=== PATIENT | female | born 1940 | race Caucasian/White ===

== ENCOUNTER → 2018-02-07 01:17 | Outpatient (CLI) | payer MEDICARE, OTHER, SELFPAY ==
--- NOTE | 2018-02-07 12:47 | DI.REPORT_ITS ---
SYMPTOMS/DIAGNOSIS: SCREENING, Z12.31 MAMMOGRAMS: Mammograms were interpreted according to the usual protocol including computer analysis with CAD system, tomosynthesis and C view imaging. There are small bilateral nodular densities. There is no evidence of a dominant mass. There are no suspicious calcifications and there has been no significant interval change when compared with prior images. SUMMARY: No evidence of malignancy, category 1. Annual screening mammography is recommended. Breast density category B. SA ASSESSMENT OF FINDINGS: Negative. Category 1. Patient will receive a letter notifying them of these results. BI-RADS category B. There are scattered areas of fibroglandular density.
== END ==
PROVIDERS: PCP Student in an Organized Health Care Education/Training Program; Visit Provider Student in an Organized Health Care Education/Training Program
DX: Z12.31 Encounter for screening mammogram for malignant neoplasm of breast (principal)
CPT/HCPCS: 77063; 77067

== ENCOUNTER 2018-06-15 17:18 | Outpatient (REF) | payer MEDICARE, OTHER, SELFPAY ==
[2018-06-15 17:54] LABS: Bacteria Rare HPF (Negative); Crystals Negative HPF (Negative); Epithelial Cells Few HPF (Negative); Other Cells Few Renal (Negative); RBC 0-2 (0-2)
[2018-06-15 17:55] LABS: C & S Indicated? Yes; Mucus Negative (Negative)
== END 2018-06-15 17:38 ==
LOC: LBN 17:18
PROVIDERS: PCP Student in an Organized Health Care Education/Training Program; Visit Provider Urology
DX: R31.0 Gross hematuria (principal)
CPT/HCPCS: 81003; 99213; 81015; 87086

== ENCOUNTER → 2018-09-06 13:56 | Outpatient (BNVA) | payer MEDICARE, OTHER, SELFPAY | PROVIDERS: PCP Student in an Organized Health Care Education/Training Program; Referring Provider Student in an Organized Health Care Education/Training Program; Visit Provider Physical Therapy Assistant | DX: K21.9 Gastro-esophageal reflux disease without esophagitis (principal); R07.9 Chest pain, unspecified; I10 Essential (primary) hypertension | CPT/HCPCS: 99212; 99213 ==

== ENCOUNTER 2018-09-07 01:27 | Outpatient (CLI) | payer MEDICARE, OTHER, SELFPAY ==
--- NOTE | 2018-09-25 18:20 | ZIOP_ITS ---
ZIO PATCH REPORT DATE OF READING: September 25, 2018 STUDY INDICATION: Palpitations. REQUESTING PROVIDER: Melissa Lee D.O. FINDINGS: The patient was monitored for 12 days and 17 hours. The predominant underlying rhythm was sinus rhythm. Average heart rate in sinus rhythm 67 beats per minute, range of 48-108 beats per minute. There was rare ectopy, less than 1% PACs, and less than 1% PVCs. There were 26 episodes of supraventricular tachycardia, average heart rate 113 beats per minute, range 64-150 beats per minute. The longest episode lasted 13.3 seconds, with an average heart rate of 106 beats per minute. There were 28 episodes of ventricular tachycardia, average heart rate 154 beats per minute, range 97-115 beats per minute. The longest episode lasted 14 beats, with an average heart rate of 117 beats per minute. Some of the ventricular runs resemble supraventricular tachycardia with aberrancy. There were 8 pauses, longest 3.8 seconds occurring during daytime. There were no patient events. FINAL INTERPRETATION: Asymptomatic tachybrady syndrome.
== END 2018-09-07 01:47 ==
PROVIDERS: PCP Student in an Organized Health Care Education/Training Program; Visit Provider Student in an Organized Health Care Education/Training Program
DX: R00.2 Palpitations (principal); I47.1 Supraventricular tachycardia; I47.2 Ventricular tachycardia; I49.5 Sick sinus syndrome
CPT/HCPCS: 0296T; 93225

== ENCOUNTER 2018-09-25 14:36 | Outpatient (CLI) | payer MEDICARE, OTHER, SELFPAY | END 2018-09-25 14:56 | PROVIDERS: PCP Student in an Organized Health Care Education/Training Program; Referring Provider Student in an Organized Health Care Education/Training Program; Visit Provider Student in an Organized Health Care Education/Training Program | DX: R00.2 Palpitations (principal); I47.1 Supraventricular tachycardia; I47.2 Ventricular tachycardia; I49.5 Sick sinus syndrome | CPT/HCPCS: 0298T ==

== ENCOUNTER 2018-10-10 10:34 | Outpatient (CLI) | payer MEDICARE, OTHER, SELFPAY ==
--- NOTE | 2018-10-10 10:21 | DI.RAD_ITS ---
SYMPTOMS/DIAGNOSIS: LEFT KNEE PAIN LEFT KNEE: Three views. AP, lateral and Merchant views were obtained. There are postsurgical changes of a left total knee replacement. There is no evidence of hardware failure. The bones are intact. The patella appears grossly unremarkable. IMPRESSION: Stable left TKR.
--- NOTE | 2018-10-10 10:21 | DI.RAD_ITS ---
SYMPTOMS/DIAGNOSIS: LT KNEE PAIN, RT KNEE PAIN RIGHT KNEE: Multiple views. There are post surgical changes of a right total knee replacement. When compared to the prior examination from 12/14/16, there has been no significant change in appearance of the prosthesis. No evidence of loosening or infection is present. No acute fracture or dislocation is seen. The soft tissues are unremarkable. IMPRESSION: Stable right TKR.
== END 2018-10-10 10:54 ==
PROVIDERS: PCP Student in an Organized Health Care Education/Training Program; Referring Provider Student in an Organized Health Care Education/Training Program; Visit Provider Student in an Organized Health Care Education/Training Program
DX: M25.561 Pain in right knee (principal); M25.562 Pain in left knee; Z96.652 Presence of left artificial knee joint; T84.84XA Pain due to internal orthopedic prosthetic devices, implants and grafts, initial encounter
CPT/HCPCS: 20610; 73562; 99213; 99214; J1040

== ENCOUNTER 2018-10-12 00:25 | Outpatient (CLI) | payer MEDICARE, OTHER, SELFPAY ==
--- NOTE | 2018-10-12 10:49 | DI.NM_ITS ---
SYMPTOMS/DIAGNOSIS: S/P LT AND RT TKA, CONTINUED KAHLIL KNEE PAIN, M25.569 3 PHASE BONE SCAN: 3 phase bone scan was performed with 3 phase imaging of the knees and whole body imaging with 24.3 millicuries of Technetium 99 labeled Methylene Diphosphonate injected intravenously. Flow and immediate imaging of the knees is unremarkable. Delayed imaging of the knees shows minimally increased uptake typical for increased uptake associated with bilateral knee joint replacements. Whole body imaging shows mildly increased uptake in the ankles, hips and shoulders consistent with degenerative change and minimal increase in uptake in the thoracic and lumbar spine in multiple location also consistent with degenerative change. CONCLUSION: Unremarkable examination as described above.
== END 2018-10-12 00:45 ==
PROVIDERS: PCP Student in an Organized Health Care Education/Training Program; Visit Provider Physician Assistant
DX: M25.561 Pain in right knee (principal); M25.562 Pain in left knee; Z96.653 Presence of artificial knee joint, bilateral; M19.90 Unspecified osteoarthritis, unspecified site
CPT/HCPCS: 78315

== ENCOUNTER 2018-10-15 06:10 | Day surgery (SDC) | payer MEDICARE, OTHER, SELFPAY ==
--- NOTE | 2018-10-15 06:24 | ENDO_ITS ---
Date of service: 10/15/18 Time of Service: 07:25 Endoscopy Report DATE OF PROCEDURE: 10/15/18 PRE-OP DIAGNOSIS: GERD POST-OP DIAGNOSIS: other (mild inflammation of duodenum, stomach and esophagus) PROCEDURE: EGD with biopsies SURGEON: Mindy Velasco ANESTHESIA: other (General / ASA 2/ Aguila Sneed, MANUEL) ESTIMATED BLOOD LOSS: 3 PATHOLOGY: other (Duodenal bx, antrum bx, GE junction bx) COMPLICATIONS: None DISPOSITION: same day INDICATIONS: Mrs. Norton is a pleasant 78 year old seen in the office for GERD symptoms and atypical chest pain on no treatment. Risks, benefits and complications have been reviewed. Complications include but are not limited to bleeding, pain, perforation, sore throat, aspiration, and adverse reaction to the medications. Questions were entertained and answered to their satisfaction and they wished to proceed. No guarantees were given or implied. PROCEDURE START TIME: 07:25 PROCEDURE END TIME: 07:32 FINDINGS: Mild local inflammation of the duodenum Mild inflammation of the antrum and GE junction PROCEDURE DESCRIPTION: After informed consent was obtained the patient was take to the procedure room and placed in a supine position. Monitors were applied and a time out was done. The patients name, date of , procedure type, allergies to medications and metal in their body was reviewed. A bite block was placed and the patient was sedated. Once sedated and comfortable the gastroscope was advanced through the oropharynx which was grossly normal into the esophagus. The proximal and mid- esophagus were normal. In the distal esophagus, at the GE junction, there was mild inflammation noted noted. The scope was advanced into the stomach and through the pylorus into the 3rd portion of the duodenum. The duodenum was noted to have mild inflammation in the 1st portion. Biopsies were done of a local area of inflammation. The scope was retracted back into the stomach and biopsies were done in the antrum to rule out H. pylori. There was mild inflammation. There were no ulcers. The scope was retroflexed. The cardia and fundus were noted to be normal. There was no hiatal hernia noted. The scope was retracted back into the esophagus and biopsies were done of the GE junction to rule out Foley's. The Z line was regular. The GE junction was at 36 cm. The scope was removed and the patient was woken up and taken back to [facility] in stable condition. Follow up: with PCP in 2 weeks. Will start patient on Zantac 150 mg BID
--- NOTE | 2018-10-15 06:24 | W.PM.HP.N ---
Date of service: 10/15/18 Time of Service: 06:30 Assessment and Plan (1) Gastroesophageal reflux disease: Current visit: No Status: Chronic P\\ EGD under sedation Risks, benefits and complications have been reviewed. Complications include but are not limited to bleeding, pain, perforation, sore throat, aspiration, and adverse reaction to the medications. Questions were entertained and answered to their satisfaction and they wished to proceed. No guarantees were given or implied. Qualifiers: Esophagitis presence: esophagitis presence not specified Qualified Code(s): K21.9 - Gastro-esophageal reflux disease without esophagitis (2) Cough: Current visit: No Status: Acute History of Present Illness Narrative: 78 y.o female with history of HTN, GERD, obesity and anxiety presents for further evaluation of persistent reflux symptoms and a cough. The patient reports that she has had a persistent tickle in the back of her throat with associated cough (duration unknown) along with daily reflux symptoms that start in her epigastric region and she can feel the acid splashing up. Her last EGD was in 2015 which showed antral gastritis, no abnormalities seen from biopsies. At this time she was instructed to re start taking Nexium. She currently does not take anything to treat her reflux symptoms. Last Colonoscopy was in 2015 which showed sigmoid diverticula. Of note the patient reports a history of asthma which she treats with an inhaler (?albuterol) as needed. She heats with predominately wood Patient's Zio patch showed Tachy-Dillon syndrome. No other abnormalities. PFSH Medical History Anxiety Chest pain Dysgeusia GERD (gastroesophageal reflux disease) Gross hematuria Head ache Hyperlipidemia Idiopathic peripheral neuropathy Intertrigo Lumbago Mixed stress and urge urinary incontinence Multiple fractures of right femur Multiple joint pain Nail abnormality Nocturia Obesity Osteopenia Osteoporosis Prehypertension Right arm pain Surgical History BILATERAL TKA (10/01/12) Bilateral salpingectomy with oophorectomy section Cholecystectomy Colonoscopy - IV Sedation Hemorrhoidectomy Hysterectomy, Laproscopic Open Carpal Tunnel release RIGHT FOOT FX REPAIR Replacement of total knee joint Right arthroscopic rtotator cuff repair (04/22/13) egd (05/10/16) flexible laryngoscopy (03/12/15) Family History Mother Diabetes Personal history of malignant neoplasm Asthma Father Alzheimer's disease Son Asthma Son No problems noted. Son No problems noted. Daughter No problems noted. Sister No problems noted. Sister Personal history of malignant neoplasm Sister Personal history of malignant neoplasm Sister No problems noted. 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 Pets and animals: Yes Pets and animals: dog(s) What type of physical activity do you participate in: none Seatbelt use: always Do you feel safe at home: Yes Do you feel safe in your relationship?: Yes Victim of physical abuse: No Victim of emotional abuse: No Victim of sexual abuse: No Meds Home Medications Medication Instructions Recorded Confirmed Type ascorbic acid (vitamin C) [Vitamin 500 mg PO DAILY 01/13/15 10/15/18 History C] cyanocobalamin (vitamin B-12) 1,000 mcg SUBLINGUAL DAILY 08/28/15 10/15/18 History [Vitamin B-12] biotin 1 tab PO DAILY 06/06/17 10/15/18 History flaxseed oil 1,000 mg PO DAILY 10/09/17 10/15/18 History cholecalciferol (vitamin D3) 3 tab PO DAILY #270 tab.chew 12/28/17 10/15/18 Rx hydrochlorothiazide 25 mg tablet 12.5 mg PO DAILY tab 04/05/18 10/15/18 History cannabidiol (CBD) 100 mg/mL oral See Rx Instructions PO .COMPLEX ml 08/16/18 10/15/18 History solution vitamin E mixed 400 unit capsule 400 unit PO cap 08/16/18 10/10/18 History naproxen sodium 220 mg tablet 220 mg PO DAILY PRN 09/06/18 10/10/18 History Allergies Allergy/AdvReac Type Severity Reaction Status Date / Time adhesive tape Allergy Intermediate blisters Verified 10/15/18 06:36 on skin Sulfa (Sulfonamide Allergy Intermediate sister Verified 10/15/18 06:36 Antibiotics) of anaphylaxis per pt aspirin AdvReac Intermediate nosebleeds Verified 10/15/18 06:36 codeine AdvReac Intermediate blackouts Verified 10/15/18 06:36 latex AdvReac Intermediate skin-red Verified 10/15/18 06:36 ithcy spots on skin morphine AdvReac Intermediate becomes Verified 10/15/18 06:36 very ill, vomting Exam Resp Effort & Inspection: normal respiratory effort Auscultation: clear to auscultation bilaterally Cardio Rate: regular rate Rhythm: regular rhythm Heart Sounds: no click, no gallops and no murmurs GI Inspection: normal to inspection Palpation: soft Auscultation: normal bowel sounds
[2018-10-15 06:29] VITALS: BP 144/76; PULSE 59; RESP 16; TEMP 36.3; O2SAT 97
--- NOTE | 2018-10-15 06:30 | W.PM.DSUDISC ---
Discharge Plan Disposition Patient Disposition: HOME Condition: Good Discharge Details Reason For Visit: GERD, Cough Attending Provider: Mindy Velasco Primary Care Provider: Melissa Lee Home Meds and New Rx's Prescriptions: New ranitidine HCl 150 mg tablet 150 mg PO BID Qty: 60 RF: 1 Continued hydrochlorothiazide 25 mg tablet 12.5 mg PO DAILY RF: 0 vitamin E mixed 400 unit capsule 400 unit PO RF: 0 cannabidiol (CBD) extract 100 mg/mL solution See Patient Comments PO .COMPLEX RF: 0 ascorbic acid (vitamin C) [Vitamin C] 500 MG tablet 500 mg PO DAILY RF: 0 flaxseed oil 1,000 MG capsule 1,000 mg PO DAILY RF: 0 cholecalciferol (vitamin D3) 400 UNIT tablet,chewable 3 tab PO DAILY Qty: 270 RF: 4 naproxen sodium [Aleve] 220 mg tablet 220 mg PO DAILY PRNRF: 0 cyanocobalamin (vitamin B-12) [Vitamin B-12] 1,000 MCG tablet, sublingual 1,000 mcg Sublingual DAILY RF: 0 biotin 800 MCG tablet 1 tab PO DAILY RF: 0 Discharge Instructions Instructions: Upper Endoscopy (DC), Duodenitis (DC), Diet for Stomach Ulcers and Gastritis (GEN), Gastritis (DC), Gastroesophageal Reflux Disease (DC) Additional Instructions: Findings: mild inflammation of the small bowel, stomach and esophagus Follow up: with your Primary Care Physician in 2 weeks New Medication: Please moss picker Rx for Ranitidine at your pharmacy and take 1 tab in the morning and 1 tab at night Please call if you develop: fevers >101.5 Nausea or Vomiting Abdominal pain that is not transient DAY SURGERY UNIT POST COLONOSCOPY INSTRUCTIONS 1. Because there will be medication in your system for the next 24 hours, you may feel a little sleepy. Your coordination will be affected. Therefore: a. Do not drive or operate dangerous equipment for 24 hours. b. Do not drink alcohol beverages for 24 hours (not even beer). c. Plan to go home and rest for the day. 2. Generally there are no restrictions on your activity after a day or so has gone by, but you may feel a bit fatigued for a few days. 3 After you arrive home you may have a light meal and return to a normal diet as you can tolerate it without feeling sick to your stomach. 4. After surgery, you may feel pain or discomfort. This should be only transient, but if it persists please contact your doctor. 5. If there are any questions regarding the findings of your procedure, please feel free to contact your doctor. 6. If you are unable to contact your doctor with a problem, contact the hospital at [phone]. 7. Continue all your regular medications unless directed otherwise. I understand the above instructions and have no questions. Signature of Patient or Responsible Adult Escort Date/Time Name of Responsible Adult Escort Signature of Nurse Date/Time Stand Alone Forms: DSU Post EGD Instructions, Marshall Negrete (DSU) Referrals: Melissa Lee DO [Primary Care Provider] - (2 weeks) Activity:: Activity as Tolerated Diet:: low acid Discharge Orders Discharge Orders: Discharge Order (Routine); Ordered 10/15/18 Ordered By: Mindy Velasco DS: Diagnosis Discharge Diagnosis (1) Gastroesophageal reflux disease: Status: Chronic (2) Cough: Status: Acute
[2018-10-15] MEDS: Lactated Ringers 1,000 ML 80 ML IV (07:12)
--- NOTE | 2018-10-15 07:28 | STOM_PTH ---
PATIENT: Crystal Norton LOC: [facility] U#:[id number] AGE/SX: 78/F ROOM: RE10/15/[address]: Mindy Velasco MD : [id number] BED: DIS: 10/15/2018 SPEC #: [id number] RECD: 10/15/18 12:40 STATUS: EARL RE #: [id number] YUVAL: 10/15/18 07:[address]: Mindy Velasco DEPT: Surgical Specimen RECD BY: Bessy Pyle ENTERED: 10/15/18 12:43 SP TYPE: STOMACH OTHR DR: Melissa Lee DO Tissues: 1 - BIOPSY BOWEL 2 - STOMACH BIOPSY 3 - ESOPHAGUS BIOPSY Procedures: GROSS AND MICRO LEVEL 4 Comments: [id number]
[2018-10-15 08:10] VITALS: BP 124/69; PULSE 52; RESP 18; TEMP 35.7; O2SAT 99
== END 2018-10-15 08:27 | disposition home or self-care (01) ==
PROVIDERS: PCP Student in an Organized Health Care Education/Training Program; Visit Provider Surgery
PROC: 0DJ68ZZ Inspection of Stomach, Via Natural or Artificial Opening Endoscopic (ICD-10-PCS; CPT 43235; principal; 2018-10-15 07:30)
DX: K21.9 Gastro-esophageal reflux disease without esophagitis (principal); R05 Cough; K31.89 Other diseases of stomach and duodenum; K20.9 Esophagitis, unspecified
CPT/HCPCS: 43239; 88305; NC

== ENCOUNTER → 2018-10-17 13:57 | Outpatient (BNVA) | payer MEDICARE, OTHER, SELFPAY | PROVIDERS: PCP Student in an Organized Health Care Education/Training Program; Referring Provider Student in an Organized Health Care Education/Training Program; Visit Provider Student in an Organized Health Care Education/Training Program | DX: Z98.890 Other specified postprocedural states (principal); Z47.1 Aftercare following joint replacement surgery; Z96.653 Presence of artificial knee joint, bilateral; M76.52 Patellar tendinitis, left knee; T84.84XD Pain due to internal orthopedic prosthetic devices, implants and grafts, subsequent encounter | CPT/HCPCS: 99212; 99213 ==

== ENCOUNTER 2018-12-10 16:26 | Outpatient (REF) | payer MEDICARE, OTHER, SELFPAY | END 2018-12-10 16:46 | LOC: LBN 16:26 | PROVIDERS: PCP Student in an Organized Health Care Education/Training Program; Visit Provider Nurse Practitioner Adult Health | DX: R30.0 Dysuria (principal) | CPT/HCPCS: 87086 ==

== ENCOUNTER 2018-12-10 16:28 | Outpatient (CLI) | payer MEDICARE, OTHER, SELFPAY ==
[2018-12-10 16:55] LABS: Abs Immature Grans 0.02 k/cumm (0.0-0.09); Absolute Basophil Count 0.01 k/cumm (0.0-0.2); Absolute Eosinophil Count 0.21 k/cumm (0.0-0.7); Absolute Lymphocyte Count 1.94 k/cumm (1.2-3.4); Absolute Neutrophil Count 3.96 k/cumm (1.2-6.7); Basophils % 0.1; HGB 12.3 g/dL (12.0-15.5); Immature Grans % 0.3; Mean Corp. HGB Concentration 32.4 g/dL (32.0-36.0); Mean Corpuscular Hemoglobin 31.5 pg (27.0-33.0); Mean Corpuscular Volume 97.2 fL (80-95); Mean Platelet Volume 10.1 fL (8.0-11.0); Monocytes % 11.5; Neutrophils % 57.1; Platelet Count 215 x1000/uL (130-400); RBC 3.91 m/cumm (4.00-5.20); RBC Distribution Width 13.2 % (11.7-14.6); White Blood Cell Count 6.94 k/cumm (4.4-10.8)
[2018-12-10 18:10] LABS: ALT 19 U/L (12-78); AST 15 U/L (15-37); Albumin 3.6 g/dL (3.4-5.0); Alkaline Phosphatase 104 U/L (46-116); Anion Gap 8.1 mmol/L (3-11); BUN 30 mg/dL (7-18); Bilirubin, Total 0.3 mg/dL (0.2-1.0); CO2 30.9 mmol/L (21.0-32.0); CREATININE 1.27 mg/dL (0.55-1.02); Calcium 8.8 mg/dL (8.5-10.1); Chloride 103 mmol/L (98-107); Estimated GFR 40.59 (mL/min/1.73m2); Glucose 93 mg/dL (70-100); Potassium 3.7 mmol/L (3.5-5.1); Sodium 142 mmol/L (136-145); TSH (W/Ref FT4) 1.35 uIU/mL (0.358-3.74); Total Protein 6.9 g/dL (6.4-8.2); Vitamin B12 994 pg/mL (193-986)
== END 2018-12-10 16:48 ==
PROVIDERS: PCP Student in an Organized Health Care Education/Training Program; Visit Provider Nurse Practitioner Adult Health
DX: R07.9 Chest pain, unspecified (principal); R53.83 Other fatigue
CPT/HCPCS: 36415; 80053; 82607; 84443; 85025

== ENCOUNTER → 2019-01-16 09:49 | Outpatient (BNVA) | payer MEDICARE, OTHER, SELFPAY | PROVIDERS: PCP Student in an Organized Health Care Education/Training Program; Referring Provider Student in an Organized Health Care Education/Training Program; Visit Provider Student in an Organized Health Care Education/Training Program | DX: T84.84XA Pain due to internal orthopedic prosthetic devices, implants and grafts, initial encounter (principal); Z96.653 Presence of artificial knee joint, bilateral; M22.2X1 Patellofemoral disorders, right knee; M22.2X2 Patellofemoral disorders, left knee; Z98.890 Other specified postprocedural states; M25.512 Pain in left shoulder | CPT/HCPCS: 99213 ==

== ENCOUNTER 2019-02-20 00:17 | Outpatient (CLI) | payer MEDICARE, OTHER, SELFPAY ==
--- NOTE | 2019-02-20 14:31 | DI.MAMMO_ITS ---
SYMPTOMS/DIAGNOSIS: SCREENING, Z12.31 MAMMOGRAM: Mammograms were interpreted according to the usual protocol including computer analysis with CAD system, tomosynthesis and C view imaging. The breasts are of moderate density with fairly symmetrical distribution of fibroglandular tissue. No dominant mass or clumped microcalcification is identified in either breast. Current examination is compared with the previous examinations including January 2018 and there has been no gross interval change in appearance in comparison with the previous studies. CONCLUSION: No specific evidence of malignancy at this time. Routine screening examinations are suggested at yearly intervals in this age group according to the ACS/ACR guidelines. Category 1, breast density category B. MQSA ASSESSMENT OF FINDINGS: Negative. Category 1. Patient will receive a letter notifying them of these results. BI-RADS category B. There are scattered areas of fibroglandular density.
== END 2019-02-20 00:37 ==
PROVIDERS: PCP Student in an Organized Health Care Education/Training Program; Visit Provider Student in an Organized Health Care Education/Training Program
DX: Z12.31 Encounter for screening mammogram for malignant neoplasm of breast (principal)
CPT/HCPCS: 77063; 77067

== ENCOUNTER → 2019-03-14 09:18 | Outpatient (BNVA) | payer MEDICARE, OTHER, SELFPAY | PROVIDERS: PCP Student in an Organized Health Care Education/Training Program; Referring Provider Student in an Organized Health Care Education/Training Program; Visit Provider Student in an Organized Health Care Education/Training Program | DX: M75.82 Other shoulder lesions, left shoulder (principal); Z87.828 Personal history of other (healed) physical injury and trauma | CPT/HCPCS: 99213; 99214 ==

== ENCOUNTER → 2019-06-18 10:19 | Outpatient (BNVA) | payer MEDICARE, OTHER, SELFPAY | PROVIDERS: PCP Student in an Organized Health Care Education/Training Program; Referring Provider Student in an Organized Health Care Education/Training Program; Visit Provider Urology | DX: N39.46 Mixed incontinence (principal); R31.29 Other microscopic hematuria | CPT/HCPCS: 81003; 99213 ==

== ENCOUNTER 2019-07-04 03:53 | Outpatient (CLI) | payer MEDICARE, OTHER, SELFPAY | END 2019-07-04 04:13 | PROVIDERS: PCP Student in an Organized Health Care Education/Training Program; Visit Provider Student in an Organized Health Care Education/Training Program | DX: R00.2 Palpitations (principal); I47.1 Supraventricular tachycardia; I49.1 Atrial premature depolarization; I47.2 Ventricular tachycardia | CPT/HCPCS: 93225 ==

== ENCOUNTER 2019-07-06 07:51 | Outpatient (CLI) | payer MEDICARE, OTHER, SELFPAY ==
--- NOTE | 2019-07-08 08:33 | W.HOLTRPT ---
Date of service: 07/08/19 Time of Service: 08:33 Holter Monitor Report Holter Monitor Note: This is a 1 day Holter monitor ordered for the indication of palpitations. ?The patient was in normal sinus rhythm for the majority of the recording. ?The patient had 4 episodes of supraventricular tachycardia with the longest lasting 13 beats. ?There were occasional (1.2%) premature atrial contractions and no runs of PACs. ?There were 2 episodes of ventricular tachycardia with the longest lasting 8 beats. ?There were rare (less than 1%) single ventricular ectopic beats and rare couplets. ?There were no episodes of atrial fibrillation, pauses greater than 3 seconds or evidence of high degree heart block. ?Patient diary events were associated with normal sinus rhythm and single ventricular ectopic beats.
== END 2019-07-06 08:11 ==
PROVIDERS: PCP Student in an Organized Health Care Education/Training Program; Visit Provider Student in an Organized Health Care Education/Training Program
DX: R00.2 Palpitations (principal); I47.1 Supraventricular tachycardia; I49.1 Atrial premature depolarization; I47.2 Ventricular tachycardia
CPT/HCPCS: 93226

== ENCOUNTER 2019-07-08 08:33 | Outpatient (CLI) | payer MEDICARE, OTHER, SELFPAY | END 2019-07-08 08:53 | PROVIDERS: PCP Student in an Organized Health Care Education/Training Program; Referring Provider Student in an Organized Health Care Education/Training Program; Visit Provider Internal Medicine Cardiovascular Disease | DX: R00.2 Palpitations (principal); I47.1 Supraventricular tachycardia; I49.1 Atrial premature depolarization; I47.2 Ventricular tachycardia | CPT/HCPCS: 93227 ==

== ENCOUNTER → 2019-07-12 10:02 | Outpatient (BNVA) | payer MEDICARE, OTHER, SELFPAY | PROVIDERS: PCP Student in an Organized Health Care Education/Training Program; Referring Provider Student in an Organized Health Care Education/Training Program; Visit Provider Student in an Organized Health Care Education/Training Program | DX: M75.82 Other shoulder lesions, left shoulder (principal) | CPT/HCPCS: 20610; 99213; J1040 ==

== ENCOUNTER 2020-03-04 17:49 | Inpatient (IN) | payer MEDICARE, OTHER, SELFPAY ==
[2020-03-04] VITALS (46 sets, daily range): BP systolic 110–155; BP diastolic 44–87; PULSE 41–89; RESP 10–35; TEMP 36.3–36.8; O2SAT 93–100
--- NOTE | 2020-03-04 17:45 | RT.EKG_ITS ---
APPROVED REPORT Exam: Resting ECG Patient Location: E HR:61 bpm ECG Measurements Heart Rate 61 AXIS KS 180 P 75 QRSd 106 QRS -44 QT 462 T 44 QTc 465 Conclusion EKG 18: 04 Rate 61, sinus rhythm, intervals unremarkable. No significant ST elevations or depression, there is evidence of repolarization abnormality, slight widening of the QRS. Otherwise unremarkable
--- NOTE | 2020-03-04 18:04 | ED.GENADUL_ITS ---
Discharge Plan Disposition Patient Disposition: [facility] INPATIENT Condition: Serious Discharge Details Chief Complaint: GenMedical Clinical Impression: Bradycardia, Acute epigastric pain, Chest pain, Breath shortness Primary Care Provider: Melissa Lee ED Provider: Jordin Schmid [place] Meds and New Rx's Prescriptions: No Action hydrochlorothiazide 25 mg tablet 25 mg PO DAILY Qty: 90 RF: 3 cannabidiol 100 mg/mL solution See Rx Instructions PO .COMPLEX PRNRF: 0 vitamin E mixed 400 unit capsule 400 unit PO DAILY RF: 0 albuterol sulfate [Ventolin HFA] 90 mcg/actuation HFA aerosol inhaler 2 puff IH Q6H PRN (Reason: shortness of breath or wheezing) Qty: 6.7 RF: 0 flaxseed oil 1,000 MG capsule 1,000 mg PO DAILY RF: 0 cholecalciferol (vitamin D3) 400 UNIT tablet,chewable 3 tab PO DAILY Qty: 270 RF: 4 ascorbic acid (vitamin C) [Vitamin C] 500 mg tablet 500 mg PO DAILY RF: 0 cyanocobalamin (vitamin B-12) [Vitamin B-12] 1,000 MCG tablet, sublingual 1,000 mcg Sublingual DAILY RF: 0 biotin 800 MCG tablet 1 tab PO DAILY RF: 0 Medical Decision Making <Jesus Manuel Hamm DO - Last Filed: 03/04/20 19:38> 79-year-old female with a past medical history of hypertension, arthritis, anxiety, obesity, spinal stenosis, GERD, presents today for generalized symptoms of feeling unwell, in conjunction with central chest pain, cough that is productive, notable fatigue. Patient states that for the last 4 to 5 days she has been feeling generally unwell, she has had a mild cough that she states she has been trying to fight, it is been productive with clear sputum. She admits to occasional chills, fatigue, generalized malaise. Over the last day or so she has developed left-sided chest discomfort, just over her right breast. Worse with palpation and movement. Radiates up to her neck. She describes it as an aching pinching sensation. She denies vomiting or diarrhea but also does admit to epigastric discomfort and generalized nausea and abdominal pain. She denies any history of cardiac disease, she denies that the symptoms are worse when she lies down, she denies any pain in her left or right arms. She denies any change with diet. She does admit to worsening pain when she breathes. She denies any recent weight gain. She denies any recent long trips surgeries or procedures. She denies a history of previous PE. She has been taking her inhalers at home, they have been helping except for the last day or so, and states that they are no longer beneficial. Differential is notably broad, as the patient is multiple symptoms, however infectious etiology including UTI, pneumonia is certainly on the differential. With her pleuritic chest pain and age, asthma versus PE is also on the differential. We will test for influenza and coronavirus, will monitor closely and reassess. Currently the patient's vital signs are reassuringly stable though which is certainly an encouragement. Cardiac etiology is also of concern, screening EKG though shows no evidence of STEMI. 7:36 PM Patient's laboratory work-up is returning, proBNP is only slightly elevated at 666, GFR 39, creatinine 1.3, potassium is 3.3, we will correct this. Pending [facility] level. No white count or bandemia. Kidney function is not able to tolerate CT with contrast, we will change imaging to Noncon to evaluate the abdomen and chest, and get a d-dimer to help differentiate for PE. The patient has had a few episodes of notable bradycardia here going into the 30s and 40s. Rhythm strip demonstrates sinus rhythm, with no evidence of significant block otherwise that can be appreciated. Patient has been placed on pacer pads, atropine is at bedside. Patient will be signed out to my colleague Dr. Schmid for follow-up on labs and imaging. EKG 18: 04 Rate 61, sinus rhythm, intervals unremarkable. No significant ST elevations or depression, there is evidence of repolarization abnormality, slight widening of the QRS. Otherwise unremarkable Candidate vein examined with linear array probe - confirmed collapsibility, lack of pulsatility, and proper anatomic location. Using aseptic technique, IV catheter inserted with flash of blood noted, flow of venous blood confirmed. Flushes easily and without pain. No hematoma or complications noted. IV secured. Patient tolerated well. <Jordin Schmid MD - Last Filed: 03/04/20 21:45> pt's hr now in the 50's in sinus and does state she feels better but still has reproducible left lateral chest tenderness. labs show no acute findings, UA unremarkable and awaiting flu. After discussion with the pt and her symptoms she prefers observation in the hospital overnight due to her heart rate being low intermittent and pain. Her d dimer is just outside normal age adjusted range but has no hypoxia or evidence of dvt on exam so do not feel empiric tx for PE indicated and do not feel cta indicated. spoke with Dr. Hicks who agrees for observation and will reevaluate in AM need for further PE workup Imaging Data Radiologic Study: Attestation: I personally reviewed and interpreted this imaging study as follows: Imaging: CT Scan Radiologist's impression: no acute findings on chest/abd/pelvis ct HPI <Jesus Manuel Hamm, - Last Filed: 03/04/20 19:38> General Date/Time Provider Initiated Documentation: 03/04/20 17:49 . HPI Narrative: 79-year-old female with a past medical history of hypertension, arthritis, anxiety, obesity, spinal stenosis, GERD, presents today for generalized symptoms of feeling unwell, in conjunction with central chest pain, cough that is productive, notable fatigue. Patient states that for the last 4 to 5 days she has been feeling generally unwell, she has had a mild cough that she states she has been trying to fight, it is been productive with clear sputum. She admits to occasional chills, fatigue, generalized malaise. Over the last day or so she has developed left-sided chest discomfort, just over her right breast. Worse with palpation and movement. Radiates up to her neck. She describes it as an aching pinching sensation. She denies vomiting or diarrhea but also does admit to epigastric discomfort and generalized nausea and abdominal pain. She denies any history of cardiac disease, she denies that the symptoms are worse when she lies down, she denies any pain in her left or right arms. She denies any change with diet. She does admit to worsening pain when she breathes. She denies any recent weight gain. She denies any recent long trips surgeries or procedures. She denies a history of previous PE. She has been taking her inhalers at home, they have been helping except for the last day or so, and states that they are no longer beneficial. Related Data Home Medications Medication Instructions Recorded Confirmed cyanocobalamin (vitamin B-12) 1,000 mcg SUBLINGUAL DAILY 08/28/15 03/04/20 [Vitamin B-12] biotin 1 tab PO DAILY 06/06/17 03/04/20 flaxseed oil 1,000 mg PO DAILY 10/09/17 03/04/20 cholecalciferol (vitamin D3) 3 tab PO DAILY #270 tab.chew 12/28/17 03/04/20 albuterol sulfate 90 mcg/actuation 2 puff IH Q6H PRN #6.7 gm 12/28/18 03/04/20 aerosol inhaler cannabidiol 100 mg/mL oral solution See Rx Instructions PO .COMPLEX 12/28/18 03/04/20 PRN ml hydrochlorothiazide 25 mg tablet 25 mg PO DAILY #90 tab 04/03/19 03/04/20 vitamin E mixed 400 unit capsule 400 unit PO DAILY cap 04/03/19 03/04/20 ascorbic acid (vitamin C) 500 mg 500 mg PO DAILY tab 06/12/19 03/04/20 tablet Previous Rx's Medication Instructions Recorded cholecalciferol (vitamin D3) 3 tab PO DAILY #270 tab.chew 12/28/17 albuterol sulfate 90 mcg/actuation 2 puff IH Q6H PRN #6.7 gm 12/28/18 aerosol inhaler hydrochlorothiazide 25 mg tablet 25 mg PO DAILY #90 tab 04/03/19 Allergies Allergy/AdvReac Type Severity Reaction Status Date / Time adhesive tape Allergy Intermediate blisters Verified 03/04/20 18:56 on skin Sulfa (Sulfonamide Allergy Intermediate sister Verified 03/04/20 18:56 Antibiotics) of anaphylaxis per pt aspirin AdvReac Intermediate nosebleeds Verified 03/04/20 18:56 codeine AdvReac Intermediate blackouts Verified 03/04/20 18:56 latex AdvReac Intermediate skin-red Verified 03/04/20 18:56 ithcy spots on skin morphine AdvReac Intermediate becomes Verified 03/04/20 18:56 very ill, vomting General Stated Complaint: GenMedical BENNY: 3 Review of Systems <Jesus Manuel Hamm DO - Last Filed: 03/04/20 19:38> All systems reviewed & are unremarkable except as noted in HPI and below PFSH <Jesus Manuel Hamm DO - Last Filed: 03/04/20 19:38> Medical History Anxiety Chest pain Dysgeusia GERD (gastroesophageal reflux disease) Gross hematuria Head ache Hyperlipidemia pt. states she is unsure if she has this Idiopathic peripheral neuropathy Intertrigo Lumbago Mixed stress and urge urinary incontinence Multiple fractures of right femur pt states she fractured her hip Multiple joint pain Nail abnormality Nocturia Obesity Osteopenia Osteoporosis Prehypertension Right arm pain Surgical History Bilateral salpingectomy with oophorectomy BILATERAL TKA (10/01/12) DR. VANDANA HARDIN section X4 Cholecystectomy Colonoscopy - IV Sedation egd (05/10/16) flexible laryngoscopy (03/12/15) Dr Villatoro Hemorrhoidectomy History of esophagogastroduodenoscopy (EGD) (Chronic ~10/15/18) Hysterectomy, Laproscopic Open Carpal Tunnel release Replacement of total knee joint Right arthroscopic rtotator cuff repair (04/22/13) RIGHT FOOT FX REPAIR Family History Mother , Fluid buildup at age 72. Diabetes did not have diabetes Personal history of malignant neoplasm Asthma Father , AD,blood clot at age 69. Alzheimer's disease Son Asthma Son No problems noted. Son No problems noted. Daughter No problems noted. Sister No problems noted. Sister Personal history of malignant neoplasm Sister Personal history of malignant neoplasm Sister No problems noted. 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 3.ENT: Atraumatic external nose and ears. Dry MM. Neck: Symmetric, trachea midline, No thyromegaly. Patient demonstrates good movement of cervical neck. There is no nuchal rigidity, no nuchal tenderness. Patient is able to flex the neck without any difficulty or significant pain. 4.CVS: +S1/S2, No murmurs or gallops. Peripheral pulses 2+ and equal in all extremities. Brisk capillary refill in all extremities. Radial pulses +2 bilaterally. Notable reproducible pain on palpation over the left chest wall. No evidence of trauma though. 5.RESP: Unlabored respiratory effort. Mild crackles in the bases, no wheezes or rhonchi. 6.GI: Soft, Nondistended, No hepatosplenomegaly. Mild epigastric tenderness. No guarding or rebound. 7.MSK: Normocephalic/Atraumatic, Extremities w/o deformity or ttp No cyanosis or clubbing, Normal movement of all extremities, trace pitting edema in the lower extremities, slightly less than +1. No unilateral or bilateral calf tenderness. 8.Skin: Warm, Dry. No rashes or lesions. 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 Sensation grossly intact, no focal neurologic deficits. 10.Psych: (AAO) x3. Appropriate mood and affect Course <Jesus Manuel Hamm DO - Last Filed: 03/04/20 19:38> Vital Signs Vital signs: Vital Signs Temperature 36.3 C L 03/04/20 17:57 Pulse Oximetry 100 03/04/20 17:57 Temperature 36.3 C L 03/04/20 17:57 Temperature Source Skin 03/04/20 17:57 Respiratory Effort 03/04/20 18:00 Blood Pressure Position Supine 03/04/20 17:57 Pulse Oximetry 100 03/04/20 17:57 Oxygen Delivery Method Room Air 03/04/20 17:57 Oxygen Flow Rate 0 03/04/20 17:57 Pain Level 10 03/04/20 17:57 Lab/Test Results Lab/Test Results: 03/04/20 18:02 Blood Blood Culture - Pending 03/04/20 18:02 Blood Blood Culture - Pending Sign Out <Jesus Manuel Hamm DO - Last Filed: 03/04/20 19:38> Sign Out Data: Sign Out Comment: Chest pain, shortness of breath, abdominal pain, nausea, follow-up on labs and imaging. Currently bradycardic intermittently, atropine at bedside, place her pads in place. Blood pressure remaining notably stable though. No signs of indication for acute transvenous pacing currently. Last updated by Jesus Manuel Hamm DO at 03/04/20 19:40
[2020-03-04] MEDS: nitroGLYcerin 0.4 MG TAB SL (18:27)
[2020-03-04] MEDS: Albuterol/Ipratropium 3 ML UPD VIAL UPD (18:41)
--- NOTE | 2020-03-04 18:47 | NUR.NOTE ---
1835 patient heart rate dropping to 38. Placed on Zoll. Dr. Hamm in room to insert IV line.
[2020-03-04] MEDS: ACETAMINOPHEN 1,000 MG/100 ML BTL 400 MG IVPB (18:52)
[2020-03-04 18:56] LABS: Abs Immature Grans 0.01 10^3/uL (0.0-0.06); Absolute Basophil Count 0.01 10^3/uL (0.0-0.2); Absolute Eosinophil Count 0.17 10^3/uL (0.0-0.7); Absolute Lymphocyte Count 2.43 10^3/uL (1.2-3.4); Absolute Monocyte Count 0.66 10^3/uL (0.1-0.8); Absolute Neutrophil Count 3.29 10^3/uL (1.2-6.7); BE (Venous) 6 mmol/L (-2-3); Basophils % 0.2; Eosinophils % 2.6; HCO3 (Venous) 30 mmol/L (23-28); HCT 36.1 % (36.0-46.0); HGB 11.7 g/dL (11.2-15.7); Immature Grans % 0.2; MCH 30.8 pg (27.0-33.0); MCHC 32.4 % (32.0-36.0); MPV 10.2 fL (8.0-11.0); Nucleated RBC 0 %; O2 Sat (Venous) 79 %; Platelet Count 204 10^3/uL (130-400); RDW 12.9 % (11.7-14.6); RDW-SD 44.6 fL; TCO2 (Venous) 27 mmol/L (24-29); WBC 6.57 10^3/uL (4.4-10.8); pCO2 (Venous) 38 mmHg (41-51); pO2 (Venous) 39 mmHg
[2020-03-04 19:06] LABS: Prothrombin Time 9.8 sec (9.3-11.0)
[2020-03-04 19:20] LABS: ALT 15 U/L (14-59); AST 15 U/L (15-37); Albumin 3.7 g/dL (3.4-5.0); Alkaline Phosphatase 68 U/L (46-116); Anion Gap 8.2 mmol/L (3-11); BUN 23 mg/dL (7-18); Bilirubin, Total 0.5 mg/dL (0.2-1.0); CO2 28.8 mmol/L (21.0-32.0); CREATININE 1.31 mg/dL (0.55-1.02); Calcium 9.6 mg/dL (8.5-10.1); Chloride 101 mmol/L (98-107); Estimated GFR 39.06 (mL/min/1.73m2); Glucose 102 mg/dL (74-106); Lipase 61 U/L (73-393); NT-proBNP 666 pg/mL (<300); Potassium 3.3 mmol/L (3.5-5.1); Sodium 138 mmol/L (136-145); Total Protein 6.9 g/dL (6.4-8.2); Troponin I < 0.05 ng/mL (<0.06)
--- NOTE | 2020-03-04 20:27 | DI.CT_ITS ---
EXAM: CT CHEST/ABD/PEL WO CLINICAL HISTORY: chest pain, cough, epigastric abd pain, low gfr TECHNIQUE: Imaging Protocol: Axial computed tomography images with coronal and sagittal reformatted images were created and reviewed CONTRAST MATERIAL: Imaging Protocol: Axial computed tomography images with coronal and sagittal refo rmatted images were created and reviewed. COMPARISON: CT RENAL COLIC WO CONTRAST from 04/11/2017 FINDINGS: CHEST: Tracheobronchial tree: Patent where visualized. Mediastinum and Emma: No dominant adenopathy or fluid collection. Pulmonary parenchyma: No consolidation or dominant measurable mass. No architectural distortion. Calc ified granuloma in the left lower lobe. Scarring or atelectasis in the lung bases bilaterally. Pleura: No effusion or pneumothorax. Heart: The heart is not dilated. Mild coronary artery calcification. No significant pericardial effu mariah. Aorta: Thoracic aorta non-dilated. Atherosclerosis. Lymph nodes: Within normal limits. Bones:Degenerative changes. Soft tissues: Unremarkable. ABDOMEN: Liver: Normal density. No measurable mass. Calcified granuloma. Gallbladder and Biliary Tract: Status post cholecystectomy. No biliary ductal dilatation. Pancreas: No abnormal calcifications or inflammatory process. Fatty atrophy. Spleen: Normal. Adrenals: No masses seen. Kidneys: Normal size, contour and axis. 4 mm nonobstructing stone in the left kidney. No masses seen . Abdominal Aorta: Abdominal portion non-dilated. Atherosclerosis. Bowel: No obstruction or bowel wall thickening. No evidence of acute appendicitis. Colonic diverticu losis. No evidence of acute diverticulitis. Peritoneal Cavity: No ascites, collection or mesenteric inflammatory response. Lymph Nodes: Within normal limits. Bones: Degenerative changes. Soft Tissues: Unremarkable. PELVIS: Bladder: Symmetric distention, no gross wall thickening. Reproductive Organs: Status post hysterectomy. Lymph Nodes: Within normal limits. Bones: Degenerative changes. S/p fixation device in the proximal right femur. Grade 1 anterolisthes is of L4 on L5. IMPRESSION: No acute process in the chest, abdomen or pelvis. RADIATION DOSE DELIVERED: 1,502.66mGy.cm Total DLP 1,502.66mGy.cm Total DLP DATA REPOSITORY: All CT scans at this facility are submitted to the National Radiology Data Registry (NRDR) Dose Index Registry (DIR) with the [employer] (ACR). RADIATION OPTIMIZATION: All CT scans at this facility use at least one of these dose optimization te chniques: automated exposure control; mA and/or kV adjustment per patient size (includes targeted exa ms where dose is matched to clinical indication); or iterative reconstruction.
[2020-03-04 20:42] LABS: Magnesium 2.3 mg/dL (1.8-2.4)
--- NOTE | 2020-03-04 20:49 | DI.VRAD_ITS ---
PROCEDURE INFORMATION: Exam: CT Chest Without Contrast Exam date and time: 03/04/2020 8:28 PM Age: 79 years old Clinical indication: Abdominal pain; Localized; Upper; Type not specified; Prior surgery; Surgery type: RT hip; Patient HX: Chest pain, cough, epigastric abd pain x1 week. Heart rate keeps dropping into the 30's per nurse, defibrillator pads in place TECHNIQUE: Imaging protocol: Computed tomography of the chest without contrast. Radiation optimization: All CT scans at this facility use at least one of these dose optimization techniques: automated exposure control; mA and/or kV adjustment per patient size (includes targeted exams where dose is matched to clinical indication); or iterative reconstruction. COMPARISON: MRI LUMBAR,PELVIS,HIPS WO 01/26/2016 4:13 PM FINDINGS: Lungs: Linear atelectasis in the left lung base. Mild scarring in the right lung base. No significant interstitial or airspace disease is appreciated. Airways are patent. Pleural space: Unremarkable. No pneumothorax. No pleural effusion. Heart: There is calcification of the aortic valve annulus. There is mild atherosclerotic calcification of the coronary arteries. The heart is not enlarged. No pericardial thickening or effusion. Pulmonary arteries: The pulmonary arteries demonstrate mild central enlargement, consistent with mild pulmonary hypertension. Aorta: Normal in course and caliber. No acute pathology. Lymph nodes: No adenopathy. Bones/joints: No acute skeletal pathology. Severe multilevel degenerative changes of the spine, as manifested by multilevel anterior osteophytes and multilevel decrease in intervertebral disc space. Soft tissues: Unremarkable. IMPRESSION: Negative for acute thoracic pathology. PROCEDURE INFORMATION: Exam: CT Abdomen And Pelvis Without Contrast Exam date and time: 03/04/2020 8:28 PM Age: 79 years old Clinical indication: Abdominal pain; Localized; Upper; Type not specified; Prior surgery; Surgery type: RT hip; Patient HX: Chest pain, cough, epigastric abd pain x1 week. Heart rate keeps dropping into the 30's per nurse, defibrillator pads in place TECHNIQUE: Imaging protocol: Computed tomography of the abdomen and pelvis without contrast. Radiation optimization: All CT scans at this facility use at least one of these dose optimization techniques: automated exposure control; mA and/or kV adjustment per patient size (includes targeted exams where dose is matched to clinical indication); or iterative reconstruction. COMPARISON: MRI LUMBAR,PELVIS,HIPS WO 01/26/2016 4:13 PM FINDINGS: Liver: Calcified granuloma in the right hepatic lobe is of no clinical concern. Liver is otherwise unremarkable. Gallbladder and bile ducts: Patient status post cholecystectomy. No biliary ductal dilation. Pancreas: There is diffuse atrophy of the pancreatic parenchyma. Spleen: Normal. No splenomegaly. Adrenals: Normal. No mass. Kidneys and ureters: There is a left renal collecting system calcification. No acute renal findings. No obstructive uropathy. Stomach and bowel: No bowel wall thickening, obstruction, or other acute pathology. Diffuse colonic diverticulosis is present. There is moderately excessive colonic stool content. Appendix: No evidence of appendicitis. Intraperitoneal space: Unremarkable. No free air. No significant fluid collection. Vasculature: The vasculature demonstrates diffuse mild atherosclerotic calcification. Lymph nodes: Unremarkable. No enlarged lymph nodes. Bladder: Unremarkable as visualized. Reproductive: There has been a hysterectomy. Bones/joints: Prior right femoral head fixation without acute complications. No acute skeletal pathology. Moderate multilevel degenerative changes of the spine, as manifested by multilevel anterior osteophytes and multilevel decrease in intervertebral disc space. Grade 1 anterolisthesis of L4 in relation to L5, degenerative in etiology. Soft tissues: Unremarkable. IMPRESSION: Negative for acute abdominopelvic pathology. Dictated and Authenticated by: Norbert Hopkins MD. Ordering:DAVI Ken MD
[2020-03-04 20:57] LABS: D-Dimer 955 ng/mlFEU (<500)
[2020-03-04 21:06] LABS: Bilirubin Negative (Negative); Blood Negative (Negative); Clarity Clear (Clear); Glucose Negative (Negative); Ketones Negative (Negative); Leukocyte Esterase Negative (Negative); Nitrite Negative (Negative); Specific Gravity 1.015 (1.005-1.025); Urobilinogen 0.2 EU/dL (Up TO 0.2); pH 7.5 (5-8)
[2020-03-04 21:22] LABS: Troponin I < 0.05 ng/mL (<0.06)
--- NOTE | 2020-03-04 21:53 | W.PM.HP.N ---
Date of service: 03/04/20 Time of Service: 21:53 Assessment and Plan Assessment and plan (1) Bradycardia: Status: Acute Assessment and plan: Monitor overnight on telemetry. Repeat her EKG in the morning. Correct her electrolyte abnormalities. Check an echocardiogram in the morning. Consider outpatient Holter or cardiac event recorder. (2) Atypical chest pain: Status: Acute Assessment and plan: Chest pain is clearly reproducible with chest wall palpation including her right flank pain which was elicited by palpation of her ribs. I think she has costochondritis and in spite of her minimally elevated d-dimer I doubt that she has any acute thromboembolic disease. Nevertheless since the d-dimer was ordered and found to be elevated patient will be scheduled for venous duplex scan of her legs in the morning along with an echocardiogram and a CTA of her chest presuming that her prerenal azotemia has been corrected with IV fluids overnight. Of note Dr. Hamm performed a compression venous exam of her lower extremities and did not find any noncompressibility of her lower extremities.An outpatient stress MPI can be obtained and should be considered given her bradycardia and nonspecific EKG abnormalities along with her coronary calcifications on her CT scan. (3) Prerenal azotemia: Status: Acute Assessment and plan: Prerenal azotemia secondary to hydrochlorothiazide use in the setting of decreased p.o. intake. Will correct overnight with IV fluids and recheck a BMP in the morning. (4) Hypokalemia: Status: Acute History of Present Illness History of Present Illness Chief Complaint: Dyspnea, chest pain Narrative: 79-year-old female with a past medical history significant for essential hypertension, GERD, spinal stenosis, osteoarthritis, anxiety disorder, nephrolithiasis who presented to the emergency department with several days duration of generalized malaise, dyspnea, chest wall pain, abdominal pain, flank pain without any associated fever or chills, however she has had a nonproductive cough. Upon evaluation in the emergency department she was found to be in sinus bradycardia with heart rate in the 40s not associated with any hypotension. Patient denied any syncope or near syncopal spells. Work-up in the emergency department included routine labs as well as EKG and noncontrast CT scan of the chest and abdomen and pelvis. Labs were remarkable for mild hypokalemia with a potassium of 3.3 and mild azotemia with a BUN of 23 and creatinine 1.31. Troponin I levels were negative x2 sets. proBNP was minimally elevated at 666. Because of her dyspnea and chest pain a d-dimer was checked and found to be elevated at 955 which is slightly above her age-adjusted upper limit of normal of 800. Because of her azotemia CTA of the chest could not be performed. Patient was treated in the emergency department with atropine 0.5 mg IV which improved her heart rate into the 60s. Patient is on hydrochlorothiazide for her hypertension but does not take any known AV mario blocking drugs. Patient denies any cardiac history. Her EKG demonstrated sinus rhythm at a rate of 61 bpm with a normal MS interval of 180 ms and a QRS duration of 106 ms and a corrected QT interval of 465 ms. Left axis deviation -44 degrees is present consistent with a left anterior fascicular block. Nonspecific ST abnormalities are seen in the lateral leads limb lead I, aVL, V5 and 6. The left anterior fascicular block and ST abnormalities are new compared to prior EKG from December 10, 2018. Patient is now admitted overnight for IV fluid rehydration and correction of hypokalemia along with monitoring of her heart rhythm with plans for venous duplex scan of her legs and a CTA of her chest and echocardiogram in the morning. Patient was given a therapeutic dose of Lovenox tonight pending evaluation of her elevated d-dimer. Noncontrast CT scan of the chest and abdomen pelvis showed no acute thoracic or abdominal pathology. Specifically there were no pulmonary infiltrates or masses and no evidence of acute CHF. She has coronary calcifications but no cardiomegaly or aneurysms. CT of the abdomen pelvis showed diverticulosis and left renal collecting system calcifications but no obstructive uropathy. Review of Systems Constitutional Constitutional: Reports body ache(s), Reports chills, Reports fatigue, Denies fever(s), Reports lethargy, Reports malaise and Reports weakness Eyes Eyes: Reports system reviewed and no additional complaints, except as documented ENT Ears, Nose, Mouth, and Throat: Reports system reviewed and no additional complaints, except as documented Cardiovascular Cardiovascular: Reports chest pain, Reports chest pain at rest, Denies chest pain with activity, Denies syncope, Denies lightheadedness, Denies radiating jaw, neck or arm pain, Reports dyspnea, Reports dyspnea on exertion and Reports slow heart rate Respiratory Respiratory: Reports cough, Reports dyspnea and Reports dyspnea on exertion Gastrointestinal Gastrointestinal: Reports abdominal pain, Reports loose stools, Reports nausea and Denies vomiting Genitourinary Genitourinary: Reports system reviewed and no additional complaints, except as documented, Denies dysuria and Reports flank pain Musculoskeletal Musculoskeletal: Reports back pain Integumentary/Breasts Skin/Breast: Reports breast pain Neurologic Neurologic: Reports system reviewed and no additional complaints, except as documented, Denies syncope and Reports weakness Psychiatric Psychiatric: Reports system reviewed and no additional complaints, except as documented Endocrine Endocrine: Reports system reviewed and no additional complaints, except as documented and Reports fatigue Hematologic/Lymphatic Hematologic/Lymphatic: Reports system reviewed and no additional complaints, except as documented Allergic/Immunologic Allergic/Immunologic: Reports system reviewed and no additional complaints, except as documented [facility] Medical History (Updated 03/04/20 @ 23:40 by Tino Hicks) Anxiety Chest pain Dysgeusia GERD (gastroesophageal reflux disease) Gross hematuria Head ache Hyperlipidemia pt. states she is unsure if she has this Idiopathic peripheral neuropathy Intertrigo Lumbago Mixed stress and urge urinary incontinence Multiple fractures of right femur pt states she fractured her hip Multiple joint pain Nail abnormality Nocturia Obesity Osteopenia Osteoporosis Prehypertension Right arm pain Surgical History (Updated 03/04/20 @ 23:31 by Tino Hicks) Bilateral salpingectomy with oophorectomy BILATERAL TKA (10/01/12) DR. VANDANA HARDIN section X4 Cholecystectomy Colonoscopy - IV Sedation egd (05/10/16) flexible laryngoscopy (03/12/15) Dr Villatoro Hemorrhoidectomy History of esophagogastroduodenoscopy (EGD) (Chronic ~10/15/18) History of repair of right hip joint (Acute) Hysterectomy, Laproscopic Open Carpal Tunnel release Replacement of total knee joint Right arthroscopic rtotator cuff repair (04/22/13) RIGHT FOOT FX REPAIR Family History Mother , Fluid buildup at age 72. Diabetes did not have diabetes Personal history of malignant neoplasm Asthma Father , AD,blood clot at age 69. Alzheimer's disease Son Asthma Son No problems noted. Son No problems noted. Daughter No problems noted. Sister No problems noted. Sister Personal history of malignant neoplasm Sister Personal history of malignant neoplasm Sister No problems noted. 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 Pets and animals: Yes Pets and animals: dog(s) What is your relationship status?: Panel score (0-1 are the most socially isolated patients): 0 What type of physical activity do you participate in: none Seatbelt use: always Do you feel safe at home: Yes Do you feel safe in your relationship?: Yes Victim of physical abuse: No Victim of emotional abuse: No Victim of sexual abuse: No Meds Home Medications and Allergies Home Medications Medication Instructions Recorded Confirmed Type cyanocobalamin (vitamin B-12) 1,000 mcg SUBLINGUAL DAILY 08/28/15 03/04/20 History [Vitamin B-12] biotin 1 tab PO DAILY 06/06/17 03/04/20 History flaxseed oil 1,000 mg PO DAILY 10/09/17 03/04/20 History cholecalciferol (vitamin D3) 3 tab PO DAILY #270 tab.chew 12/28/17 03/04/20 Rx albuterol sulfate 90 mcg/actuation 2 puff IH Q6H PRN #6.7 gm 12/28/18 03/04/20 Rx aerosol inhaler cannabidiol 100 mg/mL oral solution See Rx Instructions PO .COMPLEX 12/28/18 03/04/20 History PRN ml hydrochlorothiazide 25 mg tablet 25 mg PO DAILY #90 tab 04/03/19 03/04/20 Rx vitamin E mixed 400 unit capsule 400 unit PO DAILY cap 04/03/19 03/04/20 History ascorbic acid (vitamin C) 500 mg 500 mg PO DAILY tab 06/12/19 03/04/20 History tablet Allergies Allergy/AdvReac Type Severity Reaction Status Date / Time adhesive tape Allergy Intermediate blisters Verified 03/04/20 18:56 on skin Sulfa (Sulfonamide Allergy Intermediate sister Verified 03/04/20 18:56 Antibiotics) of anaphylaxis per pt aspirin AdvReac Intermediate nosebleeds Verified 03/04/20 18:56 codeine AdvReac Intermediate blackouts Verified 03/04/20 18:56 latex AdvReac Intermediate skin-red Verified 03/04/20 18:56 ithcy spots on skin morphine AdvReac Intermediate becomes Verified 03/04/20 18:56 very ill, vomting Exam Narrative Exam Narrative: Elderly obese female who is sitting up on gurney in the emergency department eating a sandwich able to talk in complete paragraphs with no dyspnea. She is alert and oriented x3. HEENT is unremarkable Neck is supple nontender no JVD normal carotid pulses no bruits Lungs are clear to auscultation Chest wall is tender over the sternum and along the left sternal costal border as well as over the medial aspect of the left breast. Heart is regular without murmur rub or gallop Left breast is normal in appearance no nipple discharge no retractions no palpable breast nodules no left axillary adenopathy. Abdomen reveals normal active bowel sounds soft diffusely tender when the patient is aware of my palpation of her abdomen however during auscultation of her abdomen I was able to press deeply without eliciting any pain or guarding or rebound tenderness. No palpable masses no bruits Lower extremities are obese but soft and nontender to palpation of her thighs or calves. She has superficial venous varicosities. There is no increased warmth and no firmness to her calves. Homans sign is absent. Pedal pulses are normal Neuro exam is grossly intact Results Labs Result diagrams: 03/04/20 18:45 03/04/20 18:45 Labs: Laboratory Results - last 24 hr 03/04/20 03/04/20 03/04/20 18:45 18:45 18:45 WBC 6.57 RBC 3.80 L Hgb 11.7 Hct 36.1 MCV 95.0 MCH 30.8 MCHC 32.4 RDW 12.9 Plt Count 204 MPV 10.2 Immature Gran % 0.2 Neutrophils % 50.0 Lymphocytes % 37.0 Monocytes % 10.0 Eosinophils % 2.6 Basophils % 0.2 Nucleated RBC % 0 Absolute Neutrophils 3.29 Absolute Lymphocytes 2.43 Absolute Monocytes 0.66 Absolute Eosinophils 0.17 Absolute Basophils 0.01 PT 9.8 INR 1.0 APTT D-Dimer VBG pH VBG pCO2 VBG pO2 VBG HCO3 VBG Total CO2 VBG O2 Saturation VBG Base Excess Sodium 138 Potassium 3.3 L Chloride 101 Carbon Dioxide 28.8 Anion Gap 8.2 BUN 23 H Creatinine 1.31 H Estimated GFR/1.73 m2 39.06 Glucose 102 Calcium 9.6 Magnesium Total Bilirubin 0.5 AST 15 ALT 15 Alkaline Phosphatase 68 Troponin I < 0.05 NT-Pro-B Natriuret Pep 666 H Total Protein 6.9 Albumin 3.7 Lipase 61 Urine Color Urine Clarity Urine pH Ur Specific [employer] Urine Protein Urine Ketones Urine Blood Urine Nitrite Urine Bilirubin Urine Urobilinogen Ur Leukocyte Esterase Urine Glucose 03/04/20 03/04/20 03/04/20 18:45 18:45 18:45 WBC RBC Hgb Hct MCV MCH MCHC RDW Plt Count MPV Immature Gran % Neutrophils % Lymphocytes % Monocytes % Eosinophils % Basophils % Nucleated RBC % Absolute Neutrophils Absolute Lymphocytes Absolute Monocytes Absolute Eosinophils Absolute Basophils PT INR APTT 25.0 D-Dimer VBG pH 7.50 H VBG pCO2 38 L VBG pO2 39 VBG HCO3 30 H VBG Total CO2 27 VBG O2 Saturation 79 VBG Base Excess 6 H Sodium Potassium Chloride Carbon Dioxide Anion Gap BUN Creatinine Estimated GFR/1.73 m2 Glucose Calcium Magnesium 2.3 Total Bilirubin AST ALT Alkaline Phosphatase Troponin I NT-Pro-B Natriuret Pep Total Protein Albumin Lipase Urine Color Urine Clarity Urine pH Ur Specific [employer] Urine Protein Urine Ketones Urine Blood Urine Nitrite Urine Bilirubin Urine Urobilinogen Ur Leukocyte Esterase Urine Glucose 03/04/20 03/04/20 03/04/20 18:45 20:17 20:50 WBC RBC Hgb Hct MCV MCH MCHC RDW Plt Count MPV Immature Gran % Neutrophils % Lymphocytes % Monocytes % Eosinophils % Basophils % Nucleated RBC % Absolute Neutrophils Absolute Lymphocytes Absolute Monocytes Absolute Eosinophils Absolute Basophils PT INR APTT D-Dimer 955 H VBG pH VBG pCO2 VBG pO2 VBG HCO3 VBG Total CO2 VBG O2 Saturation VBG Base Excess Sodium Potassium Chloride Carbon Dioxide Anion Gap BUN Creatinine Estimated GFR/1.73 m2 Glucose Calcium Magnesium Total Bilirubin AST ALT Alkaline Phosphatase Troponin I < 0.05 NT-Pro-B Natriuret Pep Total Protein Albumin Lipase Urine Color Yellow Urine Clarity Clear Urine pH 7.5 Ur Specific [employer] 1.015 Urine Protein Negative Urine Ketones Negative Urine Blood Negative Urine Nitrite Negative Urine Bilirubin Negative Urine Urobilinogen 0.2 Ur Leukocyte Esterase Negative Urine Glucose Negative Last Vital Signs Temp 36.3 C L 03/04/20 17:57 Pulse 57 L 03/04/20 21:16 Resp 21 03/04/20 21:20 BP 132/68 03/04/20 21:16 Pulse Ox 99 03/04/20 21:20 COVID-19 Screening Have you,or household,traveled outside [place] in last 14 days?: No Had IN PERSON contact w/suspected or confirmed C-19 person: No
[2020-03-04] MEDS: POTASSIUM CHLORIDE/0.9% NACL 1,000 ML 100 MEQ IV (22:55)
[2020-03-04] MEDS: Enoxaparin 100 MG/ML SYR SC (22:59)
[2020-03-04] MEDS: Potassium Chloride 10 MEQ CAPCR 40 MEQ PO (23:00)
[2020-03-05] VITALS (7 sets, daily range): BP systolic 133–156; BP diastolic 69–96; PULSE 55–62; RESP 16–18; TEMP 36–36.6; O2SAT 95–98
[2020-03-05 07:33] LABS: Anion Gap 4.9 mmol/L (3-11); BUN 23 mg/dL (7-18); CO2 28.1 mmol/L (21.0-32.0); CREATININE 1.13 mg/dL (0.55-1.02); Calcium 8.8 mg/dL (8.5-10.1); Chloride 109 mmol/L (98-107); Estimated GFR 46.33 (mL/min/1.73m2); Glucose 95 mg/dL (74-106); Potassium 4.1 mmol/L (3.5-5.1); Sodium 142 mmol/L (136-145)
[2020-03-05 07:34] LABS: Troponin I < 0.05 ng/mL (<0.06)
[2020-03-05] MEDS: Cyanocobalamin 500 MCG TAB 1000 MCG PO (08:25)
[2020-03-05] MEDS: Acetaminophen 325 MG TAB PO ×3 (08:27→21:04)
--- NOTE | 2020-03-05 10:31 | PDOC.CMIN ---
- If Service Date Differs Date of service: 03/05/20 Time of Service: 10:31 Care Management Initial Assess REASON FOR HOSPITALIZATION:: Bradycardia, atypical chest pain, and abnormal d-dimer. PAST MEDICAL HISTORY/PAST SURGICAL HISTORY:: Medical History: Anxiety, Chest pain, Dysgeusia, GERD (gastroesophageal reflux disease), Gross hematuria, Headache, Hyperlipidemia - pt. states she is unsure if she has this, Idiopathic peripheral neuropathy, Intertrigo, Lumbago, Mixed stress and urge urinary incontinence, Multiple fractures of right femur - pt states she fractured her hip, Multiple joint pain, Nail abnormality, Nocturia, Obesity, Osteopenia, Osteoporosis, Prehypertension, and Right arm pain. Surgical History: Bilateral salpingectomy with oophorectomy, BILATERAL TKA - DR. VANDANA HARDIN, section X 4, Cholecystectomy,. Colonoscopy - IV Sedation, egd (05/10/16), and flexible laryngoscopy (03/12/15) Dr Villatoro. Hemorrhoidectomy. History of esophagogastroduodenoscopy (EGD) (Chronic ~10/15/18). History of repair of right hip joint (Acute). Hysterectomy, Laproscopic. Open Carpal Tunnel release. Replacement of total knee joint. Right arthroscopic rtotator cuff repair (04/22/13). RIGHT FOOT FX REPAIR PREVIOUS FUNCTIONAL STATUS/SOCIAL/FAMILY SUPPORTS:: Crystal lives with her adult son, Alvaro, in [place]. CURRENT FUNCTIONAL STATUS:: CM is unable to meet with Crystal as she remains a PUI while awaiting Covid test results. A review of her chart reveals her BUN and creatinine remain high at 23 and 1.13 respectively. Crystal continues to report intermittent chest pain. A venous duplex scan of her legs, an echocardiogram and a CT of her chest have been ordered. CM will continue to follow. ADVANCE DIRECTIVES:: On file; daughter Sonal Rosas is listed as healthcare agent. Has patient been provided with info about the portal/API?: No Did the patient sign up for the portal?: No CODE STATUS:: Full Code INSURANCE COVERAGE / FINANCIAL ISSUES:: [place] and Medicare. PRIMARY CARE PHYSICIAN:: Melissa Lee DO POTENTIAL DISCHARGE NEEDS:: Follow up appointments with PCP and cardiology and outpatient Holter or cardiac event recorder. PATIENT/FAMILY EDUCATION NEEDS:: Discharge instructions, limitations and follow up plan of care, including Ask Me Three and self management. ANTICIPATED BARRIERS TO DISCHARGE:: No anticipated barriers at this time. TRANSPORTATION:: Via private vehicle with family. PLAN:: Anticipate Crystal will be discharged home when medically cleared by provider. She will follow up with her PCP, cardiology, and discharge plan of care as directed. Family will drive her home via private vehicle when ready. CM will continue to support patient and assess for discharge needs.
--- NOTE | 2020-03-05 11:15 | RT.EKG_ITS ---
APPROVED REPORT Exam: Resting ECG Patient Location: I HR:56 bpm ECG Measurements Heart Rate 56 AXIS AZ 204 P -2 QRSd 102 QRS -47 QT 434 T 40 QTc 418 Conclusion Sinus bradycardia...rate< 60 LAD, consider left anterior fascicular block...axis(240,-40), S>R II III aVF Anteroseptal infarct, old...Q >40mS, V1-V2
--- NOTE | 2020-03-05 16:09 | DI.US_ITS ---
APPROVED REPORT EXAM: Comprehensive 2D, Doppler, and color-flow Echocardiogram Patient Location: In-Patient Room/Bed: [facility] Computer System Specialist: Marla Landis RDCS (AE) Indications: Chest pain Other Information Technically limited study due to inability to position patient. Conclusion Normal left ventricular wall thickness and chamber size. Estimated ejection fraction is 50 to 55%. There are no segmental wall motion abnormalities Grossly normal right ventricular size and function Left atrium is borderline dilated. The right atrium is normal in size Sclerotic trileaflet aortic valve without stenosis or regurgitation Normal mitral leaflets. Trace to mild mitral regurgitation Normal tricuspid and pulmonic valves. Mild tricuspid regurgitation. Estimated right ventricular sys tolic pressure is 34 mmHg Trace pulmonic regurgitation The ascending aorta is mildly dilated measuring 3.6 cm Wall motion Left Ventricle The left ventricle is normal size. Left ventricular systolic function is borderline. There is normal left ventricular wall thickness. There is no ventricular septal defect visualized. LVEF is 50-55%. Right Ventricle The right ventricle is normal size. The right ventricular systolic function is normal. The RVSP is 33 .8 mmHg. Atria Left atrium is borderline dilated. The right atrium size is normal. The interatrial septum is intact with no evidence for an atrial septal defect. Aortic Valve The Aortic valve is sclerotic. Aortic valve is trileaflet. There is no aortic valvular stenosis. No a ortic regurgitation is present. Mitral Valve The mitral valve is normal in structure. No evidence of mitral valve stenosis. Trace to mild mitral r egurgitation. Tricuspid Valve The tricuspid valve is normal in structure. There is no tricuspid valve stenosis. Mild tricuspid regu rgitation. Pulmonic Valve The pulmonary valve is normal in structure. There is no pulmonic valvular stenosis. Trace pulmonic re gurgitation. Great Vessels The aortic root is normal in size. The ascending aorta is mildly dilated. Aortic arch is normal in c aliber. IVC is normal in size and collapses >50% with inspiration. Pericardium There is no pericardial effusion. 2D Dimensions IVSD d PLAX 1.00 cm F: 0.6-1.0 LV Vol A2C d MOD 77.0 mL LVPW d PLAX 1.04 cm F: 0.6 - 1.0 LV Vol A4C d MOD 97.3 mL LVID d PLAX 4.75 cm F: 3.8 - 5.2 LA vol/ BSA A2C s A-L 39.3 mL/m2 LVDs 3.60 cm F: 2.2 - 3.5 LA vol/ BSA A4C s A-L 27.7 mL/m2 Ao Root d 2.97 cm F: 2.7 - 3.3 LA Vol/ BSA Biplane s A-L 33.4 mL/m2 RA Area A4C 15.25 cm2 LA Area A4C s MOD 19.22 cm2 RA Vol/ BSA A4C s A-L 22.7 mL/m2 LA Area A2C s MOD 22.62 cm2 Ao Asc Diam d 3.65 cm F: 2.3 - 3.1 LV EF A4C MOD 45.0 % LV EF Teichholz 47.6 % LV EF A2C MOD 45.8 % LVEF (Vásquez's) 45.67 % F: 54 - 74 LV EF Biplane MOD 45.7 % LV Volume 66.19 mL F: 46 - 106 SV 39.90 mL LV Volume Index 34.11 mL/m2 F: 29 - 61 SV Index 20.56 mL/m2 LV Vol Biplane MOD 87.4 mL FS 23.85 % M-Mode TAPSE 2.52 cm (M/F) >1.7 LV Diastology MV E' medial 0.080 (>0.07 m/s) E/A Ratio 1.0 LV E/e MED 11.30 (<14) MV E Vmax 0.91 (0.4-1.3 m/s) MV E' lateral 0.093 (>0.1 m/s) MV A Vmax 0.95 (0.4-1.3 m/s) LV E/e LAT 9.75 (<14) MV E/A Ratio 0.95 MV E/E' medial 11.33 MV E/E' lateral 9.78 Aortic Valve LVOT Area 3.49 cm2 AoV Area Vmax 2.37 cm2 LVOT Vmax 1.05 m/s AoV Area/ BSA (Vmax) 1.22 cm2/m2 LVOT Mean Yang. 0.68 m/s DAYAMI Mean Yang. 2.35 cm2 LVOT Peak Grad 4.4 mmHg DAYAMI Mean Yang. Index 1.21 cm2/m2 LVOT Mean Grad 2.2 mmHg LVOT VTI 0.248 m LVOT Diam s 2.10 cm AoV Vmax 1.55 m/s Velocity Ratio 0.67 AoV Mean Yang. 1.01 m/s AoV Peak Grad 9.6 mmHg LVOT SV 86.55 mL AoV Mean Grad 4.6 mmHg AoV VTI 0.327 m AoV Area VTI 2.65 cm2 AoV Area/ BSA (VTI) 1.37 cm/m2 Mitral Valve MV DT 231 (160-240 msec) MV PHT 67 msec MV Area PHT 3.29 cm2 MV VTI 0.392 m MV Area VTI 2.21 (4.0-6.0 cm2) Pulmonary Valve PV Vmax 0.85 (0.5-1.5 m/s) RVOT Peak Gr. 1.98 mmHg PV Peak Grad 2.9 mmHg RVOT Mean Gr. 1.35 mmHg PV Mean Grad 1.9 mmHg RVOT VTI 0.197 m PV VTI 0.221 m RVOT Vmax 0.70 m/s Tricuspid Valve TR Peak Grad 30.7 mmHg TR Vmax 2.77 m/s RA Pressure 3.00 mmHg RVSP (TR) 33.8 mmHg
--- NOTE | 2020-03-05 17:14 | W.PM.PROGNOT ---
Date of Service Date of service: 03/05/20 Time of Service: 17:14 Assessment and Plan Assessment and plan (1) Bradycardia: Status: Acute Assessment and plan: Required atropine in the ED for HR in 40s. Tele today with HR 51-78, having pauses of about 2.1 sec, about 4-6 minutes apart, even while awake. Will monitor tonight. Certainly a concern for developing heart block/sick sinus rhythm. (2) Acute systolic CHF (congestive heart failure): Status: Acute Assessment and plan: EF borderline - 45%. Is symptomatic (short of breath) and having edema. Will trial a dose of lasix. (3) Atypical chest pain: Status: Acute Assessment and plan: Ruled out for ACS. Chest pain is mostly reproducible with palpation and is contiguous with abdominal pain and flank pain. Unfortunately, she is a PUI for COVID-19, and does not seem to be worsening, we are having to postpone until her COVID-19 status is known. She is on therapeutic lovenox until CTA can be done. Echo without wall motion abnormalities, but show an EF of 45% and pulmonary hypertension. Will need ischemic workup and CTA once able. (4) Prerenal azotemia: Status: Resolved Assessment and plan: Cr at baseline. Will monitor with dose of lasix now. (5) Hypokalemia: Status: Resolved Assessment and plan: Recheck in am - getting a dose of lasix tonight. (6) Pulmonary hypertension: Status: Acute Assessment and plan: R/o PE once COVID-19 testing is confirmed negative. She is on therapeutic anticoagulation with lovenox until that result is known. Will need a sleep study as outpatient. Jyothi, monitor volume status. (7) Discharge planning issues: Status: Acute Assessment and plan: Full code Continues to require hospitalization (8) DVT prophylaxis: Status: Acute Assessment and plan: On therapeutic lovenox Subjective Subjective Interval history since last seen: Patient reports chest pain - more specifically, pain right underneath her left ribs, as well as shortness of breath. This pain is reproducible with palpation and is contiguous with epigastric pain. She is anxious that it's her heart. She denies dizziness, nausea, vomiting. She had 2 BMs. Exam Narrative Exam Narrative: General: A&Ox3, anxious, NAD HEENT: EOMI, MMM Heart: RRR, no m/r/g Lungs: slight rales at B bases Abdomen: soft, nontender, nondistended Extremities: 2+ BLE, no clubbing/cyanosis Objective Objective Clinical Data: Abnormal lab results 03/04/20 03/04/20 03/04/20 Range/Units 18:45 18:45 18:45 RBC 3.80 L (3.93-5.22) 10^6/uL D-Dimer (<500) ng/mlFEU VBG pH 7.50 H (7.31-7.41) VBG pCO2 38 L (41-51) mmHg VBG HCO3 30 H (23-28) mmol/L VBG Base Excess 6 H (-2-3) mmol/L Potassium 3.3 L (3.5-5.1) mmol/L Chloride (98-107) mmol/L BUN 23 H (7-18) mg/dL Creatinine 1.31 H (0.55-1.02) mg/dL NT-Pro-B Natriuret Pep 666 H (<300) pg/mL 03/04/20 03/05/20 Range/Units 18:45 06:40 RBC (3.93-5.22) 10^6/uL D-Dimer 955 H (<500) ng/mlFEU VBG pH (7.31-7.41) VBG pCO2 (41-51) mmHg VBG HCO3 (23-28) mmol/L VBG Base Excess (-2-3) mmol/L Potassium (3.5-5.1) mmol/L Chloride 109 H (98-107) mmol/L BUN 23 H (7-18) mg/dL Creatinine 1.13 H (0.55-1.02) mg/dL NT-Pro-B Natriuret Pep (<300) pg/mL Vital Signs Temperature 36.6 C 03/05/20 16:23 Temperature Source Tympanic 03/05/20 16:23 Pulse 60 03/05/20 16:23 Pulse Rhythm Regular 03/05/20 17:00 Pulse 62 03/04/20 22:10 Respiratory Rate 18 03/05/20 16:23 Respiratory Effort 03/05/20 17:00 Respiratory Depth Normal 03/05/20 17:00 Respiratory Pattern Normal 03/05/20 17:00 Blood Pressure 150/71 H 03/05/20 16:23 Blood Pressure Mean 101 03/04/20 22:00 Blood Pressure Position Supine 03/04/20 17:57 Pulse Oximetry 98 03/05/20 16:23 Oxygen Delivery Method Room Air 03/05/20 16:23 Oxygen Flow Rate 0 03/05/20 16:23 Pain Level 5 03/05/20 16:23 Intake & Output 03/04/20 03/05/20 03/05/20 23:59 11:59 23:59 Intake Total 300 / 300 1225 / 1905 680 / 1905 Output Total 950 / 1350 400 / 1350 Balance 300 / 300 275 / 555 280 / 555 Weight 99.79 kg Intake: IV 100 / 100 985 / 985 Oral 200 / 200 240 / 920 680 / 920 Output: Urine 950 / 1350 400 / 1350 Other: Urine Color Yellow Yellow Yellow Urine Appearance Clear Clear Clear Urine Odor Normal Normal Normal Stool Size Moderate Stool Characteristics Soft Voiding Methods Toilet Toilet Toilet Laboratory Results WBC 6.57 10^3/uL (4.4-10.8) 03/04/20 18:45 RBC 3.80 10^6/uL (3.93-5.22) L 03/04/20 18:45 Hgb 11.7 g/dL (11.2-15.7) 03/04/20 18:45 Hct 36.1 % (36.0-46.0) 03/04/20 18:45 MCV 95.0 fL (80-95) 03/04/20 18:45 MCH 30.8 pg (27.0-33.0) 03/04/20 18:45 MCHC 32.4 % (32.0-36.0) 03/04/20 18:45 RDW 12.9 % (11.7-14.6) 03/04/20 18:45 Plt Count 204 10^3/uL (130-400) 03/04/20 18:45 MPV 10.2 fL (8.0-11.0) 03/04/20 18:45 Immature Gran % 0.2 03/04/20 18:45 Neutrophils % 50.0 03/04/20 18:45 Lymphocytes % 37.0 03/04/20 18:45 Monocytes % 10.0 03/04/20 18:45 Eosinophils % 2.6 03/04/20 18:45 Basophils % 0.2 03/04/20 18:45 Nucleated RBC % 0 % 03/04/20 18:45 Absolute Neutrophils 3.29 10^3/uL (1.2-6.7) 03/04/20 18:45 Absolute Lymphocytes 2.43 10^3/uL (1.2-3.4) 03/04/20 18:45 Absolute Monocytes 0.66 10^3/uL (0.1-0.8) 03/04/20 18:45 Absolute Eosinophils 0.17 10^3/uL (0.0-0.7) 03/04/20 18:45 Absolute Basophils 0.01 10^3/uL (0.0-0.2) 03/04/20 18:45 PT 9.8 sec (9.3-11.0) 03/04/20 18:45 INR 1.0 (0.9-1.1) 03/04/20 18:45 APTT 25.0 sec (21.0-31.4) 03/04/20 18:45 D-Dimer 955 ng/mlFEU (<500) H 03/04/20 18:45 VBG pH 7.50 (7.31-7.41) H 03/04/20 18:45 VBG pCO2 38 mmHg (41-51) L 03/04/20 18:45 VBG pO2 39 mmHg 03/04/20 18:45 VBG HCO3 30 mmol/L (23-28) H 03/04/20 18:45 VBG Total CO2 27 mmol/L (24-29) 03/04/20 18:45 VBG O2 Saturation 79 % 03/04/20 18:45 VBG Base Excess 6 mmol/L (-2-3) H 03/04/20 18:45 Sodium 142 mmol/L (136-145) 03/05/20 06:40 Potassium 4.1 mmol/L (3.5-5.1) D 03/05/20 06:40 Chloride 109 mmol/L (98-107) H 03/05/20 06:40 Carbon Dioxide 28.1 mmol/L (21.0-32.0) 03/05/20 06:40 Anion Gap 4.9 mmol/L (3-11) 03/05/20 06:40 BUN 23 mg/dL (7-18) H 03/05/20 06:40 Creatinine 1.13 mg/dL (0.55-1.02) H 03/05/20 06:40 Estimated GFR/1.73 m2 46.33 (mL/min/1.73m2) 03/05/20 06:40 Glucose 95 mg/dL (74-106) 03/05/20 06:40 Calcium 8.8 mg/dL (8.5-10.1) 03/05/20 06:40 Magnesium 2.3 mg/dL (1.8-2.4) 03/04/20 18:45 Total Bilirubin 0.5 mg/dL (0.2-1.0) 03/04/20 18:45 AST 15 U/L (15-37) 03/04/20 18:45 ALT 15 U/L (14-59) 03/04/20 18:45 Alkaline Phosphatase 68 U/L (46-116) 03/04/20 18:45 Troponin I < 0.05 ng/mL (<0.06) 03/05/20 06:40 NT-Pro-B Natriuret Pep 666 pg/mL (<300) H 03/04/20 18:45 Total Protein 6.9 g/dL (6.4-8.2) 03/04/20 18:45 Albumin 3.7 g/dL (3.4-5.0) 03/04/20 18:45 Lipase 61 U/L (73-393) 03/04/20 18:45 Urine Color Yellow (Yellow) 03/04/20 20:17 Urine Clarity Clear (Clear) 03/04/20 20:17 Urine pH 7.5 (5-8) 03/04/20 20:17 Ur Specific [place] 1.015 (1.005-1.025) 03/04/20 20:17 Urine Protein Negative mg/dL (Negative) 03/04/20 20:17 Urine Ketones Negative mg/dL (Negative) 03/04/20 20:17 Urine Blood Negative (Negative) 03/04/20 20:17 Urine Nitrite Negative (Negative) 03/04/20 20:17 Urine Bilirubin Negative (Negative) 03/04/20 20:17 Urine Urobilinogen 0.2 EU/dL (Up TO 0.2) 03/04/20 20:17 Ur Leukocyte Esterase Negative (Negative) 03/04/20 20:17 Urine Glucose Negative mg/dL (Negative) 03/04/20 20:17 COVID-19 PCR Cancelled 03/04/20 19:21 Carloaryn COVID-19 PCR Cancelled 03/04/20 19:21 Ref Test Perform Site Cancelled 03/04/20 19:21 CT chest/abdomen/pelvis w/o contrast: No acute process in the chest, abdomen or pelvis. Echo: Left Ventricle The left ventricle is normal size. Left ventricular systolic function is borderline. There is normal left ventricular wall thickness. There is no ventricular septal defect visualized. LVEF is 45%. Right Ventricle Right ventricle is not well visualized. Right ventricular systolic function could not be assessed. The RVSP is 33.8 mmHg. Atria Left atrium is borderline dilated. The right atrium size is normal. The interatrial septum is intact with no evidence for an atrial septal defect. Aortic Valve The Aortic valve is sclerotic. Aortic valve is trileaflet. There is no aortic valvular stenosis. No aortic regurgitation is present. Mitral Valve The mitral valve is normal in structure. No evidence of mitral valve stenosis. Trace to mild mitral regurgitation. Tricuspid Valve The tricuspid valve is normal in structure. There is no tricuspid valve stenosis. Mild tricuspid regurgitation. Pulmonic Valve The pulmonary valve is normal in structure. There is no pulmonic valvular stenosis. Trace pulmonic regurgitation. Great Vessels The aortic root is normal in size. The ascending aorta is mildly dilated. Aortic arch is normal in caliber. IVC is normal in size and collapses >50% with inspiration. Pericardium There is no pericardial effusion.
[2020-03-05] MEDS: Furosemide 20 MG/2 ML VIAL IVP (17:33)
[2020-03-05] MEDS: Enoxaparin 100 MG/ML SYR SC (21:04)
--- NOTE | 2020-03-06 | DI.CT_ITS ---
EXAM: CT CHEST PE ABD PELVIS W CLINICAL HISTORY: chest and abdominal pain. TECHNIQUE: Imaging Protocol: Axial CT angiography was performed with multi-slice acquisition and mu lti-planar and/or 3D reconstructions. CONTRAST MATERIAL: Intravenous: Omnipaque 350 Contrast volume:100 mL COMPARISON: CT CT CHEST/ABD/PEL WO from 03/04/2020 FINDINGS: CHEST: Pulmonary Arteries: No evidence of filling defect to suggest pulmonary emboli. Tracheobronchial tree: Patent where visualized. Mediastinum and Emma: No dominant adenopathy or fluid collection. Pulmonary parenchyma: No consolidation or dominant measurable mass. Scarring in the lung bases. Pleura: No effusion or pneumothorax. Heart: The heart is not dilated. Mild coronary artery calcification. No pericardial effusion. Aorta: Thoracic aorta non-dilated. Atherosclerosis. Bones: Degenerative changes. ABDOMEN: Liver: Normal density. No measurable mass. Portal, Superior Mesenteric, and Splenic Veins: Unremarkable. Gallbladder and Biliary Tract: Status post cholecystectomy. No significant biliary ductal dilatation . Pancreas: Normal density, no abnormal calcifications or inflammatory process. Spleen: Normal. Adrenals: No masses seen. Kidneys: Normal size, contour and axis. Nonobstructing stone in the lower pole of the left kidney. L eft renal cyst. Abdominal Aorta: Abdominal portion non-dilated. Atherosclerosis. Bowel: No obstruction or bowel wall thickening. No evidence of acute appendicitis. Colonic diverticu losis. No evidence of acute diverticulitis. Peritoneal Cavity: No ascites, collection or mesenteric inflammatory response. Lymph Nodes: Within normal limits. Bones: Right femoral orthopedic screw. Degenerative changes. Unchanged alignment of the lumbar spin e. Soft Tissues: Unremarkable. PELVIS: Bladder: Decompressed urinary bladder without gross abnormality. Reproductive Organs: Status post hysterectomy. Lymph Nodes: Within normal limits. Bones: Please see above. IMPRESSION: 1. No evidence of pulmonary embolism, thoracic aortic dissection or aneurysm. 2. No acute pulmonary process. 3. No acute abdominal or pelvic process. RADIATION DOSE DELIVERED: Total DLP Total DLP DATA REPOSITORY: All CT scans at this facility are submitted to the National Radiology Data Registry (NRDR) Dose Index Registry (DIR) with the [employer] (ACR). RADIATION OPTIMIZATION: All CT scans at this facility use at least one of these dose optimization te chniques: automated exposure control; mA and/or kV adjustment per patient size (includes targeted exa ms where dose is matched to clinical indication); or iterative reconstruction.
[2020-03-06 03:08] VITALS: BP 129/69; PULSE 69; RESP 20; TEMP 37; O2SAT 95
--- NOTE | 2020-03-06 08:00 | DI.US_ITS ---
EXAM: US EXTREMITY VENOUS BI CLINICAL HISTORY: Abnormal d-dimer. TECHNIQUE: Bilateral lower extremity venous ultrasound performed using grayscale, color-flow, and sp ectral Doppler analysis. COMPARISON: No exams were available for comparison FINDINGS: The bilateral common femoral, femoral and popliteal veins demonstrate normal compressibility, augment ation, and color Doppler. The posterior tibial veins are patent. The saphenofemoral junctions are unr emarkable. There is no evidence of a Rodriguez's cyst. The soft tissues are unremarkable. IMPRESSION: Right: Negative for DVT Left: Negative for DVT DATA REPOSITORY:
[2020-03-06] MEDS: Acetaminophen 325 MG TAB PO (08:03)
[2020-03-06] MEDS: Cyanocobalamin 500 MCG TAB 1000 MCG PO (08:03)
[2020-03-06 08:04] VITALS: BP 153/80; PULSE 58; RESP 16; TEMP 36.3; O2SAT 96
[2020-03-06 08:40] LABS: COVID-19 RT-PCR UVMMC Result Negative (Negative)
[2020-03-06 09:29] VITALS: PULSE 150
[2020-03-06 10:55] LABS: Anion Gap 7.8 mmol/L (3-11); BUN 26 mg/dL (7-18); CO2 29.2 mmol/L (21.0-32.0); CREATININE 1.32 mg/dL (0.55-1.02); Calcium 9.3 mg/dL (8.5-10.1); Chloride 99 mmol/L (98-107); Estimated GFR 38.72 (mL/min/1.73m2); Glucose 86 mg/dL (74-106); Magnesium 1.9 mg/dL (1.8-2.4); Potassium 3.7 mmol/L (3.5-5.1); Sodium 136 mmol/L (136-145)
[2020-03-06] MEDS: Omnipaque 350 MG/ML 50 ML BTL 100 ML IV (11:16)
[2020-03-06] MEDS: Normal Saline - Diluent 50 ML VIAL IV (11:17)
[2020-03-06] MEDS: Normal Saline Flush 10 ML SYR IVP (11:18)
--- NOTE | 2020-03-06 11:18 | CCONE_ITS ---
Date of service: 03/06/20 Time of Service: 11:19 Assessment and Plan Assessment and plan (1) Tachycardia-bradycardia syndrome: Status: Chronic Assessment and plan: The patient has asymptomatic tachy althea syndrome dating back to at least to 2019. Her current tracings do not suggest a need for either pharmacologic therapy or permanent pacemaker. From the cardiac standpoint I would not recommend any additional inpatient tests She could be considered again for outpatient monitoring, to be determined at the discretion of the hospitalist. We would be glad to see the patient in clinic as an outpatient History of Present Illness History of Present Illness Chief Complaint: Abdominal pain Narrative: Cardiac evaluation is requested in this 79-year-old woman who was admitted to the hospital several days ago with multiple symptoms. Specific concerns have been related to her rhythm. Reportedly on presentation she had asymptomatic sinus bradycardia in the 40s. Subsequently she has been monitored on telemetry and earlier today had a 23-second episode of what appears to be paroxysmal atrial fibrillation. The patient has known asymptomatic sick sinus syndrome dating back several years and documented on multiple recordings including ZIO Patch and Holter's An echocardiogram was performed during this admission. This shows borderline left ventricular systolic function with an estimated ejection fraction of 50 to 55%. There was no significant valvular disease. Estimated right ventricular systolic pressure was normal There have been no laboratory findings suggestive of myocardial necrosis CAT scan of the chest did not show any evidence of heart failure It did remark on mild coronary artery calcifications Consults Consult date: 03/06/20 Requesting physician: Anai Montes De Oca Review of Systems Narrative: Review of systems could not be obtained as the patient was unavailable for examination [facility] Medical History Anxiety Chest pain Dysgeusia GERD (gastroesophageal reflux disease) Gross hematuria Head ache Hyperlipidemia pt. states she is unsure if she has this Idiopathic peripheral neuropathy Intertrigo Lumbago Mixed stress and urge urinary incontinence Multiple fractures of right femur pt states she fractured her hip Multiple joint pain Nail abnormality Nocturia Obesity Osteopenia Osteoporosis Prehypertension Right arm pain Surgical History Bilateral salpingectomy with oophorectomy BILATERAL TKA (10/01/12) DR. VANDANA HARDIN section X4 Cholecystectomy Colonoscopy - IV Sedation egd (05/10/16) flexible laryngoscopy (03/12/15) Dr Villatoro Hemorrhoidectomy History of esophagogastroduodenoscopy (EGD) (Chronic ~10/15/18) History of repair of right hip joint (Acute) Hysterectomy, Laproscopic Open Carpal Tunnel release Replacement of total knee joint Right arthroscopic rtotator cuff repair (04/22/13) RIGHT FOOT FX REPAIR Family History Mother , Fluid buildup at age 72. Diabetes did not have diabetes Personal history of malignant neoplasm Asthma Father , AD,blood clot at age 69. Alzheimer's disease Son Asthma Son No problems noted. Son No problems noted. Daughter No problems noted. Sister No problems noted. Sister Personal history of malignant neoplasm Sister Personal history of malignant neoplasm Sister No problems noted. Other Cancer Heart disease Hypertensive disorder, systemic arterial Social History Smoking/Tobacco Use Status: Never Alcohol Intake: never Drug use: Never Adopted: No Caregiver/Support person: No Foster care: No Household members: children Housing: house current occupation: [employer] Pets and animals: Yes Pets and animals: dog(s) What is your relationship status?: Panel score (0-1 are the most socially isolated patients): 0 What type of physical activity do you participate in: none Seatbelt use: always Do you feel safe at home: Yes Do you feel safe in your relationship?: Yes Victim of physical abuse: No Victim of emotional abuse: No Victim of sexual abuse: No Exam Narrative Exam Narrative: The patient was not examined as she was not available in her room Results Last Vital Signs Temp 36.3 C L 03/06/20 08:04 Pulse 150 H 03/06/20 09:29 Resp 16 03/06/20 08:04 BP 153/80 H 03/06/20 08:04 Pulse Ox 96 03/06/20 08:04 Labs Result diagrams: 03/04/20 18:45 03/06/20 10:30 Labs: Laboratory Results - last 24 hr 03/04/20 03/04/20 03/06/20 09:21 19:21 10:30 Sodium 136 Potassium 3.7 Chloride 99 Carbon Dioxide 29.2 Anion Gap 7.8 BUN 26 H Creatinine 1.32 H Estimated GFR/1.73 m2 38.72 Glucose 86 Calcium 9.3 Magnesium 1.9 COVID-19 PCR Negative Cancelled Nasopharyn COVID-19 PCR Not Applicable Cancelled Ref Test Perform Site [facility] lab Cancelled
[2020-03-06 11:55] VITALS: BP 149/76; PULSE 58; RESP 17; TEMP 36.7; O2SAT 96
--- NOTE | 2020-03-06 14:16 | PDOC.CMIN ---
- If Service Date Differs Date of service: 03/06/20 Time of Service: 14:16 Care Management Initial Assess REASON FOR HOSPITALIZATION:: Bradycardia PAST MEDICAL HISTORY/PAST SURGICAL HISTORY:: Medical History (Updated 03/04/20 @ 23:40 by Tino Hicks). Anxiety. Chest pain. Dysgeusia. GERD (gastroesophageal reflux disease). Gross hematuria. Head ache. Hyperlipidemia. pt. states she is unsure if she has this. Idiopathic peripheral neuropathy. Intertrigo. Lumbago. Mixed stress and urge urinary incontinence. Multiple fractures of right femur. pt states she fractured her hip. Multiple joint pain. Nail abnormality. Nocturia. Obesity. Osteopenia. Osteoporosis. Prehypertension. Right arm pain. Surgical History (Updated 03/04/20 @ 23:31 by Tino Hicks). Bilateral salpingectomy with oophorectomy. BILATERAL TKA (10/01/12). DR. VANDANA HARDIN. section. X4. Cholecystectomy. Colonoscopy - IV Sedation. egd (05/10/16). flexible laryngoscopy (03/12/15). Dr Villatoro. Hemorrhoidectomy. History of esophagogastroduodenoscopy (EGD) (Chronic ~10/15/18). History of repair of right hip joint (Acute). Hysterectomy, Laproscopic. Open Carpal Tunnel release. Replacement of total knee joint. Right arthroscopic rtotator cuff repair (04/22/13). RIGHT FOOT FX REPAIR PREVIOUS FUNCTIONAL STATUS/SOCIAL/FAMILY SUPPORTS:: Crystal lives with her son Alvaro in [place], [place] Her daughter Sonal lives near her and she has 2 other children. Crystal is very independent and active and attends to all of her own needs including cooking and driving. CURRENT FUNCTIONAL STATUS:: Crystal was sitting up in a chair when CM met with her. She was pleasant and engaged readily with CM. Crystal shared the details of her current illness and how suddenly her symptoms developed. She reported that she was really scared. Crystal stated that she is feeling much better today, perfect was the word she used. She does not feel she will need any services at home. ADVANCE DIRECTIVES:: None on file Has patient been provided with info about the portal/API?: Yes Did the patient sign up for the portal?: No CODE STATUS:: Full Code INSURANCE COVERAGE / FINANCIAL ISSUES:: Medicare. [facility] CURRENT HOME/COMMUNITY SERVICES/EQUIPMENT:: [employer] PRIMARY CARE PHYSICIAN:: Melissa Lee POTENTIAL DISCHARGE NEEDS:: Discharge plan, limitations, follow up plan and Ask Me Three. PATIENT/FAMILY EDUCATION NEEDS:: Discharge plan, limitations, follow up plan and Ask Me Three. TRANSPORTATION:: via private vehicle with family PLAN:: Crystal will likely be discharged home with no new services. She will follow up with her PCP and discharge plan and transport with family. CM will continue to support Crystal and her discharge needs.
--- NOTE | 2020-03-06 14:46 | DSE_ITS ---
Date of service: 03/06/20 Time of Service: 14:47 DS: Diagnosis Discharge Diagnosis (1) Tachycardia-bradycardia syndrome: Status: Chronic Asessment and Plan: evidence of both bradycardia (requiring atropine x 1 in the ED) and SVT; being discharged home with an extended cardiac monitoring. (2) Atypical chest pain: Status: Resolved Asessment and Plan: ACS and PE ruled out (3) Pulmonary hypertension: Status: Chronic Asessment and Plan: RVSP 34 mmHg (4) Obstructive sleep apnea: Status: Suspected Asessment and Plan: Referral for a sleep study sent (5) Acute epigastric pain: Status: Resolved Asessment and Plan: No clear pathology on CT, ?musculoskeletal (6) Hypokalemia: Status: Resolved (7) Anxiety: Status: Chronic (8) Obesity with body mass index 30 or greater: Status: Chronic (9) COVID-19 ruled out by laboratory testing: Status: Ruled-out Discharge Plan Disposition Patient Disposition: HOME Condition: Good Discharge Details Chief Complaint: GenMedical Clinical Impression: Bradycardia, Acute epigastric pain, Chest pain, Breath shortness Reason For Visit: BRADYCARDIA,ATYPICAL CHEST PAIN,ABNORMAL D-DIMER Admit Date/Time: 03/05/20 17:55 Admit Provider: Tino Hicks Attending Provider: Tino Hicks Primary Care Provider: Melissa Lee ED Provider: Jordin Schmid [facility] Course Hospital Course: Ms Norton is an 79 year old female with PMHx of tachy-althea syndrome, as well as h/o hypertension, GERD, and anxiety, who was a patient on [facility] hospitalist service from 03/04/2020 until 03/06/2020 after presenting to the ED not feeling well, with malaise, a productive cough with clear sputum, L-sided chest pain reproducible with palpation, epigastric pain, pleuritic component to the pain, with pain worse when she lies down. Her heart rate in the ED was in the 30s and 40s, and the patient received atropine in the ED. She had negative troponins in the ED and negative non-contrast CT chest/abdomen/pelvis. Because of the elevated D-dimer and otherwise unexplained chest pain, the patient was fully anticoagulated in anticipation of CTA of her chest and venous dopplers to rule out DVT, which were negative. The patient ruled out for COVID-19 with a negative nasopharyngeal swab. She did not have any recurrences of significant bradycardia, but did have pauses of up to 2.3 seconds long as well as short, self-limited burst of SVT. A cardiology consult was requested, and recommendations provided without seeing the patient who was not in her room at the time, but essentially it was felt that the patient's tracings did not meet criteria for a pacemaker or medication adjustements, but that she would benefit from extended cardiac monitoring and outpatient cardiology follow up. The patient underwent an echocardiogram as well, which showed LVEF 50-55% without wall motion abnormalities, no evidence of RV dysfunction, but she did have RVSP of 34 mmHg, c/w pulmonary hypertension. The patient does have lower extremity edema chronically and would benefit from an outpatient sleep study to ensure she does not have sleep apnea, which is suspected. We are also referring the patient for an outpatient stress test. The patient's chest and abdominal pains have resolved. She received 1 dose of lasix 20 mg IV which completely relieved her shortness of breath and cough. I think she would benefit from switch from HCTZ to lasix with daily weights. We discussed that she should take lasix if her weight goes up by >3 lbs in 3 days. She should follow up with her PCP in 1-2 weeks and is being referred to cardiology. Care for patient as well as completion of her discharge summary took 1 hour on day of discharge. Home Meds and New Rx's Prescriptions: New furosemide [Lasix] 20 mg tablet 20 mg PO Q OTHER DAY PRN (Reason: weight gain or edema) Qty: 10 RF: 0 potassium chloride 20 mEq tablet extended release 20 meq PO .every other day PRN (Reason: take only when taking furosemide) Qty: 10 RF: 0 Continued cannabidiol 100 mg/mL solution See Rx Instructions PO .COMPLEX PRNRF: 0 vitamin E mixed 400 unit capsule 400 unit PO DAILY RF: 0 albuterol sulfate [Ventolin HFA] 90 mcg/actuation HFA aerosol inhaler 2 puff IH Q6H PRN (Reason: shortness of breath or wheezing) Qty: 6.7 RF: 0 flaxseed oil 1,000 MG capsule 1,000 mg PO DAILY RF: 0 cholecalciferol (vitamin D3) 400 UNIT tablet,chewable 3 tab PO DAILY Qty: 270 RF: 4 ascorbic acid (vitamin C) [Vitamin C] 500 mg tablet 500 mg PO DAILY RF: 0 cyanocobalamin (vitamin B-12) [Vitamin B-12] 1,000 MCG tablet, sublingual 1,000 mcg Sublingual DAILY RF: 0 biotin 800 MCG tablet 1 tab PO DAILY RF: 0 Discontinued hydrochlorothiazide 25 mg tablet 25 mg PO DAILY Qty: 90 RF: 3 Discharge Instructions Instructions: Furosemide (By mouth), Sleep Apnea (DC), Shortness of Breath (DC), Sick Sinus Syndrome (DC) Additional Instructions: Return to the hospital with any fever, bleeding, chest pain, or shortness of breath. Follow up with your PCP in 1-2 weeks. Follow up with cardiology. A referral is being sent for a sleep study. Follow up for your stress test. Weigh yourself daily. Take furosemide if you are noticing that your weight is going up by more than 3 Lbs in 3 days - and call your PCP! Bloodwork in 1 week. Follow a low salt diet (no more than 2 grams of salt per day). Referrals: [facility]OTHER] - CARDIOLOGY,[facility] [OTHER] - Melissa Lee DO [Primary Care Provider] - Activity:: Activity as Tolerated Equipment/Supplies:: No Equipment Needed Diet:: Low Sodium Discharge Orders Discharge Orders: Discharge Order (Routine); Ordered 03/06/20 Ordered By: Anai Hale Ambulatory Orders: Basic Metabolic Panel (Routine) Timeframe: 1 Week Facility: [facility] - Location: Laboratory Outpatient Ordered By: Anai Montes De Oca NM MPI rest & stress grp (Routine) Timeframe: 2 Weeks Facility: [facility] - Location: CARDIAC LAB Ordered By: Anai Montes De Oca Cardiac Event Recorder (Outpt) (ONCE) Timeframe: [id number] Facility: [facility] - Location: Respiratory Therapy Ordered By: Anai Montes De Oca DS: Summary Status at Discharge Functional status at discharge: independent ambulation Overall status at discharge: patient is back to baseline Mental Status: mental status grossly normal Speech and Movement: speech and movement normal Mood: congruent mood Affect: normal affect Exam Narrative Exam Narrative: General: A&Ox3, anxious, NAD HEENT: EOMI, MMM Heart: RRR, no m/r/g Lungs: CTAB - definite improvement from yesterday Abdomen: soft, nontender, nondistended Extremities: 2+ edema BLE - better, no clubbing/cyanosis Psych Mental Status: mental status grossly normal Speech and Movement: speech and movement normal Mood: congruent mood Affect: normal affect DS: Data Vitals/I&O Vitals and I&O: Vital Signs Temperature 36.7 C 03/06/20 11:55 Temperature Source Tympanic 03/06/20 11:55 Pulse 58 L 03/06/20 11:55 Pulse Rhythm Regular 03/06/20 04:08 Pulse 62 03/04/20 22:10 Respiratory Rate 17 03/06/20 11:55 Respiratory Effort Non-Labored 03/06/20 04:08 Respiratory Depth Normal 03/06/20 04:08 Respiratory Pattern Normal 03/06/20 04:08 Blood Pressure 149/76 H 03/06/20 11:55 Blood Pressure Mean 101 03/04/20 22:00 Blood Pressure Position Supine 03/04/20 17:57 Pulse Oximetry 96 03/06/20 11:55 Oxygen Delivery Method Room Air 03/06/20 11:55 Oxygen Flow Rate 0 03/06/20 11:55 Pain Level 0 03/06/20 11:55 Comment 03/06/20 11:55 Intake & Output 03/05/20 03/06/20 03/06/20 23:59 11:59 23:59 Intake Total 930 / 2155 240 / 240 Output Total 1700 / 2650 800 / 800 Balance -770 / -495 -800 / -560 240 / -560 Weight 94.5 kg Intake: Oral 930 / 1170 240 / 240 Output: Urine 1700 / 2650 800 / 800 Other: Urine Color Pale Yellow Yellow Urine Appearance Clear Clear Urine Odor None Normal Comment Void x1 in the toilet. Stool Size Moderate Stool Characteristics Soft Formed Voiding Methods Toilet Toilet Data Completed and Pending Completed studies during hospitalization [Text1]: CT chest/abdomen/pelvis w/o contrast 03/04/2020: No acute process in the chest, abdomen or pelvis. Echo 03/05/2020: Normal left ventricular wall thickness and chamber size. Estimated ejection fraction is 50 to 55%. There are no segmental wall motion abnormalities Grossly normal right ventricular size and function Left atrium is borderline dilated. The right atrium is normal in size Sclerotic trileaflet aortic valve without stenosis or regurgitation Normal mitral leaflets. Trace to mild mitral regurgitation Normal tricuspid and pulmonic valves. Mild tricuspid regurgitation. Estimated right ventricular systolic pressure is 34 mmHg Trace pulmonic regurgitation The ascending aorta is mildly dilated measuring 3.6 cm CTA chest/abdomen/pelvis: 1. No evidence of pulmonary embolism, thoracic aortic dissection or aneurysm. 2. No acute pulmonary process. 3. No acute abdominal or pelvic process. venous doppler BLE's: Right: Negative for DVT Left: Negative for DVT Labs on day of discharge: Labs from last 24 hours 03/06/20 03/04/20 10:30 09:21 Sodium 136 Potassium 3.7 Chloride 99 Carbon Dioxide 29.2 Anion Gap 7.8 BUN 26 H Creatinine 1.32 H Estimated GFR/1.73 m2 38.72 Glucose 86 Calcium 9.3 Magnesium 1.9 COVID-19 PCR Negative Nasopharyn COVID-19 PCR Not Applicable Ref Test Perform Site [facility] Preliminary micro results at discharge 03/04/20 21:00 Blood Culture - Preliminary Blood NO GROWTH 24 HOURS 03/04/20 20:50 Blood Culture - Preliminary Blood NO GROWTH 24 HOURS [facility] Medical History Anxiety Chest pain Dysgeusia GERD (gastroesophageal reflux disease) Gross hematuria Head ache Hyperlipidemia pt. states she is unsure if she has this Idiopathic peripheral neuropathy Intertrigo Lumbago Mixed stress and urge urinary incontinence Multiple fractures of right femur pt states she fractured her hip Multiple joint pain Nail abnormality Nocturia Obesity Osteopenia Osteoporosis Prehypertension Right arm pain Surgical History Bilateral salpingectomy with oophorectomy BILATERAL TKA (10/01/12) DR. VANDANA HARDIN section X4 Cholecystectomy Colonoscopy - IV Sedation egd (05/10/16) flexible laryngoscopy (03/12/15) Dr Villatoro Hemorrhoidectomy History of esophagogastroduodenoscopy (EGD) (Chronic ~10/15/18) History of repair of right hip joint (Acute) Hysterectomy, Laproscopic Open Carpal Tunnel release Replacement of total knee joint Right arthroscopic rtotator cuff repair (04/22/13) RIGHT FOOT FX REPAIR Family History Mother , Fluid buildup at age 72. Diabetes did not have diabetes Personal history of malignant neoplasm Asthma Father , AD,blood clot at age 69. Alzheimer's disease Son Asthma Son No problems noted. Son No problems noted. Daughter No problems noted. Sister No problems noted. Sister Personal history of malignant neoplasm Sister Personal history of malignant neoplasm Sister No problems noted. 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
[2020-03-06 16:02] VITALS: BP 180/75; PULSE 60; RESP 17; TEMP 36; O2SAT 100
== END 2020-03-06 17:41 | disposition home or self-care (01) | DRG 309 ==
LOC: ER 22:26 → MS 22:37
PROVIDERS: Internal Medicine; Student in an Organized Health Care Education/Training Program; Admitting Provider Internal Medicine; Emergency Provider Emergency Medicine; PCP Student in an Organized Health Care Education/Training Program; Visit Provider Internal Medicine
DX: I49.5 Sick sinus syndrome (principal); Z68.41 Body mass index [BMI] 40.0-44.9, adult; R00.1 Bradycardia, unspecified; R10.13 Epigastric pain; R07.89 Other chest pain; R06.02 Shortness of breath; M19.90 Unspecified osteoarthritis, unspecified site; F41.9 Anxiety disorder, unspecified; E66.9 Obesity, unspecified; M48.00 Spinal stenosis, site unspecified; K21.9 Gastro-esophageal reflux disease without esophagitis; E78.5 Hyperlipidemia, unspecified; L30.4 Erythema intertrigo; M54.5 Low back pain; N39.46 Mixed incontinence; M81.0 Age-related osteoporosis without current pathological fracture; Z96.653 Presence of artificial knee joint, bilateral; E87.6 Hypokalemia; I11.0 Hypertensive heart disease with heart failure; I27.20 Pulmonary hypertension, unspecified; I10 Essential (primary) hypertension; G47.33 Obstructive sleep apnea (adult) (pediatric)
CPT/HCPCS: 36415; 71250; 71275; 74177; 80048; 80053; 82805; 83690; 87040; 87449; 93005; 93270; 93306; 94640; 96365; 99220; 99221; 99232; 99239; 99252; 99285; U0003; 74176; 81003; 83735; 83880; 84484; 85025; 85379; 85610; 85730; 93010; 93970; G0378; J0131; J1650; J1941; J7620; Q9967

== ENCOUNTER → 2020-03-06 10:15 | Outpatient (BNVA) | payer MEDICARE, OTHER, SELFPAY | PROVIDERS: PCP Student in an Organized Health Care Education/Training Program; Referring Provider Student in an Organized Health Care Education/Training Program; Visit Provider Internal Medicine Cardiovascular Disease | DX: R69 Illness, unspecified (principal) ==

== ENCOUNTER 2020-03-13 03:53 | Outpatient (CLI) | payer MEDICARE, OTHER, SELFPAY ==
[2020-03-13 13:19] LABS: Anion Gap 3.9 mmol/L (3-11); BUN 22 mg/dL (7-18); CO2 31.1 mmol/L (21.0-32.0); CREATININE 1.21 mg/dL (0.55-1.02); Calcium 9.5 mg/dL (8.5-10.1); Chloride 101 mmol/L (98-107); Estimated GFR 42.81 (mL/min/1.73m2); Glucose 95 mg/dL (74-106); Potassium 4.3 mmol/L (3.5-5.1); Sodium 136 mmol/L (136-145)
== END 2020-03-13 04:13 ==
PROVIDERS: PCP Student in an Organized Health Care Education/Training Program; Visit Provider Internal Medicine
DX: I27.20 Pulmonary hypertension, unspecified (principal)
CPT/HCPCS: 36415; 80048

== ENCOUNTER 2020-03-16 00:42 | Outpatient (CLI) | payer MEDICARE, OTHER, SELFPAY ==
--- NOTE | 2020-03-16 07:30 | DI.NM_ITS ---
APPROVED REPORT Exam: Pharmacologic Patient Location: Out-Patient Room/Bed: Stress Nurse: Noemy Broderick RN BMI: 39.64 Baseline Rhythm: Sinus Bradycardia Indications: Patient was in the ED on 03/05/2020 with chest pain and heart rate in the 30???s and 40??? s, received Atropine and was admitted for further evaluation. Patient???s record shows she did have p auses of up to 2.3 seconds long as well as short, self-limited burst of SVT. Today patient reports sh e has left sided chest pain ???all the time???, and has occasional right sided chest pain. Patient is currently wearing a cardiac event recorder. Patient is a poor historian. Medical History Medical History: Tachycardia-bradycardia syndrome, ESTRELLA, Anxiety, GERD, Obesity. Cardiac Medications: Furosemide, Potassium. Allergies: Sulfonamide Antibiotics, Adhesive Tape, Aspirin, Morphine, Codeine, Latex. Cardiac Risk Factors: FHX of CAD, HTN, Hyperlipidemia Previous Cardiac Procedures: None. Pretest Chest Pain Characteristics: No chest pain per patient report. Exercise History: Sedentary Physical Disabilities: Legs Lung Sounds: Clear to auscultation Heart Sounds: Bradycardia Stress Test Details Test: Pharmacologic stress testing performed using 0.4 mg of regadenoson per 5 mL given IV over 10 s econds. Reason for pharmacologic stress test: physical limitation. Nuclear Acquisition: Rest Tc-99m/Stress Tc-99m 1 day Rest Isotope: Tc-99m Sestamibi. Dose: 10.8 Date: 03/16/2020 Injection Time: 1025 Stress Isotope: Tc-99m Sestamibi. Dose: 29.0 Date: 03/16/2020 Injection Time: 1255 HR Resting HR Supine: 57 bpm Max Heart Rate (APMHR): 140 bpm Target HR (85% APMHR): 119 bpm Max HR Achieved: 84 bpm % of APMHR: 60 BP Resting BP Supine: 136/90 mmHg Max BP: 136/90 mmHg ECG Resting ECG: Sinus Bradycardia Ectopy: Occasional Sinus Block and rare PVC's. Stress ECG: Sinus Rhythm Arrhythmia: None Recovery ECG: Sinus Rhythm Recovery ST Change: Normal Recovery Arrhythmia: None Clinical Stress Symptoms: Patient reported left sided chest tightness and aching post Lexiscan injection. Note patient vague and was difficult to assess. Stress ECG Conclusion 1. This is a pharmacological stress test. 2. The patient had no symptoms suggestive of ischemia. 3. The EKG portion of the exam was nondiagnostic. Stress Test Summary STAGE HR BP Symptoms NOTES Supine 57 136/90 1 min post Lexiscan injection 82 128/92 3 min post Lexiscan injection 73 130/88 6 min post Lexiscan injection 71 128/82 9 min post Lexiscan injection 68 126/88 MPI Conclusion The ejection fraction was 58% with stress. There were no wall motion abnormalities. There is no evidence of ischemia on imaging portion exam. This represents a normal SPECT stress test. Radiologist Interpretation Radiologist agrees with [address] Reporter's Interpretation. Radiologist Interpretation by: Malcolm Landers MD Interpretation Date/Time: 03/16/2020 14:45:48
[2020-03-16] MEDS: Regadenoson 0.4 MG/5 ML SYR IVP (14:09)
== END 2020-03-16 01:02 ==
PROVIDERS: PCP Student in an Organized Health Care Education/Training Program; Visit Provider Internal Medicine
DX: R07.9 Chest pain, unspecified (principal); R00.1 Bradycardia, unspecified; Z82.49 Family history of ischemic heart disease and other diseases of the circulatory system; I10 Essential (primary) hypertension; E78.5 Hyperlipidemia, unspecified
CPT/HCPCS: 78452; 93016; 93018; 93017; J2785

== ENCOUNTER → 2020-03-24 10:51 | Outpatient (BNVA) | payer MEDICARE, OTHER, SELFPAY ==
--- NOTE | 2020-04-13 08:39 | W.CARDEVENT ---
Date of service: 04/13/20 Time of Service: 08:39 Cardiac Event Recorder Referring Provider:: arvin Indications:: bradycardi Cardiac Event Note: This is a 30-day event recorder ordered for indication of bradycardia. ?The patient was in normal sinus rhythm for the majority of the recording. The minimum heart rate detected was 47 bpm. ?There were 3 critical detected events all associated with nonsustained VT with the longest lasting 9 beats. ?There were 25 patient triggered events described as fatigue that were all sinus rhythm with an occasional PAC. ?There are no episodes of atrial fibrillation, no pauses grade 3 seconds and no evidence of high degree heart block.
== END ==
PROVIDERS: PCP Student in an Organized Health Care Education/Training Program; Referring Provider Student in an Organized Health Care Education/Training Program; Visit Provider Internal Medicine Cardiovascular Disease
DX: R07.89 Other chest pain (principal); I49.5 Sick sinus syndrome
CPT/HCPCS: 99214

== ENCOUNTER 2020-04-13 08:30 | Outpatient (CLI) | payer MEDICARE, OTHER, SELFPAY | END 2020-04-13 08:50 | PROVIDERS: PCP Student in an Organized Health Care Education/Training Program; Referring Provider Internal Medicine Cardiovascular Disease; Visit Provider Internal Medicine Cardiovascular Disease | DX: R00.1 Bradycardia, unspecified (principal); I47.2 Ventricular tachycardia; I49.1 Atrial premature depolarization | CPT/HCPCS: 93272 ==

== ENCOUNTER → 2020-04-13 10:35 | Outpatient (BNVA) | payer MEDICARE, OTHER, SELFPAY | PROVIDERS: PCP Student in an Organized Health Care Education/Training Program; Referring Provider Student in an Organized Health Care Education/Training Program; Visit Provider Student in an Organized Health Care Education/Training Program | DX: M75.82 Other shoulder lesions, left shoulder (principal); R07.89 Other chest pain; Z98.890 Other specified postprocedural states | CPT/HCPCS: 20610; 99213; J1040 ==

== ENCOUNTER → 2020-04-24 09:53 | Outpatient (BNVA) | payer MEDICARE, OTHER, SELFPAY | PROVIDERS: PCP Student in an Organized Health Care Education/Training Program; Referring Provider Student in an Organized Health Care Education/Training Program; Visit Provider Internal Medicine Cardiovascular Disease | DX: I49.5 Sick sinus syndrome (principal); R07.89 Other chest pain | CPT/HCPCS: 99212; 99441 ==

== ENCOUNTER 2020-04-28 02:37 | Outpatient (CLI) | payer MEDICARE, OTHER, SELFPAY ==
[2020-04-28 14:42] LABS: TSH 0.77 uIU/mL (0.36-3.74)
== END 2020-04-28 02:57 ==
PROVIDERS: PCP Student in an Organized Health Care Education/Training Program; Visit Provider Student in an Organized Health Care Education/Training Program
DX: E04.1 Nontoxic single thyroid nodule (principal)
CPT/HCPCS: 36415; 84443

== ENCOUNTER 2020-05-08 04:25 | Outpatient (CLI) | payer MEDICARE, OTHER, SELFPAY ==
--- NOTE | 2020-05-08 07:00 | DI.US_ITS ---
EXAM: US SOFT TISSUE HEAD OR NECK CLINICAL HISTORY: evaluate neck, thyroid,FULLNESS OF NECK,R22.1,SENSATION OF FOREIGN BODY. TECHNIQUE: Ultrasound was performed using standard protocol. COMPARISON: No exams were available for comparison FINDINGS: Sonographic assessment utilizing grayscale and color Doppler imaging was performed and targeted to th e area of clinical concern. No cystic or solid mass is seen sonographically. IMPRESSION: DATA REPOSITORY:
--- NOTE | 2020-05-08 07:00 | DI.US_ITS ---
EXAM: US THYROID CLINICAL HISTORY: Evaluate esoph/neck;?thyroid goiter,SENSATION OF FOREIGN BODY,R22.1,FULLNES. TECHNIQUE: Ultrasound thyroid performed using standard protocol. COMPARISON: No exams were available for comparison FINDINGS: ISTHMUS: 3 mm RIGHT LOBE: Size: 4.4 x 1.5 x 1.3 cm Echogenicity: Normal. Vascularity: Normal. Nodules: None. LEFT LOBE: Size: 3.9 x 1.5 x 1.7 cm Echogenicity: Normal. Vascularity: Normal. Nodules: None. OTHER FINDINGS: None. IMPRESSION: Normal sonographic appearance of the thyroid gland. DATA REPOSITORY:
== END 2020-05-08 04:45 ==
PROVIDERS: PCP Student in an Organized Health Care Education/Training Program; Visit Provider Student in an Organized Health Care Education/Training Program
DX: R22.1 Localized swelling, mass and lump, neck (principal)
CPT/HCPCS: 76536

== ENCOUNTER 2020-09-03 10:54 | Outpatient (CLI) | payer MEDICARE, OTHER, SELFPAY ==
--- NOTE | 2020-09-03 15:15 | DI.RAD_ITS ---
EXAM: 2D digital imaging was performed. CLINICAL HISTORY: r/o constipation, obstipation R10.9 ABD PAIN R14.0 DISTENSION. COMPARISON: CT CT CHEST/ABD/PEL WO from 03/04/[address] CHEST PE ABD PELVIS W from 03/06/2020 TECHNIQUE: Supine and uprightSupine and Lateral views of the abdomen was performed. FINDINGS: There is stool throughout the colon suggesting constipation. No evidence of bowel obstruction. The lung bases are clear. Degenerative changes are seen in the lumbar spine. No pneumoperitoneum is pre sent. There is again seen a compression screw seen in the right femur. IMPRESSION: Moderate amount of stool throughout the colon suggesting constipation. DATA REPOSITORY: RADIATION DOSE DELIVERED:
== END 2020-09-03 11:14 ==
PROVIDERS: PCP Student in an Organized Health Care Education/Training Program; Visit Provider Student in an Organized Health Care Education/Training Program
DX: R10.9 Unspecified abdominal pain (principal); R14.0 Abdominal distension (gaseous)
CPT/HCPCS: 74019

== ENCOUNTER 2020-11-12 01:03 | Outpatient (CLI) | payer MEDICARE, OTHER, SELFPAY ==
--- NOTE | 2020-11-12 08:15 | DI.MAMMO_ITS ---
Exam(s) MAMMO DIAGNOSTIC BI EXAM: MAMMO DIAGNOSTIC BI CLINICAL HISTORY: LT BREAST PAIN, N64.4. TECHNIQUE: Bilateral CC and MLO mammographic images were obtained with 3D [employer] and utilizing computer aided detection (CAD). COMPARISON: Prior mammograms dating back to 2011, the most recent being January 2019. FINDINGS: There has been no significant change in the appearance and distribution of the fibroglandular tissue. There are no new spiculated masses nor malignant-appearing microcalcification groups. Benign micro a nd macrocalcifications are again noted bilaterally. There is no new architectural distortion or skin thickening-traction. IMPRESSION: No radiographic evidence of malignancy BI-RADS Category 1 - Negative Breast Density - Category B - Scattered areas of fibroglandular density Breast density Category C or D implies that the patient has dense breast tissue. Dense breast tissue can make it harder to find cancer on a mammogram. Dense breast tissue is also associated with an incr eased risk of breast cancer. This information about the result of the mammogram report was provided to the patient to raise their awareness. Use this report when you speak with the patient about their risks for breast cancer, which includes their family history. At that time, you may recommend additional screening tests (Ultrasoun d or MRI) as these tests may add significant information. A negative radiographic report should not delay biopsy if a dominant or clinically suspicious mass is present. Up to ten percent of cancers are not identified on mammography. A negative report may reinforce clinical impression. Adenosis and dense breasts may obscure an underlying neoplasm. False positive reports average 6 to 10%. Patient will receive a letter notifying them of these results.
== END 2020-11-12 01:23 ==
PROVIDERS: PCP Student in an Organized Health Care Education/Training Program; Visit Provider Nurse Practitioner
DX: N64.4 Mastodynia (principal)
CPT/HCPCS: 77062; 77066; G0279

== ENCOUNTER 2020-11-12 02:17 | Outpatient (CLI) | payer MEDICARE, OTHER, SELFPAY ==
[2020-11-12 13:29] LABS: HCT 38.2 % (36.0-46.0); HGB 12.2 g/dL (11.2-15.7); MCH 30.8 pg (27.0-33.0); MCHC 31.9 % (32.0-36.0); MCV 96.5 fL (80-95); MPV 10.3 fL (8.0-11.0); Platelet Count 197 10^3/uL (130-400); RBC 3.96 10^6/uL (3.93-5.22); RDW 13.3 % (11.7-14.6); RDW-SD 47.8 fL; WBC 6.45 10^3/uL (4.4-10.8)
[2020-11-12 15:13] LABS: ALT 18 U/L (14-59); AST 11 U/L (15-37); Albumin 3.8 g/dL (3.4-5.0); Alkaline Phosphatase 76 U/L (46-116); BUN 23 mg/dL (7-18); Bilirubin, Total 0.5 mg/dL (0.2-1.0); CREATININE 1.2 mg/dL (0.55-1.02); Calcium 9.2 mg/dL (8.5-10.1); Chloride 105 mmol/L (98-107); Estimated GFR 43.12 (mL/min/1.73m2); Glucose 82 mg/dL (74-106); Sodium 143 mmol/L (136-145); TSH (W/Ref FT4) 1.46 uIU/mL (0.36-3.74); Total Protein 7.2 g/dL (6.4-8.2)
== END 2020-11-12 02:18 | disposition home or self-care (01) ==
PROVIDERS: PCP Student in an Organized Health Care Education/Training Program; Visit Provider Student in an Organized Health Care Education/Training Program
DX: I10 Essential (primary) hypertension (principal); R60.9 Edema, unspecified; R79.89 Other specified abnormal findings of blood chemistry; N64.4 Mastodynia
CPT/HCPCS: 36415; 77062; 77066; 80053; 85027; 84443; G0279

== ENCOUNTER 2020-12-17 02:04 | Outpatient (CLI) | payer MEDICARE, OTHER, SELFPAY ==
[2020-12-17 12:41] LABS: Anion Gap 8.4 mmol/L (3-11); BUN 26 mg/dL (7-18); CO2 28.6 mmol/L (21.0-32.0); CREATININE 1.2 mg/dL (0.55-1.02); Calcium 9.5 mg/dL (8.5-10.1); Chloride 106 mmol/L (98-107); Estimated GFR 43.12 (mL/min/1.73m2); Glucose 90 mg/dL (74-106); Potassium 4.2 mmol/L (3.5-5.1); Sodium 143 mmol/L (136-145)
[2020-12-18 12:05] LABS: Lyme Ab w Rflx to Lyme Confirm Negative (Negative)
[2020-12-19 04:06] LABS: Anaplasma phagocytophilum Negative (Negative); B. miyamotoi PCR Negative (Negative); Babesia divergens/MO-1 Negative (Negative); Babesia duncani Negative (Negative); Babesia microti Negative (Negative); Ehrlichia chaffeensis Negative (Negative); Ehrlichia ewingii/canis Negative (Negative); Ehrlichia muris eauclairensis Negative (Negative)
== END 2020-12-17 02:05 | disposition home or self-care (01) ==
LOC: LBO 02:04
PROVIDERS: PCP Student in an Organized Health Care Education/Training Program; Visit Provider Student in an Organized Health Care Education/Training Program
DX: R53.83 Other fatigue (principal); N28.9 Disorder of kidney and ureter, unspecified; Z79.899 Other long term (current) drug therapy; W57.XXXA Bitten or stung by nonvenomous insect and other nonvenomous arthropods, initial encounter; T14.8XXA Other injury of unspecified body region, initial encounter
CPT/HCPCS: 36415; 80048; 87798; 84443; 86618

== ENCOUNTER 2020-12-21 09:18 | Outpatient (CLI) | payer MEDICARE, OTHER, SELFPAY ==
--- NOTE | 2020-12-21 09:00 | DI.RAD_ITS ---
Exam(s) XR HAND LT COMPLETE EXAM: XR HAND LT COMPLETE CLINICAL HISTORY: pain. TECHNIQUE: 2D digital imaging was performed. COMPARISON: CR XR HAND RT COMPLETE from 12/21/2020 FINDINGS: No evidence of fracture no subluxations nor ominous osseous lesions. Metacarpophalangeal joints appear age-appropriate. No erosions. Main findings here are in the interphalangeal joints both proximal distal where there are degenerativ e changes, most prominent in the DIP joints of the 2nd 3rd fingers. Mild degenerative changes at the thumb articulations. Moderate degenerative changes at the articulation between the thumb metacarpal and trapezium. IMPRESSION: Significant findings in the proximal and distal interphalangeal joints with relative sparing of the m etacarpophalangeal joints. DATA REPOSITORY: RADIATION DOSE DELIVERED:
--- NOTE | 2020-12-21 09:00 | DI.RAD_ITS ---
Exam(s) XR HAND RT COMPLETE EXAM: XR HAND RT COMPLETE CLINICAL HISTORY: pain. TECHNIQUE: 2D digital imaging was performed. COMPARISON: No exams were available for comparison FINDINGS: No evidence fracture nor significant subluxation. 3 x 2 millimeter calcific density is seen in the s oft tissues palm are-lateral to the DIP joint of the 3rd-middle finger. This 3rd finger DIP joint ex hibits significant narrowing, without erosions. Similar findings are seen in the DIP joints of the o ther fingers, slightly less so. Milder degenerative changes in the PIP joints. Relative sparing of the metacarpophalangeal joints. There are advanced degenerative changes the articulation between the thumb metacarpal and trapezium. There is calcification the triangular fibrocartilage of the medial aspect of the wrist, similar to the opposite side. IMPRESSION: DATA REPOSITORY: RADIATION DOSE DELIVERED:
--- OUTSIDE RECORDS SUMMARY | 2020-12-21 09:20 | XMS_ITS ---
:1940 Author Care Team Providers Name Role Phone [facility]DS Primary Care Provider [phone] ALFREDO MORATAYA DO Primary Care Provider [phone] Allergies Code Code System Name Reaction Severity Status Onset Adhesive Tape Hives Moderate Active ? 1191 RxNorm Aspirin ? ? Active ? 2670 RxNorm Codeine ? ? Active ? 6671212 RxNorm Latex ? ? Active ? 7052 RxNorm Morphine ? ? Active ? Sulfa ? ? Active ? (Sulfonamide Antibiotics) Medications Name Status Start Date Stop Date ? ? acetaminophen ER 650 mg tablet,extended release Active ? Not available Take 2 tablets every 8 hours by oral route. albuterol sulf 90 mcg/actuation breath activated powder inhaler, sensor Active ? Not available Inhale 2 puffs every 4 hours by inhalation route. ascorbic acid (vitamin C) 250 mg tablet Active ? Not available Take 2 tablets every day by oral route with meals. biotin Active ? Not available cannabidiol (CBD) oral oil Active ? Not a vailable Take 100 mg by oral route. cholecalciferol (vit D3) 1,000 unit-vitamin K2 (MK4) 100 mcg tab let Active ? Not available Take by oral route. cyanocobalamin (B12)-cobamamide 5,000 mcg-100 mcg sublingual feli enge Active ? Not available Place by sublingual route. flaxseed oil 1,000 mg capsule Active ? No t available Take by oral route. furosemide Completed ? 04/22/2020 hydrochlorothiazide 25 mg tablet Active ? Not available Take 1 tablet every day by oral route. Joint Formula tablet Active ? Not availab le Take by oral route. magnesium Active ? Not available naproxen 220 mg-pseudoephedrine 120 mg ER tablet, extend release ,12 hr Active ? Not available Take by oral route. omeprazole Active ? Not available ranitidine 150 mg tablet Active ? Not radha ilable Take 1 tablet twice a day by oral route. Ventolin HFA 90 mcg/actuation aerosol inhaler Active ? Not available Inhale 2 puffs every 4 hours by inhalation route. vit J09-pccxiyull factor-folic acid cmb#2 500 mcg-20 mg-800 mcg tablet Active ? Not available Take by oral route. vitamin E (dl, acetate) 400 unit capsule Active ? Not available Take by oral route. zolpidem 5 mg tablet Completed ? 06/23/2020 take 1 PO night of sleep study if needed Problems Name Status Onset Date Source ? Obesity Active 04/15/2020 ? Anxiety Disorder Active 04/15/2020 ? Idiopathic Peripheral Neuropathy Active 04/15/2020 ? Spinal Stenosis of Lumbar Region Active 04/15/2020 ? Fatigue Active 04/15/2020 ? Low Back Pain Co-occurrent and Due to Active 04/15/2020 ? Bilateral Sciatica Pain in Right Knee Active 04/15/2020 ? Pain in Left Knee Active 04/15/2020 ? Apnea Active 04/22/2020 ? 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 Obstructive Sleep Apnea Syndrome Active ? ? Procedures Date Name Performed by ? 04/22/2020 Polysomnogram Information not avai lable Results Lab Results None recorded. 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 04/22/2020 Apnea Kimmie Ku [employer]: [address] [place] [phone], Ph. Social History Tobacco Smoking Status Never Smoker Vaccine List None recorded. Plan of Care Reminders Provider Appointments None ? ? recorded. Lab None ? ? recorded. Referral None ? ? recorded. Procedures None ? ? recorded. Surgeries None ? ? recorded. Imaging None ? ? recorded. Vitals 06/23/2020 12:30PM Office 30 Height Weight BMI Blood Pressure 152.4 cm 88 kg 37.9 kg/m2 140/70 mm[Hg] 04/22/2020 11:15AM New Patient 44 Height Weight BMI Blood Pressure 152.4 cm 88 kg 37.9 kg/m2 161/75 mm[Hg]
== END 2020-12-21 09:19 | disposition home or self-care (01) ==
LOC: DIORS 09:18
PROVIDERS: PCP Student in an Organized Health Care Education/Training Program; Referring Provider Student in an Organized Health Care Education/Training Program; Visit Provider Student in an Organized Health Care Education/Training Program
DX: M19.042 Primary osteoarthritis, left hand (principal); M19.041 Primary osteoarthritis, right hand; M65.332 Trigger finger, left middle finger; M72.0 Palmar fascial fibromatosis [Dupuytren]
CPT/HCPCS: 99214; 73130

== ENCOUNTER 2021-01-19 09:42 | Outpatient (CLI) | payer MEDICARE, OTHER, SELFPAY ==
[2021-01-19 13:54] LABS: Anion Gap 6.3 mmol/L (3-11); BUN 22 mg/dL (7-18); CO2 28.7 mmol/L (21.0-32.0); CREATININE 1.2 mg/dL (0.55-1.02); Calcium 9.2 mg/dL (8.5-10.1); Chloride 106 mmol/L (98-107); Estimated GFR 43.12 (mL/min/1.73m2); Glucose 91 mg/dL (74-106); Magnesium 2.4 mg/dL (1.8-2.4); Potassium 4.6 mmol/L (3.5-5.1); Sodium 141 mmol/L (136-145)
== END 2021-01-19 09:43 | disposition home or self-care (01) ==
LOC: LBO 09:45
PROVIDERS: PCP Student in an Organized Health Care Education/Training Program; Visit Provider Student in an Organized Health Care Education/Training Program
DX: R60.0 Localized edema (principal); T50.2X5A Adverse effect of carbonic-anhydrase inhibitors, benzothiadiazides and other diuretics, initial encounter; E87.6 Hypokalemia
CPT/HCPCS: 36415; 80048; 83735

== ENCOUNTER 2021-02-04 11:03 | Outpatient (CLI) | payer MEDICARE, OTHER, SELFPAY ==
--- NOTE | 2021-02-04 10:30 | DI.RAD_ITS ---
Exam(s) XR KNEE RT 2V AP,LAT EXAM: XR KNEE RT 2V AP,LAT CLINICAL HISTORY: pain. TECHNIQUE: 2D digital imaging was performed. COMPARISON: CR XR knee LT 3V AP,lat,rachel from 10/10/2018 FINDINGS: Satisfactory position alignment of the components of the prosthesis. No fracture or loosening eviden t. IMPRESSION: DATA REPOSITORY: RADIATION DOSE DELIVERED:
--- NOTE | 2021-02-04 10:30 | DI.RAD_ITS ---
Exam(s) XR KNEE LT 2V AP,LAT EXAM: XR KNEE LT 2V AP,LAT CLINICAL HISTORY: pain. TECHNIQUE: 2D digital imaging was performed. COMPARISON: CR XR KNEE RT 2V AP,LAT from 02/04/2021 FINDINGS: Satisfactory position and alignment of the components of the left knee prosthesis. No fracture or lo osening evident. IMPRESSION: DATA REPOSITORY: RADIATION DOSE DELIVERED:
== END 2021-02-04 11:04 | disposition home or self-care (01) ==
LOC: DIORS 11:04
PROVIDERS: PCP Student in an Organized Health Care Education/Training Program; Referring Provider Student in an Organized Health Care Education/Training Program; Visit Provider Student in an Organized Health Care Education/Training Program
DX: T84.84XD Pain due to internal orthopedic prosthetic devices, implants and grafts, subsequent encounter (principal); Z96.659 Presence of unspecified artificial knee joint; M19.041 Primary osteoarthritis, right hand; M19.042 Primary osteoarthritis, left hand; Z96.653 Presence of artificial knee joint, bilateral; M75.82 Other shoulder lesions, left shoulder; M25.561 Pain in right knee; M25.562 Pain in left knee
CPT/HCPCS: 99215; 73560

== ENCOUNTER 2021-03-12 04:30 | Outpatient (CLI) | payer MEDICARE, OTHER, SELFPAY ==
--- NOTE | 2021-03-12 08:00 | DI.US_ITS ---
Exam(s) US THYROID EXAM: US THYROID CLINICAL HISTORY: Evaluate for nodules, swelling, neck fullness, fam hx thyroid disease,R22.1. TECHNIQUE: Ultrasound thyroid performed using standard protocol. COMPARISON: No exams were available for comparison FINDINGS: ISTHMUS: 3 mm RIGHT LOBE: Size: 4.2 x 1.9 x 1.8 cm Echogenicity: Normal. Vascularity: Normal. Nodules: None. LEFT LOBE: Size: 4.1 x 2.0 x 1.6 cm Echogenicity: Normal. Vascularity: Normal. Nodules: None. OTHER FINDINGS: Normal sized cervical lymph nodes. IMPRESSION: Normal sonographic appearance of the thyroid gland. DATA REPOSITORY:
== END 2021-03-12 04:50 ==
PROVIDERS: PCP Student in an Organized Health Care Education/Training Program; Visit Provider Student in an Organized Health Care Education/Training Program
DX: R22.1 Localized swelling, mass and lump, neck (principal); Z83.49 Family history of other endocrine, nutritional and metabolic diseases
CPT/HCPCS: 76536

== ENCOUNTER 2021-04-18 09:34 | Inpatient (IN) | payer MEDICARE, OTHER, SELFPAY ==
[2021-04-18] VITALS (56 sets, daily range): BP systolic 96–181; BP diastolic 54–146; PULSE 52–66; RESP 11–25; TEMP 36.4–37; O2SAT 95–100
--- NOTE | 2021-04-18 09:30 | RT.EKG_ITS ---
APPROVED REPORT Exam: Resting ECG Reason for Exam: stroke symptoms Patient Location: E HR:57 bpm ECG Measurements Heart Rate 57 AXIS NM 215 P -9 QRSd 106 QRS -47 QT 408 T 51 QTc 395 Conclusion Sinus bradycardia Atrial premature complex...SV complex w/ short R-R interval Borderline prolonged NM interval Left anterior fascicular block Probable left ventricular hypertrophy Anterior Q waves
--- NOTE | 2021-04-18 09:43 | W.ED.GENAD ---
Discharge Plan Disposition Patient Disposition: [facility] INPATIENT Condition: Stable Discharge Details Clinical Impression: TIA (transient ischemic attack), Chronic neck pain Admit Date/Time: 04/18/21 16:34 Admit Provider: Tristian Maher Attending Provider: Tristian Maher Primary Care Provider: Melissa Lee ED Provider: Malcolm Sterling Medical Decision Making This is an 80-year-old female presents from home with her daughter. She has 2 days of feeling generally weak and with left neck/face/arm pain that is similar to previous neck pain for which she has sought physical therapy. She notes weeks or longer of intermittent vertiginous symptoms. She has also felt some mild exertional shortness of breath and notes frequent urination. No infectious symptoms and denies fever or cough. She is fully immunized against COVID-19. Patient arrives to ER with 170 over 70s, pulse in the 60s, 99% sat on room air. She does not have any focal neurologic deficits. Most concern for fluid balance, electrolyte abnormality, UTI, must exclude intracranial mass or hemorrhage, and consider peripheral vertigo.. Patient will note previous fall with left neck injury and she has been noted to have some chronic neck pain. IV access established, screening laboratories obtained the patient referred for chest x-ray and CT imaging. CT reveals marked diffuse heterogeneity of the white matter consistent with severe chronic white matter ischemic changes. No evidence of an acute ischemic event. There is note of sphenoid sinus mucosal thickening, no fluid levels. Chest x-ray: No focal airspace consolidation. Perhaps mild interstitial pulmonary edema/vascular congestion. See formal report. Laboratory: White blood count 6, hematocrit 40, platelets 244. Chemistries reassuring with BUN 16, creatinine 1.2, glucose 92, negative troponin, BNP 652. Urinalysis with specific gravity of 1.02. Given report of dizziness, patient did undergo CTA of the head and neck. This reveals no large vessel stenosis or occlusion of the anterior or posterior circulation. See formal report. Patient ate some crackers, felt improved. She did have some mild vertiginous symptoms and was given 12.5 mg of meclizine with improvement. Patient served on a threat monitoring analyst and repeat troponin obtained and negative. Given the patient's age, evidence of previous white matter ischemic changes, will admit for possible TIA. HPI General Mode of arrival: wheelchair. Date/Time Provider Initiated Documentation: 04/18/21 09:36. Limitations to Documentation: no limitations. Information obtained by: patient and family. History of Present Illness 80 year old F presents to the emergency department with the chief complaint of Weakness, dizzy since yesterday, described as moderate, Quality is described as constant, Patient started experiencing this hour(s) and it has been constant. Patient notes weakness; denies chest pain, cough, fever/chills, headaches, seizure and syncope. Patient did receive the following treatments prior to arrival, none Related Data Home Medications Medication Instructions Recorded Confirmed cyanocobalamin (vitamin B-12) 1,000 mcg SUBLINGUAL DAILY 08/28/15 04/18/21 [Vitamin B-12] flaxseed oil 1,000 mg PO DAILY 10/09/17 04/18/21 cholecalciferol (vitamin D3) 3 tab PO DAILY #270 tab.chew 12/28/17 04/18/21 cannabidiol 100 mg/mL oral solution See Rx Instructions PO .COMPLEX 12/28/18 04/18/21 PRN ml vitamin E mixed 400 unit capsule 400 unit PO DAILY cap 04/03/19 04/18/21 ascorbic acid (vitamin C) 500 mg 500 mg PO DAILY tab 06/12/19 04/18/21 tablet biotin 800 mcg tablet 800 mcg PO DAILY tab 03/20/20 04/18/21 magnesium 250 mg tablet 250 mg PO DAILY 03/20/20 04/18/21 albuterol sulfate 90 mcg/actuation 2 puff IH Q6H PRN #6.7 gm 07/30/20 04/18/21 aerosol inhaler potassium chloride 20 mEq 20 meq PO .every other day PRN #10 07/30/20 04/18/21 tablet,extended release tab famotidine 20 mg tablet 20 mg PO DAILY #30 tab 11/05/20 04/18/21 lactobacillus combination no.8 3 3,000 mmu cells PO DAILY 12/15/20 04/18/21 billion cell capsule ashwagandha root extract 300 mg See Rx Instructions PO .QD cap 12/29/20 04/18/21 capsule metronidazole 0.75 % topical gel 1 applic TOPICAL QHS #45 g 02/02/21 04/18/21 furosemide 20 mg tablet 20 mg PO Q OTHER DAY PRN #90 tab 03/16/21 04/18/21 Compression Stockings #1 ea 03/31/21 04/18/21 Previous Rx's Medication Instructions Recorded cholecalciferol (vitamin D3) 3 tab PO DAILY #270 tab.chew 12/28/17 albuterol sulfate 90 mcg/actuation 2 puff IH Q6H PRN #6.7 gm 07/30/20 aerosol inhaler potassium chloride 20 mEq 20 meq PO .every other day PRN #10 07/30/20 tablet,extended release tab famotidine 20 mg tablet 20 mg PO DAILY #30 tab 11/05/20 metronidazole 0.75 % topical gel 1 applic TOPICAL QHS #45 g 02/02/21 furosemide 20 mg tablet 20 mg PO Q OTHER DAY PRN #90 tab 03/16/21 Compression Stockings #1 ea 03/31/21 Allergies Allergy/AdvReac Type Severity Reaction Status Date / Time adhesive tape Allergy Intermediate blisters Verified 04/18/21 09:53 on skin Sulfa (Sulfonamide Allergy Intermediate sister Verified 04/18/21 09:53 Antibiotics) of anaphylaxis per pt aspirin AdvReac Intermediate nosebleeds Verified 04/18/21 09:53 codeine AdvReac Intermediate blackouts Verified 04/18/21 09:53 latex AdvReac Intermediate skin-red Verified 04/18/21 09:53 ithcy spots on skin morphine AdvReac Intermediate becomes Verified 04/18/21 09:53 very ill, vomting General BENNY: 3 Review of Systems Narrative: Intermittent dizzy spells for months or longer, left neck pain for months or longer. Increased urination, generalized weakness. No infectious symptoms. 8 systems reviewed and otherwise negative [facility] Medical History Abdominal pain Anxiety Breast pain, left Chest pain CKD (chronic kidney disease) stage 3, GFR 30-59 ml/min @ baseline, 03/2021 (Cr 1.2/GFR 43). Dysgeusia Dysphagia Acute on chronic, fluids>solids (Hx terrible choking resolved, but noting difficulty again).. Edema of lower extremity Worsening edema, making leg pain worse .. Poor tolerance of compression .. trying lt compression [ ] 12/2020 Family history of thyroid disease Hx of family members being told nothing wrong then ID disease .. high anxiety. GERD (gastroesophageal reflux disease) Gross hematuria Head ache Hyperlipidemia pt. states she is unsure if she has this Idiopathic peripheral neuropathy Intertrigo Lumbago Mixed stress and urge urinary incontinence Multiple fractures of right femur pt states she fractured her hip Multiple joint pain Nail abnormality Neck fullness Sensation of firmness, swelling (vs neck pain that PT is working on) .. subacute, with high anxiety.. Neck pain on left side Nocturia Obesity Osteopenia Osteoporosis Prehypertension Right arm pain Surgical History Bilateral salpingectomy with oophorectomy BILATERAL TKA (10/01/12) DR. VANDANA HARDIN section X4 Cholecystectomy Colonoscopy - IV Sedation egd (05/10/16) flexible laryngoscopy (03/12/15) Dr Villatoro Hemorrhoidectomy History of esophagogastroduodenoscopy (EGD) (~10/15/18) History of repair of right hip joint Hysterectomy, Laproscopic Open Carpal Tunnel release Replacement of total knee joint Right arthroscopic rtotator cuff repair (04/22/13) RIGHT FOOT FX REPAIR Family History Mother , Fluid buildup at age 72. Diabetes did not have diabetes Personal history of malignant neoplasm Asthma Father , AD,blood clot at age 69. Alzheimer's disease Son Asthma Son No problems noted. Son No problems noted. Daughter No problems noted. Sister No problems noted. Sister Personal history of malignant neoplasm Sister Personal history of malignant neoplasm Sister No problems noted. 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 Pleasant, well groomed, interactive. HEAD: Normocephalic, atraumatic ENT: Mucous membranes moist, oropharynx unremarkable, External ear exam unremarkable EYES: PERRL, EOMI NECK: Full ROM, no LEANDER, no menigismus. Left neck with palpable muscular cord that is tender. CHEST/RESP: Nontender, clear to auscultation bilateral, no wheeze/rhonchi/rales CARDIOVASCULAR: RRR, no murmur, rub yovany. 2+ Rad pulse bilateral ABDOMEN: Soft, nontender, no mass. +Bowel sounds EXT: Full ROM, no edema, no rash Neuro: Grossly normal neurologic exam, cranial nerves II through XII intact, motor 5 out of 5 throughout, visual cooper intact to confrontation, conversant, interactive. Psych: Speech fluent, thoughts congruent, affect normal
--- NOTE | 2021-04-18 09:45 | DI.RAD_ITS ---
Exam(s) XR CHEST 2V PA LATERAL EXAM: XR CHEST 2V PA LATERAL CLINICAL HISTORY: dizzy, sob TECHNIQUE: 2D digital imaging was performed of the chest. Two images were obtained. AP and lateral views were obtained. COMPARISON: CR CHEST 2 VIEWS PA,LAT from 01/30/2017 CR CHEST 2 VIEWS PA,LAT from 01/30/2017 FINDINGS: MEDIASTINUM: Normal. HEART: Mild cardiomegaly. PULMONARY VASCULATURE: Stable pulmonary vasculature. LUNGS: Stable interstitial markings which appear chronic. No focal consolidating infiltrates. PLEURAL SPACE: No pleural effusion or pneumothorax. BONE:Within normal limits for the patient's age. OTHER FINDINGS:Normal. IMPRESSION: No definite acute pulmonary process when compared to 01/30/2017. DATA REPOSITORY: RADIATION DOSE DELIVERED:
--- NOTE | 2021-04-18 09:45 | DI.CT_ITS ---
Exam(s) CT HEAD - STROKE PROTOCOL EXAM: CT HEAD - STROKE PROTOCOL CLINICAL HISTORY: Dizzy, L face/neck pain. TECHNIQUE: Imaging Protocol: Axial computed tomography images with coronal and sagittal reformatted images were created and reviewed COMPARISON: CT HEAD AND CSPINE W/O CONTRAST from 06/06/2015 FINDINGS: Ventricles and Extra axial spaces: Normal in size and morphology for the patient's age. Hemorrhage: None. Cerebral parenchyma: No acute territorial infarct. There are areas of decreased attenuation in the w do matter most consistent with small vessel ischemic change. Midline shift: None. Brainstem/Cerebellum: Normal. Calvarium: Normal. Visualized Paranasal sinuses/Mastoids: Clear. Soft Tissues: Unremarkable. IMPRESSION: No acute intracranial process. RADIATION DOSE DELIVERED: 705.12mGy.cm Total DLP DATA REPOSITORY: All CT scans at this facility are submitted to the National Radiology Data Registry (NRDR) Dose Index Registry (DIR) with the [employer] (ACR). RADIATION OPTIMIZATION: All CT scans at this facility use at least one of these dose optimization te chniques: automated exposure control; mA and/or kV adjustment per patient size (includes targeted exa ms where dose is matched to clinical indication); or iterative reconstruction.
[2021-04-18 10:29] LABS: Abs Immature Grans 0.01 10^3/uL (0.0-0.06); Absolute Basophil Count 0.02 10^3/uL (0.0-0.2); Absolute Eosinophil Count 0.14 10^3/uL (0.0-0.7); Absolute Lymphocyte Count 1.58 10^3/uL (1.2-3.4); Absolute Monocyte Count 0.49 10^3/uL (0.1-0.8); Absolute Neutrophil Count 4.13 10^3/uL (1.2-6.7); Basophils % 0.3; Eosinophils % 2.2; HCT 40.7 % (36.0-46.0); HGB 13.3 g/dL (11.2-15.7); Immature Grans % 0.2; Lymphocytes % 24.8; MCH 31.1 pg (27.0-33.0); MCHC 32.7 % (32.0-36.0); MCV 95.1 fL (80-95); MPV 10.3 fL (8.0-11.0); Monocytes % 7.7; Neutrophils % 64.8; Nucleated RBC 0 %; Platelet Count 244 10^3/uL (130-400); RBC 4.28 10^6/uL (3.93-5.22); RDW 12.8 % (11.7-14.6); RDW-SD 44.4 fL; WBC 6.37 10^3/uL (4.4-10.8)
[2021-04-18] MEDS: ACETAMINOPHEN 1,000 MG/100 ML BTL 400 MG IVPB (10:40)
--- NOTE | 2021-04-18 10:45 | DI.VRAD_ITS ---
PROCEDURE INFORMATION: Exam: CT Head Without Contrast Exam date and time: 04/18/2021 9:56 AM Age: 80 years old Clinical indication: Other: Dizzy, L face/neck pain TECHNIQUE: Imaging protocol: Computed tomography of the head without contrast. Other technique: STROKE PROTOCOL was implemented. COMPARISON: CT HEAD AND CSPINE W/O CONTRAST 06/06/2015 6:43 PM FINDINGS: Brain: There is no evidence of acute hemorrhage within the brain parenchyma or the subarachnoid space. There is marked diffuse heterogeneity of the white matter attenuation, consistent with severe chronic white matter ischemic changes. There is no evidence of an acute ischemic event. Cerebral ventricles: No ventriculomegaly. Paranasal sinuses: Sphenoid sinus mucosal thickening. No fluid levels. Mastoid air cells: Visualized mastoid air cells are well aerated. Vasculature: Atherosclerotic calcifications of the intracranial arteries. Bones/joints: Unremarkable. No acute fracture. Soft tissues: Unremarkable. IMPRESSION: 1. No acute intracranial findings. Note that early ischemic change can be occult on CT. 2. Senescent and chronic changes as above with marked diffuse white matter ischemic changes. ASSESSMENT: ASPECTS ([place] Stroke Program Early CT Score) is 10. Dictated and Authenticated by: Ricky Velez MD. Ordering:HEBERT Fowler MD
--- NOTE | 2021-04-18 10:47 | DI.VRAD_ITS ---
PROCEDURE INFORMATION: Exam: XR Chest Exam date and time: 04/18/2021 9:56 AM Age: 80 years old Clinical indication: Other: SOB TECHNIQUE: Imaging protocol: XR of the chest. Views: 2 views. COMPARISON: CT CHEST/ABD/PEL WO 03/04/2020 8:15 PM FINDINGS: Lungs: Lower lung field scarring and/or atelectasis. Mild increased interstitial markings. Mild pulmonary vascular engorgement. No focal airspace consolidation. Pleural spaces: No pleural effusion. No pneumothorax. Heart/Mediastinum: Mild cardiomegaly. Bones/joints: Unremarkable. IMPRESSION: 1. No focal airspace consolidation. 2. Perhaps mild interstitial pulmonary edema/vascular congestion. 3. Mild cardiomegaly. Dictated and Authenticated by: Ricky Velez MD. Ordering:HEBERT Fowler MD
[2021-04-18 10:52] LABS: Source Nasal/Nares
[2021-04-18 10:56] LABS: ALT 13 U/L (14-59); AST < 5 U/L (15-37); Albumin 3.6 g/dL (3.4-5.0); Alkaline Phosphatase 73 U/L (46-116); Anion Gap 6.3 mmol/L (3-11); BUN 16 mg/dL (7-18); Bilirubin, Total 0.7 mg/dL (0.2-1.0); CO2 30.7 mmol/L (21.0-32.0); CREATININE 1.2 mg/dL (0.55-1.02); Calcium 9.8 mg/dL (8.5-10.1); Chloride 105 mmol/L (98-107); Estimated GFR 43.12 (mL/min/1.73m2); Glucose 92 mg/dL (74-106); Magnesium 2.2 mg/dL (1.8-2.4); NT-proBNP 652 pg/mL (<300); Sodium 142 mmol/L (136-145); Total Protein 7.7 g/dL (6.4-8.2); Troponin I < 0.05 ng/mL (<0.06)
[2021-04-18 10:56] LABS: PTT Activated 24.5 sec (21.0-27.5); Prothrombin Time 9.9 sec (9.3-11.0)
--- NOTE | 2021-04-18 11:00 | DI.CT_ITS ---
Exam(s) CT BRAIN NECK CTA EXAM: CT BRAIN NECK CTA CLINICAL HISTORY: Dizziness, chr white matter changes. TECHNIQUE: Imaging Protocol: Axial CT angiography was performed with multi-slice acquisition and mu lti-planar and/or 3D reconstructions. CONTRAST MATERIAL: Intravenous: Omnipaque 350 Contrast volume:85 mL COMPARISON: CT CT HEAD - STROKE PROTOCOL from 04/18/2021 FINDINGS: CT Head w: Ventricles and Extra axial spaces: Normal in size and morphology for the patient's age. Hemorrhage: None. Cerebral parenchyma: No acute territorial infarct. There are areas of decreased attenuation in the w do matter most consistent with small vessel ischemic disease. Midline shift: None. Brainstem/Cerebellum: Normal. Calvarium: Normal. Visualized Paranasal sinuses/Mastoids: Clear. Soft Tissues: Unremarkable. Enhancement: Unremarkable. CTA Neck W: Common Carotid: Right: No dissection, occlusion or significant stenosis. Mild atherosclerosis distally. Left: No dissection, occlusion or significant stenosis. Mild atherosclerosis distally. External Carotid: Right: No occlusion or significant stenosis. Left: No occlusion or significant stenosis. Internal Carotid: Right: No dissection, occlusion or significant stenosis. Mild atherosclerosis proximally. Left: No dissection, occlusion or significant stenosis. Mild atherosclerosis proximally. Vertebral Artery: Right: No dissection, occlusion or significant stenosis. Mild atherosclerosis. Left: No dissection, occlusion or significant stenosis. Lung Apices: Normal. Bones: Within normal limits for the patient's age. Soft Tissues: Normal. Thyroid gland: Unremarkable. CTA Brain W: Internal Carotid Arteries: Petrous: Normal. Cavernous: Mild atherosclerosis. No significant stenosis or occlusion. Cerebral: Normal. Anterior Cerebral Arteries: Right: No aneurysm, occlusion or significant stenosis. Left: No aneurysm, occlusion or significant stenosis. Middle Cerebral Arteries: Right: No aneurysm, occlusion or significant stenosis. Left: No aneurysm, occlusion or significant stenosis. Posterior cerebral Arteries: Right: No aneurysm, occlusion or significant stenosis. Left: No aneurysm, occlusion or significant stenosis. Vertebral Arteries: Right: No aneurysm, occlusion or significant stenosis. Left: No aneurysm, occlusion or significant stenosis. Basilar Artery: No aneurysm, occlusion or significant stenosis. IMPRESSION: 1. No large vessel occlusion or significant stenosis on the CT angiography of the head. 2. No acute intracranial process. 3. No occlusion or significant stenosis on the CT angiography of the neck. RADIATION DOSE DELIVERED: 1,218.68mGy.cm Total DLP DATA REPOSITORY: All CT scans at this facility are submitted to the National Radiology Data Registry (NRDR) Dose Index Registry (DIR) with the [employer] (ACR). RADIATION OPTIMIZATION: All CT scans at this facility use at least one of these dose optimization te chniques: automated exposure control; mA and/or kV adjustment per patient size (includes targeted exa ms where dose is matched to clinical indication); or iterative reconstruction.
[2021-04-18 11:09] LABS: Bilirubin Negative (Negative); Blood Negative (Negative); Clarity Sl Cloudy (Clear); Glucose Negative (Negative); Ketones Negative (Negative); Leukocyte Esterase Negative (Negative); Nitrite Negative (Negative); Urobilinogen 0.2 EU/dL (Up TO 0.2); pH 8.5 (5-8)
[2021-04-18] MEDS: Normal Saline - Diluent 50 ML VIAL IV (11:41)
[2021-04-18] MEDS: Omnipaque 350 MG/ML 100 ML BTL IJ (11:41)
[2021-04-18] MEDS: Normal Saline Flush 10 ML SYR IVP (11:42)
--- NOTE | 2021-04-18 12:05 | NUR.NOTE ---
pt tolerated crackers and water - relief from nausea Nursing Note:
[2021-04-18 12:15] LABS: COVID-19 PCR Negative (Negative)
--- NOTE | 2021-04-18 12:16 | DI.VRAD_ITS ---
PROCEDURE INFORMATION: Exam: CT Angiography Head With Contrast, Arteriography Exam date and time: 04/18/2021 11:10 AM Age: 80 years old Clinical indication: Other: Dizziness, chr white matter changes TECHNIQUE: Imaging protocol: Computed tomography angiography of the head with contrast. Exam focused on the arteries. 3D rendering (Not supervised by radiologist): MIP and/or 3D reconstructed images were created by the technologist. Radiation optimization: All CT scans at this facility use at least one of these dose optimization techniques: automated exposure control; mA and/or kV adjustment per patient size (includes targeted exams where dose is matched to clinical indication); or iterative reconstruction. Contrast material: OMNIPAQUE 350; Contrast volume: 85 ml; Contrast route: INTRAVENOUS (IV); COMPARISON: CT HEAD - STROKE PROTOCOL 04/18/2021 10:26 AM FINDINGS: ANTERIOR CIRCULATION: Right internal carotid artery: Unremarkable. Intracranial segment is patent with no significant stenosis. No aneurysm. Right middle cerebral artery: Unremarkable. No occlusion or significant stenosis. No aneurysm. Right anterior cerebral artery: Unremarkable. No occlusion or significant stenosis. No aneurysm. Left internal carotid artery: Unremarkable. Intracranial segment is patent with no significant stenosis. No aneurysm. Left middle cerebral artery: Unremarkable. No occlusion or significant stenosis. No aneurysm. Left anterior cerebral artery: Unremarkable. No occlusion or significant stenosis. No aneurysm. POSTERIOR CIRCULATION: Right vertebral artery: Unremarkable. No occlusion or significant stenosis. No aneurysm. Left vertebral artery: Unremarkable. No occlusion or significant stenosis. No aneurysm. Basilar artery: Unremarkable. No occlusion or significant stenosis. No aneurysm. Right posterior cerebral artery: Unremarkable. No occlusion or significant stenosis. No aneurysm. Left posterior cerebral artery: Unremarkable. No occlusion or significant stenosis. No aneurysm. Brain: No definite mass, mass effect, or midline shift. Cerebral ventricles: No ventriculomegaly. Bones/joints: Unremarkable. No acute fracture. Soft tissues: Unremarkable. IMPRESSION: No large vessel stenosis or occlusion. PROCEDURE INFORMATION: Exam: CT Angiography Neck With Contrast Exam date and time: 04/18/2021 11:10 AM Age: 80 years old Clinical indication: Other: Dizziness, chr white matter changes TECHNIQUE: Imaging protocol: Computed tomography angiography of the neck with contrast. 3D rendering (Not supervised by radiologist): MIP and/or 3D reconstructed images were created by the technologist. Radiation optimization: All CT scans at this facility use at least one of these dose optimization techniques: automated exposure control; mA and/or kV adjustment per patient size (includes targeted exams where dose is matched to clinical indication); or iterative reconstruction. Contrast material: OMNIPAQUE 350; Contrast volume: 85 ml; Contrast route: INTRAVENOUS (IV); COMPARISON: CT HEAD - STROKE PROTOCOL 04/18/2021 10:26 AM FINDINGS: Right common carotid artery: Tortuosity and acute angle creates mild stenosis. No dissection or occlusion. Right internal carotid artery: No stenosis of the extracranial segment. No dissection or occlusion. Right external carotid artery: No occlusion or stenosis of the origin. Left common carotid artery: No stenosis. No dissection or occlusion. Left internal carotid artery: No stenosis of the extracranial segment. No dissection or occlusion. Left external carotid artery: No occlusion or stenosis of the origin. Right vertebral artery: Mild narrowing at the C3-C4 level from severe facet hypertrophy. No dissection or occlusion. Left vertebral artery: Mild narrowing at the C3-C4 level from severe facet hypertrophy. No dissection or occlusion. Soft tissues: Normal. No significant soft tissue swelling. Bones/joints: Spondylosis of the cervical spine with severe bilateral facet hypertrophy at C3-C4 which places some mild mass effect on the traversing vertebral arteries. IMPRESSION: No significant stenosis or occlusion. REFERENCES: NASCET CRITERIA. The degree of internal carotid artery stenosis is based on NASCET criteria. Normal is no stenosis. Mild is less than 50% stenosis. Moderate is 50-69% stenosis. Severe is 70% to 99% stenosis. Total occlusion is no detectable patent lumen. Dictated and Authenticated by: Ricky Velez MD. Ordering:HEBERT Fowler MD
[2021-04-18] MEDS: Meclizine 12.5 MG TAB PO (12:43)
--- NOTE | 2021-04-18 13:15 | RT.EKG_ITS ---
APPROVED REPORT Exam: Resting ECG Reason for Exam: L neck pain Patient Location: E HR:54 bpm ECG Measurements Heart Rate 54 AXIS KS 190 P -41 QRSd 108 QRS -46 QT 442 T 38 QTc 421 Conclusion Incomplete analysis due to missing data in precordial lead(s) Sinus bradycardia. Left anterior fascicular block. LVH with secondary repolarization abnormality..abnrm ST-T
[2021-04-18 13:50] LABS: Troponin I < 0.05 ng/mL (<0.06)
--- NOTE | 2021-04-18 17:07 | HPE_ITS ---
Date of service: 04/18/21 Time of Service: 17:07 Assessment and Plan Assessment and plan (1) TIA (transient ischemic attack): Start date: 04/18/21 Start time: 17:16 Status: Suspected Assessment and plan: Patient have onset symptoms of face, neck, arm pain and weakness. Patient has no sx other then normal weakness per patient and neck pain that has been there x weeks She does have some dizziness but it is improving. Will give nucynta for neck pain and diazepam for vertigo R/o cva with MRI Echo with Bubble study teley and neuro consult PT eval Possible discharge home this afternoon (2) Chronic neck pain: Start date: 04/18/21 Start time: 17:16 Status: Chronic Assessment and plan: As above (3) CKD (chronic kidney disease) stage 3, GFR 30-59 ml/min: Start date: 04/18/21 Start time: 17:16 Status: Chronic Assessment and plan: at baseline, monitor labs (4) HTN (hypertension): Start date: 04/18/21 Start time: 17:16 Status: Chronic Assessment and plan: continue home regimen and monitor bp discussed with Dr. Maher Qualifiers: Hypertension type: essential hypertension Qualified Code(s): I10 - Essential (primary) hypertension History of Present Illness History of Present Illness Chief Complaint: TIA vs Vertigo vs CVA Narrative: 80 y.o female with PMH of GERD, HLD, anxiety, obesity, [place], CKD, Gross hematuria, presents to [facility] ED with c/o 2 days of general weakness and left neck/face/arm/ pain that is similar to previous neck pain which she has had PT for in the past. She has had weeks of what appears to be vertigo symptoms. She sits up in the morning and gets dizzy. She continues to have dizziness in the ED therefore she has been asked to be admitted. Labs in ED unremarkable. CT No acute intracranial process. CXR No definite acute pulmonary process when compared. CT head w/o contrast IMPRESSION: 1. No acute intracranial findings. Note that early ischemic change can be occult on CT. 2. Senescent and chronic changes as above with marked diffuse white matter ischemic changes. CTA reveals IMPRESSION: 1. No large vessel occlusion or significant stenosis on the CT angiography of the head. 2. No acute intracranial process. 3. No occlusion or significant stenosis on the CT angiography of the neck. This is likely vertigo. However will r/o cva. she can not take asa will give plavix. place on teley, check tsh, lipids, A1C, atorvastatin. MRI for tomorrow. Echo, and neuro consult. Symtpoms has resolved only complaints are just neck pain which is not new. Will trial nucynta and low dose valium for dizziness. Review of Systems All systems reviewed & are unremarkable except as noted in HPI and below PFSH Medical History (Updated 04/19/21 @ 09:53 by Sahara Brown NP) Abdominal pain Anxiety Breast pain, left Chest pain CKD (chronic kidney disease) stage 3, GFR 30-59 ml/min @ baseline, 03/2021 (Cr 1.2/GFR 43). Dysgeusia Dysphagia Acute on chronic, fluids>solids (Hx terrible choking resolved, but noting difficulty again).. Edema of lower extremity Worsening edema, making leg pain worse .. Poor tolerance of compression .. trying lt compression [ ] 12/2020 Family history of thyroid disease Hx of family members being told nothing wrong then ID disease .. high anxiety. GERD (gastroesophageal reflux disease) Gross hematuria Head ache HTN (hypertension) Mostly managed, good today, 09/28/18, ik. 134/68 07/30/19. Hyperlipidemia pt. states she is unsure if she has this Idiopathic peripheral neuropathy Intertrigo Lumbago Mixed stress and urge urinary incontinence Multiple fractures of right femur pt states she fractured her hip Multiple joint pain Nail abnormality Neck fullness Sensation of firmness, swelling (vs neck pain that PT is working on) .. subacute, with high anxiety.. Neck pain on left side Nocturia Obesity Osteopenia Osteoporosis Prehypertension Right arm pain Surgical History Bilateral salpingectomy with oophorectomy BILATERAL TKA (10/01/12) DR. VANDANA HARDIN section X4 Cholecystectomy Colonoscopy - IV Sedation egd (05/10/16) flexible laryngoscopy (03/12/15) Dr Villatoro Hemorrhoidectomy History of esophagogastroduodenoscopy (EGD) (~10/15/18) History of repair of right hip joint Hysterectomy, Laproscopic Open Carpal Tunnel release Replacement of total knee joint Right arthroscopic rtotator cuff repair (04/22/13) RIGHT FOOT FX REPAIR Family History Mother , Fluid buildup at age 72. Diabetes did not have diabetes Personal history of malignant neoplasm Asthma Father , AD,blood clot at age 69. Alzheimer's disease Son Asthma Son No problems noted. Son No problems noted. Daughter No problems noted. Sister No problems noted. Sister Personal history of malignant neoplasm Sister Personal history of malignant neoplasm Sister No problems noted. 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 Pets and animals: Yes Pets and animals: dog(s) Current gender identity: female What is your relationship status?: Panel score (0-1 are the most socially isolated patients): 0 What type of physical activity do you participate in: none Seatbelt use: always Do you feel safe at home: Yes Do you feel safe in your relationship?: Yes Victim of physical abuse: No Victim of emotional abuse: No Victim of sexual abuse: No Meds Allergies and Home Medications Allergies Allergy/AdvReac Type Severity Reaction Status Date / Time adhesive tape Allergy Intermediate blisters Verified 04/18/21 09:53 on skin Sulfa (Sulfonamide Allergy Intermediate sister Verified 04/18/21 09:53 Antibiotics) of anaphylaxis per pt aspirin AdvReac Intermediate nosebleeds Verified 04/18/21 09:53 codeine AdvReac Intermediate blackouts Verified 04/18/21 09:53 latex AdvReac Intermediate skin-red Verified 04/18/21 09:53 ithcy spots on skin morphine AdvReac Intermediate becomes Verified 04/18/21 09:53 very ill, vomting Home Medications Medication Instructions Recorded Confirmed Type cyanocobalamin (vitamin B-12) 1,000 mcg SUBLINGUAL DAILY 08/28/15 04/18/21 History [Vitamin B-12] flaxseed oil 1,000 mg PO DAILY 10/09/17 04/18/21 History cholecalciferol (vitamin D3) 3 tab PO DAILY #270 tab.chew 12/28/17 04/18/21 Rx cannabidiol 100 mg/mL oral solution See Rx Instructions PO .COMPLEX 12/28/18 04/18/21 History PRN ml vitamin E mixed 400 unit capsule 400 unit PO DAILY cap 04/03/19 04/18/21 History ascorbic acid (vitamin C) 500 mg 500 mg PO DAILY tab 06/12/19 04/18/21 History tablet biotin 800 mcg tablet 800 mcg PO DAILY tab 03/20/20 04/18/21 History magnesium 250 mg tablet 250 mg PO DAILY 03/20/20 04/18/21 History albuterol sulfate 90 mcg/actuation 2 puff IH Q6H PRN #6.7 gm 07/30/20 04/18/21 Rx aerosol inhaler potassium chloride 20 mEq 20 meq PO .every other day PRN #10 07/30/20 04/18/21 Rx tablet,extended release tab famotidine 20 mg tablet 20 mg PO DAILY #30 tab 11/05/20 04/18/21 Rx lactobacillus combination no.8 3 3,000 mmu cells PO DAILY 12/15/20 04/18/21 History billion cell capsule ashwagandha root extract 300 mg See Rx Instructions PO .QD cap 12/29/20 04/18/21 History capsule metronidazole 0.75 % topical gel 1 applic TOPICAL QHS #45 g 02/02/21 04/18/21 Rx furosemide 20 mg tablet 20 mg PO Q OTHER DAY PRN #90 tab 03/16/21 04/18/21 Rx Compression Stockings #1 ea 03/31/21 04/18/21 Rx flu vacc [id number] 6mos up(PF) 0.5 ml IM ONCE #0.5 ml 04/19/21 Clinic Exam Const General: cooperative, comfortable and no acute distress Nutritional Appearance: obese Orientation: alert, awake and oriented x3 Eyes Eyelids: eyelids normal Pupils: PERRL EOM: EOM intact bilaterally Neck Neck: normal visual inspection and no JVD Lymphatic: no lymphadenopathy noted Chest Chest: normal inspection of the chest Resp Effort & Inspection: normal respiratory effort Auscultation: clear to auscultation bilaterally Cardio Jugular venous pressure: no JVD Rhythm: regular rhythm Heart Sounds: S1 normal GI Inspection: obesity Auscultation: normal bowel sounds General: No CVA tenderness and deferred Back/Spine/Pelvis Back: no CVA tenderness Cervical Spine: No cervical ROM normal, cervical muscular tenderness and pain with cervical ROM Skin General skin exam: no rashes or lesions noted Neuro General: patient alert, patient awake and patient oriented x3 Cognition: normal cognition Speech: speech normal Gait: normal gait Extrem General: normal to inspection, full ROM and no clubbing, cyanosis or edema Psych Appearance: grossly normal Mental Status: mental status grossly normal Speech and Movement: speech and movement normal Mood: congruent mood Affect: normal affect Attitude: cooperative Thought Process: normal Thought Content: normal Results Labs Result diagrams: 04/19/21 06:45 04/18/21 10:10 Labs: Laboratory Results - last 24 hr 04/18/21 04/18/21 04/18/21 10:10 10:10 10:32 WBC 6.37 RBC 4.28 Hgb 13.3 Hct 40.7 MCV 95.1 H MCH 31.1 MCHC 32.7 RDW 12.8 Plt Count 244 MPV 10.3 Immature Gran % 0.2 Neutrophils % 64.8 Lymphocytes % 24.8 Monocytes % 7.7 Eosinophils % 2.2 Basophils % 0.3 Nucleated RBC % 0 Absolute Neutrophils 4.13 Absolute Lymphocytes 1.58 Absolute Monocytes 0.49 Absolute Eosinophils 0.14 Absolute Basophils 0.02 PT 9.9 INR 1.0 APTT 24.5 Sodium 142 Potassium 4.0 Chloride 105 Carbon Dioxide 30.7 Anion Gap 6.3 BUN 16 Creatinine 1.2 H Estimated GFR/1.73 m2 43.12 Glucose 92 Calcium 9.8 Magnesium 2.2 Total Bilirubin 0.7 AST < 5 L ALT 13 L Alkaline Phosphatase 73 Troponin I < 0.05 NT-Pro-B Natriuret Pep 652 H Total Protein 7.7 Albumin 3.6 Urine Color Urine Clarity Urine pH Ur Specific Braddock Urine Protein Urine Ketones Urine Blood Urine Nitrite Urine Bilirubin Urine Urobilinogen Ur Leukocyte Esterase Urine Glucose COVID-19 Source SARS-CoV-2 (PCR) 04/18/21 04/18/21 04/18/21 10:48 11:03 13:25 WBC RBC Hgb Hct MCV MCH MCHC RDW Plt Count MPV Immature Gran % Neutrophils % Lymphocytes % Monocytes % Eosinophils % Basophils % Nucleated RBC % Absolute Neutrophils Absolute Lymphocytes Absolute Monocytes Absolute Eosinophils Absolute Basophils PT INR APTT Sodium Potassium Chloride Carbon Dioxide Anion Gap BUN Creatinine Estimated GFR/1.73 m2 Glucose Calcium Magnesium Total Bilirubin AST ALT Alkaline Phosphatase Troponin I < 0.05 NT-Pro-B Natriuret Pep Total Protein Albumin Urine Color Yellow Urine Clarity Sl Cloudy Urine pH 8.5 H Ur Specific Braddock 1.020 Urine Protein Negative Urine Ketones Negative Urine Blood Negative Urine Nitrite Negative Urine Bilirubin Negative Urine Urobilinogen 0.2 Ur Leukocyte Esterase Negative Urine Glucose Negative COVID-19 Source Nasal/Nares SARS-CoV-2 (PCR) Negative Last Vital Signs Temp 36.5 C 04/18/21 11:57 Pulse 56 L 04/18/21 15:17 Resp 14 04/18/21 15:50 BP 158/54 H 04/18/21 15:32 Pulse Ox 99 04/18/21 15:50
[2021-04-18] MEDS: diazePAM 2 MG TAB PO (18:04)
[2021-04-18] MEDS: Azithromycin 250 MG TAB 500 MG PO (18:05)
[2021-04-18] MEDS: Pravastatin 20 MG TAB 80 MG PO (19:55)
[2021-04-18] MEDS: Docusate Sodium 100 MG CAP PO (19:55)
[2021-04-18] MEDS: Normal Saline 1,000 ML 75 ML IV (19:56)
[2021-04-19 07:00] VITALS: PULSE 56
[2021-04-19] MEDS: Normal Saline 1,000 ML 75 ML IV (07:04)
[2021-04-19 07:09] LABS: HCT 39.5 % (36.0-46.0); HGB 12.3 g/dL (11.2-15.7); MCH 30.4 pg (27.0-33.0); MCHC 31.1 % (32.0-36.0); MCV 97.5 fL (80-95); Platelet Count 209 10^3/uL (130-400); RBC 4.05 10^6/uL (3.93-5.22); RDW 12.8 % (11.7-14.6); RDW-SD 46.2 fL; WBC 5.64 10^3/uL (4.4-10.8)
--- NOTE | 2021-04-19 07:30 | DI.MRI_ITS ---
Exam(s) MR BRAIN WO EXAM: MR BRAIN WO CLINICAL HISTORY: TIA r/o CVA TECHNIQUE: Multiplanar multisequence MRI of the brain was performed. COMPARISON: CT CT BRAIN NECK CTA from 04/18/[address] BRAIN NECK CTA from 04/18/2021 FINDINGS: CEREBRAL PARENCHYMA: There is no evidence of intracranial hemorrhage, mass effect, or shift of midline structures. There are no extra-axial fluid collections. Ventricles are not enlarged or shifted. No significant signal abnormality in the cerebellar hemispheres. There is, however, signal abnormali ty both sides of edgardo. There is sparing of the midbrain. Also relative sparing of the thalami. There is abundant signal abnormality in the Torri and supraventricular white matter consistent with ch ronic small vessel disease. This does not exhibit abnormal signal in the fusion imaging to suggest r estricted motion. PITUITARY GLAND: No mass nor parasellar abnormality. No obvious abnormality in the cavernous sinuses. FLOW VOIDS: The expected flow void are noted. No evidence of obvious aneurysm nor obvious vascular ma lformation. PARANASAL SINUSES: The visualized paranasal sinuses appear unremarkable. No obvious finding ORBITS: No obvious findings. IMPRESSION: There is abundant bilateral periventricular signal abnormality consistent with chronic small vessel d isease. Similar findings seen in the edgardo. There is relative sparing of the midbrain and thalami. There is no evidence of intracranial hemorrhage. No abnormal signal on diffusion imaging to suggest restricted diffusion (acute infarct). DATA REPOSITORY:
[2021-04-19 07:31] VITALS: BP 134/80; PULSE 60; RESP 17; TEMP 36.8; O2SAT 96
[2021-04-19 07:34] LABS: Calculated LDL 132 mg/dL (<100); Cholesterol 183 mg/dL (<200); HDL Cholesterol 39 mg/dL (40-60); TSH 1.71 uIU/mL (0.36-3.74); Triglyceride 63 mg/dL (<150)
[2021-04-19 07:58] LABS: Hemoglobin A1C 5.3 % (<5.7)
--- NOTE | 2021-04-19 08:38 | PDOC.CMIN ---
- If Service Date Differs Date of service: 04/19/21 Time of Service: 08:38 Care Management Initial Assess REASON FOR HOSPITALIZATION:: TIA PAST MEDICAL HISTORY/PAST SURGICAL HISTORY:: Medical History . Abdominal pain. Anxiety. Breast pain, left. Chest pain. CKD (chronic kidney disease) stage 3, GFR 30-59 ml/min. @ baseline, 03/2021 (Cr 1.2/GFR 43). Dysgeusia. Dysphagia. Acute on chronic, fluids>solids (Hx terrible choking resolved, but noting difficulty again).. Edema of lower extremity. Worsening edema, making leg pain worse .. Poor tolerance of compression .. trying lt compression [ ] 12/2020. Family history of thyroid disease. Hx of family members being told nothing wrong then ID disease .. high anxiety. GERD (gastroesophageal reflux disease). Gross hematuria. Head ache. Hyperlipidemia. pt. states she is unsure if she has this. Idiopathic peripheral neuropathy. Intertrigo. Lumbago. Mixed stress and urge urinary incontinence. Multiple fractures of right femur. pt states she fractured her hip. Multiple joint pain. Nail abnormality. Neck fullness. Sensation of firmness, swelling (vs neck pain that PT is working on) .. subacute, with high anxiety.. Neck pain on left side. Nocturia. Obesity. Osteopenia. Osteoporosis. Prehypertension. Right arm pain. Surgical History . Bilateral salpingectomy with oophorectomy. BILATERAL TKA (10/01/12). DR. VANDANA HARDIN. section. X4. Cholecystectomy. Colonoscopy - IV Sedation. egd (05/10/16). flexible laryngoscopy (03/12/15). Dr Villatoro. Hemorrhoidectomy. History of esophagogastroduodenoscopy (EGD) (~10/15/18). History of repair of right hip joint. Hysterectomy, Laproscopic. Open Carpal Tunnel release. Replacement of total knee joint. Right arthroscopic rtotator cuff repair (04/22/13). RIGHT FOOT FX REPAIR PREVIOUS FUNCTIONAL STATUS/SOCIAL/FAMILY SUPPORTS:: Crystal lives with her son Alvaro in [place], [place] Her daughter Sonal lives near her and she has 2 other children. Crystal is very independent and active and attends to all of her own needs including cooking and driving. CURRENT FUNCTIONAL STATUS:: Crystal was sitting up in bed when CM met with her. She was pleasant and easily engaged in conversation. Crystal shares that she currently works with [facility] twice weekly but would appreciate a referral to [facility] SN[facility] until she has more strength. CM will help support discharge needs. ADVANCE DIRECTIVES:: On File, [facility] is Sonal Rosas Has patient been provided with info about the portal/API?: Yes Did the patient sign up for the portal?: No CODE STATUS:: Full Code INSURANCE COVERAGE / FINANCIAL ISSUES:: Commerical Insurance. Medicare CURRENT HOME/COMMUNITY SERVICES/EQUIPMENT:: [employer] PRIMARY CARE PHYSICIAN:: Melissa Lee PATIENT/FAMILY EDUCATION NEEDS:: Discharge plan, limitations, follow up plan and Ask Me Three. TRANSPORTATION:: via private vehicle with daughter Alexandra. PLAN:: Crystal will likely be discharged home with new [facility] SN[facility]PT. She will follow up with her PCP and discharge plan and transport with family. CM will continue to support Crystal and her discharge needs.
[2021-04-19] MEDS: Docusate Sodium 100 MG CAP PO ×2 (09:18→14:58)
[2021-04-19] MEDS: Cholecalciferol (Vitamin D3) 400 UNIT TAB 1200 UNIT PO (09:18)
[2021-04-19] MEDS: Clopidogrel 75 MG TAB PO (09:19)
[2021-04-19] MEDS: Cyanocobalamin 500 MCG TAB 1000 MCG PO (09:19)
[2021-04-19] MEDS: Azithromycin 250 MG TAB PO (09:19)
[2021-04-19] MEDS: Enoxaparin 30 MG/0.3 ML SYR SC (09:20)
[2021-04-19] MEDS: Ascorbic Acid 500 MG TAB PO (09:20)
[2021-04-19] MEDS: Normal Saline Flush 10 ML SYR IVP (09:21)
--- NOTE | 2021-04-19 10:20 | PT.INIE ---
Date of service: 04/19/21 Time of Service: 10:20 PT Notes Visit Reasons: TIA Physical Therapy Inpatient Initial Evaluation Date: 04/19/2021 Referring Doctor: Sahara Brown NP PT Orders: PT CONSULT: Eval/treat Precautions: Fall. Standard. Activity as tolerated. Patient Profile/Admitting Diagnosis: Crystal is an 80-year-old female who presented to the ED on 04/18/2021 with report of 2 days worth of generalized weakness, left neck/pain/arm pain, shortness of breath, and weeks of intermittent vertiginous symptoms. Patient is diagnosed with transient ischemic attack with admission to MedSurg unit to rule out acute CVA. KENISHA Shoemaker requested testing for BPPV to determine cause of dizziness symptoms. PMHX: Medical History (Updated 04/19/21 @ 09:53 by Sahara Brown NP) Abdominal pain Anxiety Breast pain, left Chest pain CKD (chronic kidney disease) stage 3, GFR 30-59 ml/min @ baseline, 03/2021 (Cr 1.2/GFR 43). Dysgeusia Dysphagia Acute on chronic, fluids>solids (Hx terrible choking resolved, but noting difficulty again).. Edema of lower extremity Worsening edema, making leg pain worse .. Poor tolerance of compression .. trying lt compression [ ] 12/2020 Family history of thyroid disease Hx of family members being told nothing wrong then ID disease .. high anxiety. GERD (gastroesophageal reflux disease) Gross hematuria Head ache HTN (hypertension) Mostly managed, good today, 09/28/18, ik. 134/68 07/30/19. Hyperlipidemia pt. states she is unsure if she has this Idiopathic peripheral neuropathy Intertrigo Lumbago Mixed stress and urge urinary incontinence Multiple fractures of right femur pt states she fractured her hip Multiple joint pain Nail abnormality Neck fullness Sensation of firmness, swelling (vs neck pain that PT is working on) .. subacute, with high anxiety.. Neck pain on left side Nocturia Obesity Osteopenia Osteoporosis Prehypertension Right arm pain Surgical History Bilateral salpingectomy with oophorectomy BILATERAL TKA (10/01/12) DR. VANDANA HARDIN section X4 Cholecystectomy Colonoscopy - IV Sedation egd (05/10/16) flexible laryngoscopy (03/12/15) Dr Villatoro Hemorrhoidectomy History of esophagogastroduodenoscopy (EGD) (~10/15/18) History of repair of right hip joint Hysterectomy, Laproscopic Open Carpal Tunnel release Replacement of total knee joint Right arthroscopic rtotator cuff repair (04/22/13) RIGHT FOOT FX REPAIR Social History/Home Situation: Lives with son in a private home. Independent with all mobility ADLs prior to admission. Equipment Owned/DME: [facility] Subjective: Reports that she some some kind of flashing early this morning. States that dizziness has resolved. Denies headache and chest pain throughout session. Complained of room spinning and blurring of vision during Roopa-Hallpike maneuver. Reports that she has had chroninc neck issues that OP PT has been working on. Objective: General Observation: Supine in bed. IV in R UE. Mental Status: Alert and oriented as to person, place, time, and purpose. Able to pay attention, focus, and respond appropriately. Pain: 5/10 in posterior neck ROM: Right Upper Extremity: Grossly WFL Left Upper Extremity: Grossly WFL Right Lower Extremity: Grossly WFL Left Lower Extremity: Grossly WFL Strength: Right Upper Extremity: Grossly 4-/5 Left Upper Extremity: Grossly 4-/5 Right Lower Extremity: Grossly 4/5 Left Lower Extremity: Grossly 4/5 Bed Mobility/Transfers: Supine to sit stand by assist with HOB at 45 degrees with no report of dizziness/spinning Sit to supine stand by assist with HOB at 45 degrees with no report of dizziness/spinning Sit to stand stand by assist with no report of dizziness/spinning Stand to sit stand by assist with no report of dizziness/spinning Bed to reclining chair with no report of dizziness/spinning Gait: Instructed patient with level surface ambulation of 20 feet x 2 requiring stand by assist with no report of dizziness. Balance: Static Sitting: Normal Dynamic Sitting: Normal Static Standing: Good Dynamic Standing: Good Special Tests: Mobility Limitations Standardized Measure [facility] AM-PAC 6 clicks Basic Mobility Inpatient Short Form: Raw Score: 24 CMS Score: 0% deficit TESTING FOR VERTIGO: Sharp-Dewayne test: Negative for ligamentous instability Alar ligament test: Negative for ligamentous instability Resting Nystagmus: Absent L [place]-Hallpike Maneuver: No nystagmus nor symptom provocation observed R [place]-Hallpike Maneuve: R down beating nystagmus observed with patient complaining of increased sensation of room spinning and blurring of vision within 30 seconds of assuming position. Symptom of dysequilibrium lasted for more than half an hour after this maneuver. Informed Consent/Education: Patient was instructed in purpose of PT consult and plan of care. Agreeable to proceed with established PT POC to achieve personal goals. Assessment: Possible R posteriorr canalithaisis/cupulolithiasis which may benefit from vestibular rehabilitation at an outpatient basis in addition to neck pain management. Will initiate R Marjorie maneuver to faciliate canalith repositioning and minimize symptoms. Patient presents with clinical signs and symptoms consistent with current/admitting diagnoses that have resulted to mobility limitations, gait instability, generalized weakness, and overall ADL decline as demonstrated by the following impairment level findings: 1. Chroninc pain in neck 2. vertiginous symptoms with R Roopa-hallpike Impairments are contributing to the following functional limitations: 1. Limited ambulation distance Patient is assessed as a 22276 moderate complexity based on the following: History: 80-year-old female with past medical history as indicated above Examination: Demonstrable impairment in strength, balance, and mobility level with underlying impairments and functional limitations as exhibited above as well as deficit score of 23% utilizing the [facility] Mobility Inpatient Short Form Presentation: Evolving Decision Makin moderate complexity Goals: Goals X1 week 1. Supine-Sit independent 2. Sit-Supine independent 3. Sit-Stand independent 4. Stand-Sit independent 5. Bed-Chair independent 6. Chair-Bed independent 7. Independent gait on level surface with use of no AD for at least 100 feet without report of pain nor dyspnea 8. Good static and dynamic standing balance/tolerance Plan of Care/Treatment Plan: 1-2x/day, 7 days/week x 1 week. Plan of care has been reviewed with the WINCH DERRICK OPERATOR providing the service under Physical Therapy direction. Initiate Physical Therapy intervention for pain management as needed, strengthening, bed mobility, transfers, gait, stairs, balance training, and use of assistive device. DISCHARGE RECOMMENDATIONS: OP PT services for chroninc neck pain management and vestibular rehabilitation. TREATMENT CODE/TIME: 09370 x 25 minutes beginning at 10:20 AM. Thank you for the opportunity to participate in the care of this patient. Jyothi Taylor PT, DPT, CLT [facility] [place], [place]
[2021-04-19] MEDS: Vitamin E 400 UNITS CAP PO (11:33)
[2021-04-19 15:15] VITALS: BP 134/72; PULSE 64; RESP 15; TEMP 36.5; O2SAT 99
[2021-04-19 15:24] VITALS: PULSE 53
--- NOTE | 2021-04-19 15:33 | W.NUTRFU ---
Date of service: 04/19/21 Time of Service: 15:33 Nutritional Follow up NOTE: Assessment: 80yo female admitted for suspect TIA with hx of CKD III, HTN, obesity, osteoporosis, cholecystectomy. Dysphagia noted in hx ? patient verbalizes is not too concerning at this time and does well with her ordered meals on regular diet. Meds include azithromomycin, vitamins C/d/B12/E, Colace, lovenox. Takes lasix every other day with a dose of potassium chloride (20meq). Current BMI of 39.5 correlates with stage II obesity. Estimated nutrition needs using adjusted body weight: 1436kcals (REEX1.3PAL), 43-57g protein (.6-.8g/kg) and 1436mL fluid (1mL/kcal). FPG?s have been wnl. Diagnosis: Stage II obesity AEB current BMI 35-39.9. Intervention: no nutrition intervention at this time while patient is admitted for evaluation of symptoms. Monitoring and evaluation: will monitor weight, labs, intake for any aggressive nutrition therapy. Recommend vitamin D lab as her last value was over 2 years ago and have been borderline normal as well as her history of obesity, osteoporosis and CKD all contributing to increased needs. Low May NDTR ? Craft Coordinator Time Spent in Nutritional Counseling and Treatment: 0
--- NOTE | 2021-04-19 17:44 | W.PM.DS.N ---
Date of service: 04/19/21 Time of Service: 17:45 DS: Diagnosis Discharge Diagnosis (1) TIA (transient ischemic attack): Start date: 04/19/21 Start time: 17:45 Status: Ruled-out Asessment and Plan: Patient has vertigo. Postive latasha joaquin with PT. She will follow up with outpatient PT, she has had to do this in the past. Recommend f/u with ortho as well for shot in arm Will give valium for vertigo. recommend f/u with ENT as well. MRI negative for acute infarct, just small chronic vessel disease. (2) Chronic neck pain: Start date: 04/19/21 Start time: 17:47 Status: Chronic Asessment and Plan: Recommend PT and chiropractor, as above. (3) CKD (chronic kidney disease) stage 3, GFR 30-59 ml/min: Start date: 04/19/21 Start time: 17:47 Status: Chronic Asessment and Plan: stable [facility] (4) HTN (hypertension): Start date: 04/19/21 Start time: 17:47 Status: Chronic Asessment and Plan: continue home regimen discussed with Dr. gallegos Discharge Plan Disposition Patient Disposition: HOME Condition: Stable Discharge Details Reason For Visit: TIA Admit Date/Time: 04/18/21 16:34 Admit Provider: Tristian Gallegos Attending Provider: Tristian Gallegos [facility]: 80 y.o female with PMH of GERD, HLD, anxiety, obesity, [place], CKD, Gross hematuria, presented to [facility] ED with c/o 2 days of general weakness and left neck/face/arm/pain that is similar to previous neck pain which she has had PT for in the past. She has had weeks of what appears to be vertigo symptoms. She sits up in the morning and gets dizzy. She continues to have dizziness in the ED therefore she has been asked to be admitted. Labs in ED unremarkable. CT No acute intracranial process. CXR No definite acute pulmonary process when compared. CT head w/o contrast IMPRESSION: 1. No acute intracranial findings. Note that early ischemic change can be occult on CT. 2. Senescent and chronic changes as above with marked diffuse white matter ischemic changes. CTA reveals IMPRESSION: 1. No large vessel occlusion or significant stenosis on the CT angiography of the head. 2. No acute intracranial process. 3. No occlusion or significant stenosis on the CT angiography of the neck. Today she had MRI negative for acute infarct. PT worked with patient and she had positive results of vertigo. She c/o neck pain and tightness, this is not new. She is suppose to receive a shot in her shoulder with ortho. Recommend she follow up with her PCP in 2 weeks she has appt next week. Recommend she f/u with ortho and ENT for her vertigo. She will follow up with outpatient PT which has helped in the past. For now will give low dose valium for vertigo which will also help with neck pain. She is being discharged home. All tests were negative. Home Meds and New Rx's Prescriptions: New azithromycin 250 mg Tablet 250 mg PO DAILY Qty: 3 RF: 0 diazepam 2 mg Tablet 2 mg PO QID PRN PRNQty: 20 RF: 0 Nucynta 50 mg Tablet 50 mg PO Q6H PRN PRNQty: 20 RF: 0 Continued magnesium 250 mg tablet 250 mg PO DAILY RF: 0 potassium chloride 20 mEq tablet extended release 20 meq PO .every other day PRN (Reason: take only when taking furosemide) Qty: 10 RF: 0 Hold Instructions: Changed by Provider albuterol sulfate [Ventolin HFA] 90 mcg/actuation HFA aerosol inhaler 2 puff IH Q6H PRN (Reason: shortness of breath or wheezing) Qty: 6.7 RF: 0 famotidine 20 mg tablet 20 mg PO DAILY Qty: 30 RF: 0 Adult Probiotic 3 billion cell capsule 3,000 mmu cells PO DAILY RF: 0 ashwagandha root extract 300 mg capsule See Rx Instructions PO .QD RF: 0 furosemide [Lasix] 20 mg tablet 20 mg PO Q OTHER DAY PRN (Reason: weight gain or edema) Qty: 90 RF: 3 cannabidiol 100 mg/mL solution See Rx Instructions PO .COMPLEX PRNRF: 0 vitamin E mixed 400 unit capsule 400 unit PO DAILY RF: 0 metronidazole 0.75 % gel 1 applic topical QHS Qty: 45 RF: 1 flaxseed oil 1,000 MG capsule 1,000 mg PO DAILY RF: 0 cholecalciferol (vitamin D3) 400 UNIT tablet,chewable 3 tab PO DAILY Qty: 270 RF: 4 ascorbic acid (vitamin C) [Vitamin C] 500 mg tablet 500 mg PO DAILY RF: 0 cyanocobalamin (vitamin B-12) [Vitamin B-12] 1,000 MCG tablet, sublingual 1,000 mcg Sublingual DAILY RF: 0 biotin 800 mcg tablet 800 mcg PO DAILY RF: 0 No Action (DME) Compression Stockings See Rx Instructions .Route .MEDSUPPLY Qty: 1 RF: 0 Discharge Instructions Instructions: Cervical Strain (GEN), Vertigo (DC), Dizziness (GEN) Additional Instructions: Take valium up to three times a day as needed for dizziness Take nucynta as needed for pain. Only [facility] [place] in [place] carries it Take azithromycin for your sinuses. Follow up with [facility] PT Recommend f/u with ENT, call to make appt Follow up with PCP next week Activity:: Activity as Tolerated Equipment/Supplies:: No Equipment Needed Diet:: Low Sodium Discharge Orders Discharge Orders: Discharge Order (Routine); Ordered 04/19/21 Ordered By: Sahara Brown DS: Summary Time Spent with Patient providing and/or coordinating discharge services: Greater than 30 minutes Status at Discharge Functional status at discharge: independent ambulation Overall status at discharge: patient is back to baseline Mental Status: mental status grossly normal Speech and Movement: speech and movement normal Mood: congruent mood Affect: normal affect Exam Const General: cooperative, comfortable and no acute distress Nutritional Appearance: obese Orientation: alert, awake and oriented x3 Eyes Eyelids: eyelids normal Pupils: PERRL EOM: EOM intact bilaterally Neck Neck: normal visual inspection and no JVD Lymphatic: no lymphadenopathy noted Chest Chest: normal inspection of the chest Resp Effort & Inspection: normal respiratory effort Auscultation: clear to auscultation bilaterally Cardio Jugular venous pressure: no JVD Rhythm: regular rhythm Heart Sounds: S1 normal GI Inspection: obesity Auscultation: normal bowel sounds General: No CVA tenderness and deferred Back/Spine/Pelvis Back: no CVA tenderness Cervical Spine: No cervical ROM normal, cervical muscular tenderness and pain with cervical ROM Skin General skin exam: no rashes or lesions noted Neuro General: patient alert, patient awake and patient oriented x3 Cognition: normal cognition Speech: speech normal Gait: normal gait Extrem General: normal to inspection, full ROM and no clubbing, cyanosis or edema Psych Appearance: grossly normal Mental Status: mental status grossly normal Speech and Movement: speech and movement normal Mood: congruent mood Affect: normal affect Attitude: cooperative Thought Process: normal Thought Content: normal DS: Data Vitals/I&O Vitals and I&O: Vital Signs Temperature 36.5 C 04/19/21 15:15 Temperature Source Temporal Artery Scan 04/19/21 15:15 Pulse 53 L 04/19/21 15:24 Pulse Rhythm Regular 04/19/21 09:44 Pulse 60 04/18/21 15:50 Respiratory Rate 15 04/19/21 15:15 Respiratory Effort Non-Labored 04/19/21 09:44 Respiratory Depth Normal 04/19/21 09:44 Respiratory Pattern Normal 04/19/21 09:44 Blood Pressure 134/72 04/19/21 15:15 Blood Pressure Mean 77 04/18/21 15:32 Blood Pressure Position Supine 04/18/21 09:47 Pulse Oximetry 99 04/19/21 15:15 Oxygen Delivery Method Room Air 04/19/21 15:15 Oxygen Flow Rate 0 04/19/21 15:15 Pain Level 1 04/19/21 15:15 Comment 04/18/21 11:57 Intake & Output 04/18/21 04/19/21 04/19/21 23:59 11:59 23:59 Intake Total 835 / 1235 400 / 1235 Output Total 425 / 425 600 / 800 200 / 800 Balance -425 / -325 235 / 435 200 / 435 Weight 91.626 kg Intake: IV 835 / 835 Oral 400 / 400 Output: Urine 425 / 425 600 / 800 200 / 800 Other: Urine Color Yellow Yellow Yellow Urine Appearance Clear Clear Clear Urine Odor Normal None Voiding Methods Toilet Toilet Toilet Data Completed and Pending Completed studies during hospitalization [Text1]: Exam(s) a CT:CT head - stroke protocol Exam(s) CT HEAD - STROKE PROTOCOL EXAM: CT HEAD - STROKE PROTOCOL CLINICAL HISTORY: Dizzy, L face/neck pain. TECHNIQUE: Imaging Protocol: Axial computed tomography images with coronal and sagittal reformatted images were created and reviewed COMPARISON: CT HEAD AND CSPINE W/O CONTRAST from 06/06/2015 FINDINGS: Ventricles and Extra axial spaces: Normal in size and morphology for the patient's age. Hemorrhage: None. Cerebral parenchyma: No acute territorial infarct. There are areas of decreased attenuation in the white matter most consistent with small vessel ischemic change. Midline shift: None. Brainstem/Cerebellum: Normal. Calvarium: Normal. Visualized Paranasal sinuses/Mastoids: Clear. Soft Tissues: Unremarkable. IMPRESSION: No acute intracranial process. Exam(s) XR CHEST 2V PA LATERAL EXAM: XR CHEST 2V PA LATERAL CLINICAL HISTORY: dizzy, sob TECHNIQUE: 2D digital imaging was performed of the chest. Two images were obtained. AP and lateral views were obtained. COMPARISON: CR CHEST 2 VIEWS PA,LAT from 01/30/2017 CR CHEST 2 VIEWS PA,LAT from 01/30/2017 FINDINGS: MEDIASTINUM: Normal. HEART: Mild cardiomegaly. PULMONARY VASCULATURE: Stable pulmonary vasculature. LUNGS: Stable interstitial markings which appear chronic. No focal consolidating infiltrates. PLEURAL SPACE: No pleural effusion or pneumothorax. BONE:Within normal limits for the patient's age. OTHER FINDINGS:Normal. IMPRESSION: No definite acute pulmonary process when compared to 01/30/2017. Exam(s) PROCEDURE INFORMATION: Exam: CT Head Without Contrast Exam date and time: 04/18/2021 9:56 AM Age: 80 years old Clinical indication: Other: Dizzy, L face/neck pain TECHNIQUE: Imaging protocol: Computed tomography of the head without contrast. Other technique: STROKE PROTOCOL was implemented. COMPARISON: CT HEAD AND CSPINE W/O CONTRAST 06/06/2015 6:43 PM FINDINGS: Brain: There is no evidence of acute hemorrhage within the brain parenchyma or the subarachnoid space. There is marked diffuse heterogeneity of the white matter attenuation, consistent with severe chronic white matter ischemic changes. There is no evidence of an acute ischemic event. Cerebral ventricles: No ventriculomegaly. Paranasal sinuses: Sphenoid sinus mucosal thickening. No fluid levels. Mastoid air cells: Visualized mastoid air cells are well aerated. Vasculature: Atherosclerotic calcifications of the intracranial arteries. Bones/joints: Unremarkable. No acute fracture. Soft tissues: Unremarkable. IMPRESSION: 1. No acute intracranial findings. Note that early ischemic change can be occult on CT. 2. Senescent and chronic changes as above with marked diffuse white matter ischemic changes. : 1940Age: 80 Exam(s) PROCEDURE INFORMATION: Exam: XR Chest Exam date and time: 04/18/2021 9:56 AM Age: 80 years old Clinical indication: Other: SOB TECHNIQUE: Imaging protocol: XR of the chest. Views: 2 views. COMPARISON: CT CHEST/ABD/PEL WO 03/04/2020 8:15 PM FINDINGS: Lungs: Lower lung field scarring and/or atelectasis. Mild increased interstitial markings. Mild pulmonary vascular engorgement. No focal airspace consolidation. Pleural spaces: No pleural effusion. No pneumothorax. Heart/Mediastinum: Mild cardiomegaly. Bones/joints: Unremarkable. IMPRESSION: 1. No focal airspace consolidation. 2. Perhaps mild interstitial pulmonary edema/vascular congestion. 3. Mild cardiomegaly. Exam(s) a CT:CT brain & neck CTA Exam(s) CT BRAIN NECK CTA EXAM: CT BRAIN NECK CTA CLINICAL HISTORY: Dizziness, chr white matter changes. TECHNIQUE: Imaging Protocol: Axial CT angiography was performed with multi-slice acquisition and multi-planar and/or 3D reconstructions. CONTRAST MATERIAL: Intravenous: Omnipaque 350 Contrast volume:85 mL COMPARISON: CT CT HEAD - STROKE PROTOCOL from 04/18/2021 FINDINGS: CT Head w: Ventricles and Extra axial spaces: Normal in size and morphology for the patient's age. Hemorrhage: None. Cerebral parenchyma: No acute territorial infarct. There are areas of decreased attenuation in the white matter most consistent with small vessel ischemic disease. Midline shift: None. Brainstem/Cerebellum: Normal. Calvarium: Normal. Visualized Paranasal sinuses/Mastoids: Clear. Soft Tissues: Unremarkable. Enhancement: Unremarkable. CTA Neck W: Common Carotid: Right: No dissection, occlusion or significant stenosis. Mild atherosclerosis distally. Left: No dissection, occlusion or significant stenosis. Mild atherosclerosis distally. External Carotid: Right: No occlusion or significant stenosis. Left: No occlusion or significant stenosis. Internal Carotid: Right: No dissection, occlusion or significant stenosis. Mild atherosclerosis proximally. Left: No dissection, occlusion or significant stenosis. Mild atherosclerosis proximally. Vertebral Artery: Right: No dissection, occlusion or significant stenosis. Mild atherosclerosis. Left: No dissection, occlusion or significant stenosis. Lung Apices: Normal. Bones: Within normal limits for the patient's age. Soft Tissues: Normal. Thyroid gland: Unremarkable. CTA Brain W: Internal Carotid Arteries: Petrous: Normal. Cavernous: Mild atherosclerosis. No significant stenosis or occlusion. Cerebral: Normal. Anterior Cerebral Arteries: Right: No aneurysm, occlusion or significant stenosis. Left: No aneurysm, occlusion or significant stenosis. Middle Cerebral Arteries: Right: No aneurysm, occlusion or significant stenosis. Left: No aneurysm, occlusion or significant stenosis. Posterior cerebral Arteries: Right: No aneurysm, occlusion or significant stenosis. Left: No aneurysm, occlusion or significant stenosis. Vertebral Arteries: Right: No aneurysm, occlusion or significant stenosis. Left: No aneurysm, occlusion or significant stenosis. Basilar Artery: No aneurysm, occlusion or significant stenosis. IMPRESSION: 1. No large vessel occlusion or significant stenosis on the CT angiography of the head. 2. No acute intracranial process. 3. No occlusion or significant stenosis on the CT angiography of the neck. Exam(s) PROCEDURE INFORMATION: Exam: CT Angiography Head With Contrast, Arteriography Exam date and time: 04/18/2021 11:10 AM Age: 80 years old Clinical indication: Other: Dizziness, chr white matter changes TECHNIQUE: Imaging protocol: Computed tomography angiography of the head with contrast. Exam focused on the arteries. 3D rendering (Not supervised by radiologist): MIP and/or 3D reconstructed images were created by the technologist. Radiation optimization: All CT scans at this facility use at least one of these dose optimization techniques: automated exposure control; mA and/or kV adjustment per patient size (includes targeted exams where dose is matched to clinical indication); or iterative reconstruction. Contrast material: OMNIPAQUE 350; Contrast volume: 85 ml; Contrast route: INTRAVENOUS (IV); COMPARISON: CT HEAD - STROKE PROTOCOL 04/18/2021 10:26 AM FINDINGS: ANTERIOR CIRCULATION: Right internal carotid artery: Unremarkable. Intracranial segment is patent with no significant stenosis. No aneurysm. Right middle cerebral artery: Unremarkable. No occlusion or significant stenosis. No aneurysm. Right anterior cerebral artery: Unremarkable. No occlusion or significant stenosis. No aneurysm. Left internal carotid artery: Unremarkable. Intracranial segment is patent with no significant stenosis. No aneurysm. Left middle cerebral artery: Unremarkable. No occlusion or significant stenosis. No aneurysm. Left anterior cerebral artery: Unremarkable. No occlusion or significant stenosis. No aneurysm. POSTERIOR CIRCULATION: Right vertebral artery: Unremarkable. No occlusion or significant stenosis. No aneurysm. Left vertebral artery: Unremarkable. No occlusion or significant stenosis. No aneurysm. Basilar artery: Unremarkable. No occlusion or significant stenosis. No aneurysm. Right posterior cerebral artery: Unremarkable. No occlusion or significant stenosis. No aneurysm. Left posterior cerebral artery: Unremarkable. No occlusion or significant stenosis. No aneurysm. Brain: No definite mass, mass effect, or midline shift. Cerebral ventricles: No ventriculomegaly. Bones/joints: Unremarkable. No acute fracture. Soft tissues: Unremarkable. IMPRESSION: No large vessel stenosis or occlusion. Exam(s) MR BRAIN WO EXAM: MR BRAIN WO CLINICAL HISTORY: TIA r/o CVA TECHNIQUE: Multiplanar multisequence MRI of the brain was performed. COMPARISON: CT CT BRAIN NECK CTA from 04/18/[address] BRAIN NECK CTA from 04/18/2021 FINDINGS: CEREBRAL PARENCHYMA: There is no evidence of intracranial hemorrhage, mass effect, or shift of midline structures. There are no extra-axial fluid collections. Ventricles are not enlarged or shifted. No significant signal abnormality in the cerebellar hemispheres. There is, however, signal abnormality both sides of edgardo. There is sparing of the midbrain. Also relative sparing of the thalami. There is abundant signal abnormality in the Torri and supraventricular white matter consistent with chronic small vessel disease. This does not exhibit abnormal signal in the fusion imaging to suggest restricted motion. PITUITARY GLAND: No mass nor parasellar abnormality. No obvious abnormality in the cavernous sinuses. FLOW VOIDS: The expected flow void are noted. No evidence of obvious aneurysm nor obvious vascular malformation. PARANASAL SINUSES: The visualized paranasal sinuses appear unremarkable. No obvious finding ORBITS: No obvious findings. IMPRESSION: There is abundant bilateral periventricular signal abnormality consistent with chronic small vessel disease. Similar findings seen in the edgardo. There is relative sparing of the midbrain and thalami. There is no evidence of intracranial hemorrhage. No abnormal signal on diffusion imaging to suggest restricted diffusion (acute infarct). Labs on day of discharge: Labs from last 24 hours 04/19/21 04/19/21 04/19/21 06:45 06:45 06:45 WBC 5.64 RBC 4.05 Hgb 12.3 Hct 39.5 MCV 97.5 H MCH 30.4 MCHC 31.1 L RDW 12.8 Plt Count 209 MPV 10.0 Hemoglobin A1c 5.3 Triglycerides 63 Total Cholesterol 183 LDL Cholesterol, Calc 132 H HDL Cholesterol 39 L TSH 1.71 PFSH Medical History Abdominal pain Anxiety Breast pain, left Chest pain CKD (chronic kidney disease) stage 3, GFR 30-59 ml/min @ baseline, 03/2021 (Cr 1.2/GFR 43). Dysgeusia Dysphagia Acute on chronic, fluids>solids (Hx terrible choking resolved, but noting difficulty again).. Edema of lower extremity Worsening edema, making leg pain worse .. Poor tolerance of compression .. trying lt compression [ ] 12/2020 Family history of thyroid disease Hx of family members being told nothing wrong then ID disease .. high anxiety. GERD (gastroesophageal reflux disease) Gross hematuria Head ache HTN (hypertension) Mostly managed, good today, 09/28/18, ik. 134/68 07/30/19. Hyperlipidemia pt. states she is unsure if she has this Idiopathic peripheral neuropathy Intertrigo Lumbago Mixed stress and urge urinary incontinence Multiple fractures of right femur pt states she fractured her hip Multiple joint pain Nail abnormality Neck fullness Sensation of firmness, swelling (vs neck pain that PT is working on) .. subacute, with high anxiety.. Neck pain on left side Nocturia Obesity Osteopenia Osteoporosis Prehypertension Right arm pain Surgical History Bilateral salpingectomy with oophorectomy BILATERAL TKA (10/01/12) DR. VANDANA HARDIN section X4 Cholecystectomy Colonoscopy - IV Sedation egd (05/10/16) flexible laryngoscopy (03/12/15) Dr Villatoro Hemorrhoidectomy History of esophagogastroduodenoscopy (EGD) (~10/15/18) History of repair of right hip joint Hysterectomy, Laproscopic Open Carpal Tunnel release Replacement of total knee joint Right arthroscopic rtotator cuff repair (04/22/13) RIGHT FOOT FX REPAIR Family History Mother , Fluid buildup at age 72. Diabetes did not have diabetes Personal history of malignant neoplasm Asthma Father , AD,blood clot at age 69. Alzheimer's disease Son Asthma Son No problems noted. Son No problems noted. Daughter No problems noted. Sister No problems noted. Sister Personal history of malignant neoplasm Sister Personal history of malignant neoplasm Sister No problems noted. 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
== END 2021-04-19 18:34 | disposition home or self-care (01) | DRG 69 ==
LOC: ER 16:59 → MS 17:03
PROVIDERS: Nurse Practitioner Family; Admitting Provider Family Medicine; Emergency Provider Emergency Medicine; PCP Student in an Organized Health Care Education/Training Program; Visit Provider Family Medicine
DX: G45.9 Transient cerebral ischemic attack, unspecified (principal); M54.2 Cervicalgia; R06.02 Shortness of breath; R35.0 Frequency of micturition; F41.9 Anxiety disorder, unspecified; N18.30 Chronic kidney disease, stage 3 unspecified; R13.10 Dysphagia, unspecified; E66.9 Obesity, unspecified; Z68.39 Body mass index [BMI] 39.0-39.9, adult; R60.0 Localized edema; K21.9 Gastro-esophageal reflux disease without esophagitis; E78.5 Hyperlipidemia, unspecified; G60.8 Other hereditary and idiopathic neuropathies; R31.0 Gross hematuria; M54.50 Low back pain, unspecified; N39.46 Mixed incontinence; R35.1 Nocturia; M81.0 Age-related osteoporosis without current pathological fracture; R53.1 Weakness; I12.9 Hypertensive chronic kidney disease with stage 1 through stage 4 chronic kidney disease, or unspecified chronic kidney disease; G89.29 Other chronic pain; R42 Dizziness and giddiness; I67.9 Cerebrovascular disease, unspecified
CPT/HCPCS: 36415; 36416; 70496; 70498; 80053; 80061; 82962; 85027; 87635; 90662; 93005; 96374; 97162; 99285; 70450; 70551; 71046; 81003; 83036; 83735; 83880; 84443; 84484; 85025; 85610; 85730; 93010; 93306; 99222; 99239; J0131; J1650; J3490

== ENCOUNTER → 2021-04-19 07:39 | Outpatient (BNVA) | payer MEDICARE, OTHER, SELFPAY | PROVIDERS: PCP Student in an Organized Health Care Education/Training Program; Referring Provider Student in an Organized Health Care Education/Training Program; Visit Provider Psychiatry & Neurology Neurology | DX: R69 Illness, unspecified (principal) ==

== ENCOUNTER → 2021-05-03 09:46 | Outpatient (BNVA) | payer MEDICARE, OTHER, SELFPAY | PROVIDERS: PCP Student in an Organized Health Care Education/Training Program; Referring Provider Student in an Organized Health Care Education/Training Program; Visit Provider Internal Medicine Cardiovascular Disease | DX: R07.89 Other chest pain (principal); R53.83 Other fatigue; I10 Essential (primary) hypertension | CPT/HCPCS: 99214; 99213 ==

== ENCOUNTER → 2021-05-17 08:26 | Outpatient (BNVA) | payer MEDICARE, OTHER, SELFPAY | PROVIDERS: PCP Student in an Organized Health Care Education/Training Program; Referring Provider Student in an Organized Health Care Education/Training Program | DX: M75.82 Other shoulder lesions, left shoulder (principal) | CPT/HCPCS: 20610; J1040 ==

== ENCOUNTER 2021-11-15 01:48 | Outpatient (CLI) | payer OTHER, SELFPAY ==
--- NOTE | 2021-11-15 06:45 | DI.MAMMO_ITS ---
Exam(s) MAMMO SCREENING EXAM: MAMMO SCREENING CLINICAL HISTORY: screening,z12.39 TECHNIQUE: Bilateral full field digital CC and MLO mammographic images were obtained with 3D tomosyn thesis and utilizing computer aided detection (CAD). COMPARISON: Available for comparison. FINDINGS: Masses/Architectural Distortion: None seen. Microcalcifications: No suspicious pleomorphic-type are seen. Skin Thickening/Nipple Retraction: None. IMPRESSION: 1. No significant interval change with no specific features of malignancy noted. 2. Unless there is more urgent need, screening mammography is recommended, as per [employer] guidelines. BI-RADS Category 1 - Negative Breast Density - Category B - Scattered areas of fibroglandular density Breast density category C or D implies that the patient has dense breast tissue. Dense breast tissue is very common and is not abnormal but dense breast tissue can make it harder to find cancer on a ma mmogram. Also, dense breast tissue may increase their breast cancer risk. This information about the result of the mammogram report was provided to the patient to raise their awareness. Use this report when you speak with the patient about their risks for breast cancer, which includes their family hist ory. At that time, you may recommend for more screening tests (Ultrasound or MRI) as they might be us eful based on their risk. A negative radiographic report should not delay biopsy if a dominant or clinically suspicious mass is present. Up to ten percent of cancers are not identified on mammography. A negative report may reinforce clinical impression. Adenosis and dense breasts may obscure an underlying neoplasm. False positive reports average 6 to 10%. Patient will receive a letter notifying them of these results.
== END 2021-11-15 02:08 ==
PROVIDERS: PCP Student in an Organized Health Care Education/Training Program; Visit Provider Student in an Organized Health Care Education/Training Program
DX: Z12.31 Encounter for screening mammogram for malignant neoplasm of breast (principal)
CPT/HCPCS: 77063; 77067

== ENCOUNTER 2021-12-16 16:20 | Emergency (ER) | payer OTHER, SELFPAY ==
[2021-12-16 16:27] VITALS: BP 145/69; PULSE 55; RESP 16; TEMP 36.3; O2SAT 99
[2021-12-16 17:07] VITALS: TEMP 36.3
[2021-12-16] MEDS: Acetaminophen 325 MG TAB 650 MG PO (17:07)
[2021-12-16 17:24] LABS: Abs Immature Grans 0.01 10^3/uL (0.0-0.06); Absolute Basophil Count 0.01 10^3/uL (0.0-0.2); Absolute Eosinophil Count 0.16 10^3/uL (0.0-0.7); Absolute Lymphocyte Count 2.08 10^3/uL (1.2-3.4); Absolute Neutrophil Count 3.11 10^3/uL (1.2-6.7); Basophils % 0.2; Eosinophils % 2.7; HCT 39.4 % (36.0-46.0); HGB 12.6 g/dL (11.2-15.7); Immature Grans % 0.2; Lymphocytes % 34.8; MCH 30.7 pg (27.0-33.0); MCV 96 fL (80-95); MPV 10.1 fL (8.0-11.0); Monocytes % 10.1; Platelet Count 179 10^3/uL (130-400); RDW-SD 46.2 fL; WBC 5.97 10^3/uL (4.4-10.8)
[2021-12-16 17:51] LABS: ALT 21 U/L (14-59); AST 17 U/L (15-37); Albumin 3.8 g/dL (3.4-5.0); Alkaline Phosphatase 75 U/L (46-116); Anion Gap 8.5 mmol/L (3-11); BUN 22 mg/dL (7-18); Bilirubin, Total 0.6 mg/dL (0.2-1.0); CO2 28.5 mmol/L (21.0-32.0); CREATININE 1.3 mg/dL (0.55-1.02); Calcium 9.1 mg/dL (8.5-10.1); Chloride 105 mmol/L (98-107); Estimated GFR 39.21 (mL/min/1.73m2); Glucose 92 mg/dL (74-106); Potassium 4.1 mmol/L (3.5-5.1); Sodium 142 mmol/L (136-145); Total Protein 7.4 g/dL (6.4-8.2)
[2021-12-16 17:57] LABS: D-Dimer 1605 ng/mlFEU (<500)
--- NOTE | 2021-12-16 18:35 | W.ED.GENAD ---
Discharge Plan Disposition Patient Disposition: HOME Condition: Stable Discharge Details Clinical Impression: Acute leg pain, D-dimer, elevated Primary Care Provider: Melissa Lee ED Provider: Bessy Salgado Home Meds and New Rx's Prescriptions: Continued magnesium 250 mg tablet 250 mg PO DAILY potassium chloride 20 mEq tablet extended release 20 meq PO .every other day PRN (Reason: take only when taking furosemide) Qty: 10 0RF Hold Instructions: Changed by Provider Rx Instructions: take only when taking lasix/furosemide albuterol sulfate [Ventolin HFA] 90 mcg/actuation HFA aerosol inhaler 2 puff IH Q6H PRN (Reason: shortness of breath or wheezing) Qty: 6.7 0RF Rx Instructions: Daily x 2 weeks minimum Adult Probiotic 3 billion cell capsule 3,000 mmu cells PO DAILY Rx Instructions: administer with a meal ashwagandha root extract 300 mg capsule See Rx Instructions PO .QD Rx Instructions: 150mg PO .QD; Active ingredient in OxiTrim+ supplement for weight loss. started 12/27/20 EO (DME) Compression Stockings See Rx Instructions .Route .MEDSUPPLY Qty: 1 0RF Rx Instructions: As directed, moderate compression for daily wearing kxnfrtzl-uxhrmnuig-QG 3.5-10,000-1 mg/mL-unit/mL-% drops,suspension 4 drp otic (ear) Q8H Qty: 10 1RF meclizine 25 mg tablet 25 mg PO BID PRN (Reason: dizziness) Qty: 20 0RF Rx Instructions: Trial for vertigo diazepam 2 mg tablet 2 mg PO Q6H MDD 4mg PRN (Reason: vertigo as per hospitalization hx) Qty: 20 0RF Hold Instructions: Home Medication placed on hold at Doctor's office Rx Instructions: Take with caution; do not drive. famotidine 20 mg tablet 20 mg PO QHS Qty: 30 1RF Rx Instructions: May try BID PRN x 3-4 weeks furosemide [Lasix] 20 mg tablet 20 mg PO DAILY PRN (Reason: weight gain or edema) Qty: 30 3RF Rx Instructions: daily if weight gain >3 lbs per 3 days of leg swelling. cannabidiol 100 mg/mL solution See Rx Instructions PO .COMPLEX PRN Label Comments: unknown amount PO ; PRN Rx Instructions: unknown amount PO ; PRN vitamin E mixed 400 unit capsule 400 unit PO DAILY metronidazole 0.75 % gel 1 applic topical QHS Qty: 45 1RF Rx Instructions: Trial bedtime cholecalciferol (vitamin D3) 50 mcg (2,000 unit) capsule 50 mcg PO DAILY flaxseed oil 1,000 MG capsule 1,000 mg PO DAILY ascorbic acid (vitamin C) [Vitamin C] 500 mg tablet 500 mg PO DAILY Label Comments: cyanocobalamin (vitamin B-12) [Vitamin B-12] 1,000 MCG tablet, sublingual 1,000 mcg Sublingual DAILY biotin 800 mcg tablet 800 mcg PO DAILY Rx Instructions: Pt taking 10,000mcg dose Discharge Instructions Instructions: Leg Pain (ED) Additional Instructions: Please follow-up for your ultrasound tomorrow You have been given a dose of blood thinner this evening out of concern for possible blood clot Will need to be evaluated with ultrasound tomorrow Please call the number listed if you do not hear from them first thing in the morning, I recommend calling at 7 AM Please return earlier should you have new or worsening complaints Take Tylenol every 4 hours as needed for pain Do not take more than 3 g of Tylenol daily Should you develop chest pain, shortness of breath, abnormal bleeding, or with any new or worsening complaints please return immediately Referrals: Melissa Lee DO [Primary Care Provider] - Medical Decision Making Patient has an elevated D-dimer 60 5, creatinine 1.3 consistent with patient's chronic kidney disease Clinically low suspicion for pulmonary embolism We will schedule outpatient ultrasound for tomorrow of left lower extremity Will give single dose of Eliquis empirically, based on patient's age and creatinine, 2.5 mg was administered No evidence of arterial involvement No crepitus or evidence of secondary cellulitis Patient symptoms could certainly be related to lumbar radiculopathy although negative straight leg raise, negative Babinski and no evidence of cauda equina syndrome clinically Symptomatic improvement and ambulatory with antalgic, steady gait with Tylenol Return precautions discussed and patient expressed understanding Medical Records Medical records reviewed: Yes I reviewed the patient's medical records. Lab Data Lab results reviewed: Yes I reviewed the patient's lab results. HPI General Date/Time Provider Initiated Documentation: 12/16/21 16:33. HPI Narrative: This 87-year-old female presents with left lower extremity pain. She states that started approximately 4 days ago. She denies any fever or chills. She states she has a history of chronic knee pain but denies history of distal pain. Pain is exacerbated with walking. Denies any chest pain or shortness of breath. Denies any dizziness or weakness. Able to ambulate with walker at home. Has been taking Tylenol with good relief of pain. Denies any skin discoloration or injury. Related Data Home Medications Medication Instructions Recorded Confirmed cyanocobalamin (vitamin B-12) 1,000 mcg sublingual DAILY 08/28/15 12/16/21 1,000 mcg sublingual tablet (Vitamin B-12) flaxseed oil 1,000 mg capsule 1,000 mg PO DAILY 10/09/17 12/16/21 cannabidiol 100 mg/mL oral solution See Rx Instructions PO .COMPLEX PRN 12/28/18 12/16/21 vitamin E mixed 400 unit capsule 400 unit PO DAILY 04/03/19 12/16/21 ascorbic acid (vitamin C) 500 mg 500 mg PO DAILY 06/12/19 12/16/21 tablet (Vitamin C) biotin 800 mcg tablet 800 mcg PO DAILY 03/20/20 12/16/21 magnesium 250 mg tablet 250 mg PO DAILY 03/20/20 12/16/21 albuterol sulfate 90 mcg/actuation 2 puff inhalation Q6H PRN 07/30/20 12/16/21 aerosol inhaler (Ventolin HFA) shortness of breath or wheezing #6.7 grams potassium chloride 20 mEq 20 meq PO .every other day PRN 07/30/20 12/16/21 tablet,extended release take only when taking furosemide #10 tabs lactobacillus combination no.8 3 3,000 mmu cells PO DAILY 12/15/20 12/16/21 billion cell capsule (Adult Probiotic) ashwagandha root extract 300 mg See Rx Instructions PO .QD 12/29/20 12/16/21 capsule metronidazole 0.75 % topical gel 1 applic topical QHS #45 grams 02/02/21 12/16/21 Compression Stockings #1 ea 03/31/21 12/16/21 diazepam 2 mg tablet 2 mg PO Q6H PRN vertigo as per 04/29/21 12/16/21 hospitalization hx #20 tabs meclizine 25 mg tablet 25 mg PO BID PRN dizziness #20 tabs 04/29/21 12/16/21 cholecalciferol (vitamin D3) 50 50 mcg PO DAILY 06/08/21 12/16/21 mcg (2,000 unit) capsule famotidine 20 mg tablet 20 mg PO QHS nausea, stomach upset 06/10/21 12/16/21 #30 tabs furosemide 20 mg tablet (Lasix) 20 mg PO DAILY PRN weight gain or 06/10/21 12/16/21 edema #30 tabs vwfvpyli-xjuvrvjkb-honcsxmlo 3.5 4 drp otic (ear) Q8H #10 mL 09/18/21 12/16/21 mg-10,000 unit/mL-1 % ear drops,susp Previous Rx's Medication Instructions Recorded albuterol sulfate 90 mcg/actuation 2 puff inhalation Q6H PRN 07/30/20 aerosol inhaler (Ventolin HFA) shortness of breath or wheezing #6.7 grams potassium chloride 20 mEq 20 meq PO .every other day PRN 07/30/20 tablet,extended release take only when taking furosemide #10 tabs metronidazole 0.75 % topical gel 1 applic topical QHS #45 grams 02/02/21 Compression Stockings #1 ea 03/31/21 diazepam 2 mg tablet 2 mg PO Q6H PRN vertigo as per 04/29/21 hospitalization hx #20 tabs meclizine 25 mg tablet 25 mg PO BID PRN dizziness #20 tabs 04/29/21 famotidine 20 mg tablet 20 mg PO QHS nausea, stomach upset 06/10/21 #30 tabs furosemide 20 mg tablet (Lasix) 20 mg PO DAILY PRN weight gain or 06/10/21 edema #30 tabs ksbbjday-mhlwanrha-bjxsdjdqy 3.5 4 drp otic (ear) Q8H #10 mL 09/18/21 mg-10,000 unit/mL-1 % ear drops,susp Allergies Allergy/AdvReac Type Severity Reaction Status Date / Time adhesive tape Allergy Intermediate blisters Verified 12/16/21 16:31 on skin Sulfa (Sulfonamide Allergy Intermediate sister Verified 12/16/21 16:31 Antibiotics) of anaphylaxis per pt aspirin AdvReac Intermediate nosebleeds Verified 12/16/21 16:31 codeine AdvReac Intermediate blackouts Verified 12/16/21 16:31 latex AdvReac Intermediate skin-red Verified 12/16/21 16:31 ithcy spots on skin morphine AdvReac Intermediate becomes Verified 12/16/21 16:31 very ill, vomting gabapentin AdvReac Mild makes me Unverified 12/16/21 17:16 sick General Stated Complaint: Vascular BENNY: 3 Review of Systems All systems reviewed & are unremarkable except as noted in HPI and below PFSH All Active Problems (Updated 12/16/21 @ 18:34 by DONATO Rodrigues) Acute leg pain (Acute) D-dimer, elevated (Acute) Edema of lower extremity (Acute) Worsening edema, making leg pain worse .. Poor tolerance of compression .. trying lt compression [ ] 12/2020 Chronic neck pain (Chronic) Some relief with PT .. Neck fullness (Acute) Sensation of firmness, swelling (vs neck pain that PT is working on) .. subacute, with high anxiety.. Family history of thyroid disease (Chronic) Hx of family members being told nothing wrong then ID disease .. high anxiety. Sensorineural hearing loss (SNHL) of both ears (Acute) Leg pain, bilateral (Acute) Pt c/o notable leg pain, not just 2' edema ... improves with rest ..[ ] FLORES to eval for claudication Vertigo (Acute) Acute on chronic ... presented to ED, CVA ruled out (04/2021). ENT seen. Small vessel disease, cerebrovascular (Chronic) per MRI, 04/2018 (Hospitalized to r/o CVA .. DDx incl TIA, but most probably VERTIGO) HTN (hypertension) (Chronic) Mostly managed, good today, 09/28/18, ik. 134/68 07/30/19. Dysphagia (Acute) Acute on chronic, fluids>solids (Hx terrible choking resolved, but noting difficulty again).. CKD (chronic kidney disease) stage 3, GFR 30-59 ml/min (Chronic) @ baseline, 03/2021 (Cr 1.2/GFR 43). Dupuytren's contracture of left hand (Acute) small finger Trigger finger, left middle finger (Acute) Tinnitus, bilateral (Acute) Arthritis of right hand (Acute) Arthritis of left hand (Acute) Abdominal pain (Acute) Pulmonary hypertension (Chronic) Acute systolic CHF (congestive heart failure) (Acute) Bradycardia (Acute) Chest pain (Acute) Foot pain, right (Acute) pain, deformity, 5th toe swollen, curved Tendinitis of left rotator cuff (Acute) Subacromial injection: 05/17/2021; 04/13/2020; 07/12/2019 Fatigue (Chronic) Hx low normal Hgb, with elevated MCV (Ddx borderline macrocytic anemia) .. Folate, B12 WNL. Vit D improved (2018). TSH, LFTs WNL. May retest, but 12/2018 shows baseline, w/o acute changes/deficiency. Bilateral knee pain (Acute 05/02/14) Idiopathic peripheral neuropathy (Acute 06/15/12) Osteoporosis (Acute 02/27/14) L wrist T = -3.7 01/2014; but FRAX: 11.4 risk major, 2.6 risk of hip: Rx not recommended Osteopenia (Acute 04/27/06) Pain in lower limb (Acute 05/22/12) Patellar tendinitis (Acute) INjection from Dr. Souza, hurt going but helped pain freatly. Able to walk much better, 10/2018 Hip fracture (Acute) Spinal stenosis at L4-L5 level (Chronic) Closed right hip fracture (Acute) Anxiety (Chronic 02/20/15) Obesity with body mass index 30 or greater (Chronic) BMI 38.2 (if still 5'1) 08/2013 Cough (Acute) recurrent cough, ?allergic rhinnitis, responsive to nasal steroid?; 12/2014 Dysgeusia (Acute 12/15/15) Gastroesophageal reflux disease (Chronic) responds to OTC Prilosec . Ranitidine tried, did not help 06/2019 [ ] return to PPI? 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 Much improved, 11/02/18. Pain in knee region after total knee replacement (Acute 04/03/17) Rt and Lt TKA - Dr. Gonzalez Bilateral corticosteroid injections: 10/10/18 Ocular rosacea (Chronic) question ocular rosacea and mild facial rosacea ([facility] Dr. 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 Asymptomatic. c/o Heart Fluttering 06/2019 .. >[place], 07/2019 .. NSR w/ occ SVT. No AFib. Medical History (Updated 12/16/21 @ 18:34 by DONATO Rodrigues) Anxiety Asthma Breast pain, left Chest pain Displaced intertrochanteric fracture of right femur, subsequent encounter for closed fracture with routine healing (02/12/16) Dysgeusia GERD (gastroesophageal reflux disease) Gross hematuria Head ache Hyperlipidemia pt. states she is unsure if she has this Idiopathic peripheral neuropathy Intertrigo Lumbago Mixed stress and urge urinary incontinence Multiple fractures of right femur pt states she fractured her hip Multiple joint pain Nail abnormality Nocturia Obesity Osteopenia Osteoporosis Prehypertension Right arm pain Surgical History Bilateral salpingectomy with oophorectomy BILATERAL TKA (10/01/12) DR. VANDANA GONZALEZ section X4 Cholecystectomy Colonoscopy - IV Sedation egd (05/10/16) flexible laryngoscopy (03/12/15) Dr Villatoro Hemorrhoidectomy History of esophagogastroduodenoscopy (EGD) (~10/15/18) History of repair of right hip joint Hysterectomy, Laproscopic Open Carpal Tunnel release Replacement of total knee joint Right arthroscopic rtotator cuff repair (04/22/13) RIGHT FOOT FX REPAIR Family History Mother , Fluid buildup at age 72. Diabetes did not have diabetes Personal history of malignant neoplasm Asthma Father , AD,blood clot at age 69. Alzheimer's disease Son Asthma Son No problems noted. Son No problems noted. Daughter No problems noted. Sister No problems noted. Sister Personal history of malignant neoplasm Sister Personal history of malignant neoplasm Sister No problems noted. 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 Pets and animals: Yes Pets and animals: dog(s) Current gender identity: female What is your relationship status?: Panel score (0-1 are the most socially isolated patients): 0 What type of physical activity do you participate in: none Seatbelt use: always Do you feel safe at home: Yes Do you feel safe in your relationship?: Yes Victim of physical abuse: No Victim of emotional abuse: No Victim of sexual abuse: No Exam Const General: cooperative and no acute distress Eyes Sclera: sclerae normal Resp Effort & Inspection: normal respiratory effort Auscultation: clear to auscultation bilaterally Cardio Rate: regular rate Rhythm: regular rhythm Other: Distal pulses intact Back/Spine/Pelvis Other: No CVA tenderness, mild paraspinal lumbar tenderness Skin General skin exam: no rashes or lesions noted Neuro General: patient alert and patient oriented x3 Other: Sensation intact distally, strength intact distally Extrem Other: Tenderness to palpation to left lower extremity Neurovascularly intact Course Vital Signs Vital signs: Vital Signs Temperature 36.3 C L 12/16/21 16:27 Pulse 55 L 12/16/21 16:27 Respiratory Rate 16 12/16/21 16:27 Blood Pressure 145/69 H 12/16/21 16:27 Pulse Oximetry 99 12/16/21 16:27 Temperature 36.3 C L 12/16/21 17:07 Pulse 55 L 12/16/21 16:27 Respiratory Rate 16 12/16/21 16:27 Respiratory Effort 12/16/21 16:32 Blood Pressure 145/69 H 12/16/21 16:27 Pulse Oximetry 99 12/16/21 16:27 Pain Level 6 12/16/21 17:07 Lab/Test Results Lab/Test Results: Laboratory Tests Range/Units 12/16/21 12/16/21 12/16/21 17:16 17:16 17:16 WBC (4.4-10.8) 10^3/uL 5.97 RBC (3.93-5.22) 10^6/uL 4.10 Hgb (11.2-15.7) g/dL 12.6 Hct (36.0-46.0) % 39.4 MCV (80-95) fL 96 H MCH (27.0-33.0) pg 30.7 MCHC (32.0-36.0) % 32.0 RDW (11.7-14.6) % 13.0 Plt Count (130-400) 10^3/uL 179 MPV (8.0-11.0) fL 10.1 Immature Gran % 0.2 Neutrophils % 52.0 Lymphocytes % 34.8 Monocytes % 10.1 Eosinophils % 2.7 Basophils % 0.2 Nucleated RBC % (0.0-0.3) % 0.0 Absolute Neutrophils (1.2-6.7) 10^3/uL 3.11 Absolute Lymphocytes (1.2-3.4) 10^3/uL 2.08 Absolute Monocytes (0.1-0.8) 10^3/uL 0.60 Absolute Eosinophils (0.0-0.7) 10^3/uL 0.16 Absolute Basophils (0.0-0.2) 10^3/uL 0.01 D-Dimer (<500) ng/mlFEU 1605 H Sodium (136-145) mmol/L 142 Potassium (3.5-5.1) mmol/L 4.1 Chloride (98-107) mmol/L 105 Carbon Dioxide (21.0-32.0) mmol/L 28.5 Anion Gap (3-11) mmol/L 8.5 BUN (7-18) mg/dL 22 H Creatinine (0.55-1.02) mg/dL 1.3 H Estimated GFR/1.73 m2 (mL/min/1.73m2) 39.21 Glucose (74-106) mg/dL 92 Calcium (8.5-10.1) mg/dL 9.1 Total Bilirubin (0.2-1.0) mg/dL 0.6 AST (15-37) U/L 17 ALT (14-59) U/L 21 Alkaline Phosphatase (46-116) U/L 75 Total Protein (6.4-8.2) g/dL 7.4 Albumin (3.4-5.0) g/dL 3.8
[2021-12-16 18:38] VITALS: BP 132/85; PULSE 56; RESP 18; TEMP 36.7; O2SAT 100
[2021-12-16] MEDS: Apixaban 2.5 MG TAB PO (18:43)
[2021-12-16 18:44] VITALS: BP 132/85; PULSE 55; O2SAT 100
== END 2021-12-16 18:59 | disposition home or self-care (01) ==
PROVIDERS: Emergency Provider Physician Assistant; PCP Student in an Organized Health Care Education/Training Program
DX: M79.605 Pain in left leg (principal); R79.1 Abnormal coagulation profile; I12.9 Hypertensive chronic kidney disease with stage 1 through stage 4 chronic kidney disease, or unspecified chronic kidney disease; N18.30 Chronic kidney disease, stage 3 unspecified
CPT/HCPCS: 36415; 80053; 99283; 85025; 85379

== ENCOUNTER 2021-12-17 12:52 | Emergency (ER) | payer OTHER, SELFPAY ==
[2021-12-17] VITALS (33 sets, daily range): BP systolic 144–182; BP diastolic 54–101; PULSE 42–76; RESP 11–32; TEMP 36.6–36.8; O2SAT 95–100
--- NOTE | 2021-12-17 13:00 | RT.EKG_ITS ---
APPROVED REPORT Exam: Resting ECG Reason for Exam: Patient Location: E HR:47 bpm ECG Measurements Heart Rate 47 AXIS RI 203 P 67 QRSd 106 QRS -44 QT 461 T 43 QTc 436 Conclusion Sinus bradycardia...rate< 60 Left ventricular hypertrophy...multiple LVH criteria
--- NOTE | 2021-12-17 13:00 | RT.EKG_ITS ---
APPROVED REPORT Exam: Resting ECG Reason for Exam: Chest pain Patient Location: E HR:57 bpm ECG Measurements Heart Rate 57 AXIS GA 222 P 59 QRSd 100 QRS -46 QT 440 T 65 QTc 428 Conclusion Sinus bradycardia...rate< 60 Prolonged GA interval...GA >220, V-rate 50- 90 LAD, consider left anterior fascicular block...axis(240,-40), S>R II III aVF Anteroseptal infarct, old...Q >40mS, V1-V2. Sinus. No STEMI. I have reviewed and interpreted ECG and agree with software generated interpretation.
--- NOTE | 2021-12-17 13:30 | DI.RAD_ITS ---
Exam(s) XR CHEST 2V PA LATERAL EXAM: XR CHEST 2V PA LATERAL CLINICAL HISTORY: chest pain TECHNIQUE: COMPARISON: CR,XR XR CHEST 2V PA LATERAL from 04/18/2021 FINDINGS: The heart is at the upper limits of normal in size. There appear to be some changes of pulmonary sca rring. No focal acute consolidation. No pleural effusion. IMPRESSION: No evidence of acute process. RADIATION DOSE DELIVERED: Total DLP
--- NOTE | 2021-12-17 13:46 | ED.GENADUL_ITS ---
Discharge Plan Disposition Patient Disposition: HOME Condition: Stable Discharge Details Clinical Impression: Deep vein blood clot of left lower extremity Primary Care Provider: Melissa Lee ED Provider: Katalina Sullivan Home Meds and New Rx's Prescriptions: New apixaban 2.5 mg tablet 2.5 mg PO BID 30 Days Qty: 60 0RF Rx Instructions: Take 1 tablet twice daily x 30 days No Action magnesium 250 mg tablet 250 mg PO DAILY potassium chloride 20 mEq tablet extended release 20 meq PO .every other day PRN (Reason: take only when taking furosemide) Qty: 10 0RF Hold Instructions: Changed by Provider Rx Instructions: take only when taking lasix/furosemide albuterol sulfate [Ventolin HFA] 90 mcg/actuation HFA aerosol inhaler 2 puff IH Q6H PRN (Reason: shortness of breath or wheezing) Qty: 6.7 0RF Rx Instructions: Daily x 2 weeks minimum Adult Probiotic 3 billion cell capsule 3,000 mmu cells PO DAILY Rx Instructions: administer with a meal ashwagandha root extract 300 mg capsule See Rx Instructions PO .QD Rx Instructions: 150mg PO .QD; Active ingredient in OxiTrim+ supplement for weight loss. started 12/27/20 EO (DME) Compression Stockings See Rx Instructions .Route .MEDSUPPLY Qty: 1 0RF Rx Instructions: As directed, moderate compression for daily wearing ngepiamf-rzfpogzkl-XX 3.5-10,000-1 mg/mL-unit/mL-% drops,suspension 4 drp otic (ear) Q8H Qty: 10 1RF meclizine 25 mg tablet 25 mg PO BID PRN (Reason: dizziness) Qty: 20 0RF Rx Instructions: Trial for vertigo diazepam 2 mg tablet 2 mg PO Q6H MDD 4mg PRN (Reason: vertigo as per hospitalization hx) Qty: 20 0RF Hold Instructions: Home Medication placed on hold at Doctor's office Rx Instructions: Take with caution; do not drive. famotidine 20 mg tablet 20 mg PO QHS Qty: 30 1RF Rx Instructions: May try BID PRN x 3-4 weeks furosemide [Lasix] 20 mg tablet 20 mg PO DAILY PRN (Reason: weight gain or edema) Qty: 30 3RF Rx Instructions: daily if weight gain >3 lbs per 3 days of leg swelling. cannabidiol 100 mg/mL solution See Rx Instructions PO .COMPLEX PRN Label Comments: unknown amount PO ; PRN Rx Instructions: unknown amount PO ; PRN vitamin E mixed 400 unit capsule 400 unit PO DAILY metronidazole 0.75 % gel 1 applic topical QHS Qty: 45 1RF Rx Instructions: Trial bedtime cholecalciferol (vitamin D3) 50 mcg (2,000 unit) capsule 50 mcg PO DAILY flaxseed oil 1,000 MG capsule 1,000 mg PO DAILY ascorbic acid (vitamin C) [Vitamin C] 500 mg tablet 500 mg PO DAILY Label Comments: cyanocobalamin (vitamin B-12) [Vitamin B-12] 1,000 MCG tablet, sublingual 1,000 mcg Sublingual DAILY biotin 800 mcg tablet 800 mcg PO DAILY Rx Instructions: Pt taking 10,000mcg dose Discharge Instructions Instructions: Apixaban (By mouth), Deep Vein Thrombosis (ED) Additional Instructions: It appears you have a blood clot in one of the veins of your left calf. You were prescribed a renal dose of apixaban or Eliquis. This is 2.5 mg twice a day. You were given the first dose her in the ED. Follow up with primary care provider in 3-5 days. Return to ED sooner if any worsening or concerns. Increase oral fluids. A prescription was sent to the pharmacy on file. Referrals: Melissa Lee DO [Primary Care Provider] - 3 days (RE-check DVT and eliquis dosing) Discharge Data Discharge Date/Time-TO BE ENTERED AT DEPARTURE: 12/17/21 18:40 Medical Decision Making <DONATO Vasquez - Last Filed: 12/17/21 16:04> 81-year-old female who reports that she is a full code, complicated past medical history, initially presents to the ER for ultrasound results. There is a calf vein thrombus no significant DVT which would require anticoagulation. Upon further questioning she reports shortness of breath and chest pain that began sometime this morning, difficult to get exact timeline, she is a rather vague and poor historian. Heart rate noted to be in the 40s in triage. When reviewing her previous records heart rates in the 50s and 60s seems to be near her baseline but 40 does appear to be fairly low. Given this, will initiate cardiac work-up including a D-dimer. Laboratory values reveal no evidence of leukocytosis or anemia. D-dimer is elevated at 1326, will pursue CTA of the chest. Electrolytes are unremarkable. Creatinine of 1.4 with a GFR of 36 which is slightly less than her baseline, she is receiving IV fluid. LFTs unremarkable. BNP minimally elevated at 366. TSH 178. Initial troponin less than 50. COVID pending CTA of the chest is unremarkable for PE. It should be noted that her initial heart rate was in the mid to high 40s, throughout her ER visit she has remained hemodynamically stable and her heart rate has ranged primarily between 55 and 65. Medical Records Medical records reviewed: Yes I reviewed the patient's medical records. Imaging Data Radiologic Study: Attestation: I personally reviewed and interpreted this imaging study as follows: Imaging: Ultrasound Radiologist's impression: Exam(s) US LOWER EXTREMITY VENOUS LT EXAM: US LOWER EXTREMITY VENOUS LT CLINICAL HISTORY: LEFT LEG PAIN, M79.605, ELEVATED D DIMER TECHNIQUE: Ultrasound performed using standard protocol. COMPARISON: US US ECHOCARDIOGRAM W BUBBLES from 04/19/2021 FINDINGS: Duplex evaluation of the deep venous system of the left lower extremity was performed according to the usual protocol. 2D and Doppler evaluation was performed there is a 2 cm long thrombosed region of the proximal anterior tibial vein. No other calf vein thrombus identified. No thrombus identified in the popliteal vein or proximally to the level of the common femoral vein. Greater saphenous vein was free of thrombus. IMPRESSION: Calf vein thrombus as described above, no significant DVT identified in the thigh or popliteal vein.. Radiologic Study #2: Attestation: I personally reviewed and interpreted this imaging study as follows: Imaging: CT Scan Radiologist's impression: Exam(s) CT CHEST PE CTA EXAM: CT CHEST PE CTA CLINICAL HISTORY: cp/sob/elevated dimer. TECHNIQUE: Imaging Protocol: Axial CT angiography was performed with multi- slice acquisition and multi-planar and/or 3D reconstructions. CONTRAST MATERIAL: Intravenous: Omnipaque 350 Contrast volume:structured data in ml COMPARISON: CT CT BRAIN NECK CTA from 04/18/2021 CR,XR XR CHEST 2V PA LATERAL from 04/18/2021 FINDINGS: CT angiography of the chest was performed with intravenous infusion of 100 cc of Omnipaque 350. The lungs are clear and somewhat hyperinflated. Some changes of basilar scarring and/or atelectasis are noted. No pleural effusion. Tracheobronchial tree appears intact. No evidence of pulmonary embolic disease. Thoracic aorta is of normal diameter, no thoracic aortic aneurysm or dissection, major branch vessels appear intact. No mediastinal or hilar adenopathy. Images obtained through the upper abdomen show unremarkable appearance of the visualized portions of the liver, spleen, pancreas, adrenals, and kidneys. IMPRESSION: Negative CT angiogram of the chest. No evidence of pulmonary embolic disease. Lab Data Lab results reviewed: Yes I reviewed the patient's lab results. Labs: Laboratory Tests Range/Units 12/17/21 12/17/21 12/17/21 13:51 13:51 13:51 WBC (4.4-10.8) 10^3/uL 6.64 RBC (3.93-5.22) 10^6/uL 4.07 Hgb (11.2-15.7) g/dL 12.8 Hct (36.0-46.0) % 39.3 MCV (80-95) fL 97 H MCH (27.0-33.0) pg 31.4 MCHC (32.0-36.0) % 32.6 RDW (11.7-14.6) % 13.0 Plt Count (130-400) 10^3/uL 188 MPV (8.0-11.0) fL 10.3 Immature Gran % 0.3 Neutrophils % 53.0 Lymphocytes % 34.3 Monocytes % 9.2 Eosinophils % 2.9 Basophils % 0.3 Nucleated RBC % (0.0-0.3) % 0.0 Absolute Neutrophils (1.2-6.7) 10^3/uL 3.52 Absolute Lymphocytes (1.2-3.4) 10^3/uL 2.28 Absolute Monocytes (0.1-0.8) 10^3/uL 0.61 Absolute Eosinophils (0.0-0.7) 10^3/uL 0.19 Absolute Basophils (0.0-0.2) 10^3/uL 0.02 PT (9.3-11.0) sec 9.9 INR (0.9-1.1) 1.0 APTT (21.0-27.5) sec 25.3 D-Dimer (<500) ng/mlFEU 1326 H Sodium (136-145) mmol/L 142 Potassium (3.5-5.1) mmol/L 4.1 Chloride (98-107) mmol/L 107 Carbon Dioxide (21.0-32.0) mmol/L 28.2 Anion Gap (3-11) mmol/L 6.8 BUN (7-18) mg/dL 24 H Creatinine (0.55-1.02) mg/dL 1.4 H Estimated GFR/1.73 m2 (mL/min/1.73m2) 36.00 Glucose (74-106) mg/dL 90 Calcium (8.5-10.1) mg/dL 9.1 Magnesium (1.8-2.4) mg/dL 2.4 Total Bilirubin (0.2-1.0) mg/dL 0.5 AST (15-37) U/L 17 ALT (14-59) U/L 21 Alkaline Phosphatase (46-116) U/L 82 Troponin I (<or=60) ng/L < 50 NT-Pro-B Natriuret Pep (<300) pg/mL 366 H Total Protein (6.4-8.2) g/dL 7.5 Albumin (3.4-5.0) g/dL 3.8 TSH (0.36-3.74) uIU/mL 1.78 COVID-19 Source SARS-CoV-2 (PCR) (Negative) Range/Units 12/17/21 13:51 WBC (4.4-10.8) 10^3/uL RBC (3.93-5.22) 10^6/uL Hgb (11.2-15.7) g/dL Hct (36.0-46.0) % MCV (80-95) fL MCH (27.0-33.0) pg MCHC (32.0-36.0) % RDW (11.7-14.6) % Plt Count (130-400) 10^3/uL MPV (8.0-11.0) fL Immature Gran % Neutrophils % Lymphocytes % Monocytes % Eosinophils % Basophils % Nucleated RBC % (0.0-0.3) % Absolute Neutrophils (1.2-6.7) 10^3/uL Absolute Lymphocytes (1.2-3.4) 10^3/uL Absolute Monocytes (0.1-0.8) 10^3/uL Absolute Eosinophils (0.0-0.7) 10^3/uL Absolute Basophils (0.0-0.2) 10^3/uL PT (9.3-11.0) sec INR (0.9-1.1) APTT (21.0-27.5) sec D-Dimer (<500) ng/mlFEU Sodium (136-145) mmol/L Potassium (3.5-5.1) mmol/L Chloride (98-107) mmol/L Carbon Dioxide (21.0-32.0) mmol/L Anion Gap (3-11) mmol/L BUN (7-18) mg/dL Creatinine (0.55-1.02) mg/dL Estimated GFR/1.73 m2 (mL/min/1.73m2) Glucose (74-106) mg/dL Calcium (8.5-10.1) mg/dL Magnesium (1.8-2.4) mg/dL Total Bilirubin (0.2-1.0) mg/dL AST (15-37) U/L ALT (14-59) U/L Alkaline Phosphatase (46-116) U/L Troponin I (<or=60) ng/L NT-Pro-B Natriuret Pep (<300) pg/mL Total Protein (6.4-8.2) g/dL Albumin (3.4-5.0) g/dL TSH (0.36-3.74) uIU/mL COVID-19 Source Nasal/Nares SARS-CoV-2 (PCR) (Negative) Negative <Katalina Sullivan NP - Last Filed: 12/17/21 23:54> 81-year-old female who reports that she is a full code, complicated past medical history, initially presents to the ER for ultrasound results. There is a calf vein thrombus no significant DVT which would require anticoagulation. Upon further questioning she reports shortness of breath and chest pain that began sometime this morning, difficult to get exact timeline, she is a rather vague and poor historian. Heart rate noted to be in the 40s in triage. When reviewing her previous records heart rates in the 50s and 60s seems to be near her baseline but 40 does appear to be fairly low. Given this, will initiate cardiac work-up including a D-dimer. Laboratory values reveal no evidence of leukocytosis or anemia. D-dimer is elevated at 1326, will pursue CTA of the chest. Electrolytes are unremarkable. Creatinine of 1.4 with a GFR of 36 which is slightly less than her baseline, she is receiving IV fluid. LFTs unremarkable. BNP minimally elevated at 366. TSH 178. Initial troponin less than 50. COVID pending CTA of the chest is unremarkable for PE. It should be noted that her initial heart rate was in the mid to high 40s, throughout her ER visit she has remained hemodynamically stable and her heart rate has ranged primarily between 55 and 65. 1623: SJ: Care assumed from provider (DONATO Moore) Please see their initial HPI, PE, and documentation. Discussed patient details and case and pending workup and disposition. Patient is hemodynamically stable, and alert and oriented. At the time of signout we are awaiting a delta troponin and second EKG. Second troponin within normal limits, discussed results with patient who verbalized understanding she is ready to be discharged home. After reviewing the ultrasound results due to risk factors since the clot is proximal I will place patient on a renal dose of Eliquis 2.5 mg twice daily. Prescription written for this. She was given 2.5 mg of Eliquis here in the department. Patient was given instructions strict return instructions. She was discharged in hemodynamically stable condition alert and oriented. This text was generated using [employer] dictation system, please disregard any oddities of phrase or misspellings. HPI <DONATO Vasquez - Last Filed: 12/17/21 16:04> General Mode of arrival: ambulatory . Date/Time Provider Initiated Documentation: 12/17/21 12:57 . Limitations to Documentation: no limitations . Information obtained by: patient . HPI Narrative: This is a 81-year-old female, past medical history that includes anxiety, asthma, GERD, hyperlipidemia, peripheral neuropathy, chronic back pain, osteoporosis, chronic knee pain, hypertension, initially presenting to the ER for outpatient ultrasound results of her left lower extremity status post ER visit yesterday but subsequently reports intermittent chest pain earlier today associate with shortness of breath. She is asymptomatic at this time. She denies recent illness or trauma. She reports that the pain in her leg is chronic in nature but was worsening and that is what prompted her visit yesterday. She denies fever, headache, neck pain, cough, abdominal pain, nausea, vomiting, skin rash. She denies history of DVT or PE. She is not anticoagulated but was given a single dose yesterday prophylactically awaiting her ultrasound results and potential DVT. Related Data Home Medications Medication Instructions Recorded Confirmed cyanocobalamin (vitamin B-12) 1,000 mcg sublingual DAILY 08/28/15 12/17/21 1,000 mcg sublingual tablet (Vitamin B-12) flaxseed oil 1,000 mg capsule 1,000 mg PO DAILY 10/09/17 12/17/21 cannabidiol 100 mg/mL oral solution See Rx Instructions PO .COMPLEX PRN 12/28/18 12/17/21 vitamin E mixed 400 unit capsule 400 unit PO DAILY 04/03/19 12/17/21 ascorbic acid (vitamin C) 500 mg 500 mg PO DAILY 06/12/19 12/17/21 tablet (Vitamin C) biotin 800 mcg tablet 800 mcg PO DAILY 03/20/20 12/17/21 magnesium 250 mg tablet 250 mg PO DAILY 03/20/20 12/17/21 albuterol sulfate 90 mcg/actuation 2 puff inhalation Q6H PRN 07/30/20 12/17/21 aerosol inhaler (Ventolin HFA) shortness of breath or wheezing #6.7 grams potassium chloride 20 mEq 20 meq PO .every other day PRN 07/30/20 12/17/21 tablet,extended release take only when taking furosemide #10 tabs lactobacillus combination no.8 3 3,000 mmu cells PO DAILY 12/15/20 12/17/21 billion cell capsule (Adult Probiotic) ashwagandha root extract 300 mg See Rx Instructions PO .QD 12/29/20 12/17/21 capsule metronidazole 0.75 % topical gel 1 applic topical QHS #45 grams 02/02/21 12/17/21 Compression Stockings #1 ea 03/31/21 12/17/21 diazepam 2 mg tablet 2 mg PO Q6H PRN vertigo as per 04/29/21 12/16/21 hospitalization hx #20 tabs meclizine 25 mg tablet 25 mg PO BID PRN dizziness #20 tabs 04/29/21 12/17/21 cholecalciferol (vitamin D3) 50 50 mcg PO DAILY 06/08/21 12/17/21 mcg (2,000 unit) capsule famotidine 20 mg tablet 20 mg PO QHS nausea, stomach upset 12/09/21 06/17/22 #30 tabs furosemide 20 mg tablet (Lasix) 20 mg PO DAILY PRN weight gain or 06/10/2112/01 edema #30 tabs eqhccerv-mftxynnhc-fbyulqbgo 3.5 4 drp otic (ear) Q8H #10 mL 09/18/21 12/17/21 mg-10,000 unit/mL-1 % ear drops,susp apixaban 2.5 mg tablet 2.5 mg PO BID DVT Renal Dosing 30 12/17/21 days #60 tabs Previous Rx's Medication Instructions Recorded albuterol sulfate 90 mcg/actuation 2 puff inhalation Q6H PRN 07/30/20 aerosol inhaler (Ventolin HFA) shortness of breath or wheezing #6.7 grams potassium chloride 20 mEq 20 meq PO .every other day PRN 07/30/20 tablet,extended release take only when taking furosemide #10 tabs metronidazole 0.75 % topical gel 1 applic topical QHS #45 grams 02/02/21 Compression Stockings #1 ea 03/31/21 diazepam 2 mg tablet 2 mg PO Q6H PRN vertigo as per 04/29/21 hospitalization hx #20 tabs meclizine 25 mg tablet 25 mg PO BID PRN dizziness #20 tabs 04/29/21 famotidine 20 mg tablet 20 mg PO QHS nausea, stomach upset 06/10/21 #30 tabs furosemide 20 mg tablet (Lasix) 20 mg PO DAILY PRN weight gain or 06/10/21 edema #30 tabs nlqxdfpq-dvyzzyhic-mhgqmmqku 3.5 4 drp otic (ear) Q8H #10 mL 09/18/21 mg-10,000 unit/mL-1 % ear drops,susp apixaban 2.5 mg tablet 2.5 mg PO BID DVT Renal Dosing 30 12/17/21 days #60 tabs Allergies Allergy/AdvReac Type Severity Reaction Status Date / Time adhesive tape Allergy Intermediate blisters Verified 12/16/21 16:31 on skin Sulfa (Sulfonamide Allergy Intermediate sister Verified 12/16/21 16:31 Antibiotics) of anaphylaxis per pt aspirin AdvReac Intermediate nosebleeds Verified 12/16/21 16:31 codeine AdvReac Intermediate blackouts Verified 12/16/21 16:31 latex AdvReac Intermediate skin-red Verified 12/16/21 16:31 ithcy spots on skin morphine AdvReac Intermediate becomes Verified 12/16/21 16:31 very ill, vomting gabapentin AdvReac Mild makes me Unverified 12/16/21 17:16 sick General Stated Complaint: Chest Pain BENNY: 3 Review of Systems <DONATO Vasquez - Last Filed: 12/17/21 16:04> Constitutional Constitutional: Denies fatigue and Denies fever(s) ENT Ears, Nose, Mouth, and Throat: Denies neck pain Cardiovascular Cardiovascular: Reports chest pain and Reports dyspnea Respiratory Respiratory: Denies cough and Reports dyspnea Gastrointestinal Gastrointestinal: Denies abdominal pain, Denies nausea and Denies vomiting Genitourinary Genitourinary: Denies dysuria Musculoskeletal Musculoskeletal: Denies neck pain, Denies numbness and Denies tingling Integumentary/Breasts Skin/Breast: Denies rash Neurologic Neurologic: Denies numbness and Denies tingling Endocrine Endocrine: Denies fatigue Hematologic/Lymphatic Hematologic/Lymphatic: Denies easy bleeding and Denies easy bruising PFSH <DONATO Vasquez - Last Filed: 12/17/21 16:04> All Active Problems (Updated 12/17/21 @ 18:22 by Katalina Sullivan NP) Acute leg pain (Acute) D-dimer, elevated (Acute) Deep vein blood clot of left lower extremity (Acute) Edema of lower extremity (Acute) Worsening edema, making leg pain worse .. Poor tolerance of compression .. trying lt compression [ ] 12/2020 Chronic neck pain (Chronic) Some relief with PT .. Neck fullness (Acute) Sensation of firmness, swelling (vs neck pain that PT is working on) .. subacute, with high anxiety.. Family history of thyroid disease (Chronic) Hx of family members being told nothing wrong then ID disease .. high anxiety. Sensorineural hearing loss (SNHL) of both ears (Acute) Leg pain, bilateral (Acute) Pt c/o notable leg pain, not just 2' edema ... improves with rest ..[ ] FLORES to eval for claudication Vertigo (Acute) Acute on chronic ... presented to ED, CVA ruled out (04/2021). ENT seen. Small vessel disease, cerebrovascular (Chronic) per MRI, 04/2018 (Hospitalized to r/o CVA .. DDx incl TIA, but most probably VERTIGO) HTN (hypertension) (Chronic) Mostly managed, good today, 09/28/18, ik. 134/68 07/30/19. Dysphagia (Acute) Acute on chronic, fluids>solids (Hx terrible choking resolved, but noting difficulty again).. CKD (chronic kidney disease) stage 3, GFR 30-59 ml/min (Chronic) @ baseline, 03/2021 (Cr 1.2/GFR 43). Dupuytren's contracture of left hand (Acute) small finger Trigger finger, left middle finger (Acute) Tinnitus, bilateral (Acute) Arthritis of right hand (Acute) Arthritis of left hand (Acute) Abdominal pain (Acute) Pulmonary hypertension (Chronic) Acute systolic CHF (congestive heart failure) (Acute) Bradycardia (Acute) Chest pain (Acute) Foot pain, right (Acute) pain, deformity, 5th toe swollen, curved Tendinitis of left rotator cuff (Acute) Subacromial injection: 05/17/2021; 04/13/2020; 07/12/2019 Fatigue (Chronic) Hx low normal Hgb, with elevated MCV (Ddx borderline macrocytic anemia) .. Folate, B12 WNL. Vit D improved (2018). TSH, LFTs WNL. May retest, but 12/2018 shows baseline, w/o acute changes/deficiency. Bilateral knee pain (Acute 05/02/14) Idiopathic peripheral neuropathy (Acute 06/15/12) Osteoporosis (Acute 02/27/14) L wrist T = -3.7 01/2014; but FRAX: 11.4 risk major, 2.6 risk of hip: Rx not recommended Osteopenia (Acute 04/27/06) Pain in lower limb (Acute 05/22/12) Patellar tendinitis (Acute) INjection from Dr. Souza, hurt going but helped pain freatly. Able to walk much better, 10/2018 Hip fracture (Acute) Spinal stenosis at L4-L5 level (Chronic) Closed right hip fracture (Acute) Anxiety (Chronic 02/20/15) Obesity with body mass index 30 or greater (Chronic) BMI 38.2 (if still 5'1) 08/2013 Cough (Acute) recurrent cough, ?allergic rhinnitis, responsive to nasal steroid?; 12/2014 Dysgeusia (Acute 12/15/15) Gastroesophageal reflux disease (Chronic) responds to OTC Prilosec . Ranitidine tried, did not help 06/2019 [ ] return to PPI? 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 Much improved, 11/02/18. Pain in knee region after total knee replacement (Acute 04/03/17) Rt and Lt TKA - Dr. Gonzalez Bilateral corticosteroid injections: 10/10/18 Ocular rosacea (Chronic) question ocular rosacea and mild facial rosacea ([facility] [place] Dr. 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 Asymptomatic. c/o Heart Fluttering 06/2019 .. >[place], 07/2019 .. NSR w/ occ SVT. No AFib. Medical History Anxiety Asthma Breast pain, left Chest pain Displaced intertrochanteric fracture of right femur, subsequent encounter for closed fracture with routine healing (02/12/16) Dysgeusia GERD (gastroesophageal reflux disease) Gross hematuria Head ache Hyperlipidemia pt. states she is unsure if she has this Idiopathic peripheral neuropathy Intertrigo Lumbago Mixed stress and urge urinary incontinence Multiple fractures of right femur pt states she fractured her hip Multiple joint pain Nail abnormality Nocturia Obesity Osteopenia Osteoporosis Prehypertension Right arm pain Surgical History Bilateral salpingectomy with oophorectomy BILATERAL TKA (10/01/12) DR. VANDANA GONZALEZ section X4 Cholecystectomy Colonoscopy - IV Sedation egd (05/10/16) flexible laryngoscopy (03/12/15) Dr Villatoro Hemorrhoidectomy History of esophagogastroduodenoscopy (EGD) (~10/15/18) History of repair of right hip joint Hysterectomy, Laproscopic Open Carpal Tunnel release Replacement of total knee joint Right arthroscopic rtotator cuff repair (04/22/13) RIGHT FOOT FX REPAIR Family History Mother , Fluid buildup at age 72. Diabetes did not have diabetes Personal history of malignant neoplasm Asthma Father , AD,blood clot at age 69. Alzheimer's disease Son Asthma Son No problems noted. Son No problems noted. Daughter No problems noted. Sister No problems noted. Sister Personal history of malignant neoplasm Sister Personal history of malignant neoplasm Sister No problems noted. 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 Pets and animals: Yes Pets and animals: dog(s) Current gender identity: female What is your relationship status?: Panel score (0-1 are the most socially isolated patients): 0 What type of physical activity do you participate in: none Seatbelt use: always Do you feel safe at home: Yes Do you feel safe in your relationship?: Yes Victim of physical abuse: No Victim of emotional abuse: No Victim of sexual abuse: No Exam <DONATO Vasquez - Last Filed: 12/17/21 16:04> Const General: cooperative, healthy appearing, comfortable and no acute distress Orientation: alert and awake [facility] Head: normal to inspection, normocephalic and atraumatic Face and sinus: normal facial exam Mouth: moist mucous membranes Eyes General: appearance normal, both eyes and all related structures Conjunctivae: conjunctivae normal Neck Neck: normal visual inspection, full ROM, trachea midline, supple and nontender Chest Chest: normal inspection of the chest and normal palpation of entire chest wall Resp Effort & Inspection: normal respiratory effort and able to speak in complete sentences Auscultation: clear to auscultation bilaterally Cardio Rate: bradycardic (52) Rhythm: regular rhythm GI Palpation: soft, not firm, no guarding, no pulsatile masses and nontender Auscultation: normal bowel sounds Back/Spine/Pelvis Back: No back tenderness Skin General skin exam: no rashes or lesions noted Neuro General: patient alert, patient awake, moves all extremities and no focal motor deficits Cognition: normal cognition Speech: speech normal Motor: muscle tone normal throughout Sensory Exam: no sensory deficits noted Extrem General: full ROM and capillary refill normal Other: Diffuse mild left knee pain. No obvious leg asymmetry, erythema, warmth. Negative Homans' sign bilaterally. No palpable cord appreciated. Psych Appearance: grossly normal Mental Status: mental status grossly normal Course <DONATO Vasquez - Last Filed: 12/17/21 16:04> Vital Signs Vital signs: Vital Signs Temperature 36.6 C 12/17/21 13:04 Pulse 44 L 12/17/21 13:04 Blood Pressure 144/54 H 12/17/21 13:04 Pulse Oximetry 97 12/17/21 13:04 Temperature 36.6 C 12/17/21 13:04 Temperature Source Temporal Artery Scan 12/17/21 13:04 Pulse 44 L 12/17/21 13:04 Respiratory Effort Non-Labored 12/17/21 13:13 Blood Pressure 144/54 H 12/17/21 13:04 Blood Pressure Position Sitting 12/17/21 13:04 Pulse Oximetry 97 12/17/21 13:04 Oxygen Delivery Method Room Air 12/17/21 13:04 Oxygen Flow Rate 0 12/17/21 13:04 Sign Out <DONATO Vasquez - Last Filed: 12/17/21 16:04> Sign Out Data: Sign Out Comment: Presented for ultrasound results but subsequently reported chest pain, shortness of breath, bradycardia. Patient received 1 L IV fluid, heart rate currently 62. Work-up thus far including CTA of the chest negative. Awaiting delta troponin, COVID test, reassessment and final disposition Last updated by Tino Santos PA at 12/17/21 16:04
[2021-12-17 13:57] LABS: Source Nasal/Nares
[2021-12-17] MEDS: Normal Saline 1,000 ML 125 ML IV (13:58)
[2021-12-17 13:59] LABS: Abs Immature Grans 0.02 10^3/uL (0.0-0.06); Absolute Basophil Count 0.02 10^3/uL (0.0-0.2); Absolute Eosinophil Count 0.19 10^3/uL (0.0-0.7); Absolute Lymphocyte Count 2.28 10^3/uL (1.2-3.4); Absolute Monocyte Count 0.61 10^3/uL (0.1-0.8); Absolute Neutrophil Count 3.52 10^3/uL (1.2-6.7); Basophils % 0.3; Eosinophils % 2.9; HCT 39.3 % (36.0-46.0); HGB 12.8 g/dL (11.2-15.7); Immature Grans % 0.3; Lymphocytes % 34.3; MCH 31.4 pg (27.0-33.0); MCHC 32.6 % (32.0-36.0); MCV 97 fL (80-95); MPV 10.3 fL (8.0-11.0); Monocytes % 9.2; Platelet Count 188 10^3/uL (130-400); RBC 4.07 10^6/uL (3.93-5.22); RDW-SD 46.8 fL; WBC 6.64 10^3/uL (4.4-10.8)
[2021-12-17 14:13] LABS: PTT Activated 25.3 sec (21.0-27.5); Prothrombin Time 9.9 sec (9.3-11.0)
[2021-12-17 14:26] LABS: ALT 21 U/L (14-59); AST 17 U/L (15-37); Albumin 3.8 g/dL (3.4-5.0); Alkaline Phosphatase 82 U/L (46-116); Anion Gap 6.8 mmol/L (3-11); BUN 24 mg/dL (7-18); Bilirubin, Total 0.5 mg/dL (0.2-1.0); CO2 28.2 mmol/L (21.0-32.0); CREATININE 1.4 mg/dL (0.55-1.02); Calcium 9.1 mg/dL (8.5-10.1); Chloride 107 mmol/L (98-107); Glucose 90 mg/dL (74-106); Magnesium 2.4 mg/dL (1.8-2.4); NT-proBNP 366 pg/mL (<300); Potassium 4.1 mmol/L (3.5-5.1); Sodium 142 mmol/L (136-145); TSH (W/Ref FT4) 1.78 uIU/mL (0.36-3.74); Total Protein 7.5 g/dL (6.4-8.2); Troponin I < 50 ng/L (<or=60)
[2021-12-17 14:32] LABS: D-Dimer 1326 ng/mlFEU (<500)
[2021-12-17 14:50] LABS: COVID-19 PCR Negative (Negative)
[2021-12-17] MEDS: Normal Saline 1,000 ML 1000 ML IV (15:10)
--- NOTE | 2021-12-17 15:38 | DI.CT_ITS ---
Exam(s) CT CHEST PE CTA EXAM: CT CHEST PE CTA CLINICAL HISTORY: cp/sob/elevated dimer. TECHNIQUE: Imaging Protocol: Axial CT angiography was performed with multi-slice acquisition and mu lti-planar and/or 3D reconstructions. CONTRAST MATERIAL: Intravenous: Omnipaque 350 Contrast volume:structured data in ml COMPARISON: CT CT BRAIN NECK CTA from 04/18/2021 CR,XR XR CHEST 2V PA LATERAL from 04/18/2021 FINDINGS: CT angiography of the chest was performed with intravenous infusion of 100 cc of Omnipaque 350. The lungs are clear and somewhat hyperinflated. Some changes of basilar scarring and/or atelectasis are noted. No pleural effusion. Tracheobronchial tree appears intact. No evidence of pulmonary embolic disease. Thoracic aorta is of normal diameter, no thoracic aortic an eurysm or dissection, major branch vessels appear intact. No mediastinal or hilar adenopathy. Images obtained through the upper abdomen show unremarkable appearance of the visualized portions of the liver, spleen, pancreas, adrenals, and kidneys. IMPRESSION: Negative CT angiogram of the chest. No evidence of pulmonary embolic disease. RADIATION DOSE DELIVERED: 480.52mGy.cm Total DLP 480.52mGy.cm Total DLP !Error CTDIvol DATA REPOSITORY: All CT scans at this facility are submitted to the National Radiology Data Registry (NRDR) Dose Index Registry (DIR) with the [employer] (ACR). RADIATION OPTIMIZATION: All CT scans at this facility use at least one of these dose optimization te chniques: automated exposure control; mA and/or kV adjustment per patient size (includes targeted exa ms where dose is matched to clinical indication); or iterative reconstruction.
[2021-12-17] MEDS: Omnipaque 350 MG/ML 100 ML BTL IJ (15:39)
[2021-12-17 16:08] LABS: Bilirubin Negative (Negative); Blood Trace-intact (Negative); Clarity Clear (Clear); Glucose Negative (Negative); Ketones Negative (Negative); Leukocyte Esterase Negative (Negative); Nitrite Negative (Negative); Specific Gravity 1.015 (1.005-1.025); Urobilinogen 0.2 EU/dL (Up TO 0.2)
[2021-12-17 16:15] LABS: Bacteria Negative HPF (Negative); C & S Indicated? No; Casts Negative LPF (Negative); Crystals Negative HPF (Negative); Epithelial Cells Few HPF (Negative); Mucus Negative (Negative); RBC 0-2 HPF (0-2)
[2021-12-17 17:18] LABS: Troponin I < 50 ng/L (<or=60)
[2021-12-17] MEDS: Apixaban 2.5 MG TAB PO (18:48)
== END 2021-12-17 18:40 | disposition home or self-care (01) ==
PROVIDERS: Physician Assistant; Emergency Provider Registered Nurse Emergency; PCP Student in an Organized Health Care Education/Training Program
DX: I82.442 Acute embolism and thrombosis of left tibial vein (principal); R06.02 Shortness of breath; R07.9 Chest pain, unspecified; R00.1 Bradycardia, unspecified; Z20.822 Contact with and (suspected) exposure to COVID-19
CPT/HCPCS: 36415; 71275; 80053; 87635; 93005; 96360; 96361; 99284; 99285; 71046; 81003; 81015; 83735; 83880; 84443; 84484; 85025; 85379; 85610; 85730; 93010; J3490

== ENCOUNTER → 2021-12-17 13:03 | Outpatient (CLI) | payer OTHER, SELFPAY ==
--- NOTE | 2021-12-17 | DI.US_ITS ---
Exam(s) US LOWER EXTREMITY VENOUS LT EXAM: US LOWER EXTREMITY VENOUS LT CLINICAL HISTORY: LEFT LEG PAIN, M79.605, ELEVATED D DIMER TECHNIQUE: Ultrasound performed using standard protocol. COMPARISON: US US ECHOCARDIOGRAM W BUBBLES from 04/19/2021 FINDINGS: Duplex evaluation of the deep venous system of the left lower extremity was performed according to th e usual protocol. 2D and Doppler evaluation was performed there is a 2 cm long thrombosed region of the proximal anterior tibial vein. No other calf vein thrombus identified. No thrombus identified i n the popliteal vein or proximally to the level of the common femoral vein. Greater saphenous vein w as free of thrombus. IMPRESSION: Calf vein thrombus as described above, no significant DVT identified in the thigh or popliteal vein.. DATA REPOSITORY:
== END ==
PROVIDERS: PCP Student in an Organized Health Care Education/Training Program; Visit Provider Physician Assistant
DX: I82.442 Acute embolism and thrombosis of left tibial vein; R79.89 Other specified abnormal findings of blood chemistry
CPT/HCPCS: 93971

== ENCOUNTER 2021-12-27 03:57 | Outpatient (CLI) | payer OTHER, SELFPAY ==
--- NOTE | 2022-01-18 11:55 | W.CARDEVENT ---
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 Minimum was 27, which occurred during sleep. Maximum was 128 There were rare ventricular ectopic beats. A total of 5 episodes of nonsustained ventricular tachycardia were recorded. The longest of these was 6 beats in duration. None of them were symptomatic There were rare atrial premature beats. Several self-limited atrial runs occurred. 1 episode labeled supraventricular tachycardia was in fact sinus tachycardia at a rate of 128 There was no atrial fibrillation, no high-grade AV block, no pauses greater than 3 seconds Patient symptoms were reported. There was no correlation to any dysrhythmia
== END 2021-12-27 03:58 | disposition home or self-care (01) ==
LOC: RT 03:57
PROVIDERS: PCP Student in an Organized Health Care Education/Training Program; Visit Provider Student in an Organized Health Care Education/Training Program
DX: R00.1 Bradycardia, unspecified (principal); I47.2 Ventricular tachycardia; I47.1 Supraventricular tachycardia
CPT/HCPCS: 93246

== ENCOUNTER 2021-12-28 02:57 | Outpatient (CLI) | payer OTHER, SELFPAY ==
[2021-12-28 14:43] LABS: ALT 20 U/L (14-59); AST 21 U/L (15-37); Albumin 3.7 g/dL (3.4-5.0); Alkaline Phosphatase 80 U/L (46-116); Anion Gap 5.8 mmol/L (3-11); BUN 29 mg/dL (7-18); Bilirubin, Total 0.6 mg/dL (0.2-1.0); CO2 27.2 mmol/L (21.0-32.0); CREATININE 1.3 mg/dL (0.55-1.02); Calcium 8.8 mg/dL (8.5-10.1); Chloride 105 mmol/L (98-107); Estimated GFR 39.21 (mL/min/1.73m2); Glucose 122 mg/dL (74-106); Potassium 4.1 mmol/L (3.5-5.1); Sodium 138 mmol/L (136-145); Total Protein 7.4 g/dL (6.4-8.2)
== END 2021-12-28 02:58 | disposition home or self-care (01) ==
LOC: LBO 02:57
PROVIDERS: PCP Student in an Organized Health Care Education/Training Program; Referring Provider Student in an Organized Health Care Education/Training Program; Visit Provider Student in an Organized Health Care Education/Training Program
DX: N18.30 Chronic kidney disease, stage 3 unspecified (principal)
CPT/HCPCS: 36415; 80053

== ENCOUNTER 2022-01-18 11:55 | Outpatient (CLI) | payer OTHER, SELFPAY | END 2022-01-18 11:56 | LOC: CARDO 01-20 09:25 | PROVIDERS: PCP Student in an Organized Health Care Education/Training Program; Referring Provider Student in an Organized Health Care Education/Training Program; Visit Provider Internal Medicine Cardiovascular Disease | DX: R00.1 Bradycardia, unspecified (principal); I47.2 Ventricular tachycardia; I47.1 Supraventricular tachycardia | CPT/HCPCS: 93248 ==

== ENCOUNTER 2022-05-02 09:17 | Outpatient (CLI) | payer MEDICARE, SELFPAY ==
--- NOTE | 2022-05-02 08:30 | DI.RAD_ITS ---
Exam(s) XR HIP RT AP LAT ONLY EXAM: XR HIP RT AP LAT ONLY INDICATION: pain. COMPARISON: CR RT HIP COMPLETE AP PELVIS from 12/14/2016 TECHNIQUE: 2D digital imaging was performed. Two views. FINDINGS: There has been no change in the alignment of the compression screw at the proximal right femur. Ther e are is advanced degenerative changes of the right hip with joint space narrowing and periarticular spurring. Enthesophyte is seen at the greater trochanter. Vascular calcifications are present. The re is also spurring at the inferior right SI joint. DATA REPOSITORY: RADIATION DOSE DELIVERED:
== END 2022-05-02 09:18 | disposition home or self-care (01) ==
LOC: DIORS 09:17
PROVIDERS: Visit Provider Physician Assistant Surgical
DX: M25.551 Pain in right hip (principal); M19.012 Primary osteoarthritis, left shoulder
CPT/HCPCS: 20610; 73502; J1040

== ENCOUNTER 2022-05-04 15:22 | Outpatient (CLI) | payer MEDICARE, SELFPAY ==
--- NOTE | 2022-05-04 | DI.US_ITS ---
Exam(s) US LOWER EXTREMITY VENOUS LT EXAM: US LOWER EXTREMITY VENOUS LT CLINICAL HISTORY: LT LEG PAIN, LOWER, WITH REDNESS, M79.605; LT LOWER LEG ERYTHEMA, L53.9. TECHNIQUE: Lower extremity venous ultrasound performed using grayscale, color-flow, and spectral Do ppler analysis. COMPARISON: No exams were available for comparison FINDINGS: The common femoral, femoral and popliteal veins demonstrate normal compressibility, augmentation, and color Doppler. The posterior tibial veins are patent. No saphenous vein thrombosis or other superfi cial venous thrombosis is seen. No hematoma or Rodriguez's cyst is seen. IMPRESSION: Negative lower extremity ultrasound. No evidence of DVT. DATA REPOSITORY:
--- OUTSIDE RECORDS SUMMARY | 2022-05-04 15:25 | XMS_ITS | Encounter Summary ---
:1940 Author Organization [place] [address] Care Team Providers Name Role Phone Melissa Lee DO Primary Care Provider Reason for Referral Diagnostic Test (Routine) - Closed Specialty Diagnoses / Procedures Referred By Contact Refer red To Contact Cardiology Diagnoses TIA (transient ischemic attack) Cerebrovascular accident (CVA), unspecified mechanism Sahara Brown APRN [facility] Non-Inv Card Lab Procedures Mobile Echo [address] [phone] Fax: Referral ID Status Reason Start Date Expiration Date Visits V isits Requested Authorized [id number] Closed Specialty 04/19/2021 04/19/2022 1 1 Service Requested Reason for Visit Diagnostic Test (Routine) - Closed Specialty Diagnoses / Procedures Referred By Contact Refer red To Contact Cardiology Diagnoses TIA (transient ischemic attack) Cerebrovascular accident (CVA), unspecified mechanism Sahara Brown APRN [facility] Non-Inv Card Lab Procedures Mobile Echo [address] [phone] Fax: Referral ID Status Reason Start Date Expiration Date Visits V isits Requested Authorized [id number] Closed Specialty 04/19/2021 04/19/2022 1 1 Service Requested Encounter Details Date Type Department Care Team Description 04/19/2021 Hospital Encounter Mobile Sahara Brown TIA (t ransient ischemic attack); Echocardiography C, 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 Cerebrovascular accident (CVA), unspecif ied mechanism [facility] [address] [place] [id number] [phone] Social History Tobacco Use Types Packs/Day Years Used Date Never Smoker Smokeless Tobacco: Never Used Alcohol Use Standard Drinks/Week Comments No 0 (1 standard drink = 0.6 oz pure alcoho l) Sex Assigned at Date Recorded Not on file documented as of this encounter Medications at Time of Discharge Medication Sig Dispensed Refills Start Date End Date mupirocin (BACTROBAN) 2 % apply inside of 22 g 0 07/20 Ointment nasal nares three times daily for 7 days then D/C fluticasone (FLONASE) 50 0 08/16/2017 mcg/actuation [place], Suspension loratadine (CLARITIN) 10 mg Take 10 mg by mouth 0 Tablet daily. hydroCHLOROthiazide 0 12/18/2016 (HYDRODIURIL) 25 mg Tablet hydrocortisone 1 % Cream APPLY TOPICALLY TO 0 NECK AND FOREHEAD IRRITATION THREE TIMES A DAY omeprazole (PRILOSEC) 20 mg 0 01/31/20 17 Capsule, Delayed Release(E.C.) PARoxetine (PAXIL) 10 mg TAKE ONE TABLET BY 1 Tablet MOUTH EVERY DAY FOR LOW ENERGY KLOR-CON SPRINKLE 10 mEq TAKE ONE CAPSULE BY 3 Capsule, Sustained Release MOUTH EVERY DAY TO REPLACE LOW POTASSIUM ketoconazole (NIZORAL) 2 % Apply as shampoo, 120 mL 5 Shampoo rinse off after 2-3 minutes multivitamin Capsule Take 1 capsule by 0 mouth daily. documented as of this encounter Plan of Treatment Not on filedocumented as of this encounter Procedures Procedure Name Priority Date/Time Associated Comments Diagnosis ECHOCARDIOGRAM COMPLETE Routine 04/19/2021 12:56 TIA (transien t Results for this PM EDT ischemic attack) procedure are in Cerebrovascular the results accident (CVA), section. unspecified mechanism documented in this encounter Results ECHOCARDIOGRAM COMPLETE (04/19/2021 12:56 PM EDT) P athologist Signature EF 58 HEARTLAB SYSTEM Anatomical Region Laterality Modality Other Specimen (Source) Anatomical Location Collection Method / Collectio n Time Received Time / Laterality Volume 04/19/2021 Narrative 04/19/2021 1:17 PM EDT Procedure: ?Transthoracic Echocardiogram Patient: ?Errol Bardfordith Kyle. ?(Age): 1940(80y) Med Rec#: ? [id number] ?Sex: ?F ? Site Loc: ? [facility] [place] ??H t / Wt: ??152.4(cm)/91.63 Pt. Loc: ?Adult Floor ? BSA: ?1.87 Study Date: ?? 04/19/2021 ?Pt. Type: Inpatient Tape: ? Referring: RADHA Reading: Rodrigo Mccormack ([id number]) Brokerage Clerk: NELY Diagnosis: *Cerebral infarction, unspecified (I63. 9) *Transient cerebral ischemic attack, un specified (G45.9) Rhythm: ? NSR BP: ? 134/80 SUMMARY: 1. The left ventricular chamber size is normal. ??There is normal global left ventricular systolic function. ??Th ere are no left ventricular segmental wall motion abnormalities. 2. The left atrium is normal in size. ?? There is no evidence of a patent foramen ovale by either color Doppler or agitated saline injection. 3. No significant valvular abnormalities . 4. Other details as noted below. Findings ? : Study Quality: ? Adequate Left Ventricle: ? The left ventricul ar chamber size is normal. ?Left ventricular wall thickness is normal. ?There is normal global left ventri cular systolic function. ?The quantitative left ventricular ejection fraction by biplane Vásquez's method is 58%. ?There are no left ventricular segm ental wall motion abnormalities. Left Atrium: ? The left atrium is no rmal in size. ?There is no evidence of a patent f oramen ovale by either color Doppler or agitated saline injection. Right Ventricle: ? Right ventricular chamber size, wall thickness, and systolic function are within normal limi ts. ?The estimated pulmonary artery sys tolic pressure is 39 mmHg. ?The estimated right atrial pressur e is 3 mmHg. Aortic Valve: ? The aortic valve is tricuspid. ?The aortic valve leaflets are mild ly thickened. ?There is no evidence of aortic cristiano ve stenosis. ?There is no evidence of aortic reg urgitation. Mitral Valve: ? There is mitral emeterio lar calcification. ?There is mild (1+/4+) mitral regur gitation present. Tricuspid Valve: ? The tricuspid cristiano ve appears normal in structure and function. ?There is no tricuspid valve stenos is. ?There is mild (1+/4+) tricuspid re gurgitation present. Pulmonic Valve: ? The pulmonic valve appears normal in structure and function. ?There is no pulmonic stenosis pres ent. ?There is trace pulmonic regurgitat ion present. Pericardium: ? There is no pericardi al effusion. Aorta: ? The aortic root is normal i n size. ?There is mild dilatation of the as cending aorta.3.6 cm Venous: ? The inferior vena cava isaak ears normal in size. ?There is a greater than 50% respir atory change in the inferior vena cava dimension. Chambers 2D ?Value ?Units (Range) ? IVSd (2D) ? 1.01 ? cm ? LVPWd (2D) ?1.05 ? cm ? IVS:LVPW ratio (2D) 0.96 ? ratio ? LVIDd (2D) ?4.73 ? cm ? LVIDs (2D) ?3.3 ?cm ? LV FS (2D) ?30.3 ? % ? EF Teichholz (2D) ?? 57.62 ?% ? Ascending Ao ?3.6 ?cm (2 - 3.5) ? Volumes/Mass ?Value ?Units (Range) ? LA ESV BP (A/L) inde29.75 ? ml/m2 ? LV ESV SP 4CH (MOD) 42.87 ? ml ? LV ESV SP 2CH (MOD) 48.5 ? ml ? LV EDV BP ? 117.46 ? ml ? LV ESV BP ? 50.43 ?ml ? BP EF (MOD) ? 57.07 ?% ? Diastolic/Systolic Function ?Value ?Units (Range) ? MV E-wave Vmax ?0.94 ? m/sec ? MV deceleration nanj105.91 ? m sec ? MV A-wave Vmax ?1.08 ? m/sec ? MV E:A ratio ?0.87 ? ratio ? LV septal e' Vmax ?? 0.1 ?m/sec ? LV lateral e' Vmax ??0.07 ? m/sec ? LV E:e' septal ratio9.61 ? ratio ? LV E:e' lateral rati12.6 ? ratio ? Aortic Valve ?Value ?Units (Range) ? AV Vmax ? 1.58 ? m/sec ? AV VTI ?35.32 ?cm ? AV peak gradient ?9.99 ? mmHg ? AV mean gradient ?5.48 ? mmHg ? LVOT diameter ? 2.04 ? cm ? LVOT Vmax ? 1.28 ? m/sec ? LVOT VTI ?29.09 ?cm ? CO LVOT ? 6.02 ? l/min ? DAYAMI (continuity Vmax2.63 ? cm2 ? DAYAMI (continuity Vmax1.41 ? cm2/m2 ? DAYAMI (continuity VTI)1.43 ? cm2/m2 ? Mitral Valve ?Value ?Units (Range) ? MV VTI ?46.24 ?cm ? MV PHT ?66.09 ?msec ? MVA (PHT) ? 3.33 ? cm2 ? Tricuspid Valve ?Value ?Units (Range) ? TR Vmax ? 3 ?m/sec ? TR peak gradient ?35.96 ?mmHg ? RAP ? 3 ?mmHg ? RVSP ?39 ? mmHg ? Pulmonic Valve/Qp:Qs ?Value ?Units (Range) ? PV Vmax ? 0.97 ? m/sec ? PV VTI ?22.33 ?cm ? PV peak gradient ?3.75 ? mmHg ? PV mean gradient ?2.2 ?mmHg ? RVOT Vmax ? 0.53 ? m/sec ? RVOT VTI ?13.71 ?cm ? RVOT peak gradient ??1.13 ? mmHg ? PV acceleration time37.29 ? msec ? PV ejection time ?319.08 ? msec ? PV AT:ET ?0.12 ? ratio ? This report has been electronically sign ed by: _ Rodrigo Mccormack MD ? 04/19/2021 13:15:37 Images reviewed and interpretation karen magdaleno [facility] Cardiac Ultrasound Laboratory Procedure Note Rodrigo Mccormack MD - 04/19/2021Forma tting of this note might be different from the original. Procedure: Transthoracic Echocardiogram Patient: Errol PAZ(Age): 1940(80y) [facility] Rec#: [id number] Sex: F Site Loc: [facility] Ht / Wt: 152.4(cm)/91.63 Pt. Loc: Adult Floor BSA: 1.87 Study Date: 04/19/2021 Pt. Type: Inpatie nt Tape: Referring: [email or web address] Reading: Rodrigo Mccormack ([id number]) Brokerage Clerk: NELY Diagnosis: *Cerebral infarction, unspecified (I63. 9) *Transient cerebral ischemic attack, un specified (G45.9) Rhythm: NSR BP: 134/80 SUMMARY: 1. The left ventricular chamber size is normal. There is normal global left ventricular systolic function. Ther e are no left ventricular segmental wall motion abnormalities. 2. The left atrium is normal in size. Th ere is no evidence of a patent foramen ovale by either color Doppler or agitated saline injection. 3. No significant valvular abnormalities . 4. Other details as noted below. Findings : Study Quality: Adequate Left Ventricle: The left ventricular gregory mber size is normal. Left ventricular wall thickness is norm al. There is normal global left ventricular systolic function. The quantitative left ventricular eject ion fraction by biplane Vásquez's method is 58%. There are no left ventricular segmental wall motion abnormalities. Left Atrium: The left atrium is normal i n size. There is no evidence of a patent forame n ovale by either color Doppler or agitated saline injection. Right Ventricle: Right ventricular chamb er size, wall thickness, and systolic function are within normal limi ts. The estimated pulmonary artery systolic pressure is 39 mmHg. The estimated right atrial pressure is 3 mmHg. Aortic Valve: The aortic valve is tricus pid. The aortic valve leaflets are mildly th ickened. There is no evidence of aortic valve st enosis. There is no evidence of aortic regurgit ation. Mitral Valve: There is mitral annular ca lcification. There is mild (1+/4+) mitral regurgitat ion present. Tricuspid Valve: The tricuspid valve isaak ears normal in structure and function. There is no tricuspid valve stenosis. There is mild (1+/4+) tricuspid regurgi tation present. Pulmonic Valve: The pulmonic valve appea rs normal in structure and function. There is no pulmonic stenosis present. There is trace pulmonic regurgitation p resent. Pericardium: There is no pericardial eff usion. Aorta: The aortic root is normal in size . There is mild dilatation of the ascendi ng aorta.3.6 cm Venous: The inferior vena cava appears n ormal in size. There is a greater than 50% respiratory change in the inferior vena cava dimension. Chambers 2D Value Units (Range) IVSd (2D) 1.01 cm LVPWd (2D) 1.05 cm IVS:LVPW ratio (2D) 0.96 ratio LVIDd (2D) 4.73 cm LVIDs (2D) 3.3 cm LV FS (2D) 30.3 % EF Teichholz (2D) 57.62 % Ascending Ao 3.6 cm (2 - 3.5) Volumes/Mass Value Units (Range) LA ESV BP (A/L) inde29.75 ml/m2 LV ESV SP 4CH (MOD) 42.87 ml LV ESV SP 2CH (MOD) 48.5 ml LV EDV BP 117.46 ml LV ESV BP 50.43 ml BP EF (MOD) 57.07 % Diastolic/Systolic Function Value Units (Range) MV E-wave Vmax 0.94 m/sec MV deceleration ufpw858.91 msec MV A-wave Vmax 1.08 m/sec MV E:A ratio 0.87 ratio LV septal e' Vmax 0.1 m/sec LV lateral e' Vmax 0.07 m/sec LV E:e' septal ratio9.61 ratio LV E:e' lateral rati12.6 ratio Aortic Valve Value Units (Range) AV Vmax 1.58 m/sec AV VTI 35.32 cm AV peak gradient 9.99 mmHg AV mean gradient 5.48 mmHg LVOT diameter 2.04 cm LVOT Vmax 1.28 m/sec LVOT VTI 29.09 cm CO LVOT 6.02 l/min DAYAMI (continuity Vmax2.63 cm2 DAYAMI (continuity Vmax1.41 cm2/m2 DAYAMI (continuity VTI)1.43 cm2/m2 Mitral Valve Value Units (Range) MV VTI 46.24 cm MV PHT 66.09 msec MVA (PHT) 3.33 cm2 Tricuspid Valve Value Units (Range) TR Vmax 3 m/sec TR peak gradient 35.96 mmHg RAP 3 mmHg RVSP 39 mmHg Pulmonic Valve/Qp:Qs Value Units (Range) PV Vmax 0.97 m/sec PV VTI 22.33 cm PV peak gradient 3.75 mmHg PV mean gradient 2.2 mmHg RVOT Vmax 0.53 m/sec RVOT VTI 13.71 cm RVOT peak gradient 1.13 mmHg PV acceleration time37.29 msec PV ejection time 319.08 msec PV AT:ET 0.12 ratio This report has been electronically sign ed by: _ Rodrigo Mccormack MD 04/19/2021 13:15: 37 Images reviewed and interpretation verif ied [facility] Cardiac Ultrasound Laboratory Sahara Brown APRN ECHO ORDERABLES documented in this encounter Visit Diagnoses Diagnosis TIA (transient ischemic attack) Unspecified transient cerebral ischemia Cerebrovascular accident (CVA), unspecif ied mechanism documented in this encounter Care Teams Order Desk Caller Relationship Specialty Start Date End Date Melissa Lee DO PCP - General Family Medicine 07/20/18 [address] [place] [address] documented as of this encounter
--- OUTSIDE RECORDS SUMMARY | 2022-05-04 15:25 | XMS_ITS | Encounter Summary ---
:1940 Author Organization [facility] [place] [address] Care Team Providers Name Role Phone Lorne Baldwin MD Primary Care Provider [phone] Reason for Visit Reason Comments Skin Check Encounter Details Date Type Department Care Team Description 06/05/2014 Office Visit Dermatology at [facility] Tinea u alexandra; Mesfin OW[place]U Seborrheic keratosis [address] [facility] Carlos B DERMATOLOGY [place], [place] [id number] [phone] Social History Tobacco Use Types Packs/Day Years Used Date Unknown If Ever Smoked Sex Assigned at Date Recorded Not on file documented as of this encounter Progress Notes [facility] MD - 06/05/2014 12:18 PM EST Problem List: 1. 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 2. Skin check. Crystal follows up after last seeing me in 2010. She is referred back by Dr. Baldwin. Patient states that she has noticed a lot of new moles and would like to have them checked. Also, over many months she has noted changes in the fingernails of her left hand. For many years, she has had problems with her toenails. Physical examination reveals a pleasant 73-year-old woman who has disintegration of the left thumbnail with subungual onycholysis of the second through fifth left fingernails, with some slight subungual hyperkeratotic debris. She has fairly classic tinea unguium of all 10 of her toenails. She has no scaling, no desquamation of the palmar hands or of her fingers. She has no evidence of tinea manus. She has benign seborrheic keratoses present on the back, the arms, and chest. Assessment and Plan: 1. Tinea unguium, probable. a. Today, PATRICK was done with Magazine-Raleigh stain, and this was positive for fungal elements. b. Begin terbinafine 250 mg, take one p.o. q. day for a month, and then check AST and ALT, #30 dispensed with zero refills. c. If transaminases are normal, we will then be able to call in refills for her to her regular pharmacy for another month's supply. We will plan for a three month course, then I would like to see her back in three months for repeat check. 2. Seborrheic keratoses. a. Patient reassured about seborrheic keratoses. b. No treatment necessary. COPY: Lorne Baldwin M.D. documented in this encounter Plan of Treatment Not on filedocumented as of this encounter Visit Diagnoses Diagnosis Tinea unguium Dermatophytosis of nail Seborrheic keratosis Other seborrheic keratosis documented in this encounter Care Teams Serging Machine Operator Automatic Relationship Specialty Start Date End Date Lorne Baldwin MD PCP - General 06/05/14 10/29/[address] [place] [address] documented as of this encounter
--- OUTSIDE RECORDS SUMMARY | 2022-05-04 15:25 | XMS_ITS | Encounter Summary ---
:1940 Author Organization [facility] Address [address] [place] [address] Care Team Providers Name Role Phone Unavailable Primary Care Provider Unavailable Encounter Details Date Type Department Care Team Description 07/17/2000 Results Only [facility] - Estephania Petitt, Chr istopher, conversion DO [address] [facility] [address] [facility] KRISTIN DE JESUS [address] [place] [address] [place] [address] (Wo rk) Social History Tobacco Use Types Packs/Day Years Used Date Never Assessed Sex Assigned at Date Recorded Not on file documented as of this encounter Plan of Treatment Not on filedocumented as of this encounter Procedures Procedure Name Priority Date/Time Associated Diagnosis Comme nts SURGICAL PATHOLOGY Routine 07/17/2000 0:00 Resul ts for this EST procedure are i n the results section. documented in this encounter Results SURGICAL PATHOLOGY (07/17/2000 0:00 EST) Pathology Report: SURGICAL PATHOLOGY REPORT [facility] Reports generated via electronic interface contain anthony ginal data; LAB however they are lacking the format of the original re port. Caution should be taken when reading/interpreting unfo rmatted reports. Name: ? CRYSTAL NORTON ? Accession #: ? [id number] ? : ? 1940 (Age: 59) ??F ? Collect Date: ? 07/17/2000 ? Location: ? [facility] ? Receive Date: ? 001 ? Provider: SRIKANTH PETTIT DO Copy to: ARASH ZAVALA MD ? Final Pathologic Diagnosis: A. ?Soft tissue, hemorrhoid, excision: 1. ?Dilated vessels consistent with hemor rhoid. B. ?Soft tissue, rectal polyp, polypect gordy: 1. ?Fibroepithelial polyp. Document reviewed and electronically signed by: Almas Martinez [facility] Report ??Date: 07/19/2000 16:56 By the signature above, the attending physician certif ies that he/she has personally conducted a gross and/or microscopic examin ation of the described specimens and rendered or confirmed the above diagnosi s. Specimen(s) Received: A. ?Hemorrhoid B. ?Anal polyp Clinical History: ? Enlarged Rt lateral hemorrhoid; anterior anal p olyp Gross Description: ? Received in formalin labelled Errol and hemo rrhoid is a benitez-white focally hyperemic and hemorrhagic fragme nt of soft tissue which measures 2.4 x 1.2 x 0.6 cm. ??The aspect o f the soft tissue is covered by smooth mucosa. ??The resection margin is black in ked. ??Two help desk representative sections are submitted as (A). Received in Chana' s fixa tive labelled Errol and rectal polyp is a polyp measuring 1.1 cm from stem to the tip, a nd 0.7 cm in diameter. ??The resection margin of the polyp is black inked. ??The polyp is bis ected and entirely submitted as (B). ??(Dr. Alcocer)/troy End of Report Specimen Performing Organization Address City/State/ZIP Code Phon e Number [facility] [address] [place] [address] [facility] [address] [place] [phone] documented in this encounter Visit Diagnoses Not on filedocumented in this encounter
--- OUTSIDE RECORDS SUMMARY | 2022-05-04 15:25 | XMS_ITS | Encounter Summary ---
:1940 Author Organization [facility] Address [address] [place] [address] Care Team Providers Name Role Phone Lorne Baldwin MD Primary Care Provider Unavailable Encounter Details Date Type Department Care Team Description 03/04/2020 Lab Requisition [facility] Outr Resulting Lab, Pathology & Laboratory Provider [facility] [address] [place] [address] Social History Tobacco Use Types Packs/Day Years Used Date Never Assessed Sex Assigned at Date Recorded Not on file documented as of this encounter Plan of Treatment Not on filedocumented as of this encounter Visit Diagnoses Not on filedocumented in this encounter Care Teams Rake Operator Relationship Specialty Start Date End Date Lorne Baldwin MD PCP - General 05/12/16 documented as of this encounter
--- OUTSIDE RECORDS SUMMARY | 2022-05-04 15:25 | XMS_ITS | Encounter Summary ---
:1940 [place] [address] Care Team Providers Name Role Phone Lorne Baldwin MD Primary Care Provider [phone] Reason for Visit Reason Comments Skin Check Consultation (Routine) - Specialty Diagnoses / Procedures Referred By Contact Refer red To Contact Dermatology Diagnoses Rash of face Persistent facial rash Lorne Baldwin, [facility] MD Procedures Persistent facial rash [address] DERMATOLOGY [facility] [id number] Referral ID Status Reason Start Date Expiration Date Visits V isits Requested Authorized [id number] 01/30/2017 01/30/2018 1 1 Encounter Details Date Type Department Care Team Description 02/24/2017 Office Visit Dermatology at [facility], Seborrh eic keratosis, inflamed; Mesfin OWUSU [place] (actinic keratosis) [address] [facility] Carlos B DERMATOLOGY [place], [place] [phone] Social History Tobacco Use Types Packs/Day Years Used Date Never Smoker Smokeless Tobacco: Never Used Sex Assigned at Date Recorded Not on file documented as of this encounter Progress Notes Gómez Blair MD - 02/24/2017 4:45 PM EDT PROBLEM: Follow up for irritated seborrheic keratoses. Crystal follows up and is concerned about irritated, itchy, seborrheic keratoses on her flanks and back. She also points to some actinics on her forehead that she has noted. Physical examination confirms actinics on the left and right upper forehead; a total of 6 are noted. She has about 8 inflamed, irritated seborrheic keratoses on her flanks and back. ASSESSMENT AND PLAN: 1. Actinic keratoses facial/forehead. a. LNx2 applied to each of 6 sites. 2. Irritated seborrheic keratoses, back and flanks. a. Eight sites treated with LN2x2. b. Patient tolerated it well. c. Return to clinic p.r.n. for new lesions/concerns. cc: Lorne Baldwin MD documented in this encounter Plan of Treatment Not on filedocumented as of this encounter Visit Diagnoses Diagnosis Seborrheic keratosis, inflamed Inflamed seborrheic keratosis [place] (actinic keratosis) Actinic keratosis documented in this encounter Care Teams Bond Runner Relationship Specialty Start Date End Date Lorne Baldwin MD PCP - General 06/05/14 10/29/[address] [place] [address] documented as of this encounter
--- OUTSIDE RECORDS SUMMARY | 2022-05-04 15:25 | XMS_ITS | Encounter Summary ---
:1940 Author Organization [facility] Address [address] [place] [address] Care Team Providers Name Role Phone Unavailable Primary Care Provider Unavailable Encounter Details Date Type Department Care Team Description 04/18/2000 Results Only [facility] - Estephania Frank son, Negrita L, TWISTER HAND conversion [address] [place] [phone] (Wo rk) Social History Tobacco Use Types Packs/Day Years Used Date Never Assessed Sex Assigned at Date Recorded Not on file documented as of this encounter Plan of Treatment Not on filedocumented as of this encounter Procedures Procedure Name Priority Date/Time Associated Diagnosis Comme [facility] CYTOPATHOLOGY Routine 04/18/2000 0:00 EDT Results for this procedure are i n the results section . documented in this encounter Results CYTOPATHOLOGY (04/18/2000 0:00 EDT) Pathology Report: CYTOPATHOLOGY REPORT [facility] Reports generated via electronic interface contain anthony ginal data; however they are lacking the format of the original re port. Caution should be taken when reading/interpreting unfo rmatted reports. Name: ? CRYSTAL NORTON ? Accession #: ? [id number] : ? 1940 (Age: 59) ??F ?Collect Date: ? 04/02 Location: ? [facility] ? Receive Date : ? 04/20/2000 Provider: ?NEGRITA OSUNA TWISTER HAND Copy to: ? Specimen/Source: ?Conventional Pap Test, Radha rce Not Provided Last Menstrual Period: ? Hormonal/Contraceptive Status: ? Yes Treatment History: ? Hysterectomy ? SPECIMEN ADEQUACY ? Satisfactory for evaluation but limited by obsc uring inflammation. GENERAL CATEGORIZATION ? Within Normal Limits ? Document reviewed and electronically signed by: ? DANIEL Mcdonald(ASCP) ? Report Date: ??04/26/2000 11:59 End of Report Specimen Performing Organization Address City/State/ZIP Code Phon e Number [facility] [address] [place] [address] [facility] [address] [place] [address] documented in this encounter Visit Diagnoses Not on filedocumented in this encounter
--- OUTSIDE RECORDS SUMMARY | 2022-05-04 15:25 | XMS_ITS | Encounter Summary ---
:1940 Author Organization [facility] [place] [address] Care Team Providers Name Role Phone Lorne Baldwin MD Primary Care Provider [phone] Encounter Details Date Type Department Care Team Description 02/01/2017 Hospital Encounter Radiology Library at [facility] Bolivar Bhakta [facility] [address] [place] [address] [place], [place] [phone] Social History Tobacco Use Types Packs/Day Years Used Date Never Smoker Smokeless Tobacco: Never Used Sex Assigned at Date Recorded Not on file documented as of this encounter Medications at Time of Discharge Medication Sig Dispensed Refills Start Date End Date hydroCHLOROthiazide 0 12/18/2016 (HYDRODIURIL) 25 mg Tablet [...] Name Priority Date/Time Associated Diagnosis Comme nts FILM LIBRARY Routine 02/01/2017 12:00 AM Results for this STORAGE ONLY DX EDT procedure ar e in KNEE the results section. documented in this encounter Results Film Library- Storage Only DX Knee (02/01/2017 12:00 AM EDT) Specimen (Source) Anatomical Location Collection Method / Collectio n Time Received Time / Laterality Volume Narrative DOROTHY - 10/05/2017 3:53 PM EDT This exam is for storage only and is aut o-finalizing. Bolivar Bhakta MD IMG FILM LIBRARY ORDERABLES Performing Organization Address City/State/ZIP Code Phon e Number [place], [place] documented in this encounter Visit Diagnoses Not on filedocumented in this encounter Care Teams Consulting Manager Relationship Specialty Start Date End Date Lorne Baldwin MD PCP - General 06/05/14 10/29/17 [address] [facility] [place] [address] documented as of this encounter
--- OUTSIDE RECORDS SUMMARY | 2022-05-04 15:25 | XMS_ITS | Encounter Summary ---
:1940 Author Organization [facility] Address [address] [place] [address] Care Team Providers Name Role Phone Unavailable Primary Care Provider Unavailable Encounter Details Date Type Department Care Team Description 05/29/2007 Results Only [facility] - Jc Curiel MD Maple conversion [address] [place] [address] [place] [address] Social History Tobacco Use Types Packs/Day Years Used Date Never Assessed Sex Assigned at Date Recorded Not on file documented as of this encounter Plan of Treatment Not on filedocumented as of this encounter Procedures Procedure Name Priority Date/Time Associated Diagnosis Comme [facility] CYTOPATHOLOGY Routine 05/29/2007 0:00 EST Results for this procedure are i n the results section . documented in this encounter Results CYTOPATHOLOGY (05/29/2007 0:00 EST) Pathology Report: CYTOPATHOLOGY REPORT [facility] Reports generated via electronic interface contain anthony ginal data; however they are lacking the format of the original re port. Caution should be taken when reading/interpreting unfo rmatted reports. Name: ? CRYSTAL NORTON ? Accession #: ? [id number] : ? 1940 (Age: 66) ??F ?Collect Date: ? 05/04 Location: ? [facility] ? Receive Date : ? 05/30/2007 Provider: ?BRADY CURIEL MD Copy to: ? Specimen/Source: ? ThinPrep Pap Test, Vagina, processed on [employer] ThinPrep Imaging System, with manual evaluation Last Menstrual Period: ? Treatment History: ? MALIK Other: ? HPVA - HPV testing requested if ASC-US on the current ThinPrep Pap test. ? SPECIMEN ADEQUACY ? Satisfactory for Evaluation - assessment of transformation zone component not appl icable ( e.g. atrophy, vaginal sample, hysterectomy) GENERAL CATEGORIZATION ? Negative for Intraepithelial Lesion or Malignan cy ? Document reviewed and electronically signed by: ? DANIEL Manjarrez(ASCP) ? Report Date: ??05/31/2007 12:43 End of Report Specimen Performing Organization Address City/State/ZIP Code Phon e Number [facility] [address] [place] [address] [facility] [address] [place] [address] documented in this encounter Visit Diagnoses Not on filedocumented in this encounter
--- OUTSIDE RECORDS SUMMARY | 2022-05-04 15:25 | XMS_ITS | Encounter Summary ---
:1940 Author Organization [facility] Address [address] [place] [address] Care Team Providers Name Role Phone Lorne Baldwin MD Primary Care Provider Unavailable Encounter Details Date Type Department Care Team Description 12/17/2020 Lab Requisition [facility] Outr Resulting Lab, Pathology & Laboratory Provider [facility] [address] [place] [phone] Social History Tobacco Use Types Packs/Day Years Used Date Never Assessed Sex Assigned at Date Recorded Not on file documented as of this encounter Plan of Treatment Not on filedocumented as of this encounter Procedures Procedure Name Priority Date/Time Associated Diagnosis Comme nts LYME AB Routine 12/17/2020 11:13 EDT Results for this procedure are i n the results section . documented in this encounter Results LYME AB (12/17/2020 11:13 EDT) Pathologist Sig nature Lyme Ab NegativeComment: New Negative [facility] 3rd generation assay LABORATORY SERVICES in use 12/11/2019 Specimen Blood - Venous blood (substance) Performing Organization Address City/State/ZIP Code Phon e Number [facility] [address] [place] [address] SERVICES documented in this encounter Visit Diagnoses Not on filedocumented in this encounter Care Teams Senior Publications Specialist Relationship Specialty Start Date End Date Lorne Baldwin MD PCP - General 05/12/16 documented as of this encounter
--- OUTSIDE RECORDS SUMMARY | 2022-05-04 15:25 | XMS_ITS | Encounter Summary ---
:1940 Author Organization [facility] [place] [address] Care Team Providers Name Role Phone Melissa Lee DO Primary Care Provider Reason for Visit Reason Comments Follow-up Skin Check Consultation (Routine) - Specialty Diagnoses / Procedures Referred By Contact Refer red To Contact Dermatology Diagnoses Disorder of the skin and subcutaneous tissue, unspecified Inner left nose 2 Lesions one non-healing with Melissa Abernathy DO Hammer, Charles J, MD Procedures Consult [address] [place], [place] DERMATOLOGY [address] [place] [address] Fax: Referral ID Status Reason Start Date Expiration Date Visits V isits Requested Authorized [id number] 05/10/2018 05/10/2019 1 1 Encounter Details Date Type Department Care Team Description 07/20/2018 Office Visit Dermatology at [facility], Seborrh eic keratosis, inflamed; Mesfin OWUSU Sebaceous hyperplasia [address] [facility] Carlos B DERMATOLOGY [place], [place] [id number] [phone] Social History Tobacco Use Types Packs/Day Years Used Date Never Smoker Smokeless Tobacco: Never Used Alcohol Use Standard Drinks/Week Comments No 0 (1 standard drink = 0.6 oz pure alcoho l) Sex Assigned at Date Recorded Not on file documented as of this encounter Progress Notes Gó[facility]z Blair MD - 07/20/2018 9:30 AM EST Problem: 1. Irritated eyes 2. Facial lesions Crystal follows up today after last being seen by me in 2017. She continues to develop small lesions on her nose she states on the medial side cho and below her eye eyes. Is also bothered by very dry irritated eyes which are not helped by eyedrops. She status post recent cataract cataract surgery. Oliver complains of intermittent scabbing just inside her nose. Apparently Dr. Villatoro gave him a creamfor this but it has not helped. Examination reveals a pleasant 77-year-old woman who has no injection today of her eyes and they appear to be fairly normal noninflamed no styes. She has some space hyperplasia on the nasal bridge of the nasal sidewall and infraorbital fold bilaterally. The localization of these areas is in a result rosacea form localization however I do not see any active rosacea today. However her eye symptoms may be wonder about ocular rosacea. She has no intranasal scabbing or lesions that I can see today. 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 Begin trial of minocycline 50 mg 1 p.o. daily. #30 were dispensed with 2 refills 2. Return to clinic in 2 months for repeat check on this. Intranasal scabbing 1. No scabbing seen today 2. Begin a trial of Bactroban ointment applied 3 times daily for 1 week to treat for possible staph colonization. 3. Will call in 22.2 g with 0 refills to her [facility] in [facility]. 4. Return to clinic in 2 months for repeat check CC: Melissa Lee DO. documented in this encounter Plan of Treatment Not on filedocumented as of this encounter Visit Diagnoses Diagnosis Seborrheic keratosis, inflamed Inflamed seborrheic keratosis Sebaceous hyperplasia Other specified disease of sebaceous gla nds documented in this encounter Care Teams Bioinformatics Analyst Relationship Specialty Start Date End Date Melissa Lee DO PCP - General Family Medicine 07/20/[address] [place] [address] documented as of this encounter
--- OUTSIDE RECORDS SUMMARY | 2022-05-04 15:25 | XMS_ITS | Encounter Summary ---
:1940 Author Organization [facility] [place] [address] Care Team Providers Name Role Phone Lorne Baldwin MD Primary Care Provider [phone] Reason for Visit Reason Comments Skin Check Encounter Details Date Type Department Care Team Description 01/31/2017 Office Visit Dermatology at [facility] Sebaceo us hyperplasia; Mesfin OWUSU Other seborrheic keratosis [address] [facility] Carlos B DERMATOLOGY [place], [place] [id number] [phone] Social History Tobacco Use Types Packs/Day Years Used Date Never Smoker Smokeless Tobacco: Never Used Sex Assigned at Date Recorded Not on file documented as of this encounter Progress Notes [facility]z Blair MD - 01/31/2017 4:15 PM EDT PROBLEM: 1. Skin lesions of concern. 2. 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 Crystal follows up and is now 76. She would like me to check some lesions on her forehead, her temples. She feels she has a rash there. Also a rash on her intermammary breasts. She feels it has been moving from a superior location to a more inferior location, forehead down to temples and now in the presternal chest in the intermammary chest. She also has some irritated tags she would like to have removed on the right upper and right lower eyelid. Additionally she has a nevus that is somewhat irritated on her back, and a couple of keratoses on the left flank. Physical examination reveals benign nevus and benign seborrheic keratoses on the back and left flank, respectively. She has tags/pedunculated seborrheic keratoses on the upper and lower right eyelid. She has no dermatitis but some mild sebaceous hyperplasia of the upper forehead and temples, and a number of seborrheic keratoses in the intermammary breast area. Examination of the scalp does not reveal significant but only very mild seborrhea/seborrheic dermatitis. A/P: Acrochordons, right upper and lower eyelid. a. After obtaining informed patient consent sites were anesthetized and removed with electrodesiccation. 2. Sebaceous hyperplasia, mild, forehead, temples, irritated seborrheic keratoses intermammary chest. a. Begin trial of ketoconazole 2% shampoo, allow lather to sit for 2 to 3 minutes before rinsing off when she showers and shampoos, which is usually every other day. Called in today prescription for ketoconazole 2% shampoo to [facility] in [facility], 120 mL with 5 refills. 3. Irritated nevus, irritated seborrheic keratoses back and flank. a. Patient will make a return visit for treatment of these at her convenience. Will need a 15-minute appointment. Patient reassured about benign examination today of skin of chest, back, face, hands, arms, forearms. No evidence of any malignant lesions. Cc: Lorne Baldwin MD documented in this encounter Plan of Treatment Not on filedocumented as of this encounter Visit Diagnoses Diagnosis Sebaceous hyperplasia Other specified disease of sebaceous gla nds Other seborrheic keratosis documented in this encounter Care Teams Tool Room Supervisor Relationship Specialty Start Date End Date Lorne Baldwin MD PCP - General 06/05/14 10/29/17 [address] [place] [address] documented as of this encounter
--- OUTSIDE RECORDS SUMMARY | 2022-05-04 15:25 | XMS_ITS | Encounter Summary ---
:1940 Author Organization [facility] [place] [address] Care Team Providers Name Role Phone None Primary Care Provider Unavailable Reason for Visit Reason Comments Bilateral Knee Pain TKA pain, 3rd opinion Consultation (Routine) - Closed Specialty Diagnoses / Procedures Referred By Contact Refer red To Contact Orthopaedics Diagnoses 2nd Opinion/Bilateral Total Knee Pain Bolivar Bhakta MD [facility] Orthopaedics 3c Procedures [address] [place], [place] [address] [place] [address] Fax: Referral ID Status Reason Start Date Expiration Date Visits V isits Requested Authorized [id number] Closed Consult, 10/05/2017 10/05/2018 1 1 Test & Treat Encounter Details Date Type Department Care Team Description 10/30/2017 Office Visit Orthopaedics at [facility] Vikas Carbaajl Total knee One [facility] Center MD Nichelle replacement status, Drive [facility] bilateral [facility] [address] [place] [address] CENTER [phone] ORTHOPAEDIC SURGERY [place], [place] [address] Social History Tobacco Use Types Packs/Day Years Used Date Never Smoker Smokeless Tobacco: Never Used Alcohol Use Standard Drinks/Week Comments No 0 (1 standard drink = 0.6 oz pure alcoho l) Sex Assigned at Date Recorded Not on file documented as of this encounter Last Filed Vital Signs Vital Sign Reading Time Taken Comments Blood Pressure 119/58 10/30/2017 10:05 AM EDT Pulse 63 10/30/2017 10:05 AM EDT Temperature - - Respiratory Rate - - Oxygen Saturation - - Inhaled Oxygen Concentration - - Weight 94.8 kg (209 lb) 10/30/2017 10:05 AM EDT verbal Height 152.4 cm (5') 10/30/2017 10:05 AM EDT verbal Body Mass Index 40.82 10/30/2017 10:05 AM EDT documented in this encounter Patient Instructions Patient InstructionsJose Lopez PA - 10/30/2017 9:40 AM EDT Take Aleve one in the morning with food and one in the evening with food. Do this for 5 days if no benefit then increase to two in the morning with food and 2 in the evening with food. If no benefit after 5 days then discontinue and discuss with your PCP other antiinflammatories that you may take. documented in this encounter Progress Notes Vikas Carbajal MD - 10/30/2017 9:40 AM EDT Images from the original note were not included. Department of Orthopaedics Division of Adult Joint Reconstructive Surgery October 30, 2017 I had the pleasure of evaluating Crystal Norton in clinic in conjunction with one of my associate providers. In brief Ms. Norton is a 77 y.o. year old female referred from Bolivar Bhakta for bilateral total knee pain. She underwent bilateral total knee replacements by Dr. Rausch in 2012. She reports having pain in both knees ever since. She seen Dr. Bhakta in [place] who I believe performed a hip replacement after undergoing a successful intra-articular injection of the hip. In regards to her knees she has really global pain. On exam she has tenderness wherever I palpate. Around the knee extending all the way down the leg towards the ankle and up into the thigh. Her symptoms are somewhat consistent with fibromyalgia. We did discuss potential referral to a environmental technology professor for further evaluation for diagnosis like this. Currently she is not really taking anything for the pain we did discuss taking an anti-inflammatory. She states her primary care doctor at one point told her not to take anti-inflammatories but I outlined the are relatively safe if taken with food and plenty of water. At this point I do not think there is a surgical indication for her knees. Her x-rays show bilateral well fixed cemented total knee replacements with no evidence of periprosthetic complication. At this point I discussed continuing conservative management trying an anti-inflammatory but Vikas Carbajal MD, MS Chief, Division of Adult Reconstructive Adult Literacy TeacherVisual Communications Instructor of Orthopaedics Department of Orthopaedics [facility] [place] [phone] [email or web address] With Jose Lopez PA - 10/30/2017 9:40 AM EDT Arthroplasty/Orthopaedic History: 1. Bilateral TKA Dr Rausch [address] Bhakta HPI: Crystal Norton is a very pleasant 77 y.o. year-old female and is now 5 years post bilateral total knee replacement The patient has been doing ok. She states that the right knee is more symptomatic then the left. She states that it is more of an ache. The pain is anterior and medial. No fevers, chills, nausea, vomiting, or symptoms of infection. Crystal has been ambulating with no assistive device. She is not taking narcotic pain medicine. ROS: Denies: fever, chills, night sweats, nausea, or vomiting BP 119/58 (BP Location (NBP): Right arm, Patient Position: Sitting, BP Cuff Sizes: Large Adult (32-43 cm)) Pulse 63 Ht 152.4 cm (5') Comment: verbal Wt 94.8 kg (209 lb) Comment: verbal BMI 40.82 kg/m2 Physical Exam: Well-appearing female in no acute distress. Alert and Oriented x 3 and answers all questions appropriately. The incision is well healed, with no signs of infection. I have made the following determinations: Post Op Right Knee Exam: Knee ROM: Extension:0 Flexion: 115 Alignment: 0-4 degrees Varus Stability: A/P Translation <5mm. Varus <5mm Valgus <5mm Extension La degrees or less Patella Tracking: Normal Pulses Palpable: Right PT: Yes Right DP:Yes Motor/Sensory: Distal Motor: Normal Distal Sensory: Normal Quadriceps Strength: 4 Post Op Left Knee Exam: Knee ROM: Extension:0 Flexion: 115 Alignment: 0-4 degrees Varus Stability: A/P Translation <5mm Varus <5mm Valgus <5mm Extension La degrees or less Patella Tracking: Normal Pulses Palpable: Left PT:Yes Left DP:Yes Motor/Sensory: Distal Motor: Normal Distal Sensory: Normal Quadriceps Strength:4 X-RAYS: Multiple radiographic views were obtained at my request and reviewed with the patient. X-rays show a well-placed prosthesis with no evidence of fracture, subsidence, loosening, or periprosthetic complication. Questionnaire Responses: [facility] Surgical Postop Visit 10/30/2017 PROMIS-10 General Health Fair PROMIS-10 Quality of Life Fair PROMIS-10 Physical Health Fair PROMIS-10 Mental Health Very Good PROMIS-10 Social Activity Fair PROMIS-10 Everyday Activities Moderately PROMIS-10 Pain 6 PROMIS-10 Fatigue Severe PROMIS-10 Social Roles Very Good PROMIS-10 Anxious or Depressed Sometimes PROMIS PHYSICAL HEALTH SCORE 34.9 PROMIS MENTAL HEALTH SCORE 41.1 KOOS JR Scores 79.91 Orthopeadics [facility] Response 10/30/2017 KOOS JR Scores 79.91 Spine [facility] Response 10/30/2017 KOOS JR Scores 79.91 ASSESSMENT/PLAN: Ms. Norton is a 77 y.o. year old female status post bilateral total knee replacementPostoperative course complicated by pain. Discussed an NSAID mainly naproxen BID see patient instructions. Patient was seen and evaluated with Dr Carbajal All questions were answered. Signed: DONATO BARR 10/31/2017 documented in this encounter Plan of Treatment Not on filedocumented as of this encounter Visit Diagnoses Diagnosis Total knee replacement status, bilateral [facility] 2012 documented in this encounter Care Teams Cardiopulmonary Technologist Chief Relationship Specialty Start Date End Date None PCP - General 10/30/17 07/19/18 None documented as of this encounter
--- OUTSIDE RECORDS SUMMARY | 2022-05-04 15:25 | XMS_ITS | Encounter Summary ---
:1940 Author Organization [facility] Address [address] [place] [address] Care Team Providers Name Role Phone Lorne Baldwin MD Primary Care Provider Unavailable Encounter Details Date Type Department Care Team Description 10/15/2018 Results Only [facility] Jamie Montenegro, [address] [place] [address] [place] [address] (Wo rk) Social History Tobacco Use Types Packs/Day Years Used Date Never Assessed Sex Assigned at Date Recorded Not on file documented as of this encounter Plan of Treatment Not on filedocumented as of this encounter Procedures Procedure Name Priority Date/Time Associated Diagnosis Comme [facility] SURGICAL PATHOLOGY Routine 10/15/2018 22:28 Resul ts for this EDT procedure are i n the results section. documented in this encounter Results SURGICAL PATHOLOGY (10/15/2018 22:28 EDT) Pathology Report: SURGICAL PATHOLOGY REPORT [facility] Reports generated via electronic interface contain anthony ginal data; LABORATORY however they are lacking the format of the original re port. SERVICES Caution should be taken when reading/interpreting unfo rmatted reports. Name: ? CRYSTAL NORTON ? Accession #: ? [id number] ? : ? 1940 (Age: [age]) ??F ? Collect Date: ? 10/15/2018 ? Location: ? [facility] ? Receive Date: ? 10/16/19 19 ? Provider: JAMIE MONTENEGRO MD Copy to: ALFREDO MORATAYA DO ? Final Pathologic Diagnosis: A. ??DUODENUM, BIOPSY: - No specific pathologic features. B. ??STOMACH, ANTRUM, BIOPSY: - Antral-type mucosa with reactive (chemical) gastropa thy. C. ??GASTROESOPHAGEAL JUNCTION, BIOPSY: - Squamocolumnar junctional type mucosa with chronic inflammation and reactive changes. - No intestinal metaplasia/dysplasia identified. Document reviewed and electronically signed by: KALPANA ASHRAF MD Report ??Date: 10/18/2018 14:36 By the signature above, the attending physician certif ies that he/she has personally conducted a gross and/or microscopic examin ation of the described specimens and rendered or confirmed the above diagnosi s. Specimen(s) Received: A. ??Bx duodenum B. ??Bx gastric antrum C. ??Bx GE junction Clinical History: GERD Gross Description: A. ?Received in formalin labelled with proper p atient identification (initials C, E) and 1. BX duodenum are two pink-benitez tissues (0.6 x 0.1 x 0.1 cm and 0.5 x 0.1 x 0.1 cm). Submitted intact in A1. B. ?Received in formalin labelled with proper p atient identification (initials C, E) and 2. BX g astric antrum are two pink-benitez tissues (1.0 x 0.2 x 0.2 cm and 0.6 x 0.2 x 0.2 cm). Submitted intact in B1 . C. ?Received in formalin labelled with proper p atient identification (initials C, E) and 3. BX GE junction are two pink-benitez tissues (0.5 x 0.3 x 0.2 cm and 0.4 x 0.2 x 0.2 cm). Submitted intact in C1 . DONATO Workman (ASCP) 10/16/2018 8:37 AM End of Report Specimen Performing Organization Address City/State/ZIP Code Phon e Number [facility] [address] [phone] SERVICES documented in this encounter Visit Diagnoses Not on filedocumented in this encounter Care Teams Account Collector Relationship Specialty Start Date End Date Lorne Baldwin MD PCP - General 05/12/16 documented as of this encounter
--- OUTSIDE RECORDS SUMMARY | 2022-05-04 15:25 | XMS_ITS | Encounter Summary ---
:1940 Author Organization [facility] [place] [address] Care Team Providers Name Role Phone Lorne Baldwin MD Primary Care Provider [phone] Encounter Details Date Type Department Care Team Description 12/14/2016 Hospital Encounter Radiology Library at [facility] Bolivar Bhakta [facility] [address] [place] [address] [place], [place] [phone] [id number] Social History Tobacco Use Types Packs/Day Years Used Date Never Smoker Sex Assigned at Date Recorded Not on file documented as of this encounter Medications at Time of Discharge Medication Sig Dispensed Refills Start Date End Date hydrocortisone 1 % Cream APPLY TOPICALLY TO 0 NECK AND FOREHEAD IRRITATION THREE TIMES A DAY PARoxetine (PAXIL) 10 mg TAKE ONE TABLET BY 1 Tablet MOUTH EVERY DAY FOR LOW ENERGY multivitamin Capsule Take 1 capsule by 0 mouth daily. documented as of this encounter Plan of Treatment Not on filedocumented as of this encounter Procedures Procedure Name Priority Date/Time Associated Diagnosis Comme nts FILM LIBRARY Routine 12/14/2016 12:00 AM Results for this STORAGE ONLY DX EDT procedure ar e in KNEE the results section. documented in this encounter Results Film Library- Storage Only DX Knee (12/14/2016 12:00 AM EDT) Specimen (Source) Anatomical Location Collection Method / Collectio n Time Received Time / Laterality Volume Narrative RAD - 10/05/2017 3:55 PM EDT This exam is for storage only and is aut o-finalizing. Bolivar Bhakta MD IMG FILM LIBRARY ORDERABLES Performing Organization Address City/State/ZIP Code Phon e Number [facility] [place], [place] documented in this encounter Visit Diagnoses Not on filedocumented in this encounter Care Teams Paint Spraying Machine Operator Helper Relationship Specialty Start Date End Date Lorne Baldwin MD PCP - General 06/05/14 10/29/[address] [place] [address] documented as of this encounter
--- OUTSIDE RECORDS SUMMARY | 2022-05-04 15:25 | XMS_ITS | Encounter Summary ---
:1940 Author Organization [facility] [place] [address] Care Team Providers Name Role Phone Lorne Baldwin MD Primary Care Provider [phone] Encounter Details Date Type Department Care Team Description 01/31/2017 Refill Dermatology at [facility] Sonia Cerda, ASSEMBLER FINAL [address] [place] [address] Social History Tobacco Use Types Packs/Day Years Used Date Never Smoker Smokeless Tobacco: Never Used Sex Assigned at Date Recorded Not on file documented as of this encounter Plan of Treatment Not on filedocumented as of this encounter Visit Diagnoses Not on filedocumented in this encounter Care Teams Health Economist Relationship Specialty Start Date End Date Lorne Baldwin MD PCP - General 06/05/14 10/29/17 [address] [place] [address] documented as of this encounter
--- OUTSIDE RECORDS SUMMARY | 2022-05-04 15:25 | XMS_ITS | Clinical Summary ---
:1940 Author Organization [facility] [place] [address] Care Team Providers Name Role Phone Melissa Lee DO Primary Care Provider Allergies Active Allergy Reactions Severity Noted Date Comments Codeine Nausea And Vomiting 06/05/2014 Minocycline 09/20/2018 Morphine Nausea And Vomiting 06/05/2014 Sulfa (Sulfonamide 06/05/2014 Family hi story Antibiotics) Medications Medication Sig Dispensed Refills Start Date End Date Status multivitamin Capsule Take 1 capsule 0 Active by mouth daily. hydroCHLOROthiazide 0 12/18/2016 Active (HYDRODIURIL) 25 mg Tablet hydrocortisone 1 % Cream APPLY TOPICALLY 0 7 Active TO NECK AND FOREHEAD IRRITATION THREE TIMES A DAY omeprazole (PRILOSEC) 20 0 01/30/2017 Active mg Capsule, Delayed Release(E.C.) PARoxetine (PAXIL) 10 mg TAKE ONE TABLET 1 7 Active Tablet BY MOUTH EVERY DAY FOR LOW ENERGY KLOR-CON SPRINKLE 10 mEq TAKE ONE CAPSULE 3 01/22/20 17 Active Capsule, Sustained BY MOUTH EVERY Release DAY TO REPLACE LOW POTASSIUM ketoconazole (NIZORAL) 2 Apply as 120 mL 5 01/31/2017 Active % Shampoo shampoo, rinse off after 2-3 minutes fluticasone (FLONASE) 50 0 08/16/2017 Active mcg/actuation [place], Suspension loratadine (CLARITIN) 10 Take 10 mg by 0 Active mg Tablet mouth daily. mupirocin (BACTROBAN) 2 % apply inside of 22 g 0 07/20/19 19 Active Ointment nasal nares three times daily for 7 days then D/C Active Problems Problem Noted Date Total knee replacement status, bilateral [facility] 2012 0 10/31/2017 Seborrheic keratosis, inflamed 02/24/2017 AK (actinic keratosis) 02/24/2017 Sebaceous hyperplasia 01/31/2017 Other seborrheic keratosis 01/31/2017 Tinea unguium 06/05/2014 Seborrheic keratosis 06/05/2014 Social History Tobacco Use Types Packs/Day Years Used Date Never Smoker Smokeless Tobacco: Never Used Alcohol Use Standard Drinks/Week Comments No 0 (1 standard drink = 0.6 oz pure alcoho l) Sex Assigned at Date Recorded Not on file Last Filed Vital Signs Vital Sign Reading [...] Mass Index 40.82 10/30/2017 10:05 AM EDT Plan of Treatment Health Maintenance Due Date Last Done Comments Covid-19 Vaccine (#1) 02/25/1941 Tdap adult 1959 Tetanus vaccine 1958 Zoster vaccine (1 of 2) 1989 Advance Directive 1994 Bone Density Scan 2004 Pneumoccocal Vaccine: 65+ (1 - PCV) 2004 Influenza (Flu) vaccine (1 of 1 - Influenza standard 03/03/2022 series) Insurance Payer Benefit Plan / Subscriber ID Effective Phone Address T ype Group Dates MEDICARE MEDICARE PART A [id number] 2004-Prese [phone] [place] [address] [facility] [id number] 2016-Prese [phone] [address] [employer] [address] [place] [phone] Care Teams Traffic Control Operator Relationship Specialty Start Date End Date Melissa Lee DO PCP - General Family Medicine 07/20/[address] [place], [place] [id number]
--- OUTSIDE RECORDS SUMMARY | 2022-05-04 15:25 | XMS_ITS | Encounter Summary ---
:1940 Author Organization [facility] Address [address] [place] [address] Care Team Providers Name Role Phone Unavailable Primary Care Provider Unavailable Encounter Details Date Type Department Care Team Description 05/01/2012 Results Only [facility] Jigar Pettit , Laboratory Services - [address] [place] [address] [place], [place] [address] [phone] Social History Tobacco Use Types Packs/Day Years Used Date Never Assessed Sex Assigned at Date Recorded Not on file documented as of this encounter Plan of Treatment Not on filedocumented as of this encounter Procedures Procedure Name Priority Date/Time Associated Diagnosis Comme [facility] SURGICAL PATHOLOGY Routine 05/01/2012 0:00 EDT Re sults for this procedure are i n the results section. documented in this encounter Results SURGICAL PATHOLOGY (05/01/2012 0:00 EDT) Pathology Report: SURGICAL PATHOLOGY REPORT [facility] Reports generated via electronic interface contain anthony ginal data; LAB however they are lacking the format of the original re port. Caution should be taken when reading/interpreting unfo rmatted reports. Name: ? CRYSTAL NORTON ? Accession #: ? [id number] ? : ? 1940 (Age: 71) ??F ? Collect Date: ? 05/01/2012 ? Location: ? [facility] ? Receive Date: ? 012 ? Provider: JIGAR PETTIT DO Copy to: GIL ARTHUR MD ? Final Pathologic Diagnosis: A. ?Esophagus, distal, biopsies: 1. ?Squamocolum jarek junctional-type mucosa with chronic inflammation and mild reactive changes. 2. ? No intestinal metaplasia identified. 3. ? No dysplasia identified. B. ?Esophagus, mid, biopsies: 1. ?Squamous mucosa with mild reactive ch anges. ?? 2. ? No intraepithelial eosinophils identified. C. ?Esophagus, proximal, biopsies: 1. ?Squamous mucosa with mild reactive ch anges. 2. ? No intraepithelial eosinophils identified. D. ?Stomach, antrum, biopsies: 1. ?Antral-type mucosa with reactive elizabeth ropathy. ?? Document reviewed and electronically signed by: KALPANA ASHRAF MD Report ??Date: 05/07/2012 12:38 By the signature above, the attending physician certif ies that he/she has personally conducted a gross and/or microscopic examin ation of the described specimens and rendered or confirmed the above diagnosi s. Specimen(s) Received: A. ?Esoph distal bx B. ? Esoph mid bx C. ? Esoph proximal bx D. ? Antrum bx Clinical History: ? Reflux, dysphagia, no abnormalities visualized Gross Description: ? Received in formalin labelled Crystal Norton and esoph distal bx are four benitez-pink irregular soft tiss ue fragments ranging from 0.2 x 0.2 x 0.2 cm to 0.5 x 0.3 x 0.1 cm. ??The specimen is entirely submitted a s (A1) and (A2). ?? Received in formalin labelled Errol, Crystal and mid esophagus bx are three pink-white, irregular soft tissue fragme nts ranging from 0.3 x 0.3 x 0.1 cm to 0.4 x 0.4 x 0.1 cm. ??The specimen is entirely submitt ed as (B). Received in formalin labelled Errol, Crystal and esop h proximal bx are two pink-white irregular soft ti ssue fragments measuring 0.5 x 0.3 x 0.1 cm and 0.6 x 0.3 x 0.1 cm. ??The specimen is entirely submitted a s (C). Received in formalin labelled Errol, Crystal and antrum bx are two benitez-pink irregular soft tissue fragme nts measuring 0.3 x 0.3 x 0.2 cm and 0.4 x 0.3 x 0.3 cm. ??The specimen is entirely submitted as (D). (Kyle. Lindsey murphy)/mpl End of Report Specimen Performing Organization Address City/State/ZIP Code Phon e Number [facility] [address] [place] [address] SERVICES [facility] [address] [place] [address] documented in this encounter Visit Diagnoses Not on filedocumented in this encounter
--- OUTSIDE RECORDS SUMMARY | 2022-05-04 15:25 | XMS_ITS | Encounter Summary ---
:1940 Author Organization [facility] Address [address] [place] [address] Care Team Providers Name Role Phone Tobias Harvey MD Primary Care Provider [phone] Encounter Details Date Type Department Care Team Description 05/10/2016 Results Only [facility] Dante Pettitmalinaedel, DO [address] [facility] [address] [place] [address] (Wo rk) Social History Tobacco Use Types Packs/Day Years Used Date Never Assessed Sex Assigned at Date Recorded Not on file documented as of this encounter Plan of Treatment Not on filedocumented as of this encounter Procedures Procedure Name Priority Date/Time Associated Diagnosis Comme [facility] SURGICAL PATHOLOGY Routine 05/10/2016 8:54 EST Re sults for this procedure are i n the results section. documented in this encounter Results SURGICAL PATHOLOGY (05/10/2016 8:54 EST) Pathology Report: SURGICAL PATHOLOGY REPORT [facility] Reports generated via electronic interface contain antohny ginal data; LABORATORY however they are lacking the format of the original re port. SERVICES Caution should be taken when reading/interpreting unfo rmatted reports. Name: ? CRYSTAL NORTON ? Accession #: ? [id number] ? : ? 1940 (Age: 6 6) ??F ? Collect Date: ? 05/10/2016 ? Location: ? [facility] ? Receive Date: ? 05/11/20 16 ? Provider: SRIKANTH PETTIT DO Copy to: ARASH RUBIO MD ? Final Pathologic Diagnosis: A. ??STOMACH, ANTRUM, BIOPSY: - Gastric mucosa with reactive (chemical) gastropathy. B. ??ESOPHAGUS, DISTAL, BIOPSY: - Squamocolumnar junctional mucosa with mild reflux es ophagitis. - Negative for intestinal metaplasia; Negative for dys plasia. C ??ESOPHAGUS, PROXIMAL, BIOPSY: - Squamous mucosa with mild reactive changes. Document reviewed and electronically signed by: REID SRINIVASAN MD Report ??Date: 05/12/2016 16:24 By the signature above, the attending physician certif ies that he/she has personally conducted a gross and/or microscopic examin ation of the described specimens and rendered or confirmed the above diagnosi s. Specimen(s) Received: A. ??Antrum bx (#1) B. ??Distal esophagus bx (#2) C. ??Proximal esophagus bx (#3) Clinical History: GERD/dysphagia, epigastric pain Gross Description: A. ?Received in formalin labelled with proper p atient identification (initials C, E) and antrum bx are three benitez-brown tissues averaging 0.3 x 0.3 x 0.2 cm. Entirely submitted in A1. B. ?Received in formalin labelled with proper p atient identification (initials C, E) and distal esophagus bx are three membranous murrieta to soft benitez tissues ranging from 0.1 cm in greatest dimension to 0 .3 x 0.3 x 0.2 cm. Entirely submitted in B1. C. ?Received in formalin labelled with proper p atient identification (initials C, E) and proxima l esophagus bx are two pale murreita tissues averaging 0.3 x 0.1 x 0.1 cm. Entirely submitted in C1. DONATO Castillo (ASCP) 05/11/2016 9:57 AM End of Report Specimen Performing Organization Address City/State/ZIP Code Phon e Number [facility] [address] [place] [address] SERVICES documented in this encounter Visit Diagnoses Not on filedocumented in this encounter Care Teams Records Management Technician Relationship Specialty Start Date End Date Tobias Harvey MD PCP - General 05/03/12 05/11/[address] [place] [phone] documented as of this encounter
--- OUTSIDE RECORDS SUMMARY | 2022-05-04 15:25 | XMS_ITS | Encounter Summary ---
:1940 Author Organization [facility] Address [address] [place] [address] Care Team Providers Name Role Phone Unavailable Primary Care Provider Unavailable Encounter Details Date Type Department Care Team Description 01/23/2007 Results Only [facility] - Estephania Pettit, Chr istopher, conversion DO [address] [facility] [address] [facility] KRISTIN DE JESUS [address] [place] [address] [place] [address] (Wo rk) Social History Tobacco Use Types Packs/Day Years Used Date Never Assessed Sex Assigned at Date Recorded Not on file documented as of this encounter Plan of Treatment Not on filedocumented as of this encounter Procedures Procedure Name Priority Date/Time Associated Diagnosis Comme [facility] SURGICAL PATHOLOGY Routine 01/23/2007 0:00 Resul ts for this EDT procedure are i n the results section. documented in this encounter Results SURGICAL PATHOLOGY (01/23/2007 0:00 EDT) Pathology Report: SURGICAL PATHOLOGY REPORT AG MAXWELL Reports generated via electronic interface contain anthony ginal data; LAB however they are lacking the format of the original re port. Caution should be taken when reading/interpreting unfo rmatted reports. Name: ? CRYSTAL NORTON ? Accession #: ? [id number] ? : ? 1940 (Age: 66) ??F ? Collect Date: ? 01/23/2007 ? Location: ? [facility] ? Receive Date: ? 007 ? Provider: SRIKANTH PETTIT DO Copy to: GIL ARTHUR MD ? Final Pathologic Diagnosis: ? Finger, left index, ganglion, excision: - Ganglion cyst. Document reviewed and electronically signed by: Almas Martinez [facility] Report ??Date: 01/26/2007 15:42 By the signature above, the attending physician certif ies that he/she has personally conducted a gross and/or microscopic examin ation of the described specimens and rendered or confirmed the above diagnosi s. Specimen(s) Received: ? Ganglion cyst left index finger Clinical History: ? Ganglion cyst left index finger Gross Description: ? Received in formalin labelled Errol and ganglion left index finger is a 0.3 x 0.3 by less than 0.1 cm white-benitez and partially transparent portion of soft tissue. Submitted intact in one cassette. (Dr. Radha santillan)/[facility] End of Report Specimen Performing Organization Address City/State/ZIP Code Phon e Number [facility] [address] [place] [address] [facility] [address] [place] [address] documented in this encounter Visit Diagnoses Not on filedocumented in this encounter
--- OUTSIDE RECORDS SUMMARY | 2022-05-04 15:25 | XMS_ITS | Encounter Summary ---
:1940 Author Organization [facility] [place] [address] Care Team Providers Name Role Phone Tobias Harvey MD Primary Care Provider [phone] Encounter Details Date Type Department Care Team Description 07/26/2010 Office Visit Dermatology G[facility]mez Blair MD [address] [facility] [address] DERMATOLOGY [place], [place] [address] [place] [address] [phone] (Wo rk) Social History Tobacco Use Types Packs/Day Years Used Date Never Assessed Sex Assigned at Date Recorded Not on file documented as of this encounter Plan of Treatment Not on filedocumented as of this encounter Visit Diagnoses Not on filedocumented in this encounter Care Teams Bulk Materials Handling Plant Operator Relationship Specialty Start Date End Date Tobias Harvey MD PCP - General 07/26/10 06/04/14 [address] [place], [place] [id number] documented as of this encounter
--- OUTSIDE RECORDS SUMMARY | 2022-05-04 15:25 | XMS_ITS | Clinical Summary ---
:1940 Author Organization [facility] Address [address] [place] [address] Care Team Providers Name Role Phone Lorne Baldwin MD Primary Care Provider Unavailable Social History Tobacco Use Types Packs/Day Years Used Date Never Assessed Sex Assigned at Date Recorded Not on file Plan of Treatment Health Maintenance Due Date Last Done Comments Fall Risk Screening 2004 Care Teams Coating Inspector Relationship Specialty Start Date End Date Lorne Baldwin MD PCP - General 05/12/16
--- OUTSIDE RECORDS SUMMARY | 2022-05-04 15:25 | XMS_ITS | Encounter Summary ---
:1940 Author Organization [facility] Address [address] [place] [address] Care Team Providers Name Role Phone Tobias Harvey MD Primary Care Provider [phone] Encounter Details Date Type Department Care Team Description 05/10/2016 Hospital Encounter [facility]- Katarzyna Unknown, Provider, [facility] [address] [facility] [phone] [place] [address] (Work) [phone] Social History Tobacco Use Types Packs/Day Years Used Date Never Assessed Sex Assigned at Date Recorded Not on file documented as of this encounter Discharge Disposition Disposition Code Departure Means Destination Home or Self Jail documented in this encounter Plan of Treatment Not on filedocumented as of this encounter Visit Diagnoses Not on filedocumented in this encounter Care Teams Revenue Enforcement Collection Agent Relationship Specialty Start Date End Date Tobias Harvey MD PCP - General 05/03/12 05/11/16 [address] [place] [id number] documented as of this encounter
--- OUTSIDE RECORDS SUMMARY | 2022-05-04 15:25 | XMS_ITS | Encounter Summary ---
:1940 Author Organization [facility] [place] [address] Care Team Providers Name Role Phone Melissa Lee DO Primary Care Provider Reason for Visit Reason Comments Follow-up Encounter Details Date Type Department Care Team Description 09/20/2018 Office Visit Dermatology at [facility], Seborrh eic keratosis, inflamed; Mesfin OWUSU Sebaceous hyperplasia; [address] [facility] Rosacea Carlos B DERMATOLOGY [place], [place] [id number] [phone] Social History Tobacco Use Types Packs/Day Years Used Date Never Smoker Smokeless Tobacco: Never Used Alcohol Use Standard Drinks/Week Comments No 0 (1 standard drink = 0.6 oz pure alcoho l) Sex Assigned at Date Recorded Not on file documented as of this encounter Progress Notes Gómez Blair MD - 09/20/2018 11:30 AM EDT Problem: 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 Unfortunately 50 mg 1 p.o. twice daily startedto cause blurring of her eyes she states, and stomach upset. She called us on 03 September and we indicate that she should stop it. She follows with today to discuss what other options might suggest for her. She points out that the Bactroban ointment worked well for her to deal with intranasal scabbing. She used it 3 times daily for a week with good results Physical examination reveals a pleasant now 78-year-old woman who has no active rosacea currently. Her eyes do not appear to be dry or inflamed. She has no intranasal crusting or scabbing near the nasal orifice. Assessment and plan: Ocular rosacea with mild facial rosacea, unable to tolerate 50 twice daily of minocycline. 1. Patient feels that just using eyedrops and washing with Dial soap is working well for her. Examination today is benign 2. Continue also using good facial moisturizer. 3. Would not recommend more aggressively treating the patient. 4. Return to clinic at that point of diminishing returns. Intranasal scabbing 1. Patient still has leftover Bactroban ointment at home that she can use for recurrence of this if necessary, at home. CC: Melissa Lee DO documented in this encounter Plan of Treatment Not on filedocumented as of this encounter Visit Diagnoses Diagnosis Seborrheic keratosis, inflamed Inflamed seborrheic keratosis Sebaceous hyperplasia Other specified disease of sebaceous gla nds Rosacea documented in this encounter Care Teams Watch Train Assembler Relationship Specialty Start Date End Date Melissa Lee DO PCP - General Family Medicine 07/20/[address] [place] [address] documented as of this encounter
== END 2022-05-04 15:42 ==
PROVIDERS: Visit Provider Nurse Practitioner Family
DX: M79.605 Pain in left leg (principal)
CPT/HCPCS: 93971

== ENCOUNTER 2022-05-17 12:57 | Outpatient (REF) | payer MEDICARE, SELFPAY ==
[2022-05-17 15:26] LABS: HCT 40.9 % (36.0-46.0); HGB 13.3 g/dL (11.2-15.7); MCH 31.4 pg (27.0-33.0); MCHC 32.5 % (32.0-36.0); MCV 97 fL (80-95); MPV 10.2 fL (8.0-11.0); Platelet Count 212 10^3/uL (130-400); RBC 4.24 10^6/uL (3.93-5.22); RDW 13.3 % (11.7-14.6); WBC 8.71 10^3/uL (4.4-10.8)
[2022-05-17 15:51] LABS: ALT 22 U/L (14-59); AST 20 U/L (15-37); Albumin 3.8 g/dL (3.4-5.0); Alkaline Phosphatase 95 U/L (46-116); Anion Gap 7.2 mmol/L (3-11); BUN 30 mg/dL (7-18); Bilirubin, Total 0.5 mg/dL (0.2-1.0); CO2 30.8 mmol/L (21.0-32.0); CREATININE 1.3 mg/dL (0.55-1.02); Calcium 9.3 mg/dL (8.5-10.1); Chloride 104 mmol/L (98-107); Estimated GFR 41.06 (mL/min/1.73m2); Glucose 85 mg/dL (74-106); Potassium 4.6 mmol/L (3.5-5.1); Sodium 142 mmol/L (136-145); TSH 1.24 uIU/mL (0.36-3.74); Total Protein 7.3 g/dL (6.4-8.2)
== END 2022-05-17 12:58 | disposition home or self-care (01) ==
LOC: NCHCN 12:57
PROVIDERS: Visit Provider Nurse Practitioner Family
DX: I10 Essential (primary) hypertension (principal); N18.9 Chronic kidney disease, unspecified; R53.83 Other fatigue
CPT/HCPCS: 80053; 85027; 84439; 84443

== ENCOUNTER 2022-08-09 15:23 | Outpatient (CLI) | payer MEDICARE, SELFPAY ==
--- NOTE | 2022-08-09 | DI.RAD_ITS ---
Exam(s) XR CHEST 2V PA LATERAL EXAM: XR CHEST 2V PA LATERAL CLINICAL HISTORY: WILD, R06.00; CHRONIC COUGH, R05.3. TECHNIQUE: 2D digital imaging was performed. COMPARISON: CR XR CHEST 2V PA LATERAL from 12/17/2021 FINDINGS: 2 views: Heart size is upper normal. The mediastinum is not widened. Right lung remains clear. There is platelike atelectasis in the lingular segment of the left lung ag ain noted, slightly increased. Also subsegmental platelike atelectasis evident in the right middle l obe. No confluent infiltrates. No pleural effusions. Evidence of right shoulder surgery again note d. No pulmonary edema. IMPRESSION: Platelike atelectasis in both lung bases. No confluent infiltrates. No pleural effusions. DATA REPOSITORY: RADIATION DOSE DELIVERED:
== END 2022-08-09 15:43 ==
LOC: DI 15:25
PROVIDERS: PCP Nurse Practitioner Family; Visit Provider Nurse Practitioner Family
DX: J98.11 Atelectasis (principal); R06.00 Dyspnea, unspecified; R05.3 Chronic cough
CPT/HCPCS: 71046

== ENCOUNTER 2022-08-09 15:25 | Outpatient (CLI) | payer MEDICARE, SELFPAY ==
[2022-08-09 13:33] LABS: Abs Immature Grans 0.03 10^3/uL (0.0-0.06); Absolute Basophil Count 0.02 10^3/uL (0.0-0.2); Absolute Eosinophil Count 0.16 10^3/uL (0.0-0.7); Absolute Lymphocyte Count 1.79 10^3/uL (1.2-3.4); Absolute Monocyte Count 0.64 10^3/uL (0.1-0.8); Absolute Neutrophil Count 5.87 10^3/uL (1.2-6.7); Basophils % 0.2; Eosinophils % 1.9; HCT 38.3 % (36.0-46.0); HGB 12.3 g/dL (11.2-15.7); Immature Grans % 0.4; MCH 31.5 pg (27.0-33.0); MCHC 32.1 % (32.0-36.0); MCV 98 fL (80-95); Monocytes % 7.5; Platelet Count 193 10^3/uL (130-400); RBC 3.91 10^6/uL (3.93-5.22); RDW-SD 46.6 fL; WBC 8.51 10^3/uL (4.4-10.8)
[2022-08-09 14:31] LABS: ALT 19 U/L (14-59); AST 19 U/L (15-37); Albumin 3.9 g/dL (3.4-5.0); Alkaline Phosphatase 77 U/L (46-116); BUN 23 mg/dL (7-18); Bilirubin, Total 0.6 mg/dL (0.2-1.0); CREATININE 1.3 mg/dL (0.55-1.02); Calcium 9.6 mg/dL (8.5-10.1); Chloride 107 mmol/L (98-107); Estimated GFR 41.06 (mL/min/1.73m2); Glucose 100 mg/dL (74-106); NT-proBNP 282 pg/mL (<300); Potassium 4.3 mmol/L (3.5-5.1); Sodium 143 mmol/L (136-145); Total Protein 7.1 g/dL (6.4-8.2)
[2022-08-09 14:34] LABS: D-Dimer 1155 ng/mlFEU (<500)
== END 2022-08-09 15:26 | disposition home or self-care (01) ==
LOC: LBO 15:26
PROVIDERS: PCP Nurse Practitioner Family; Visit Provider Nurse Practitioner Family
DX: R06.09 Other forms of dyspnea (principal); K21.9 Gastro-esophageal reflux disease without esophagitis; R59.1 Generalized enlarged lymph nodes
CPT/HCPCS: 36415; 80053; 83880; 85025; 85379

== ENCOUNTER 2022-08-10 13:18 | Outpatient (CLI) | payer MEDICARE, SELFPAY ==
--- NOTE | 2022-08-10 | DI.CT_ITS ---
Exam(s) CT CHEST PE CTA EXAM: CT CHEST PE CTA CLINICAL HISTORY: DYSPNEA ON EXERTION,R06.00,ELEVATED D DIMER,LT SIDED CHEST PAIN,NEW COUGH,?. TECHNIQUE: Imaging Protocol: Axial CT angiography was performed with multi-slice acquisition and mu lti-planar and/or 3D reconstructions. CONTRAST MATERIAL: Intravenous: Omnipaque 350 contrast volume:100 mL COMPARISON: CT CT CHEST PE CTA from 12/17/2021 CR XR CHEST 2V PA LATERAL from 08/09/2022 FINDINGS: The examination is limited due to patient motion artifact. Tracheobronchial tree: Patent where visualized. Pulmonary parenchyma: No focal consolidation is seen. There is a calcified granuloma in the right mi ddle lobe. Scattered ground-glass opacities are seen in the lungs which may be due to atelectasis or poor inspiration. There is scarring in the lung bases bilaterally. Pulmonary Arteries: No evidence of filling defect to suggest pulmonary emboli. Mediastinum and Emma: No dominant adenopathy or fluid collection. The esophagus is unremarkable. Visualized thyroid gland: Unremarkable. Pleura: No effusion or pneumothorax. Heart: The heart is not dilated. Mild coronary artery calcification. No pericardial effusion. Aorta: Thoracic aorta non-dilated. No evidence of dissection. Atherosclerosis. Upper abdomen: There is diverticulosis seen in the colon but no evidence of acute diverticulitis. Soft tissues: Unremarkable. Bones: Within normal limits for the patient's age. IMPRESSION: 1. No evidence of pulmonary embolism, thoracic aortic dissection or aneurysm. 2. Scattered ground-glass opacities in the lungs likely reflecting poor inspiration and atelectasis. Infectious or inflammatory process is considered less likely. 3. No focal consolidating infiltrates. RADIATION DOSE DELIVERED: 490.18mGy.cm Total DLP DATA REPOSITORY: All CT scans at this facility are submitted to the National Radiology Data Registry (NRDR) Dose Index Registry (DIR) with the [employer] (ACR). RADIATION OPTIMIZATION: All CT scans at this facility use at least one of these dose optimization te chniques: automated exposure control; mA and/or kV adjustment per patient size (includes targeted exa ms where dose is matched to clinical indication); or iterative reconstruction.
== END 2022-08-10 13:38 ==
LOC: DI 13:18
PROVIDERS: PCP Nurse Practitioner Family; Visit Provider Nurse Practitioner Family
DX: R06.00 Dyspnea, unspecified (principal); R05.9 Cough, unspecified; R07.89 Other chest pain
CPT/HCPCS: 71275

== ENCOUNTER 2022-08-26 01:07 | Outpatient (CLI) | payer MEDICARE, SELFPAY ==
--- NOTE | 2022-08-26 13:00 | DI.MAMMO_ITS ---
Exam(s) MAMMO DIAGNOSTIC BI EXAM: MAMMO DIAGNOSTIC BI CLINICAL HISTORY: BILATERAL BREAST PAIN, N64.4 TECHNIQUE: Mammograms were interpreted according to the usual protocol including computer analysis w [employer] CAD system, tomosynthesis and C-view imaging. COMPARISON: 2013 through 2021 FINDINGS: The breasts are composed of scattered fibroglandular densities, Breast Density category B. No suspicious masses or suspicious microcalcifications are seen. No skin thickening or abnormal axillary lymph nodes are seen. There has been no significant change from prior exams. IMPRESSION: BI-RADS Category 1, Negative mammogram Yearly screening mammography is recommended. Breast Density - Category B, scattered fibroglandular densities. A negative radiographic report should not delay biopsy if a dominant or clinically suspicious mass is present. Up to ten percent of cancers are not identified on mammography. A negative report may reinforce clinical impression. Adenosis and dense breasts may obscure an underlying neoplasm. False positive reports average 6 to 10%. Patient will receive a letter notifying them of these results.
== END 2022-08-26 01:27 ==
LOC: DI 01:08
PROVIDERS: PCP Nurse Practitioner Family; Visit Provider Nurse Practitioner Family
DX: N64.4 Mastodynia (principal)
CPT/HCPCS: 77062; 77066; G0279

== ENCOUNTER 2022-10-19 19:51 | Outpatient (REF) | payer MEDICARE, SELFPAY ==
[2022-10-19 21:47] LABS: Abs Immature Grans 0.02 10^3/uL (0.0-0.06); Absolute Basophil Count 0.01 10^3/uL (0.0-0.2); Absolute Eosinophil Count 0.13 10^3/uL (0.0-0.7); Absolute Lymphocyte Count 1.45 10^3/uL (1.2-3.4); Absolute Monocyte Count 0.53 10^3/uL (0.1-0.8); Basophils % 0.2; HCT 38.8 % (36.0-46.0); HGB 12.4 g/dL (11.2-15.7); Immature Grans % 0.3; Lymphocytes % 22.2; MCH 30.6 pg (27.0-33.0); MCV 96 fL (80-95); MPV 11.3 fL (8.0-11.0); Monocytes % 8.1; Neutrophils % 67.2; Platelet Count 250 10^3/uL (130-400); RBC 4.05 10^6/uL (3.93-5.22); RDW-SD 46.4 fL; WBC 6.54 10^3/uL (4.4-10.8)
[2022-10-19 22:01] LABS: ALT 20 U/L (14-59); AST 17 U/L (15-37); Albumin 3.8 g/dL (3.4-5.0); Alkaline Phosphatase 72 U/L (46-116); Anion Gap 6.7 mmol/L (3-11); BUN 16 mg/dL (7-18); Bilirubin, Total 0.6 mg/dL (0.2-1.0); CO2 29.3 mmol/L (21.0-32.0); CREATININE 1.3 mg/dL (0.55-1.02); Calcium 9.6 mg/dL (8.5-10.1); Chloride 107 mmol/L (98-107); Glucose 98 mg/dL (74-106); NT-proBNP 653 pg/mL (<300); Potassium 4.5 mmol/L (3.5-5.1); Sodium 143 mmol/L (136-145); Total Protein 7.2 g/dL (6.4-8.2)
== END 2022-10-19 19:52 | disposition home or self-care (01) ==
LOC: NCHCN 19:51
PROVIDERS: PCP Nurse Practitioner Family; Visit Provider Nurse Practitioner Family
DX: R06.09 Other forms of dyspnea (principal)
CPT/HCPCS: 80053; 83880; 85025

== ENCOUNTER 2022-10-21 00:28 | Outpatient (CLI) | payer MEDICARE, SELFPAY ==
--- NOTE | 2022-10-21 | DI.RAD_ITS ---
Exam(s) XR HIP RT COMPLETE AP PELVIS EXAM: XR HIP RT COMPLETE AP PELVIS CLINICAL HISTORY: RT HIP JOINT PAIN ACUTE M25.551. TECHNIQUE: 2D digital imaging was performed. COMPARISON: CR XR HIP RT AP LAT ONLY from 05/02/2022 FINDINGS: Two views: Hardware in the right hip comprised of lag screw supported by lateral plate appear stable. No hardwa re migration or loosening. No radiographic evidence of osteomyelitis. Advanced degenerative narrowing of the right hip joint is noted, more so than previous. IMPRESSION: [id number] narrowing of the right hip joint space. Right hip joint hardware appears stable. No fractures evident. DATA REPOSITORY: RADIATION DOSE DELIVERED:
== END 2022-10-21 00:48 ==
LOC: DI 00:28
PROVIDERS: PCP Nurse Practitioner Family; Visit Provider Nurse Practitioner Family
DX: M25.551 Pain in right hip (principal)
CPT/HCPCS: 73502

== ENCOUNTER → 2022-12-08 13:38 | Outpatient (BNVA) | payer MEDICARE, SELFPAY | PROVIDERS: PCP Nurse Practitioner Family; Referring Provider Physical Therapist; Visit Provider Student in an Organized Health Care Education/Training Program | DX: M16.11 Unilateral primary osteoarthritis, right hip (principal) | CPT/HCPCS: 20611; J1040 ==

== ENCOUNTER 2023-02-16 11:56 | Outpatient (CLI) | payer MEDICARE, SELFPAY ==
--- NOTE | 2023-02-16 11:30 | DI.RAD_ITS ---
Exam(s) XR SHOULDER LT COMPLETE 2+V EXAM: XR SHOULDER LT COMPLETE 2+V CLINICAL HISTORY: left shoulder pain. TECHNIQUE: 2D digital imaging was performed. Two views. COMPARISON: CR LEFT SHOULDER COMPLETE from 03/09/2016 FINDINGS: BONES: No acute fracture is present. No bony destructive lesion is seen. There is deformity of the a cromion and coracoid process. There is spurring at the humeral head. JOINTS: No dislocation present. Glenohumeral joint space is maintained. SOFT TISSUE: Calcifications faintly seen which could represent tendon or bursal calcifications. IMPRESSION: degenerative changes and chronic deformities at the distal end of the acromion and coracoid process. adjacent degenerative changes of the humeral head. DATA REPOSITORY: RADIATION DOSE DELIVERED:
== END 2023-02-16 11:57 | disposition home or self-care (01) ==
LOC: DIORS 11:56
PROVIDERS: PCP Nurse Practitioner Family; Referring Provider Nurse Practitioner Family; Visit Provider Student in an Organized Health Care Education/Training Program
DX: M19.012 Primary osteoarthritis, left shoulder (principal); M75.82 Other shoulder lesions, left shoulder; M16.11 Unilateral primary osteoarthritis, right hip
CPT/HCPCS: 20610; 73030; J1040

== ENCOUNTER 2023-02-28 13:54 | Outpatient (REF) | payer MEDICARE, SELFPAY ==
[2023-02-28 16:22] LABS: Abs Immature Grans 0.02 10^3/uL (0.0-0.06); Absolute Basophil Count 0.01 10^3/uL (0.0-0.2); Absolute Eosinophil Count 0.11 10^3/uL (0.0-0.7); Absolute Lymphocyte Count 1.66 10^3/uL (1.2-3.4); Absolute Monocyte Count 0.68 10^3/uL (0.1-0.8); Basophils % 0.1; Eosinophils % 1.2; HCT 40.5 % (36.0-46.0); HGB 13.2 g/dL (11.2-15.7); Immature Grans % 0.2; Lymphocytes % 18.3; MCH 31.7 pg (27.0-33.0); MCHC 32.6 % (32.0-36.0); MCV 97 fL (80-95); MPV 11.1 fL (8.0-11.0); Monocytes % 7.5; Neutrophils % 72.7; Platelet Count 243 10^3/uL (130-400); RBC 4.16 10^6/uL (3.93-5.22); RDW 14.2 % (11.7-14.6); RDW-SD 51.2 fL; WBC 9.08 10^3/uL (4.4-10.8)
[2023-02-28 16:56] LABS: ALT 16 U/L (14-59); AST 25 U/L (15-37); Albumin 3.9 g/dL (3.4-5.0); Alkaline Phosphatase 83 U/L (46-116); Anion Gap 6.3 mmol/L (3-11); BUN 21 mg/dL (7-18); Bilirubin, Total 0.7 mg/dL (0.2-1.0); CO2 28.7 mmol/L (21.0-32.0); CREATININE 1.5 mg/dL (0.55-1.02); Calcium 9.5 mg/dL (8.5-10.1); Chloride 104 mmol/L (98-107); Estimated GFR 34.36 (mL/min/1.73m2); FREE T4 1.04 ng/dL (0.76-1.46); Glucose 95 mg/dL (74-106); Potassium 4.3 mmol/L (3.5-5.1); Sodium 139 mmol/L (136-145); TSH 1.43 uIU/mL (0.36-3.74); Total Protein 7.7 g/dL (6.4-8.2)
== END 2023-02-28 13:55 | disposition home or self-care (01) ==
LOC: NCHCN 13:54
PROVIDERS: PCP Nurse Practitioner Family; Visit Provider Nurse Practitioner Family
DX: Z83.49 Family history of other endocrine, nutritional and metabolic diseases (principal); R59.0 Localized enlarged lymph nodes; N18.9 Chronic kidney disease, unspecified; R53.83 Other fatigue
CPT/HCPCS: 80053; 82306; 84439; 84443; 85025

== ENCOUNTER 2023-06-16 07:28 | Emergency (ER) | payer MEDICARE, SELFPAY ==
[2023-06-16] VITALS (27 sets, daily range): BP systolic 154–195; BP diastolic 52–80; PULSE 53–68; RESP 12–26; TEMP 37; O2SAT 97–100
--- NOTE | 2023-06-16 07:30 | DI.CT_ITS ---
Exam(s) CT HEAD CERVICAL SPINE WO EXAM: CT HEAD CERVICAL SPINE WO CLINICAL HISTORY: fall, le t facial trauma, neck pain, eliquis. TECHNIQUE: Imaging Protocol: Axial computed tomography images with coronal and sagittal reformatted images were created and reviewed COMPARISON: CT CT BRAIN NECK CTA from 04/18/[address] HEAD - STROKE PROTOCOL from 04/18/2021 FINDINGS: Head CT Ventricles and Extra axial spaces: Normal in size and morphology for the patient's age. Hemorrhage: None. Cerebral parenchyma: No evidence of mass or acute infarct. White matter changes of small vessel dise ase, stable. Midline shift: None. Brainstem/Cerebellum: Normal. Calvarium: Normal. Visualized Paranasal sinuses/Mastoids: Clear. Soft tissues: Left frontal scalp hematoma. Cervical Spine CT BONES: Vertebral body heights are maintained. Alignment is normal. There is no evidence of acute frac ture. Degenerative disc changes and facet degenerative changes are seen . SOFT TISSUES: No paraspinal hematoma. The airway appears intact. No pneumothorax is seen at the lung apices. IMPRESSION: Head CT: Right frontal scalp hematoma. No acute intracranial abnormality. C-spine CT: Degenerative changes, no acute abnormality. RADIATION DOSE DELIVERED: Total DLP DATA REPOSITORY: All CT scans at this facility are submitted to the National Radiology Data Registry (NRDR) Dose Index Registry (DIR) with the [employer] (ACR). RADIATION OPTIMIZATION: All CT scans at this facility use at least one of these dose optimization te chniques: automated exposure control; mA and/or kV adjustment per patient size (includes targeted exa ms where dose is matched to clinical indication); or iterative reconstruction.
--- NOTE | 2023-06-16 07:52 | DI.CT_ITS ---
Exam(s) CT ABDOMEN PELVIS WO EXAM: CT ABDOMEN PELVIS WO CLINICAL HISTORY: trauma fall, rt hip pain. TECHNIQUE: Imaging Protocol: Axial computed tomography images with coronal and sagittal reformatted images were created and reviewed. Oral: yes / COMPARISON: CT CT CHEST PE ABD PELVIS W from 03/06/[address] CHEST PE CTA from 08/10/2022 FINDINGS: ABDOMEN: Artifact on upper images due to patient arm positioning. Lung Bases: No acute findings. Liver: Normal density. No measurable mass. Gallbladder and biliary tract: Status post cholecystectomy. No radiodense calculus or dilation. Pancreas: Normal density, no abnormal calcifications or inflammatory process. Spleen: Normal. Kidneys: Normal size, contour and axis. Nonobstructing stone lower pole left kidney. No masses seen. Adrenal glands: No masses seen. Lymph nodes: Within normal limits. Abdominal Aorta: Abdominal portion non-dilated. PELVIS: Bladder: No wall thickening. No mass or calculi. Bowel: No obstruction. Diverticulosis. There is some stranding around the lower descending: Which c ould indicate diverticulitis. Peritoneal cavity: No ascites, collection or mesenteric inflammatory response. Reproductive organs: Status post hysterectomy. Bones: Hardware right femur. Degenerative changes of both hips, right greater than left. No hip fra cture. Degenerative changes in lumbar spine. No compression fractures. Soft tissues: Unremarkable. IMPRESSION: No acute posttraumatic abnormality. Degenerative changes in the hips and spine. Hardware proximal r ight femur. No evidence of fracture. Severe diverticulosis. Inflammation at the junction of the descending and sigmoid colon which may in dicate diverticulitis. No perforation or abscess. Findings called to Dr. Finney of the emergency department. RADIATION DOSE DELIVERED: Total DLP DATA REPOSITORY: All CT scans at this facility are submitted to the National Radiology Data Registry (NRDR) Dose Index Registry (DIR) with the [employer] (ACR). RADIATION OPTIMIZATION: All CT scans at this facility use at least one of these dose optimization te chniques: automated exposure control; mA and/or kV adjustment per patient size (includes targeted exa ms where dose is matched to clinical indication); or iterative reconstruction.
[2023-06-16 08:06] LABS: Abs Immature Grans 0.04 10^3/uL (0.0-0.06); Absolute Basophil Count 0.01 10^3/uL (0.0-0.2); Absolute Eosinophil Count 0.11 10^3/uL (0.0-0.7); Absolute Lymphocyte Count 1.49 10^3/uL (1.2-3.4); Absolute Monocyte Count 0.79 10^3/uL (0.1-0.8); Basophils % 0.1; Eosinophils % 1.4; HCT 35.6 % (36.0-46.0); HGB 11.7 g/dL (11.2-15.7); Immature Grans % 0.5; Lymphocytes % 18.8; MCH 31.4 pg (27.0-33.0); MCHC 32.9 % (32.0-36.0); MCV 95 fL (80-95); MPV 10.1 fL (8.0-11.0); Monocytes % 9.9; Neutrophils % 69.3; Platelet Count 187 10^3/uL (130-400); RBC 3.73 10^6/uL (3.93-5.22); RDW 13.1 % (11.7-14.6); WBC 7.94 10^3/uL (4.4-10.8)
[2023-06-16 08:24] LABS: ALT 15 U/L (14-59); AST 16 U/L (15-37); Albumin 3.3 g/dL (3.4-5.0); Alkaline Phosphatase 59 U/L (46-116); Anion Gap 7.3 mmol/L (3-11); BUN 23 mg/dL (7-18); Bilirubin, Total 0.7 mg/dL (0.2-1.0); CO2 27.7 mmol/L (21.0-32.0); CREATININE 1.3 mg/dL (0.55-1.02); Calcium 9.3 mg/dL (8.5-10.1); Chloride 105 mmol/L (98-107); Glucose 103 mg/dL (74-106); Potassium 3.9 mmol/L (3.5-5.1); Sodium 140 mmol/L (136-145)
--- NOTE | 2023-06-16 08:56 | DI.RAD_ITS ---
Exam(s) XR FEMUR RT EXAM: XR FEMUR RT CLINICAL HISTORY: pain, fall. TECHNIQUE: 2D digital imaging was performed. AP and lateral views. COMPARISON: No exams were available for comparison FINDINGS: BONES: Hardware proximal femur. The prosthesis. No acute fracture is present. No bony destructive l esion is seen. JOINTS: Arm advanced degenerative changes of the right hip.. SOFT TISSUE: Vascular calcifications. IMPRESSION: No acute abnormality. DATA REPOSITORY: RADIATION DOSE DELIVERED:
[2023-06-16] MEDS: ACETAMINOPHEN 1,000 MG/100 ML BTL 400 MG IVPB (09:03)
--- NOTE | 2023-06-16 09:15 | RT.EKG_ITS ---
APPROVED REPORT Exam: Resting ECG Reason for Exam: chest pain Patient Location: E HR:55 bpm ECG Measurements Heart Rate 55 AXIS AK 227 P 21 QRSd 107 QRS -47 QT 440 T 55 QTc 422 Conclusion Sinus bradycardia...rate< 60 Prolonged AK interval...AK >220, V-rate 50- 90 LAD, consider left anterior fascicular block...axis(240,-40), S>R II III aVF
--- NOTE | 2023-06-16 09:22 | ED.GENADUL_ITS ---
Discharge Plan Disposition Patient Disposition: Home Condition: Stable Discharge Details Clinical Impression: Acute head trauma, Diverticulitis, Hyponatremia, Fall, Traumatic hematoma of face, Elevated blood pressure reading, First degree AV block, Laceration of face, Abrasion of face Primary Care Provider: Sarah Gao ED Provider: Ang Finney Home Meds and New Rx's Prescriptions: Continued albuterol sulfate [Ventolin HFA] 90 mcg/actuation HFA aerosol inhaler 2 puff IH Q6H PRN (Reason: shortness of breath or wheezing) Qty: 6.7 0RF Rx Instructions: Daily x 2 weeks minimum Adult Probiotic 3 billion cell capsule 3,000 mmu cells PO DAILY Rx Instructions: administer with a meal (DME) Compression Stockings See Rx Instructions .Route .MEDSUPPLY Qty: 1 0RF Rx Instructions: As directed, moderate compression for daily wearing meclizine 25 mg tablet 25 mg PO BID PRN (Reason: dizziness) Qty: 20 0RF Rx Instructions: Trial for vertigo diazepam 2 mg tablet 2 mg PO Q6H MDD 4mg PRN (Reason: vertigo as per hospitalization hx) Qty: 20 0RF Hold Instructions: Home Medication placed on hold at Doctor's office Rx Instructions: Take with caution; do not drive. furosemide [Lasix] 20 mg tablet 20 mg PO DAILY PRN (Reason: weight gain or edema) Qty: 30 3RF Patient Comments: takes if needed. Rx Instructions: daily if weight gain >3 lbs per 3 days of leg swelling. cholecalciferol (vitamin D3) 50 mcg (2,000 unit) capsule 50 mcg PO DAILY Centrum Silver 400-250 mcg tablet,chewable 1 tab PO DAILY famotidine 20 mg tablet 20 mg PO QHS Qty: 30 1RF Rx Instructions: May try BID PRN x 3-4 weeks potassium chloride 20 mEq tablet extended release 20 meq PO .every other day PRN (Reason: take only when taking furosemide) Qty: 10 0RF Hold Instructions: Changed by Provider Rx Instructions: take only when taking lasix/furosemide flaxseed oil 1,000 MG capsule 1,000 mg PO DAILY apixaban 5 mg tablet 5 mg PO BID Qty: 120 0RF Rx Instructions: Continue for 3-mo min Tx (re-evaluate risks). cyanocobalamin (vitamin B-12) [Vitamin B-12] 1,000 MCG tablet, sublingual 1,000 mcg Sublingual DAILY Discharge Instructions Instructions: Fall Prevention for Older Adults (ED), Head Injury (ED), Hypomagnesemia (ED), Skin Adhesive Care (ED), Facial Contusion (ED) Additional Instructions: Please hold your Eliquis today. You may restart your Eliquis tomorrow. Your blood pressure was elevated today. Please be sure to monitor this daily and keep a log. Please follow-up with your primary care physician as soon as possible. Call today to schedule outpatient follow-up for early next week. Return to the ER immediately for any worsening or new concerning symptoms. Referrals: Sarah Gao [Primary Care Provider] - Medical Decision Making -- 82-year-old female with multiple medical problems including hypertension, chronic kidney disease, CHF, DVT, on Eliquis, here after mechanical trip and fall with head trauma. Obvious hematoma left forehead. Concern for acute life- threatening intracranial traumatic hemorrhage, C-spine fracture, right hip fracture. Plan to obtain CT imaging of the head, C-spine, abdomen pelvis and will obtain right femur x-ray. 925 --CT was interpreted by radiology: No acute traumatic injury in the head, neck, abdomen pelvis. There is diverticulitis noted. Patient reassessed. She does not have abdominal pain or tenderness. She has had no recent diarrhea. She has developed left and anterior chest discomfort. Patient notably hypertensive. Plan to check EKG and chest x-ray. I will check troponin. --EKG was reviewed and interpreted by me: Please see report, sinus bradycardia 55 bpm, no STEMI, left axis deviation, prolonged ME with ME interval of 227. Initial troponin negative. 1415 --delta troponin negative. Plan to proceed with repeat CT to assess for any new acute life-threatening hemorrhage. 1615 --repeat CT interpreted radiology: No acute changes. Patient reassessed and remained stable. Continues to mentate well. Chest x-ray was reviewed and interpreted by radiology as negative. Troponin and delta troponin negative. Plan for discharge with outpatient follow-up for reassessment. All diagnostics were discussed with the patient and her daughter. Usual customary discharge instructions were reviewed. HPI General Date/Time Provider Initiated Documentation: 06/16/23 07:42 . Related Data Home Medications Medication Instructions Recorded Confirmed cyanocobalamin (vitamin B-12) 1,000 mcg sublingual DAILY 08/28/15 06/16/23 1,000 mcg sublingual tablet (Vitamin B-12) flaxseed oil 1,000 mg capsule 1,000 mg PO DAILY 10/09/17 06/16/23 albuterol sulfate 90 mcg/actuation 2 puff inhalation Q6H PRN 07/30/20 06/16/23 aerosol inhaler (Ventolin HFA) shortness of breath or wheezing #6.7 grams lactobacillus combination no.8 3 3,000 mmu cells PO DAILY 12/15/20 06/16/23 billion cell capsule (Adult Probiotic) Compression Stockings #1 ea 03/31/21 06/16/23 diazepam 2 mg tablet 2 mg PO Q6H PRN vertigo as per 04/29/21 06/16/23 hospitalization hx #20 tabs meclizine 25 mg tablet 25 mg PO BID PRN dizziness #20 tabs 04/29/21 06/16/23 cholecalciferol (vitamin D3) 50 50 mcg PO DAILY 06/08/21 06/16/23 mcg (2,000 unit) capsule furosemide 20 mg tablet (Lasix) 20 mg PO DAILY PRN weight gain or 06/10/21 06/16/23 edema #30 tabs famotidine 20 mg tablet 20 mg PO QHS nausea, stomach upset 12/23/21 06/16/23 #30 tabs multivit with min-folic 1 tab PO DAILY 12/23/21 02/16/23 acid-lutein 400 mcg-250 mcg chewable tablet (Centrum Silver) potassium chloride 20 mEq 20 meq PO .every other day PRN 12/23/21 06/16/23 tablet,extended release take only when taking furosemide #10 tabs apixaban 5 mg tablet 5 mg PO BID #120 tabs 01/26/22 06/16/23 Previous Rx's Medication Instructions Recorded albuterol sulfate 90 mcg/actuation 2 puff inhalation Q6H PRN 07/30/20 aerosol inhaler (Ventolin HFA) shortness of breath or wheezing #6.7 grams Compression Stockings #1 ea 03/31/21 diazepam 2 mg tablet 2 mg PO Q6H PRN vertigo as per 04/29/21 hospitalization hx #20 tabs meclizine 25 mg tablet 25 mg PO BID PRN dizziness #20 tabs 04/29/21 furosemide 20 mg tablet (Lasix) 20 mg PO DAILY PRN weight gain or 06/10/21 edema #30 tabs famotidine 20 mg tablet 20 mg PO QHS nausea, stomach upset 12/23/21 #30 tabs potassium chloride 20 mEq 20 meq PO .every other day PRN 12/23/21 tablet,extended release take only when taking furosemide #10 tabs apixaban 5 mg tablet 5 mg PO BID #120 tabs 01/26/22 Allergies Allergy/AdvReac Type Severity Reaction Status Date / Time adhesive tape Allergy Intermediate blisters Verified 06/16/23 07:40 on skin Sulfa (Sulfonamide Allergy Intermediate sister Verified 06/16/23 07:40 Antibiotics) of anaphylaxis per pt aspirin AdvReac Intermediate nosebleeds Verified 06/16/23 07:40 codeine AdvReac Intermediate blackouts Verified 06/16/23 07:40 latex AdvReac Intermediate skin-red Verified 06/16/23 07:40 ithcy spots on skin morphine AdvReac Intermediate becomes Verified 06/16/23 07:40 very ill, vomting gabapentin AdvReac Mild makes me Unverified 06/16/23 07:40 sick General Stated Complaint: Trauma BENNY: 3 PFSH All Active Problems (Updated 06/16/23 @ 16:24 by Ang Finney MD) Abrasion of face (Acute) Laceration of face (Acute) First degree AV block (Acute) Elevated blood pressure reading (Acute) Traumatic hematoma of face (Acute) Fall (Acute) Acute head trauma (Acute) Hyponatremia (Acute) Diverticulitis (Chronic) Unspecified atherosclerosis of [place] arteries of extremities, bilateral legs (Acute) [facility] 07/14/22.HE Onychomycosis of toenail (Acute) [facility] 07/14/22.HE Arthropathy of left shoulder (Acute) DEPO 05/02/22 Bradycardia (Acute) Family history of cardiac pacemaker (Acute) Encounter for medication review and counseling (Acute) Edema of lower extremity (Acute) Worsening edema, making leg pain worse .. Poor tolerance of compression .. trying lt compression [ ] 12/2020 Chronic neck pain (Chronic) Some relief with PT .. Neck fullness (Acute) Sensation of firmness, swelling (vs neck pain that PT is working on) .. subacute, with high anxiety.. Family history of thyroid disease (Chronic) Hx of family members being told nothing wrong then ID disease .. high anxiety. Sensorineural hearing loss (SNHL) of both ears (Acute) Leg pain, bilateral (Acute) Pt c/o notable leg pain, not just 2' edema ... improves with rest ..[ ] FLORES to eval for claudication Vertigo (Acute) Acute on chronic ... presented to ED, CVA ruled out (04/2021). ENT seen. Small vessel disease, cerebrovascular (Chronic) per MRI, 04/2018 (Hospitalized to r/o CVA .. DDx incl TIA, but most probably VERTIGO) HTN (hypertension) (Chronic) Mostly managed, good today, 09/28/18, ik. 134/68 07/30/19. Dysphagia (Acute) Acute on chronic, fluids>solids (Hx terrible choking resolved, but noting difficulty again).. CKD (chronic kidney disease) stage 3, GFR 30-59 ml/min (Chronic) @ baseline, 03/2021 (Cr 1.2/GFR 43). Dupuytren's contracture of left hand (Acute) small finger Trigger finger, left middle finger (Acute) Tinnitus, bilateral (Acute) Arthritis of right hand (Acute) Arthritis of left hand (Acute) Pulmonary hypertension (Chronic) Acute systolic CHF (congestive heart failure) (Acute) Bradycardia (Acute) Chest pain (Acute) Foot pain, right (Acute) pain, deformity, 5th toe swollen, curved Tendinitis of left rotator cuff (Chronic) Subacromial injection: 02/16/23; 05/02/22; 05/17/2021; 04/13/2020; 07/12/2019 Fatigue (Chronic) Hx low normal Hgb, with elevated MCV (Ddx borderline macrocytic anemia) .. Folate, B12 WNL. Vit D improved (2018). TSH, LFTs WNL. May retest, but 12/2018 shows baseline, w/o acute changes/deficiency. Bilateral knee pain (Acute 05/02/14) Idiopathic peripheral neuropathy (Acute 06/15/12) Osteoporosis (Acute 02/27/14) L wrist T = -3.7 01/2014; but FRAX: 11.4 risk major, 2.6 risk of hip: Rx not recommended Osteopenia (Acute 04/27/06) Pain in lower limb (Acute 05/22/12) Patellar tendinitis (Acute) INjection from Dr. Souza, hurt going but helped pain freatly. Able to walk much better, 10/2018 Hip fracture (Acute) Spinal stenosis at L4-L5 level (Chronic) Closed right hip fracture (Acute) Anxiety (Chronic 02/20/15) Obesity with body mass index 30 or greater (Chronic) BMI 38.2 (if still 5'1) 08/2013 Cough (Acute) recurrent cough, ?allergic rhinnitis, responsive to nasal steroid?; 12/2014 Dysgeusia (Acute 12/15/15) Gastroesophageal reflux disease (Chronic) responds to OTC Prilosec . Ranitidine tried, did not help 06/2019 [ ] return to PPI? 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 Much improved, 11/02/18. Pain in knee region after total knee replacement (Acute 04/03/17) Rt and Lt TKA - Dr. Gonzalez Bilateral corticosteroid injections: 10/10/18 Ocular rosacea (Chronic) question ocular rosacea and mild facial rosacea ([facility] [place] 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 Asymptomatic. c/o Heart Fluttering 06/2019 .. >[place], 07/2019 .. NSR w/ occ SVT. No AFib. Medical History Anxiety Asthma Breast pain, left Chest pain Displaced intertrochanteric fracture of right femur, subsequent encounter for closed fracture with routine healing (02/12/16) Dysgeusia GERD (gastroesophageal reflux disease) Gross hematuria Head ache Hyperlipidemia pt. states she is unsure if she has this Idiopathic peripheral neuropathy Intertrigo Lumbago Mixed stress and urge urinary incontinence Multiple fractures of right femur pt states she fractured her hip Multiple joint pain Nail abnormalities (02/27/14) L hand multiple nails; Dr Blair, terbinafine rx toe nails too Nail abnormality Nocturia Obesity Osteopenia Osteoporosis Prehypertension Right arm pain Surgical History Bilateral salpingectomy with oophorectomy BILATERAL TKA (10/01/12) DR. VANDANA GONZALEZ section X4 Cholecystectomy Colonoscopy - IV Sedation egd (05/10/16) flexible laryngoscopy (03/12/15) Dr Villatoro Hemorrhoidectomy History of esophagogastroduodenoscopy (EGD) (~10/15/18) History of repair of right hip joint Hysterectomy, Laproscopic Open Carpal Tunnel release Replacement of total knee joint Right arthroscopic rtotator cuff repair (04/22/13) RIGHT FOOT FX REPAIR Family History Mother , Fluid buildup at age 72. Diabetes did not have diabetes Personal history of malignant neoplasm Asthma Father , AD,blood clot at age 69. Alzheimer's disease Son Asthma Son No problems noted. Son No problems noted. Daughter No problems noted. Sister No problems noted. Sister Personal history of malignant neoplasm Sister Personal history of malignant neoplasm Sister No problems noted. 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 Pets and animals: Yes Pets and animals: dog(s) Current gender identity: female What is your relationship status?: Panel score (0-1 are the most socially isolated patients): 0 What type of physical activity do you participate in: none Seatbelt use: always Do you feel safe at home: Yes Do you feel safe in your relationship?: Yes Victim of physical abuse: No Victim of emotional abuse: No Victim of sexual abuse: No Course Vital Signs Vital signs: Vital Signs Temperature 37.0 C 06/16/23 07:34 Pulse 61 06/16/23 07:34 Respiratory Rate 18 06/16/23 07:34 Blood Pressure 194/65 H 06/16/23 07:34 Pulse Oximetry 97 06/16/23 07:34 Temperature 37.0 C 06/16/23 07:34 Temperature Source Skin 06/16/23 07:34 Pulse 61 06/16/23 07:34 Respiratory Rate 18 06/16/23 07:34 Respiratory Effort Normal 06/16/23 07:54 Respiratory Depth Normal 06/16/23 07:54 Respiratory Pattern Normal 06/16/23 07:54 Blood Pressure 194/65 H 06/16/23 07:34 Blood Pressure Position Sitting 06/16/23 07:34 Pulse Oximetry 97 06/16/23 07:34 Oxygen Delivery Method Room Air 06/16/23 07:34 Oxygen Flow Rate 0 06/16/23 07:34 Pain Level 10 06/16/23 09:03 Lab/Test Results Lab/Test Results: Laboratory Tests Range/Units 06/16/23 07:55 WBC (4.4-10.8) 10^3/uL 7.94 RBC (3.93-5.22) 10^6/uL 3.73 L Hgb (11.2-15.7) g/dL 11.7 Hct (36.0-46.0) % 35.6 L MCV (80-95) fL 95 MCH (27.0-33.0) pg 31.4 MCHC (32.0-36.0) % 32.9 RDW (11.7-14.6) % 13.1 Plt Count (130-400) 10^3/uL 187 MPV (8.0-11.0) fL 10.1 Immature Gran % 0.5 Neutrophils % 69.3 Lymphocytes % 18.8 Monocytes % 9.9 Eosinophils % 1.4 Basophils % 0.1 Nucleated RBC % (0.0-0.3) % 0.0 Absolute Neutrophils (1.2-6.7) 10^3/uL 5.50 Absolute Lymphocytes (1.2-3.4) 10^3/uL 1.49 Absolute Monocytes (0.1-0.8) 10^3/uL 0.79 Absolute Eosinophils (0.0-0.7) 10^3/uL 0.11 Absolute Basophils (0.0-0.2) 10^3/uL 0.01 Sodium (136-145) mmol/L 140 Potassium (3.5-5.1) mmol/L 3.9 Chloride (98-107) mmol/L 105 Carbon Dioxide (21.0-32.0) mmol/L 27.7 Anion Gap (3-11) mmol/L 7.3 BUN (7-18) mg/dL 23 H Creatinine (0.55-1.02) mg/dL 1.3 H Est GFR (CKD-EPI 2020) (mL/min/1.73m2) 40.80 Glucose (74-106) mg/dL 103 Calcium (8.5-10.1) mg/dL 9.3 Total Bilirubin (0.2-1.0) mg/dL 0.7 AST (15-37) U/L 16 ALT (14-59) U/L 15 Alkaline Phosphatase (46-116) U/L 59 Total Protein (6.4-8.2) g/dL 7.0 Albumin (3.4-5.0) g/dL 3.3 L Patient ABO/Rh O Positive Antibody Screen NEGATIVE Procedures Laceration Laceration 1: Site: face Side (If applicable): left Size (cm): 1 Description: linear Depth: simple, single layer Skin layer closed with: other (skin adhesive)
[2023-06-16 10:03] LABS: Troponin I < 50 ng/L (<or=60)
--- NOTE | 2023-06-16 10:13 | DI.RAD_ITS ---
Exam(s) XR PORTABLE CHEST AP EXAM: XR PORTABLE CHEST AP CLINICAL HISTORY: fall, ant chest pain TECHNIQUE: 2D digital imaging was performed. COMPARISON: CT CT CHEST PE CTA from 08/10/[address] ABDOMEN PELVIS WO from 06/16/2023 FINDINGS: LUNGS: Interstitial changes. No focal infiltrate. No pleural abnormality seen. HEART: Mildly enlarged. AORTA: Normal diameter. BONES: Degenerative changes, unremarkable for age. Soft tissues: Unremarkable. IMPRESSION: No acute findings. DATA REPOSITORY: RADIATION DOSE DELIVERED:
[2023-06-16 13:36] LABS: Troponin I < 50 ng/L (<or=60)
--- NOTE | 2023-06-16 14:15 | DI.CT_ITS ---
Exam(s) CT HEAD WO EXAM: CT HEAD WO CLINICAL HISTORY: fall, head trauma, on eliquis. repeat. TECHNIQUE: Imaging Protocol: Axial computed tomography images with coronal and sagittal reformatted images were created and reviewed COMPARISON: CT CT HEAD - STROKE PROTOCOL from 04/18/[address] HEAD CERVICAL SPINE WO from 06/16/2023 FINDINGS: Ventricles and Extra axial spaces: Normal in size and morphology for the patient's age. Hemorrhage: None. Cerebral parenchyma: No evidence of acute infarct or mass. severe white matter changes of small ves jeremy disease. Midline shift: None. Brainstem/Cerebellum: Normal. Calvarium: Normal. Visualized Paranasal sinuses/Mastoids: Clear. Soft Tissues: Left frontal scalp hematoma. IMPRESSION: No acute intracranial process. Left frontal scalp hematoma. Findings called to Dr. Finney of the emergency department. RADIATION DOSE DELIVERED: Total DLP DATA REPOSITORY: All CT scans at this facility are submitted to the National Radiology Data Registry (NRDR) Dose Index Registry (DIR) with the [employer] (ACR). RADIATION OPTIMIZATION: All CT scans at this facility use at least one of these dose optimization te chniques: automated exposure control; mA and/or kV adjustment per patient size (includes targeted exa ms where dose is matched to clinical indication); or iterative reconstruction.
== END 2023-06-16 16:47 | disposition home or self-care (01) ==
PROVIDERS: Emergency Provider Student in an Organized Health Care Education/Training Program; PCP Nurse Practitioner Family
DX: M79.622 Pain in left upper arm (principal); M25.561 Pain in right knee; S01.81XA Laceration without foreign body of other part of head, initial encounter; W19.XXXA Unspecified fall, initial encounter
CPT/HCPCS: 36415; 73552; 80053; 86850; 86900; 86901; 93005; 96365; 99284; 70450; 71045; 72125; 74176; 84484; 85025; 93010; J0131

== ENCOUNTER → 2023-06-22 14:04 | Outpatient (BNVA) | payer MEDICARE, SELFPAY | PROVIDERS: PCP Nurse Practitioner Family; Referring Provider Nurse Practitioner Family | DX: M19.012 Primary osteoarthritis, left shoulder (principal) | CPT/HCPCS: 20610; J1040 ==

== ENCOUNTER 2023-07-29 10:42 | Outpatient (CLI) | payer OTHER, SELFPAY ==
--- NOTE | 2023-07-29 10:30 | RT.EKG_ITS ---
APPROVED REPORT Exam: Resting ECG Reason for Exam: Cold symptoms Patient Location: O HR:57 bpm ECG Measurements Heart Rate 57 AXIS MT 139 P -48 QRSd 102 QRS -47 QT 413 T 64 QTc 402 Conclusion Sinus or ectopic atrial rhythm...P axis (-45,135) LAD, consider left anterior fascicular block...axis(240,-40), S>R II III aVF LVH with secondary repolarization abnormality...multi-LVH criteria, abnrm ST-T I have reviewed and interpreted ECG and agree with software generated interpretation.
== END 2023-07-29 10:43 | disposition home or self-care (01) ==
LOC: DI.CM 10:43
PROVIDERS: PCP Nurse Practitioner Family; Visit Provider Physician Assistant
DX: R07.89 Other chest pain (principal)
CPT/HCPCS: 93010

== ENCOUNTER → 2023-07-29 11:58 | Outpatient (CLI) | payer OTHER, SELFPAY ==
--- NOTE | 2023-07-29 12:00 | DI.RAD_ITS ---
Exam(s) XR CHEST 2V PA LATERAL EXAM: XR CHEST 2V PA LATERAL CLINICAL HISTORY: cough r/o pneumonia TECHNIQUE: 2D digital imaging was performed of the chest. Two images were obtained. PA and lateral views were obtained. COMPARISON: CR XR PORTABLE CHEST AP from 06/16/2023 FINDINGS: MEDIASTINUM: Normal. HEART: Upper limits of normal in size. PULMONARY VASCULATURE: Normal. LUNGS: There is linear atelectasis in the left lung base. No focal consolidating infiltrates are see n. PLEURAL SPACE: No pleural effusion or pneumothorax. BONE:Within normal limits for the patient's age. OTHER FINDINGS:Normal. IMPRESSION: Linear atelectasis or scarring in the left lung base. No focal consolidation. DATA REPOSITORY: RADIATION DOSE DELIVERED:
--- NOTE | 2023-07-29 12:26 | DI.VRAD_ITS ---
PROCEDURE INFORMATION: Exam: XR Chest Exam date and time: 07/29/2023 12:06 PM Age: 82 years old Clinical indication: Other: Cough R/O pneumonia TECHNIQUE: Imaging protocol: Radiologic exam of the chest. Views: 2 views. COMPARISON: CR XR PORTABLE CHEST AP 06/16/2023 9:59 AM FINDINGS: Lungs: Hyperexpanded lung cooper consistent with COPD. Mild opacities in the left base may represent atelectasis or pneumonia.. Pleural spaces: Unremarkable. No pleural effusion. No pneumothorax. Heart/Mediastinum: Stable cardiac silhouette. Bones/joints: Surgical device in the right humeral head IMPRESSION: Mild opacities in the left base may represent atelectasis or pneumonia.. Dictated and Authenticated by: Opal Barrera MD. Ordering:YA Brito MD
== END ==
PROVIDERS: PCP Nurse Practitioner Family; Visit Provider Physician Assistant
DX: J10.1 Influenza due to other identified influenza virus with other respiratory manifestations (principal); R91.8 Other nonspecific abnormal finding of lung field
CPT/HCPCS: 71046

== ENCOUNTER → 2023-08-08 13:28 | Outpatient (CLI) | payer OTHER, SELFPAY ==
--- NOTE | 2023-08-08 | DI.CT_ITS ---
Exam(s) CT HEAD WO EXAM: CT HEAD WO CLINICAL HISTORY: F/U 06/16/23,INJURY OF HEAD,s09.90XD,S/P FALL,BALANCE AND VISION CHANGES. TECHNIQUE: Imaging Protocol: Axial computed tomography images with coronal and sagittal reformatted images were created and reviewed COMPARISON: CT CT HEAD WO from 06/16/2023 FINDINGS: Ventricles and Extra axial spaces: Normal in size and morphology for the patient's age. Hemorrhage: None. Cerebral parenchyma: No evidence of acute infarct or mass. Stable appearance white matter changes l ikely reflecting chronic microvascular disease. Midline shift: None. Brainstem/Cerebellum: Normal. Calvarium: Normal. Visualized Paranasal sinuses:Clear. Mastoids: Clear. Soft Tissues: Improvement in previously noted left frontal scalp hematoma. ORBITS: Unremarkable. PITUITARY: Normal. IMPRESSION: No acute intracranial process. RADIATION DOSE DELIVERED: 638.91mGy.cm Total DLP DATA REPOSITORY: All CT scans at this facility are submitted to the National Radiology Data Registry (NRDR) Dose Index Registry (DIR) with the [employer] (ACR). RADIATION OPTIMIZATION: All CT scans at this facility use at least one of these dose optimization te chniques: automated exposure control; mA and/or kV adjustment per patient size (includes targeted exa ms where dose is matched to clinical indication); or iterative reconstruction.
== END ==
PROVIDERS: PCP Nurse Practitioner Family; Visit Provider Nurse Practitioner Family
DX: S09.90XD Unspecified injury of head, subsequent encounter (principal); X58.XXXD Exposure to other specified factors, subsequent encounter
CPT/HCPCS: 70450

== ENCOUNTER 2023-08-11 15:52 | Outpatient (REF) | payer OTHER, SELFPAY ==
[2023-08-11 19:27] LABS: Abs Immature Grans 0.03 10^3/uL (0.0-0.06); Absolute Basophil Count 0.02 10^3/uL (0.0-0.2); Absolute Lymphocyte Count 1.72 10^3/uL (1.2-3.4); Absolute Monocyte Count 0.74 10^3/uL (0.1-0.8); Absolute Neutrophil Count 5.08 10^3/uL (1.2-6.7); Basophils % 0.3; Eosinophils % 1.3; HCT 36.9 % (36.0-46.0); HGB 11.8 g/dL (11.2-15.7); Immature Grans % 0.4; Lymphocytes % 22.4; MCH 31.1 pg (27.0-33.0); MCV 97 fL (80-95); MPV 10.7 fL (8.0-11.0); Monocytes % 9.6; Platelet Count 242 10^3/uL (130-400); RDW 14.5 % (11.7-14.6); RDW-SD 51.5 fL; WBC 7.69 10^3/uL (4.4-10.8)
[2023-08-11 20:29] LABS: ALT 22 U/L (14-59); AST 24 U/L (15-37); Albumin 3.6 g/dL (3.4-5.0); Alkaline Phosphatase 61 U/L (46-116); BUN 23 mg/dL (7-18); Bilirubin, Total 0.7 mg/dL (0.2-1.0); CREATININE 1.4 mg/dL (0.55-1.02); Calcium 9.8 mg/dL (8.5-10.1); Chloride 105 mmol/L (98-107); Estimated GFR 37.33 (mL/min/1.73m2); Glucose 102 mg/dL (74-106); Potassium 4.9 mmol/L (3.5-5.1); Sodium 142 mmol/L (136-145); Total Protein 7.5 g/dL (6.4-8.2)
== END 2023-08-11 15:53 | disposition home or self-care (01) ==
LOC: NCHCN 15:52
PROVIDERS: PCP Nurse Practitioner Family; Visit Provider Nurse Practitioner Family
DX: R53.83 Other fatigue (principal); R10.9 Unspecified abdominal pain
CPT/HCPCS: 80053; 85025

== ENCOUNTER → 2023-08-31 03:10 | Outpatient (CLI) | payer OTHER, SELFPAY ==
--- NOTE | 2023-08-31 | DI.MAMMO_ITS ---
Exam(s) MAMMO SCREENING EXAM: MAMMO SCREENING CLINICAL HISTORY: SCREENING, Z12.39 TECHNIQUE: Mammograms were interpreted according to the usual protocol including computer analysis w [employer] CAD system, tomosynthesis and C-view imaging. COMPARISON: 2013 through 2022 FINDINGS: The breasts are composed of scattered fibroglandular densities, Breast Density category B. No suspicious masses or suspicious microcalcifications are seen. No skin thickening or abnormal axillary lymph nodes are seen. There has been no significant change from prior exams. IMPRESSION: BI-RADS Category 1, Negative mammogram Yearly screening mammography is recommended. Breast Density - Category B, scattered fibroglandular densities. A negative radiographic report should not delay biopsy if a dominant or clinically suspicious mass is present. Up to ten percent of cancers are not identified on mammography. A negative report may reinforce clinical impression. Adenosis and dense breasts may obscure an underlying neoplasm. False positive reports average 6 to 10%. Patient will receive a letter notifying them of these results.
== END ==
PROVIDERS: PCP Nurse Practitioner Family; Visit Provider Nurse Practitioner Family
DX: Z12.31 Encounter for screening mammogram for malignant neoplasm of breast (principal)
CPT/HCPCS: 77063; 77067

== ENCOUNTER → 2023-09-16 12:15 | Outpatient (CLI) | payer OTHER, SELFPAY ==
--- NOTE | 2023-09-16 12:30 | DI.RAD_ITS ---
Exam(s) XR HIP RT COMPLETE AP PELVIS EXAM: XR HIP RT COMPLETE AP PELVIS CLINICAL HISTORY: evaluate pathology. TECHNIQUE: 2D digital imaging was performed. COMPARISON: CR XR HIP RT COMPLETE AP PELVIS from 10/21/2022 FINDINGS: 3 views Again noted is a lag screw across a healed fracture of the right hip. There are moderate-advanced degenerative changes in the right hip noted. No obvious acute fracture. No pelvic fracture identified. IMPRESSION: Previous ORIF right hip. No obvious acute fracture. Moderate-advanced degenerative changes in the r ight hip noted. DATA REPOSITORY: RADIATION DOSE DELIVERED:
--- NOTE | 2023-09-16 12:30 | DI.RAD_ITS ---
Exam(s) XR LUMBAR SPINE COMPLETE EXAM: XR LUMBAR SPINE COMPLETE CLINICAL HISTORY: evaluate pathology. TECHNIQUE: 2D digital imaging was performed. COMPARISON: No exams were available for comparison FINDINGS: Five views. There is osteopenia but no evidence of obvious acute compression fracture. There is moderate degener ative anterolisthesis L4 upon L5 related to facet arthropathy. Also moderate disc space narrowing at this level. Also some disc space narrowing at L1-2 and mild retrolisthesis L1 upon L2. No osseous lesions. Moderate facet arthropathy. There is a right hip lag screw noted. IMPRESSION: Degenerative anterolisthesis L4 upon L5 and moderate disc space narrowing at this level. DATA REPOSITORY: RADIATION DOSE DELIVERED:
== END ==
PROVIDERS: PCP Nurse Practitioner Family; Visit Provider Nurse Practitioner Family
DX: M25.551 Pain in right hip (principal); M54.50 Low back pain, unspecified
CPT/HCPCS: 72110; 73502

== ENCOUNTER → 2023-10-05 14:27 | Outpatient (BNVA) | payer OTHER, SELFPAY | PROVIDERS: PCP Nurse Practitioner Family; Referring Provider Nurse Practitioner Family; Visit Provider Student in an Organized Health Care Education/Training Program | DX: M19.012 Primary osteoarthritis, left shoulder (principal) | CPT/HCPCS: 20610; J1040 ==

== ENCOUNTER → 2023-12-19 14:36 | Outpatient (CLI) | payer OTHER, SELFPAY ==
--- NOTE | 2023-12-19 11:45 | DI.RAD_ITS ---
Exam(s) XR RIBS RT W PA LAT CHEST EXAM: XR RIBS RT W PA LAT CHEST CLINICAL HISTORY: evaluate pathology R07.81 PLEURODYNIA, RIB PAIN RT SIDE TECHNIQUE: 2D digital imaging was performed. COMPARISON: CR,XR XR CHEST 2V PA LATERAL from 07/29/2023 FINDINGS: RIBS 3 VIEWS- There are no obvious acute rib fractures evident. No lytic rib lesions identified. CXR- 2 VIEWS: No lung contusion or pneumothorax. There is no pleural effusion evident. Heart size is normal and there is no significant mediastinal widening. IMPRESSION: 1. No obvious rib fractures evident. Also no significant rib lesions. 2. No ipsilateral lung nor pleural abnormality evident. No pneumothorax. DATA REPOSITORY: RADIATION DOSE DELIVERED:
== END ==
PROVIDERS: PCP Nurse Practitioner Family; Visit Provider Nurse Practitioner Family
DX: R07.81 Pleurodynia (principal)
CPT/HCPCS: 71046; 71100

== ENCOUNTER 2024-02-22 02:16 | Outpatient (CLI) | payer OTHER, SELFPAY ==
--- NOTE | 2024-02-22 | DI.DEXA_ITS ---
Exam(s) XR DEXA BONE DENSITY W/WO DANIEL EXAM: XR DEXA BONE DENSITY W/WO DANIEL CLINICAL HISTORY: OSTEOPENIA, M85.88 TECHNIQUE: HoloUltromex Horizon C densitometer analysis of left hip, lumbar spine and left forearm. Lat eral survey image of the thoracic and lumbar spine. COMPARISON: DX DEXA BONE DENSITY WITH DANIEL from 02/20/2014 CR XR LUMBAR SPINE COMPLETE from 09/16/2023 DEXA scan 2005 FINDINGS: Lateral view of the thoracic and lumbar spine shows no evidence of compression fractures. Bone mineral density measurements of the lumbar spine correspond to a total T-score of -1.8, in the osteopenic range. This is not significantly changed from prior exams. Bone mineral density measurements of the left hip correspond to a total T-score of -2.4. This repre sents a 12.4 percent decrease when compared with 2013 and a 25.0 percent decrease compared to 2005.. The femoral neck T-score is -2.7, in the osteoporotic range.. Theleft forearm bone mineral density measurements correspond to a T-score of the distal 3rd of -4.7, in the osteoporotic range. This represents a 12.7 percent decrease compared with 2013. The forearm was not analyzed in 2005.. IMPRESSION: Osteoporosis of the forearm and hip. Osteopenia of the spine.
== END 2024-02-22 02:36 ==
LOC: DI 02:16
PROVIDERS: PCP Nurse Practitioner Family; Visit Provider Physician Assistant
DX: M85.88 Other specified disorders of bone density and structure, other site (principal); Z13.820 Encounter for screening for osteoporosis
CPT/HCPCS: 77080

== ENCOUNTER 2024-04-29 23:25 | Emergency (ER) | payer OTHER, SELFPAY ==
[2024-04-29] VITALS (26 sets, daily range): BP systolic 171; BP diastolic 62; PULSE 66–74; RESP 10–29; TEMP 37.2; O2SAT 94–98
--- NOTE | 2024-04-29 23:33 | ED.GENADUL_ITS ---
Discharge Plan Disposition Patient Disposition: Home Condition: Stable Discharge Details Clinical Impression: Fall at home, Forehead abrasion, Fracture of phalanx of left ring finger, Fracture of phalanx of left little finger Primary Care Provider: Sarah Gao ED Provider: Mike Powell [place] Meds and New Rx's Prescriptions: New acetaminophen 500 mg tablet 1,000 mg PO Q8H PRN PRN (Reason: pain) Qty: 100 0RF Continued albuterol sulfate [Ventolin HFA] 90 mcg/actuation HFA aerosol inhaler 2 puff IH Q6H PRN (Reason: shortness of breath or wheezing) Qty: 6.7 0RF Rx Instructions: Daily x 2 weeks minimum Adult Probiotic 3 billion cell capsule 3,000 mmu cells PO DAILY Rx Instructions: administer with a meal (DME) Compression Stockings See Rx Instructions .Route .MEDSUPPLY Qty: 1 0RF Rx Instructions: As directed, moderate compression for daily wearing furosemide [Lasix] 20 mg tablet 20 mg PO DAILY PRN (Reason: weight gain or edema) Qty: 30 3RF Patient Comments: takes if needed. Rx Instructions: daily if weight gain >3 lbs per 3 days of leg swelling. omeprazole 20 mg tablet,delayed release (DR/EC) 20 mg PO DAILY Centrum Silver 400-250 mcg tablet,chewable 1 tab PO DAILY fluticasone propion-salmeterol [Advair HFA] 45-21 mcg/actuation HFA aerosol inhaler 2 puff inhalation DAILY calcium carbonate 600 mg calcium (1,500 mg) tablet 600 mg PO DAILY Hair, Skin and Nails Advanced 3.3 mg iron-25 mcg tablet PO hydrocortisone 2.5 % cream 1 applic topical BID PRN magnesium oxide 500 mg capsule 500 mg PO DAILY meclizine 25 mg tablet 25 mg PO DAILY PRN nystatin 100,000 unit/gram powder 1 applic topical BID mecobalamin (vitamin B12) 1,000 mcg tablet,chewable 1,000 mcg PO DAILY Xarelto 10 mg tablet 10 mg PO DAILY Rx Instructions: for 35 days famotidine 20 mg tablet 20 mg PO QHS PRN (Reason: nausea, stomach upset) Rx Instructions: May try BID PRN x 3-4 weeks flaxseed oil 1,000 MG capsule 1,000 mg PO DAILY Held acetaminophen 650 mg tablet extended release 650 mg PO Q12H Hold Instructions: may resume extended release once no longer requiring immediate release form Discontinued apixaban 5 mg tablet 5 mg PO BID Qty: 120 0RF Rx Instructions: Continue for 3-mo min Tx (re-evaluate risks). Discharge Instructions Instructions: How to Use an Incentive Spirometer, Abrasions ED, Finger Fracture ED, Preventing Falls ED Additional Instructions: You were seen after a fall at home. You did break 2 fingers on your left hand and should wear the splint, keep your hand elevated, apply ice on and off and use extra strength acetaminophen for pain. You should not take your extended release acetaminophen during the time you are using the extra strength acetaminophen. You will need follow-up with orthopedics. You should also follow-up with your primary care physician. Use the incentive spirometer to help with your breathing. Ambulate with the use of your walker to help prevent further falls. Return to ED for severe worsening headache, neurologic change, syncope, worsening shortness of breath, other concerns. Referrals: [facility] [Provider Group] Sarah Gao [Primary Care Provider] - HPI General Mode of arrival: wheelchair . Date/Time Provider Initiated Documentation: 04/29/24 23:33 . Limitations to Documentation: no limitations . Information obtained by: patient, RN notes reviewed and old records reviewed . HPI Narrative: Patient presents to ED after a fall tonight. Patient reports getting up to go to the bathroom, tripping and falling. She landed face first but denies any loss of consciousness despite hitting her head. She is on anticoagulation. She complains of left hand pain and left shoulder pain. Reports that she has not felt steady for the weekend with some increased weakness. She has had previous falls. She has had some nausea but no actual vomiting. She has had a mild cough but no shortness of breath. Has some chest pain after the fall but not prior and did not have any syncope. Her son was able to help her up. She was ambulatory afterwards. Denies any abdominal pain, diarrhea, urinary symptoms. Denies any neck or back pain. Related Data Home Medications ?Medication ?Instructions ?Recorded ?Confirmed flaxseed oil 1,000 mg capsule 1,000 mg PO DAILY 10/09/17 04/29/24 albuterol sulfate 90 mcg/actuation 2 puff inhalation Q6H PRN 07/30/20 04/29/24 aerosol inhaler (Ventolin HFA) shortness of breath or wheezing #6.7 grams lactobacillus combination no.8 3 3,000 mmu cells PO DAILY 12/15/20 04/29/24 billion cell capsule (Adult Probiotic) Compression Stockings #1 ea 03/31/21 11/16/23 furosemide 20 mg tablet (Lasix) 20 mg PO DAILY PRN weight gain or 06/10/21 04/29/24 edema #30 tabs multivit with min-folic 1 tab PO DAILY 12/23/21 03/27/24 acid-lutein 400 mcg-250 mcg chewable tablet (Centrum Silver) omeprazole 20 mg tablet,delayed 20 mg PO DAILY 11/16/23 04/29/24 release acetaminophen 650 mg 650 mg PO Q12H 03/27/24 04/29/24 tablet,extended release calcium carbonate 600 mg PO DAILY 03/27/24 04/29/24 famotidine 20 mg tablet 20 mg PO QHS PRN nausea, stomach 03/27/24 04/29/24 upset fluticasone propionate 45 2 puff inhalation DAILY 03/27/24 04/29/24 mcg-salmeterol 21 mcg/actuation HFA inhaler (Advair HFA) hydrocortisone 2.5 % topical cream 1 applic topical BID PRN 03/27/24 04/29/24 magnesium oxide 500 mg capsule 500 mg PO DAILY 03/27/24 04/29/24 meclizine 25 mg tablet 25 mg PO DAILY PRN 03/27/24 04/29/24 mecobalamin (vitamin B12) 1,000 1,000 mcg PO DAILY 03/27/24 03/27/24 mcg chewable tablet multivitamin,min-ferrous fumarate tab PO 03/27/24 03/27/24 3.3 mg-folic 25 mcg-herb tablet (Hair, Skin and Nails Advanced) nystatin 100,000 unit/gram topical 1 applic topical BID 03/27/24 03/27/24 powder rivaroxaban 10 mg tablet (Xarelto) 10 mg PO DAILY 03/27/24 04/29/24 acetaminophen 500 mg tablet 1,000 mg (2 x 500 mg) PO Q8H PRN 04/30/24 PRN pain #100 tabs Previous Rx's ?Medication ?Instructions ?Recorded albuterol sulfate 90 mcg/actuation 2 puff inhalation Q6H PRN 07/30/20 aerosol inhaler (Ventolin HFA) shortness of breath or wheezing #6.7 grams Compression Stockings #1 ea 03/31/21 furosemide 20 mg tablet (Lasix) 20 mg PO DAILY PRN weight gain or 06/10/21 edema #30 tabs acetaminophen 500 mg tablet 1,000 mg (2 x 500 mg) PO Q8H PRN 04/30/24 PRN pain #100 tabs Allergies Allergy/AdvReac Type Severity Reaction Status Date / Time adhesive tape Allergy Intermediate blisters Verified 04/29/24 23:38 on skin Sulfa (Sulfonamide Allergy Intermediate sister Verified 04/29/24 23:38 Antibiotics) of anaphylaxis per pt aspirin AdvReac Intermediate nosebleeds Verified 04/29/24 23:38 codeine AdvReac Intermediate blackouts Verified 04/29/24 23:38 latex AdvReac Intermediate skin-red Verified 04/29/24 23:38 ithcy spots on skin morphine AdvReac Intermediate becomes Verified 04/29/24 23:38 very ill, vomting gabapentin AdvReac Mild makes me Unverified 04/29/24 23:38 sick General BENNY: 3 Review of Systems Narrative: Per HPI Exam Narrative Exam Narrative: Const: Obese elderly female in NAD. VS per triage. HEENT: NC. Large abrasion to left side of forehead. Neck: Supple. Trachea midline. No cervical spine tenderness. Lungs: Normal respiratory effort. Lungs are clear. Mild chest wall tenderness anteriorly. Cor: RRR with murmur. Good radial pulses. GI: Soft/ND/NT. Back: No midline tenderness. Neuro: A+O x 3. Normal speech, mentation. Cranial nerves II - XII grossly intact. No gross motor or sensory deficit. Ext: No C/C/E. Normal ROM of LE without tenderness or deformity. Pain with ROM left shoulder. Left hand with swelling, contusion. Small skin tear to base of long finger on left. Medical Decision Making Patient presenting to ED after trip and fall at home. She denies any syncope, loss of consciousness, chest pain prior to event. Has some anterior chest wall tenderness after the fall. Lungs are clear and equal. Has an abrasion to the left forehead as well as swelling and contusion to the left hand. Cervical spine is cleared clinically as is TLS spine. Has been feeling weak and unsteady for the weekend. Has low-grade fever here. Will obtain head CT, left shoulder, left hand due to the trauma. Will obtain laboratory studies, chest x-ray, straight cath urine, Fluvid swab due to complaints of weakness, feeling un steady. Patient's head CT negative for intracranial hemorrhage per preliminary radiology read. Left shoulder negative for fracture or dislocation per my read. Left hand with fractures of the proximal ring and little finger. She was placed in a Velcro ulnar gutter splint and will need follow-up with orthopedics. Chest x- ray per my read not significantly different from previous. Preliminary ra diology read with some concern for increased basilar markings. As such noncontrast CT was obtained. These markings were found to be related to atelectasis and not pneumonia. Laboratory studies show a normal hemoglobin. WBC is low at 3.1 and platelets low at 93. May be consistent with potential viral illness. Her kidney function is baseline. Her electrolytes are unremarkable. Urinalysis negative nitrite and negative leukocyte esterase. She does have blood present as well as 5-10 red cells on micro. 3-5 white cells, few epithelial cells, few bacteria and mucus not consistent with infection. Fluvid is negative. Patient did have some transient drops on her pulse ox. We did give her an incentive spirometer and encouraged her to use it to help with the basilar atelectasis. She was given IV acetaminophen for her hand pain. She was able to ambulate with a walker without significant difficulty. Will plan discharge home with referral to PCP for follow-up especially of her CBC as well as to orthopedics for her hand. She is encouraged to keep her hand elevated and use ice on and off. She may take Tylenol 1 g every 8 hours. Cannot use nonsteroidals given her anticoagulation and would not place her on narcotics given her age and her already tenuous gait. Return precautions provided. Imaging Data Radiologic Study: Attestation: I personally reviewed and interpreted this imaging study as follows: Imaging: X-Ray My impression: Chest, left shoulder, left hand reviewed by me, see MDM. Lab Data Lab results reviewed: Yes I reviewed the patient's lab results. Lab results narrative: See MDM PFS All Active Problems (Updated 04/30/24 @ 04:05 by Mike Powell MD) Fracture of phalanx of left little finger (Acute) Fracture of phalanx of left ring finger (Acute) Forehead abrasion (Acute) Fall at home (Acute) Excessive cerumen in both ear canals (Acute) Tinnitus (Acute) Unspecified atherosclerosis of [place] arteries of extremities, bilateral legs (Acute) [facility] 07/14/22.HE Onychomycosis of toenail (Acute) [facility] 07/14/22.HE Arthropathy of left shoulder (Acute) Steroid injection: 10/05/23; 06/22/2023; 02/16/2023; 05/02/22 (more injections previously) Bradycardia (Acute) Family history of cardiac pacemaker (Acute) Encounter for medication review and counseling (Acute) Edema of lower extremity (Acute) Worsening edema, making leg pain worse .. Poor tolerance of compression .. trying lt compression [ ] 12/2020 Chronic neck pain (Chronic) Some relief with PT .. Neck fullness (Acute) Sensation of firmness, swelling (vs neck pain that PT is working on) .. subacute, with high anxiety.. Family history of thyroid disease (Chronic) Hx of family members being told nothing wrong then ID disease .. high anxiety. Sensorineural hearing loss (SNHL) of both ears (Acute) Leg pain, bilateral (Acute) Pt c/o notable leg pain, not just 2' edema ... improves with rest ..[ ] FLORES to eval for claudication Vertigo (Acute) Acute on chronic ... presented to ED, CVA ruled out (04/2021). ENT seen. Small vessel disease, cerebrovascular (Chronic) per MRI, 04/2018 (Hospitalized to r/o CVA .. DDx incl TIA, but most probably VERTIGO) HTN (hypertension) (Chronic) Mostly managed, good today, 09/28/18, ik. 134/68 07/30/19. Dysphagia (Acute) Acute on chronic, fluids>solids (Hx terrible choking resolved, but noting difficulty again).. CKD (chronic kidney disease) stage 3, GFR 30-59 ml/min (Chronic) @ baseline, 03/2021 (Cr 1.2/GFR 43). Dupuytren's contracture of left hand (Acute) small finger Trigger finger, left middle finger (Acute) Tinnitus, bilateral (Acute) Arthritis of right hand (Acute) Arthritis of left hand (Acute) Pulmonary hypertension (Chronic) Acute systolic CHF (congestive heart failure) (Acute) Bradycardia (Acute) Chest pain (Acute) Foot pain, right (Acute) pain, deformity, 5th toe swollen, curved Tendinitis of left rotator cuff (Chronic) Subacromial injection: 02/16/23; 05/02/22; 05/17/2021; 04/13/2020; 07/12/2019 Fatigue (Chronic) Hx low normal Hgb, with elevated MCV (Ddx borderline macrocytic anemia) .. Folate, B12 WNL. Vit D improved (2018). TSH, LFTs WNL. May retest, but 12/2018 shows baseline, w/o acute changes/deficiency. Bilateral knee pain (Acute 05/02/14) Idiopathic peripheral neuropathy (Acute 06/15/12) Osteoporosis (Acute 02/27/14) L wrist T = -3.7 01/2014; but FRAX: 11.4 risk major, 2.6 risk of hip: Rx not recommended Osteopenia (Acute 04/27/06) Pain in lower limb (Acute 05/22/12) Patellar tendinitis (Acute) INjection from Dr. Souza, hurt going but helped pain freatly. Able to walk much better, 10/2018 Hip fracture (Acute) Spinal stenosis at L4-L5 level (Chronic) Closed right hip fracture (Acute) Anxiety (Chronic 02/20/15) Obesity with body mass index 30 or greater (Chronic) BMI 38.2 (if still 5'1) 08/2013 Cough (Acute) recurrent cough, ?allergic rhinnitis, responsive to nasal steroid?; 12/2014 Dysgeusia (Acute 12/15/15) Gastroesophageal reflux disease (Chronic) responds to OTC Prilosec . Ranitidine tried, did not help 06/2019 [ ] return to PPI? 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 Much improved, 11/02/18. Pain in knee region after total knee replacement (Acute 04/03/17) Rt and Lt TKA - Dr. Gonzalez Bilateral corticosteroid injections: 10/10/18 Ocular rosacea (Chronic) question ocular rosacea and mild facial rosacea ([facility] Dr. 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 Asymptomatic. c/o Heart Fluttering 06/2019 .. >[place], 07/2019 .. NSR w/ occ SVT. No AFib. Medical History Asthma Breast pain, left Nail abnormalities (02/27/14) L hand multiple nails; Dr Blair, terbinafine rx toe nails too Displaced intertrochanteric fracture of right femur, subsequent encounter for closed fracture with routine healing (02/12/16) Nail abnormality Obesity Dysgeusia Chest pain GERD (gastroesophageal reflux disease) Prehypertension Intertrigo Mixed stress and urge urinary incontinence Gross hematuria Osteopenia Right arm pain Hyperlipidemia pt. states she is unsure if she has this Head ache Multiple fractures of right femur pt states she fractured her hip Anxiety Nocturia Osteoporosis Multiple joint pain Lumbago Idiopathic peripheral neuropathy Surgical History History of repair of right hip joint History of esophagogastroduodenoscopy (EGD) (~10/15/18) flexible laryngoscopy (03/12/15) Dr Villatoro egd (05/10/16) Replacement of total knee joint Right arthroscopic rtotator cuff repair (04/22/13) RIGHT FOOT FX REPAIR section X4 Open Carpal Tunnel release Hysterectomy, Laproscopic Hemorrhoidectomy Colonoscopy - IV Sedation Cholecystectomy Bilateral salpingectomy with oophorectomy BILATERAL TKA (10/01/12) DR. VANDANA GONZALEZ Family History Mother , Fluid buildup at age 72. Diabetes did not have diabetes Personal history of malignant neoplasm Asthma Father , AD,blood clot at age 69. Alzheimer's disease Son Asthma Son No problems noted. Son No problems noted. Daughter No problems noted. Sister No problems noted. Sister Personal history of malignant neoplasm Sister Personal history of malignant neoplasm Sister No problems noted. 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
--- NOTE | 2024-04-29 23:45 | DI.RAD_ITS ---
Exam(s) XR HAND LT COMPLETE EXAM: XR HAND LT COMPLETE CLINICAL HISTORY: fall, hand pain. TECHNIQUE: 2D digital imaging was performed. Three views. COMPARISON: CR XR HAND LT COMPLETE from 12/21/2020 FINDINGS: BONES: There are fractures at the bases of the 4th and 5th proximal phalanges extending mainly transv ersely. There is dorsal angulation at both fractures. No definite extension to the articular surfac e.. No bony destructive lesion is seen. JOINTS: No dislocation present. Degenerative changes of the interphalangeal joints of the fingers a s well as 1st carpal metacarpal joint. SOFT TISSUE: Dorsal soft tissue swelling. IMPRESSION: Fractures at the bases of the 4th and 5th proximal phalanges. DATA REPOSITORY: RADIATION DOSE DELIVERED:
--- NOTE | 2024-04-29 23:45 | DI.RAD_ITS ---
Exam(s) XR CHEST 2V PA LATERAL EXAM: XR CHEST 2V PA LATERAL CLINICAL HISTORY: weakness TECHNIQUE: 2D digital imaging was performed. Two views. COMPARISON: CR XR RIBS RT W PA LAT CHEST from 12/19/2023 FINDINGS: The AP views limited by under penetration. Leads overlie the chest. HEART: Mildly enlarged. Aorta: Mildly tortuous. PULMONARY VASCULATURE: Normal. MEDIASTINUM: Unremarkable. LUNGS: Fibrotic changes. Linear areas of scarring in the lower lobes. No superimposed infiltrate or pulmonary edema. PLEURAL SPACE: No pleural effusion or pneumothorax. BONE:Unremarkable for age. SOFT TISSUES: Unremarkable. IMPRESSION: No acute abnormality. DATA REPOSITORY: RADIATION DOSE DELIVERED:
--- NOTE | 2024-04-29 23:45 | DI.RAD_ITS ---
Exam(s) XR SHOULDER LT COMPLETE 2+V EXAM: XR SHOULDER LT COMPLETE 2+V CLINICAL HISTORY: fall, shoulder pain. TECHNIQUE: 2D digital imaging was performed. Three views. COMPARISON: CR XR SHOULDER LT COMPLETE 2+V from 02/16/2023 FINDINGS: BONES: No acute fracture is present. No bony destructive lesion is seen. JOINTS: No dislocation present. Degenerative changes of the AC joint and glenohumeral joint. Spurri ng at the undersurface of the acromion. SOFT TISSUE: Normal. IMPRESSION: Degenerative changes. No acute abnormality. DATA REPOSITORY: RADIATION DOSE DELIVERED:
--- NOTE | 2024-04-29 23:45 | DI.CT_ITS ---
Exam(s) CT HEAD WO EXAM: CT HEAD WO CLINICAL HISTORY: fall, head injury on anticoag. TECHNIQUE: Imaging Protocol: Axial computed tomography images with coronal and sagittal reformatted images were created and reviewed COMPARISON: CT CT HEAD WO from 08/08/2023 FINDINGS: Exam is mildly limited by motion. Ventricles and Extra axial spaces: Normal in size and morphology for the patient's age. Hemorrhage: None. Cerebral parenchyma: No evidence of acute infarct or mass. Stable white matter changes of microvasc ular disease. Midline shift: None. Brainstem/Cerebellum: Normal. Calvarium: Normal. Visualized Paranasal sinuses:Clear. Mastoids: Clear. Soft Tissues: Unremarkable. ORBITS: Unremarkable. PITUITARY: Not enlarged. IMPRESSION: No acute intracranial process. RADIATION DOSE DELIVERED: 820.5mGy.cm Total DLP DATA REPOSITORY: All CT scans at this facility are submitted to the National Radiology Data Registry (NRDR) Dose Index Registry (DIR) with the [employer] (A[employer]). RADIATION OPTIMIZATION: All CT scans at this facility use at least one of these dose optimization te chniques: automated exposure control; mA and/or kV adjustment per patient size (includes targeted exa ms where dose is matched to clinical indication); or iterative reconstruction.
[2024-04-29 23:55] LABS: Abs Immature Grans 0.01 10^3/uL (0.0-0.06); Absolute Basophil Count 0.01 10^3/uL (0.0-0.2); Absolute Lymphocyte Count 0.41 10^3/uL (1.2-3.4); Absolute Monocyte Count 0.22 10^3/uL (0.1-0.8); Absolute Neutrophil Count 2.46 10^3/uL (1.2-6.7); Basophils % 0.3 %; HCT 36.9 % (36.0-46.0); HGB 12.3 g/dL (11.2-15.7); Immature Grans % 0.3 %; Lymphocytes % 13.2 %; MCH 31.4 pg (27.0-33.0); MCHC 33.3 % (32.0-36.0); MCV 94 fL (80-95); MPV 11.4 fL (8.0-11.0); Monocytes % 7.1 %; Neutrophils % 79.1 %; RBC 3.92 10^6/uL (3.93-5.22); RDW 13.2 % (11.7-14.6); RDW-SD 45.2 fL; WBC 3.11 10^3/uL (4.4-10.8)
[2024-04-30] VITALS (143 sets, daily range): BP systolic 98–141; BP diastolic 40–66; PULSE 51–62; RESP 9–27; TEMP 36.8; O2SAT 84–99
[2024-04-30 00:10] LABS: ALT 16 U/L (14-59); AST 47 U/L (15-37); Albumin 3.4 g/dL (3.4-5.0); Alkaline Phosphatase 68 U/L (46-116); BUN 24 mg/dL (7-18); Bilirubin, Total 0.78 mg/dL (0.2-1.0); CREATININE 1.5 mg/dL (0.55-1.02); Calcium 8.9 mg/dL (8.5-10.1); Chloride 99 mmol/L (98-107); Diff Comment PLT Morph Reviewed; Estimated GFR 34.15 (mL/min/1.73m2); Glucose 111 mg/dL (74-106); Magnesium 1.9 mg/dL (1.8-2.4); Platelet Count 93 10^3/uL (130-400); Potassium 4.1 mmol/L (3.5-5.1); Sodium 134 mmol/L (136-145); Total Protein 6.6 g/dL (6.4-8.2)
[2024-04-30 00:11] LABS: RBC Morphology Normal
[2024-04-30 00:15] LABS: Bilirubin Negative (Negative); Blood Moderate (Negative); Clarity Clear (Clear); Glucose Negative (Negative); Ketones Trace mg/dL (Negative); Leukocyte Esterase Negative (Negative); Nitrite Negative (Negative); Specific Gravity 1.025 (1.005-1.025); Urobilinogen 0.2 mg/dL (Up to 0.2)
[2024-04-30 00:29] LABS: Bacteria Few HPF (Negative); C & S Indicated? No; Casts 0-2 Coarse Granular LPF (Negative); Crystals Negative HPF (Negative); Epithelial Cells Few HPF (Negative); Mucus Moderate (Negative); Other Cells Rare Renal (Negative)
[2024-04-30 00:33] LABS: COVID-19 PCR Negative (Negative); Influenza A PCR Negative (Negative); Influenza B PCR Negative (Negative); RSV PCR Negative (Negative)
[2024-04-30 00:34] LABS: Source Nasopharynx
[2024-04-30] MEDS: Ondansetron 4 MG/2 ML VIAL IVP (00:58)
[2024-04-30] MEDS: ACETAMINOPHEN 1,000 MG/100 ML BAG 400 MG IVPB (00:58)
--- NOTE | 2024-04-30 01:12 | DI.VRAD_ITS ---
PROCEDURE INFORMATION: Exam: CT Head Without Contrast Exam date and time: 04/30/2024 12:08 AM Age: 83 years old Clinical indication: Injury or trauma; Blunt trauma (contusions or hematomas); Without loss of consciousness; Injury date: 04/29/24; Injury details: Fall, head injury, on anticag TECHNIQUE: Imaging protocol: Computed tomography of the head without contrast. Radiation optimization: All CT scans at this facility use at least one of these dose optimization techniques: automated exposure control; mA and/or kV adjustment per patient size (includes targeted exams where dose is matched to clinical indication); or iterative reconstruction. COMPARISON: CT HEAD WO 08/08/2023 3:25 PM FINDINGS: Brain: Small vessel ischemic changes in the periventricular white matter. No evidence of an acute cortical infarct. Cerebral ventricles: No ventriculomegaly. Paranasal sinuses: Visualized sinuses are unremarkable. No fluid levels. Mastoid air cells: Visualized mastoid air cells are well aerated. Bones: Unremarkable. No acute fracture. Soft tissues: Unremarkable. IMPRESSION: No acute intracranial abnormality. Changes of an acute infarct may not be visible on CT for up to 24 to 48 hours. Dictated and Authenticated by: Aguila Lopez MD. Ordering:MARIE Mckeon MD
--- NOTE | 2024-04-30 01:30 | DI.VRAD_ITS ---
PROCEDURE INFORMATION: Exam: XR Left Shoulder Exam date and time: 04/30/2024 12:26 AM Age: 83 years old Clinical indication: Injury or trauma; Blunt trauma (contusions or hematomas); Left; Injury date: 04/29/24; Injury details: Fall, shoulder pain TECHNIQUE: Imaging protocol: Radiologic exam of the left shoulder. Views: 2 or more views. COMPARISON: CR XR SHOULDER LT COMPLETE 2+V 02/16/2023 11:59 AM FINDINGS: Bones/joints: Sldc-ty-czltfbft degenerative changes. No acute fracture. No acute malalignment. Soft tissues: Normal. IMPRESSION: No acute bony abnormality. Dictated and Authenticated by: Aguila Lopez MD. Ordering:MARIE Mckeon MD
--- NOTE | 2024-04-30 01:30 | DI.CT_ITS ---
Exam(s) CT CHEST WO EXAM: CT CHEST WO CLINICAL HISTORY: weakness, ? base infiltrates per CXR read TECHNIQUE: Imaging Protocol: Axial computed tomography images with coronal and sagittal reformatted images were created and reviewed. Computer aided detection (CAD) was utilized. CONTRAST MATERIAL: Intravenous: Omnipaque 350 Contrast volume:structured data ml. COMPARISON: CT CT CHEST PE CTA from 08/10/2022 CR,XR XR CHEST 2V PA LATERAL from 04/30/2024 FINDINGS: Pulmonary parenchyma: No consolidation. No dominant measurable mass. Linear atelectasis/scarring n oted at the lung bases. Tracheobronchial tree: No bronchiectasis or mucous plugging. Mediastinum and Emma: No dominant adenopathy or fluid collection. Pleura: No effusion. No pneumothorax. Heart: The heart is mildly dilated. Mild coronary artery calcifications are seen. Aorta: Thoracic aorta non-dilated. Mild atherosclerotic changes. Pulmonary arteries: No gross evidence of emboli. Upper abdomen: No acute findings. Bones: Degenerative changes in the spine and shoulders. Soft tissues: Unremarkable. IMPRESSION: No acute abnormality.No evidence of infiltrates. Linear atelectasis/scarring at the lung bases. RADIATION DOSE DELIVERED: 294.45mGy.cm Total DLP DATA REPOSITORY: All CT scans at this facility are submitted to the National Radiology Data Registry (NRDR) Dose Index Registry (DIR) with the [employer] (ACR). RADIATION OPTIMIZATION: All CT scans at this facility use at least one of these dose optimization te chniques: automated exposure control; mA and/or kV adjustment per patient size (includes targeted exa ms where dose is matched to clinical indication); or iterative reconstruction.
--- NOTE | 2024-04-30 01:32 | DI.VRAD_ITS ---
PROCEDURE INFORMATION: Exam: XR Chest Exam date and time: 04/30/2024 12:21 AM Age: 83 years old Clinical indication: Other: Weakness TECHNIQUE: Imaging protocol: Radiologic exam of the chest. Views: 2 views. COMPARISON: CR XR RIBS RT W PA LAT CHEST 12/19/2023 12:22 PM FINDINGS: Lungs: Pulmonary vascular markings upper normal. Mild linear airspace disease and/or atelectasis both lung bases. Pleural spaces: Unremarkable. No pleural effusion. No pneumothorax. Heart/Mediastinum: Mild cardiomegaly. Bones/joints: Unremarkable. IMPRESSION: Mild linear airspace disease and/or atelectasis both lung bases. Dictated and Authenticated by: Aguila Lopez MD. Ordering:MARIE Mckeon MD
--- NOTE | 2024-04-30 01:34 | DI.VRAD_ITS ---
PROCEDURE INFORMATION: Exam: XR Left Hand Exam date and time: 04/30/2024 12:39 AM Age: 83 years old Clinical indication: Injury or trauma; Blunt trauma (contusions or hematomas); Left; Injury date: 04/27/24; Injury details: Fall, hand pain, bruising. Laceration base of 3rd digit TECHNIQUE: Imaging protocol: Radiologic exam of the left hand. Views: 3 or more views. COMPARISON: CR XR HAND LT COMPLETE 12/21/2020 9:12 AM FINDINGS: Bones/joints: Acute intra-articular fractures bases proximal phalanges 4th and 5th fingers. No other fractures identified. No dislocation. Degenerative osteoarthritic changes worse at the IP joints, radial aspect of the wrist and base of the thumb. Soft tissues: Soft tissue edema at the hand. IMPRESSION: Acute intra-articular fractures bases proximal phalanges 4th and 5th fingers. Dictated and Authenticated by: Aguila Lopez MD. Ordering:MARIE Mckeon MD
--- NOTE | 2024-04-30 03:32 | DI.VRAD_ITS ---
PROCEDURE INFORMATION: Exam: CT Chest Without Contrast; Diagnostic Exam date and time: 04/30/2024 1:41 AM Age: 83 years old Clinical indication: Patient HX: Weakness, ? base infiltrates per cxr read TECHNIQUE: Imaging protocol: Diagnostic computed tomography of the chest without contrast. 3D rendering (Not supervised by radiologist): MIP and/or 3D reconstructed images were created by the technologist. Radiation optimization: All CT scans at this facility use at least one of these dose optimization techniques: automated exposure control; mA and/or kV adjustment per patient size (includes targeted exams where dose is matched to clinical indication); or iterative reconstruction. COMPARISON: CT CHEST PE CTA 02/01/2023 11:57 FINDINGS: Lungs: Bibasilar platelike atelectasis. No focal airspace consolidation. Pleural spaces: No pleural effusion or pneumothorax. Heart: Unremarkable. No cardiomegaly. No pericardial effusion. Lymph nodes: Unremarkable. No enlarged lymph nodes. Vasculature: Unremarkable. No aortic aneurysm. Bones/joints: No acute fracture. Soft tissues: Unremarkable. IMPRESSION: Bibasilar atelectasis. Dictated and Authenticated by: Edin Hernandez MD. Ordering:MARIE Mckeon MD
== END 2024-04-30 04:43 | disposition home or self-care (01) ==
PROVIDERS: Emergency Provider Emergency Medicine; PCP Nurse Practitioner Family
DX: S62.607A Fracture of unspecified phalanx of left little finger, initial encounter for closed fracture (principal); S62.605A Fracture of unspecified phalanx of left ring finger, initial encounter for closed fracture; S00.81XA Abrasion of other part of head, initial encounter; M25.512 Pain in left shoulder; R11.0 Nausea; R42 Dizziness and giddiness; W19.XXXA Unspecified fall, initial encounter; R53.1 Weakness
CPT/HCPCS: 26720; 36415; 71250; 80053; 87637; 96374; 96375; 99284; 70450; 71046; 73030; 73130; 81003; 81015; 83735; 85025; J0131; J2405

== ENCOUNTER 2024-05-08 11:39 | Outpatient (CLI) | payer OTHER, SELFPAY ==
--- NOTE | 2024-05-08 09:15 | DI.RAD_ITS ---
Exam(s) XR HAND LT COMPLETE EXAM: XR HAND LT COMPLETE CLINICAL HISTORY: F/U FRACTURE. TECHNIQUE: 2D digital imaging was performed of the left hand. Three views were obtained. AP, later al and oblique views were obtained. COMPARISON: CR,XR XR HAND LT COMPLETE from 04/30/2024 FINDINGS: BONES: There has been no change in alignment of the fracture involving the proximal metaphysis of the proximal phalanx of the 4th finger. There is also again seen a fracture involving the proximal aspe ct of the proximal phalanx of the 5th finger with dorsal angulation. This is unchanged. No new frac tures identified. No bony destructive lesion is seen. JOINTS: No dislocation present. Marked osteoarthritis is present characterized by joint space narrowi ng and osteophytes. The findings are most marked at the interphalangeal joint of the 1st CMC joint. SOFT TISSUE: There is chondrocalcinosis at the radiocarpal joint. IMPRESSION: Stable alignment of the fractures involving the proximal phalanges of the 4th and 5th fingers. DATA REPOSITORY: RADIATION DOSE DELIVERED:
== END 2024-05-08 11:40 | disposition home or self-care (01) ==
LOC: DIORS 14:38
PROVIDERS: PCP Nurse Practitioner Family; Referring Provider Nurse Practitioner Family; Visit Provider Student in an Organized Health Care Education/Training Program
DX: S62.607D Fracture of unspecified phalanx of left little finger, subsequent encounter for fracture with routine healing; S62.605D Fracture of unspecified phalanx of left ring finger, subsequent encounter for fracture with routine healing; W19.XXXD Unspecified fall, subsequent encounter
CPT/HCPCS: 99214; 73130

== ENCOUNTER 2024-05-10 15:21 | Inpatient (IN) | payer OTHER, SELFPAY ==
[2024-05-10] VITALS (78 sets, daily range): BP systolic 87–194; BP diastolic 29–88; PULSE 73–103; RESP 20–36; TEMP 38.6–39.3; O2SAT 87–96
--- NOTE | 2024-05-10 15:15 | RT.EKG_ITS ---
APPROVED REPORT Exam: Resting ECG Reason for Exam: AMS Patient Location: E HR:91 bpm ECG Measurements Heart Rate 91 AXIS AZ 180 P 60 QRSd 97 QRS -38 QT 330 T 79 QTc 407 Conclusion Sinus rhythm...normal P axis, V-rate 60- 99 Ventricular bigeminy...bigeminy string>4 w/ V complexes Left axis deviation...QRS axis (-30,-90) Anteroseptal infarct, old...Q >40mS, V1-V2
--- NOTE | 2024-05-10 16:20 | ED.GENADUL_ITS ---
Discharge Plan Discharge Details Chief Complaint: Fever Primary Care Provider: Sarah Gao ED Provider: Ang Finney Home Meds and New Rx's Prescriptions: No Action albuterol sulfate [Ventolin HFA] 90 mcg/actuation HFA aerosol inhaler 2 puff IH Q6H PRN (Reason: shortness of breath or wheezing) Qty: 6.7 0RF Rx Instructions: Daily x 2 weeks minimum Adult Probiotic 3 billion cell capsule 3,000 mmu cells PO DAILY Rx Instructions: administer with a meal (DME) Compression Stockings See Rx Instructions .Route .MEDSUPPLY Qty: 1 0RF Rx Instructions: As directed, moderate compression for daily wearing furosemide [Lasix] 20 mg tablet 20 mg PO DAILY PRN (Reason: weight gain or edema) Qty: 30 3RF Patient Comments: takes if needed. Rx Instructions: daily if weight gain >3 lbs per 3 days of leg swelling. omeprazole 20 mg tablet,delayed release (DR/EC) 20 mg PO DAILY Centrum Silver 400-250 mcg tablet,chewable 1 tab PO DAILY acetaminophen 650 mg tablet extended release 650 mg PO Q12H fluticasone propion-salmeterol [Advair HFA] 45-21 mcg/actuation HFA aerosol inhaler 2 puff inhalation DAILY hydrocortisone 2.5 % cream 1 applic topical BID PRN magnesium oxide 500 mg capsule 500 mg PO DAILY meclizine 25 mg tablet 25 mg PO DAILY PRN nystatin 100,000 unit/gram powder 1 applic topical BID mecobalamin (vitamin B12) 1,000 mcg tablet,chewable 1,000 mcg PO DAILY Xarelto 10 mg tablet 10 mg PO DAILY Rx Instructions: for 35 days famotidine 20 mg tablet 20 mg PO QHS PRN (Reason: nausea, stomach upset) Rx Instructions: May try BID PRN x 3-4 weeks flaxseed oil 1,000 MG capsule 1,000 mg PO DAILY acetaminophen 500 mg tablet 1,000 mg PO Q8H PRN PRN (Reason: pain) Qty: 100 0RF calcium carbonate-vitamin D3 [Calcium 600 + D(3)] 600 mg-5 mcg (200 unit) tablet 2 tab PO DAILY HPI General Date/Time Provider Initiated Documentation: 05/10/24 15:23 . Information obtained by: patient . HPI Narrative: 83-year-old female with multiple medical problems including recent history of frequent falls, here with chief complaint of generally not feeling well. History limited secondary to poor historian. Patient and daughter note generally not feeling well over the past few days with associated fever today. She has been complaining of abdominal pain over the past couple weeks as well as low back pain. No urinary symptoms. She has had some cough. Decreased appetite over the same period. Of note, patient did recently have tooth extraction and has been on amoxicillin since last night. Related Data Home Medications ?Medication ?Instructions ?Recorded ?Confirmed flaxseed oil 1,000 mg capsule 1,000 mg PO DAILY 10/09/17 05/10/24 albuterol sulfate 90 mcg/actuation 2 puff inhalation Q6H PRN 07/30/20 05/10/24 aerosol inhaler (Ventolin HFA) shortness of breath or wheezing #6.7 grams lactobacillus combination no.8 3 3,000 mmu cells PO DAILY 12/15/20 05/10/24 billion cell capsule (Adult Probiotic) Compression Stockings #1 ea 03/31/21 05/10/24 furosemide 20 mg tablet (Lasix) 20 mg PO DAILY PRN weight gain or 06/10/21 05/10/24 edema #30 tabs mdzyirqhoiqb-qxctern-pjhse acid 1 tab PO DAILY 12/23/21 05/10/24 400 mcg-lutein 250 mcg chewable tablet (Centrum Silver) omeprazole 20 mg tablet,delayed 20 mg PO DAILY 11/16/23 05/10/24 release acetaminophen 650 mg 650 mg PO Q12H 03/27/24 05/10/24 tablet,extended release famotidine 20 mg tablet 20 mg PO QHS PRN nausea, stomach 03/27/24 05/10/24 upset fluticasone propionate 45 2 puff inhalation DAILY 03/27/24 05/10/24 mcg-salmeterol 21 mcg/actuation HFA inhaler (Advair HFA) hydrocortisone 2.5 % topical cream 1 applic topical BID PRN 03/27/24 05/10/24 magnesium oxide 500 mg capsule 500 mg PO DAILY 03/27/24 05/10/24 meclizine 25 mg tablet 25 mg PO DAILY PRN 03/27/24 05/10/24 mecobalamin (vitamin B12) 1,000 1,000 mcg PO DAILY 03/27/24 05/10/24 mcg chewable tablet nystatin 100,000 unit/gram topical 1 applic topical BID 03/27/24 05/10/24 powder rivaroxaban 10 mg tablet (Xarelto) 10 mg PO DAILY 03/27/24 05/10/24 acetaminophen 500 mg tablet 1,000 mg (2 x 500 mg) PO Q8H PRN 04/30/24 05/10/24 PRN pain #100 tabs calcium 600 mg (as 2 tab PO DAILY 05/10/24 05/10/24 carbonate)-vitamin D3 5 mcg (200 unit) tablet (Calcium 600 + D(3)) Previous Rx's ?Medication ?Instructions ?Recorded albuterol sulfate 90 mcg/actuation 2 puff inhalation Q6H PRN 07/30/20 aerosol inhaler (Ventolin HFA) shortness of breath or wheezing #6.7 grams Compression Stockings #1 ea 03/31/21 furosemide 20 mg tablet (Lasix) 20 mg PO DAILY PRN weight gain or 06/10/21 edema #30 tabs acetaminophen 500 mg tablet 1,000 mg (2 x 500 mg) PO Q8H PRN 04/30/24 PRN pain #100 tabs Allergies Allergy/AdvReac Type Severity Reaction Status Date / Time adhesive tape Allergy Intermediate blisters Verified 05/08/24 09:09 on skin Sulfa (Sulfonamide Allergy Intermediate sister Verified 05/08/24 09:09 Antibiotics) of anaphylaxis per pt aspirin AdvReac Intermediate nosebleeds Verified 05/08/24 09:09 codeine AdvReac Intermediate blackouts Verified 05/08/24 09:09 latex AdvReac Intermediate skin-red Verified 05/08/24 09:09 ithcy spots on skin morphine AdvReac Intermediate becomes Verified 05/08/24 09:09 very ill, vomting gabapentin AdvReac Mild makes me Unverified 05/08/24 09:09 sick General Stated Complaint: Fever BENNY: 3 Review of Systems All systems reviewed & are unremarkable except as noted in HPI and below Constitutional Constitutional: Reports body ache(s) and Reports fever(s) ENT Ears, Nose, Mouth, and Throat: Reports as per HPI Comments: No dental pain Cardiovascular Cardiovascular: Denies chest pain Respiratory Respiratory: Reports as per HPI Gastrointestinal Gastrointestinal: Reports as per HPI Exam Const General: cooperative and no acute distress HENMT Mouth: mucous membranes dry Throat: posterior oropharynx normal Other: Healing postextraction site with no swelling, fluctuance or significant tenderness Eyes Conjunctivae: normal conjunctivae Sclera: normal sclerae Neck Neck: trachea midline Resp Auscultation: rhonchi left upper and no wheezes Cardio Rate: regular rate and not tachycardic Rhythm: regular rhythm GI Palpation: soft, not firm, no guarding, no masses, not rigid and tender in the epigastrum Back/Spine/Pelvis Back: no CVA tenderness and No erythema Thoracic/Lumbar Spine: thoracic and lumbar spine normal to inspection Skin General skin exam: no rashes or lesions noted Neuro General: patient alert, patient awake, patient oriented x3 and tone normal Extrem General: no edema Psych Appearance: grossly normal Mental Status: mental status grossly normal Speech and Movement: speech and movement normal Course Vital Signs Vital signs: Vital Signs Temperature 39.3 C H 05/10/24 15:26 Pulse 103 H 05/10/24 15:26 Respiratory Rate 22 05/10/24 15:26 Blood Pressure 194/78 H 05/10/24 15:26 Pulse Oximetry 94 05/10/24 15:26 Temperature 39.3 C H 05/10/24 15:32 Temperature Source Oral 05/10/24 15:32 Pulse 103 H 05/10/24 15:32 Respiratory Rate 22 05/10/24 15:32 Respiratory Effort Short of Breath 05/10/24 15:31 Blood Pressure 194/78 H 05/10/24 15:32 Pulse Oximetry 94 05/10/24 15:32 Pain Level 10 05/10/24 15:32 Lab/Test Results Lab/Test Results: 05/10/24 16:13 Blood Blood Culture - Pending 05/10/24 16:13 Blood Blood Culture - Pending Medical Decision Making 1625 --83-year-old female with recently has a history of frequent falls, left hand fractures, here with febrile illness today, generally not feeling well over the past 1 to 2 weeks with intermittent complaints of abdominal discomfort and decreased appetite. Patient also with low back pain over the past few weeks. Patient is saturating well in no respiratory distress. She does have some rhonchi on auscultation. She is tachycardic, febrile, and hypertensive on arrival. Patient meets sepsis criteria. Unclear source at this point. Given persistent abdominal pain, consider acute intra-abdominal surgical process and will obtain CT of the abdomen and pelvis. I will include CT of the chest given rhonchi and recent cough. Consider COVID illness versus influenza. Fluvid pending. Consider urinary tract infection. Patient did recently have dental extraction. Extraction site appears to be healing well with no signs of infection. If no other source identified, would pursue imaging for potential dental etiology. Patient is tachycardic with dry mucous membranes. She will benefit from IV fluid. Quality:SDOH Health Related Social Needs: No Data to Display PFSH All Active Problems Fracture of phalanx of left little finger (Acute) Fracture of phalanx of left ring finger (Acute) Forehead abrasion (Acute) Fall at home (Acute) Excessive cerumen in both ear canals (Acute) Tinnitus (Acute) Unspecified atherosclerosis of [place] arteries of extremities, bilateral legs (Acute) [facility] 07/14/22.HE Onychomycosis of toenail (Acute) [facility] 07/14/22.HE Arthropathy of left shoulder (Acute) Steroid injection: 10/05/23; 06/22/2023; 02/16/2023; 05/02/22 (more injections previously) Bradycardia (Acute) Family history of cardiac pacemaker (Acute) Encounter for medication review and counseling (Acute) Edema of lower extremity (Acute) Worsening edema, making leg pain worse .. Poor tolerance of compression .. trying lt compression [ ] 12/2020 Chronic neck pain (Chronic) Some relief with PT .. Neck fullness (Acute) Sensation of firmness, swelling (vs neck pain that PT is working on) .. suba cute, with high anxiety.. Family history of thyroid disease (Chronic) Hx of family members being told nothing wrong then ID disease .. high anxiety. Sensorineural hearing loss (SNHL) of both ears (Acute) Leg pain, bilateral (Acute) Pt c/o notable leg pain, not just 2' edema ... improves with rest ..[ ] FLORES to eval for claudication Vertigo (Acute) Acute on chronic ... presented to ED, CVA ruled out (04/2021). ENT seen. Small vessel disease, cerebrovascular (Chronic) per MRI, 04/2018 (Hospitalized to r/o CVA .. DDx incl TIA, but most probably VERTIGO) HTN (hypertension) (Chronic) Mostly managed, good today, 09/28/18, ik. 134/68 07/30/19. Dysphagia (Acute) Acute on chronic, fluids>solids (Hx terrible choking resolved, but noting difficulty again).. CKD (chronic kidney disease) stage 3, GFR 30-59 ml/min (Chronic) @ baseline, 03/2021 (Cr 1.2/GFR 43). Dupuytren's contracture of left hand (Acute) small finger Trigger finger, left middle finger (Acute) Tinnitus, bilateral (Acute) Arthritis of right hand (Acute) Arthritis of left hand (Acute) Pulmonary hypertension (Chronic) Acute systolic CHF (congestive heart failure) (Acute) Bradycardia (Acute) Chest pain (Acute) Foot pain, right (Acute) pain, deformity, 5th toe swollen, curved Tendinitis of left rotator cuff (Chronic) Subacromial injection: 02/16/23; 05/02/22; 05/17/2021; 04/13/2020; 07/12/2019 Fatigue (Chronic) Hx low normal Hgb, with elevated MCV (Ddx borderline macrocytic anemia) .. Folate, B12 WNL. Vit D improved (2018). TSH, LFTs WNL. May retest, but 12/2018 shows baseline, w/o acute changes/deficiency. Bilateral knee pain (Acute 05/02/14) Idiopathic peripheral neuropathy (Acute 06/15/12) Osteoporosis (Acute 02/27/14) L wrist T = -3.7 01/2014; but FRAX: 11.4 risk major, 2.6 risk of hip: Rx not recommended Osteopenia (Acute 04/27/06) Pain in lower limb (Acute 05/22/12) Patellar tendinitis (Acute) INjection from Dr. Souza, hurt going but helped pain freatly. Able to walk much better, 10/2018 Hip fracture (Acute) Spinal stenosis at L4-L5 level (Chronic) Closed right hip fracture (Acute) Anxiety (Chronic 02/20/15) Obesity with body mass index 30 or greater (Chronic) BMI 38.2 (if still 5'1) 08/2013 Cough (Acute) recurrent cough, ?allergic rhinnitis, responsive to nasal steroid?; 12/2014 Dysgeusia (Acute 12/15/15) Gastroesophageal reflux disease (Chronic) responds to OTC Prilosec . Ranitidine tried, did not help 06/2019 [ ] return to PPI? 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 Much improved, 11/02/18. Pain in knee region after total knee replacement (Acute 04/03/17) Rt and Lt TKA - Dr. Gonzalez Bilateral corticosteroid injections: 10/10/18 Ocular rosacea (Chronic) question ocular rosacea and mild facial rosacea ([facility] Dr. 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 Asymptomatic. c/o Heart Fluttering 06/2019 .. >[place], 07/2019 .. NSR w/ occ SVT. No AFib. Medical History Asthma Breast pain, left Nail abnormalities (02/27/14) L hand multiple nails; Dr Blair, terbinafine rx toe nails too Displaced intertrochanteric fracture of right femur, subsequent encounter for closed fracture with routine healing (02/12/16) Nail abnormality Obesity Dysgeusia Chest pain GERD (gastroesophageal reflux disease) Prehypertension Intertrigo Mixed stress and urge urinary incontinence Gross hematuria Osteopenia Right arm pain Hyperlipidemia pt. states she is unsure if she has this Head ache Multiple fractures of right femur pt states she fractured her hip Anxiety Nocturia Osteoporosis Multiple joint pain Lumbago Idiopathic peripheral neuropathy Surgical History History of repair of right hip joint History of esophagogastroduodenoscopy (EGD) (~10/15/18) flexible laryngoscopy (03/12/15) Dr Villatoro egd (05/10/16) Replacement of total knee joint Right arthroscopic rtotator cuff repair (04/22/13) RIGHT FOOT FX REPAIR section X4 Open Carpal Tunnel release Hysterectomy, Laproscopic Hemorrhoidectomy Colonoscopy - IV Sedation Cholecystectomy Bilateral salpingectomy with oophorectomy BILATERAL TKA (10/01/12) DR. VANDANA GONZALEZ Family History Mother , Fluid buildup at age 72. Diabetes did not have diabetes Personal history of malignant neoplasm Asthma Father , AD,blood clot at age 69. Alzheimer's disease Son Asthma Son No problems noted. Son No problems noted. Daughter No problems noted. Sister No problems noted. Sister Personal history of malignant neoplasm Sister Personal history of malignant neoplasm Sister No problems noted. 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
--- NOTE | 2024-05-10 16:30 | DI.CT_ITS ---
Exam(s) CT CHEST/ABD/PEL W EXAM: CT CHEST/ABD/PEL W CLINICAL HISTORY: Fever, rhonchi, abdominal pain, sepsis. TECHNIQUE: Imaging Protocol: Axial computed tomography images with coronal and sagittal reformatted images were created and reviewed. Computer aided detection (CAD) was utilized. CONTRAST MATERIAL: Intravenous: Omnipaque 350 Contrast volume:100 ml Oral: no COMPARISON: CT CT CHEST WO from 04/30/2024 CR,XR XR CHEST 2V PA LATERAL from 04/30/2024 FINDINGS: CHEST: Tracheobronchial tree: Patent. Pulmonary parenchyma: Basilar atelectasis. Mildly increased interlobular septal thickening, greater at the lung bases, likely reflecting CHF. No consolidation or dominant measurable mass. Pleura: Tiny bilateral pleural effusions. No pneumothorax. Mediastinum: Within normal limits. Aorta: Thoracic portion non-dilated. Pulmonary arteries: No gross visible emboli. Heart: Mildly enlarged. Coronary artery calcifications. No pericardial effusion. Bones: Unremarkable for age. No lytic or blastic lesions.No compression fractures. Soft tissues: Unremarkable. ABDOMEN and PELVIS: Liver: Normal density. No measurable mass. Gallbladder and biliary tract: Status post cholecystectomy. No biliary dilatation. Pancreas: Normal density, no abnormal calcifications or inflammatory process. Spleen: Normal. Kidneys: Normal size, contour and axis. Nonobstructing stone lower pole left kidney. No obstructive uropathy. No suspicious masses seen. Adrenal glands: No masses seen. Aorta: Abdominal portion non-dilated. Lymph nodes: Within normal limits. Soft tissues: Unremarkable. Bladder: Unremarkable. Bowel: No obstruction or bowel wall thickening. Diverticulosis noted from descending through sigmoi d. No evidence of diverticulitis. Peritoneal cavity: No ascites. No focal collection. No mesenteric inflammatory response. No free ai r. Bones: Hardware right proximal femur. Degenerative changes in lumbar spine. Reproductive organs: Status post hysterectomy. IMPRESSION: Small bilateral pleural effusions, interlobular septal thickening, suspicious for CHF. No focal area consolidation. No acute abnormality in the abdomen or pelvis. Diverticulosis again noted. No evidence of diverticu litis. RADIATION DOSE DELIVERED: Total DLP DATA REPOSITORY: All CT scans at this facility are submitted to the National Radiology Data Registry (NRDR) Dose Index Registry (DIR) with the [employer] ([employer]). RADIATION OPTIMIZATION: All CT scans at this facility use at least one of these dose optimization te chniques: automated exposure control; mA and/or kV adjustment per patient size (includes targeted exa ms where dose is matched to clinical indication); or iterative reconstruction.
[2024-05-10 16:36] LABS: Lactate 1.4 mmol/L (0.6-1.4)
[2024-05-10 16:39] LABS: Abs Immature Grans 0.04 10^3/uL (0.0-0.06); Absolute Basophil Count 0.01 10^3/uL (0.0-0.2); Absolute Lymphocyte Count 1.21 10^3/uL (1.2-3.4); Absolute Monocyte Count 0.46 10^3/uL (0.1-0.8); Basophils % 0.1 %; HCT 34.3 % (36.0-46.0); HGB 11.5 g/dL (11.2-15.7); Immature Grans % 0.4 %; Lymphocytes % 13.1 %; MCH 30.1 pg (27.0-33.0); MCHC 33.5 % (32.0-36.0); MCV 90 fL (80-95); Neutrophils % 81.4 %; RBC 3.82 10^6/uL (3.93-5.22); RDW 14.1 % (11.7-14.6); RDW-SD 46.6 fL; WBC 9.22 10^3/uL (4.4-10.8)
[2024-05-10 16:50] LABS: COVID-19 PCR Negative (Negative); Influenza A PCR Negative (Negative); Influenza B PCR Negative (Negative); RSV PCR Negative (Negative); Source Nasopharynx
[2024-05-10 16:54] LABS: ALT 29 U/L (14-59); AST 38 U/L (15-37); Albumin 2.8 g/dL (3.4-5.0); Alkaline Phosphatase 79 U/L (46-116); Anion Gap 10.9 mmol/L (3-11); BUN 28 mg/dL (7-18); Bilirubin, Total 0.95 mg/dL (0.2-1.0); CO2 25.1 mmol/L (21.0-32.0); CREATININE 1.5 mg/dL (0.55-1.02); Calcium 8.8 mg/dL (8.5-10.1); Chloride 99 mmol/L (98-107); Estimated GFR 34.15 (mL/min/1.73m2); Glucose 115 mg/dL (74-106); Potassium 4.2 mmol/L (3.5-5.1); Sodium 135 mmol/L (136-145); Total Protein 6.8 g/dL (6.4-8.2)
[2024-05-10 16:55] LABS: Diff Comment PLT Morph Reviewed; RBC Morphology Normal
[2024-05-10] MEDS: ACETAMINOPHEN 650 MG/65 ML BAG 260 MG IVPB (16:55)
[2024-05-10] MEDS: Normal Saline 500 ML 1000 ML IV (16:55)
[2024-05-10] MEDS: Normal Saline - Diluent 50 ML VIAL IJ (17:18)
[2024-05-10] MEDS: Omnipaque 350 MG/ML 100 ML BTL IJ (17:19)
[2024-05-10 18:23] LABS: Bilirubin Negative (Negative); Blood Trace-intact (Negative); Clarity Clear (Clear); Glucose Negative (Negative); Ketones Negative (Negative); Leukocyte Esterase Negative (Negative); Nitrite Negative (Negative); Urobilinogen 0.2 mg/dL (Up to 0.2); pH 5.5 (5-8)
[2024-05-10 18:29] LABS: Bacteria Rare HPF (Negative); C & S Indicated? No; Casts Negative LPF (Negative); Crystals Negative HPF (Negative); Epithelial Cells Few HPF (Negative); Mucus Negative (Negative); WBC Negative HPF (0-5)
[2024-05-10 20:00] LABS: NT-proBNP 2845 pg/mL (<300)
[2024-05-10] MEDS: Furosemide 40 MG/4 ML VIAL IVP (20:47)
--- NOTE | 2024-05-10 21:26 | HPE_ITS ---
Date of service: 05/10/24 Time of Service: 21:26 Assessment and Plan Assessment and plan (1) Fever: Start date: 05/10/24 Status: Acute Assessment and plan: This is an 83-year-old lady who has had a fever for couple weeks and falls at home injuring her left fourth and fifth fingers with proximal phalanx fractures, no sequela even though on Xarelto of bleeding from her falls. She continues with fever and source is unclear though she has had a recent cough. She will be placed on Rocephin and doxycycline because of her respiratory symptoms as well as covering her abdominal discomfort though there is no abscess or signs of inflammation by CT scan of her abdomen. Follow-up cultures and tickborne illness lab for guidance of continued antibiotic therapy if needed. She does have small pleural effusions and an elevated BNP with a history of right-sided heart failure. Chronic edema appears to have been stable. She was initiated on gentle IV hydration in the ED but now is receiving IV Lasix for CHF which will be monitored closely. She is a DNR. Qualifiers: Fever type: due to other condition Qualified Code(s): R50.81 - Fever presenting with conditions classified elsewhere (2) CHF (congestive heart failure): Start date: 05/10/24 Status: Acute Assessment and plan: IV Lasix working closely with patient having CKD which appears to be stable. Continue treatment of possible underlying infection. Qualifiers: Heart failure chronicity: chronic Heart failure type: right-sided Q ualified Code(s): I50.812 - Chronic right heart failure (3) CKD (chronic kidney disease) stage 3, GFR 30-59 ml/min: Status: Chronic Assessment and plan: Stable with monitoring of lab while on IV Lasix. Qualifiers: Chronic kidney disease stage 3 subtype: stage 3b (GFR 30-44) Qualified Code(s): N18.32 - Chronic kidney disease, stage 3b (4) Tachycardia-bradycardia syndrome: Status: Chronic Assessment and plan: Cardiac monitoring while hospitalized. Patient is a DNR. (5) Asthma: Assessment and plan: Continue respiratory treatments and monitor on O2 supplementation as needed. Qualifiers: Asthma complication type: uncomplicated Asthma persistence: persistent Asthma severity: moderate Qualified Code(s): J45.40 - Moderate persistent asthma, uncomplicated (6) Obstructive sleep apnea: Status: Chronic Assessment and plan: With obesity not on treatment and no home oxygen. (7) HTN (hypertension): Status: Chronic Assessment and plan: Continue outpatient medical therapy adjusting as needed. Qualifiers: Hypertension type: essential hypertension Qualified Code(s): I10 - Essential (primary) hypertension (8) GERD (gastroesophageal reflux disease): Assessment and plan: Continue PPI. Qualifiers: Esophagitis presence: without esophagitis Qualified Code(s): K21.9 - Gastro-esophageal reflux disease without esophagitis (9) DVT (deep venous thrombosis): Status: Chronic Assessment and plan: Continue Xarelto. Qualifiers: Affected thrombotic vein of extremity: other lower extremity vein C hronicity: chronic DVT location: lower extremity Laterality: unspecified laterality Qualified Code(s): I82.599 - Chronic embolism and thrombosis of other specified deep vein of unspecified lower extremity (10) Fracture of phalanx of left little finger: Status: Acute Assessment and plan: Continue ulnar gutter splint with orthopedic follow-up. Qualifiers: Encounter type: subsequent encounter Fracture alignment: nondisplaced Fracture healing: with routine healing Fracture type: closed Phalanx: proximal Qualified Code(s): S62.647D - Nondisplaced fracture of proximal phalanx of left little finger, subsequent encounter for fracture with routine healing (11) Fracture of phalanx of left ring finger: Status: Acute Assessment and plan: Continue ulnar gutter splint with orthopedic follow-up. Qualifiers: Encounter type: subsequent encounter Fracture alignment: nondisplaced Fracture healing: with routine healing Fracture type: closed Phalanx: proximal Qualified Code(s): S62.645D - Nondisplaced fracture of proximal phalanx of left ring finger, subsequent encounter for fracture with routine healing History of Present Illness History of Present Illness Chief Complaint: Frequent falls with fever and weakness Narrative: This is an 83-year-old female patient who had fever more than 2 weeks ago and fell at home fracturing her left hand involving fingers. She was seen in the ED and treated with an ulnar gutter Velcro splint not requiring surgical intervention. She complains of fever and generally not feeling well with weakness and frequent falls at home with decreased intake of fluid and food. She was brought in by her daughter for evaluation. The patient did have a tooth extracted since that last hospitalization and was on amoxicillin for prophylaxis. She has not been on other antibiotics recently and has had no source of her fever noted. In the ED she was tachypneic with fever but had a normal WBC and urinalysis was negative for acute infection though blood and urine cultures were performed. She has chronic CKD which was stable by lab evaluation but did receive some fluids thinking that she was slightly dehydrated with decreased intake recently. She was not tachycardic. Her BNP was elevated from her baseline being over 2000 with her baseline around 600. She did have an echocardiogram in 2019 which revealed preserved left ventricular ejection fraction and slightly elevated PA pressures. Patient could not ambulate even with assistance for evaluation for exertional hypoxemia and this was secondary to her extreme weakness. Because of her abdominal pain, increased weakness and fever though no documented episodes of infection, patient will be admitted with Rocephin and doxycycline to be given IV and further lab evaluation with close monitoring. She did states that she has had a recent dry cough and she does have 2 dogs at home with tickborne illnesses being screened in the ED. She did have blood and urine cultures. She will need to be evaluated by PT because of her extreme weakness living alone. She is a full code. Review of Systems Narrative: 13 point review of systems otherwise unrevealing or stable. Patient denies any chills or rigors with her fever. PFSH All Active Problems Adult failure to thrive (Acute) Fever of unknown origin (Acute) Hypoxemia (Acute) Fever (Acute) DVT (deep venous thrombosis) (Chronic) Fever (Acute) CHF (congestive heart failure) (Acute) Fracture of phalanx of left little finger (Acute) Fracture of phalanx of left ring finger (Acute) Forehead abrasion (Acute) Fall at home (Acute) Excessive cerumen in both ear canals (Acute) Tinnitus (Acute) Unspecified atherosclerosis of alutiiq arteries of extremities, bilateral legs (Acute) [facility] 07/14/22.[facility] Onychomycosis of toenail (Acute) [facility] 07/14/22.[facility] Arthropathy of left shoulder (Acute) Steroid injection: 10/05/23; 06/22/2023; 02/16/2023; 05/02/22 (more injections previously) Bradycardia (Acute) Family history of cardiac pacemaker (Acute) Encounter for medication review and counseling (Acute) Edema of lower extremity (Acute) Worsening edema, making leg pain worse .. Poor tolerance of compression .. trying lt compression [ ] 12/2020 Chronic neck pain (Chronic) Some relief with PT .. Neck fullness (Acute) Sensation of firmness, swelling (vs neck pain that PT is working on) .. subacute, with high anxiety.. Family history of thyroid disease (Chronic) Hx of family members being told nothing wrong then ID disease .. high anxiety. Sensorineural hearing loss (SNHL) of both ears (Acute) Leg pain, bilateral (Acute) Pt c/o notable leg pain, not just 2' edema ... improves with rest ..[ ] FLORES to eval for claudication Vertigo (Acute) Acute on chronic ... presented to ED, CVA ruled out (04/2021). ENT seen. Small vessel disease, cerebrovascular (Chronic) per MRI, 04/2018 (Hospitalized to r/o CVA .. DDx incl TIA, but most probably VERTIGO) HTN (hypertension) (Chronic) Mostly managed, good today, 09/28/18, ik. 134/68 07/30/19. Dysphagia (Acute) Acute on chronic, fluids>solids (Hx terrible choking resolved, but noting difficulty again).. CKD (chronic kidney disease) stage 3, GFR 30-59 ml/min (Chronic) @ baseline, 03/2021 (Cr 1.2/GFR 43). Dupuytren's contracture of left hand (Acute) small finger Trigger finger, left middle finger (Acute) Tinnitus, bilateral (Acute) Arthritis of right hand (Acute) Arthritis of left hand (Acute) Obstructive sleep apnea (Chronic) 05/22/20 CPAP Pulmonary hypertension (Chronic) Acute systolic CHF (congestive heart failure) (Acute) Bradycardia (Acute) Chest pain (Acute) Foot pain, right (Acute) pain, deformity, 5th toe swollen, curved Tendinitis of left rotator cuff (Chronic) Subacromial injection: 02/16/23; 05/02/22; 05/17/2021; 04/13/2020; 07/12/2019 Fatigue (Chronic) Hx low normal Hgb, with elevated MCV (Ddx borderline macrocytic anemia) .. Folate, B12 WNL. Vit D improved (2018). TSH, LFTs WNL. May retest, but 12/2018 shows baseline, w/o acute changes/deficiency. Bilateral knee pain (Acute 05/02/14) Idiopathic peripheral neuropathy (Acute 06/15/12) Osteoporosis (Acute 02/27/14) L wrist T = -3.7 01/2014; but FRAX: 11.4 risk major, 2.6 risk of hip: Rx not recommended Osteopenia (Acute 04/27/06) Pain in lower limb (Acute 05/22/12) Patellar tendinitis (Acute) INjection from Dr. Souza, hurt going but helped pain freatly. Able to walk much better, 10/2018 Hip fracture (Acute) Spinal stenosis at L4-L5 level (Chronic) Closed right hip fracture (Acute) Anxiety (Chronic 02/20/15) Obesity with body mass index 30 or greater (Chronic) BMI 38.2 (if still 5'1) 08/2013 Cough (Acute) recurrent cough, ?allergic rhinnitis, responsive to nasal steroid?; 12/2014 Dysgeusia (Acute 12/15/15) Gastroesophageal reflux disease (Chronic) responds to OTC Prilosec . Ranitidine tried, did not help 06/2019 [ ] return to PPI? 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 Much improved, 11/02/18. Pain in knee region after total knee replacement (Acute 04/03/17) Rt and Lt TKA - Dr. Gonzalez Bilateral corticosteroid injections: 10/10/18 Ocular rosacea (Chronic) question ocular rosacea and mild facial ros[place] 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 Asymptomatic. c/o Heart Fluttering 06/2019 .. >[place], 07/2019 .. NSR w/ occ SVT. No AFib. Medical History Asthma Breast pain, left Nail abnormalities (02/27/14) L hand multiple nails; Dr Blair, terbinafine rx toe nails too Displaced intertrochanteric fracture of right femur, subsequent encounter for closed fracture with routine healing (02/12/16) Nail abnormality Obesity Dysgeusia Chest pain GERD (gastroesophageal reflux disease) Prehypertension Intertrigo Mixed stress and urge urinary incontinence Gross hematuria Osteopenia Right arm pain Hyperlipidemia pt. states she is unsure if she has this Head ache Multiple fractures of right femur pt states she fractured her hip Anxiety Nocturia Osteoporosis Multiple joint pain Lumbago Idiopathic peripheral neuropathy Surgical History History of repair of right hip joint History of esophagogastroduodenoscopy (EGD) (~10/15/18) flexible laryngoscopy (03/12/15) Dr Villatoro egd (05/10/16) Replacement of total knee joint Right arthroscopic rtotator cuff repair (04/22/13) RIGHT FOOT FX REPAIR section X4 Open Carpal Tunnel release Hysterectomy, Laproscopic Hemorrhoidectomy Colonoscopy - IV Sedation Cholecystectomy Bilateral salpingectomy with oophorectomy BILATERAL TKA (10/01/12) DR. VANDANA GONZALEZ Family History Mother , Fluid buildup at age 72. Diabetes did not have diabetes Personal history of malignant neoplasm Asthma Father , AD,blood clot at age 69. Alzheimer's disease Son Asthma Son No problems noted. Son No problems noted. Daughter No problems noted. Sister No problems noted. Sister Personal history of malignant neoplasm Sister Personal history of malignant neoplasm Sister No problems noted. 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 Pets and animals: Yes Pets and animals: dog(s) Current gender identity: female What is your relationship status?: Panel score (0-1 are the most socially isolated patients): 0 What type of physical activity do you participate in: none Seatbelt use: always Do you feel safe at home: Yes Do you feel safe in your relationship?: Yes Victim of physical abuse: No Victim of emotional abuse: No Victim of sexual abuse: No Meds Allergies and Home Medications Allergies Allergy/AdvReac Type Severity Reaction Status Date / Time adhesive tape Allergy Intermediate blisters Verified 05/08/24 09:09 on skin Sulfa (Sulfonamide Allergy Intermediate sister Verified 05/08/24 09:09 Antibiotics) of anaphylaxis per pt aspirin AdvReac Intermediate nosebleeds Verified 05/08/24 09:09 codeine AdvReac Intermediate blackouts Verified 05/08/24 09:09 latex AdvReac Intermediate skin-red Verified 05/08/24 09:09 ithcy spots on skin morphine AdvReac Intermediate becomes Verified 05/08/24 09:09 very ill, vomting gabapentin AdvReac Mild makes me Unverified 05/08/24 09:09 sick Home Medications ?Medication ?Instructions ?Recorded ?Confirmed ?Type flaxseed oil 1,000 mg capsule 1,000 mg PO DAILY 10/09/17 05/10/24 History albuterol sulfate 90 mcg/actuation 2 puff inhalation Q6H PRN 07/30/20 05/10/24 Rx aerosol inhaler (Ventolin HFA) shortness of breath or wheezing #6.7 grams lactobacillus combination no.8 3 3,000 mmu cells PO DAILY 12/15/20 05/10/24 History billion cell capsule (Adult Probiotic) Compression Stockings #1 ea 03/31/21 05/10/24 Rx furosemide 20 mg tablet (Lasix) 20 mg PO DAILY PRN weight gain or 06/10/21 05/10/24 Rx edema #30 tabs ukpqzqnxjozd-fhastzz-iwyvz acid 1 tab PO DAILY 12/23/21 05/10/24 History 400 mcg-lutein 250 mcg chewable tablet (Centrum Silver) omeprazole 20 mg tablet,delayed 20 mg PO DAILY 11/16/23 05/10/24 History release acetaminophen 650 mg 650 mg PO Q12H 03/27/24 05/10/24 History tablet,extended release famotidine 20 mg tablet 20 mg PO QHS PRN nausea, stomach 03/27/24 05/10/24 History upset fluticasone propionate 45 2 puff inhalation DAILY 03/27/24 05/10/24 History mcg-salmeterol 21 mcg/actuation HFA inhaler (Advair HFA) hydrocortisone 2.5 % topical cream 1 applic topical BID PRN 03/27/24 05/10/24 History magnesium oxide 500 mg capsule 500 mg PO DAILY 03/27/24 05/10/24 History meclizine 25 mg tablet 25 mg PO DAILY PRN 03/27/24 05/10/24 History mecobalamin (vitamin B12) 1,000 1,000 mcg PO DAILY 03/27/24 05/10/24 History mcg chewable tablet nystatin 100,000 unit/gram topical 1 applic topical BID 03/27/24 05/10/24 History powder rivaroxaban 10 mg tablet (Xarelto) 10 mg PO DAILY 03/27/24 05/10/24 History acetaminophen 500 mg tablet 1,000 mg (2 x 500 mg) PO Q8H PRN 04/30/24 05/10/24 Rx PRN pain #100 tabs calcium 600 mg (as 2 tab PO DAILY 05/10/24 05/10/24 History carbonate)-vitamin D3 5 mcg (200 unit) tablet (Calcium 600 + D(3)) Exam Narrative Exam Narrative: General: Patient appears appropriate for age, alert and oriented at least to person and place, in moderate distress from her fever and weakness. HEENT: Normocephalic, eyes with pupils equal and reactive to light symmetrically, extraocular movement intact and sclera anicteric. Oral mucosa moist with fair dentition. Neck: Supple without JVD. Back: Kyphotic without CVA tenderness. Lungs: Bronchovesicular breath sounds diffusely with decreased aeration at the bases and occasional coarse crackle over bases without focalizing. No expiratory wheeze. Fair aeration over the rest of lung cooper. Breast: Exam deferred. Heart: Irregular rhythm with systolic murmur. No gallops or rubs. community relations officer did show a 5 beat run of wide-complex irregular tachycardia the patient have a history of tachybradycardia syndrome. Abdomen: Normal contour, moderately obese with discomfort to deep palpation but no guarding or rebound. No palpable hepatosplenomegaly. Bowel sounds positive all quadrants. Genitalia/rectal: Exam deferred. Extremities: Nonpitting edema with arthritic changes over knees having previous knee surgeries. Fair cap refill. No cyanosis or clubbing. Patient does have alcohol ulnar gutter splint over left hand for proximal phalanx fracture of her fourth and fifth fingers. Skin: Pale, hot and dry. Abrasion over left forehead without swelling. No bruising noted. Neuro: Cranial nerves II through XII gross intact the patient hard of hearing. Psych: Flattened affect with normal mood. No abnormal thought processes manifested. Remote memory intact with recent memory intact for at least person and place but vague on details of recent history. Results Imaging Imaging Studies: EXAM: CT CHEST/ABD/PEL W CLINICAL HISTORY: Fever, rhonchi, abdominal pain, sepsis. TECHNIQUE: Imaging Protocol: Axial computed tomography images with coronal and sagittal reformatted images were created and reviewed. Computer aided detection (CAD) was utilized. CONTRAST MATERIAL: Intravenous: Omnipaque 350 Contrast volume:100 ml Oral: no COMPARISON: CT CT CHEST WO from 04/30/2024 CR,XR XR CHEST 2V PA LATERAL from 04/30/2024 FINDINGS: CHEST: Tracheobronchial tree: Patent. Pulmonary parenchyma: Basilar atelectasis. Mildly increased interlobular septal thickening, greater at the lung bases, likely reflecting CHF. No consolidation or dominant measurable mass. Pleura: Tiny bilateral pleural effusions. No pneumothorax. Mediastinum: Within normal limits. Aorta: Thoracic portion non-dilated. Pulmonary arteries: No gross visible emboli. Heart: Mildly enlarged. Coronary artery calcifications. No pericardial effusion. Bones: Unremarkable for age. No lytic or blastic lesions.No compression fractures. Soft tissues: Unremarkable. ABDOMEN and PELVIS: Liver: Normal density. No measurable mass. Gallbladder and biliary tract: Status post cholecystectomy. No biliary dilatation. Pancreas: Normal density, no abnormal calcifications or inflammatory process. Spleen: Normal. Kidneys: Normal size, contour and axis. Nonobstructing stone lower pole left kidney. No obstructive uropathy. No suspicious masses seen. Adrenal glands: No masses seen. Aorta: Abdominal portion non-dilated. Lymph nodes: Within normal limits. Soft tissues: Unremarkable. Bladder: Unremarkable. Bowel: No obstruction or bowel wall thickening. Diverticulosis noted from descending through sigmoid. No evidence of diverticulitis. Peritoneal cavity: No ascites. No focal collection. No mesenteric inflammatory response. No free air. Bones: Hardware right proximal femur. Degenerative changes in lumbar spine. Reproductive organs: Status post hysterectomy. IMPRESSION: Small bilateral pleural effusions, interlobular septal thickening, suspicious for CHF. No focal area consolidation. No acute abnormality in the abdomen or pelvis. Diverticulosis again noted. No evidence of diverticulitis. EXAM: XR HAND LT COMPLETE CLINICAL HISTORY: fall, hand pain. TECHNIQUE: 2D digital imaging was performed. Three views. COMPARISON: CR XR HAND LT COMPLETE from 12/21/2020 FINDINGS: BONES: There are fractures at the bases of the 4th and 5th proximal phalanges extending mainly transversely. There is dorsal angulation at both fractures. No definite extension to the articular surface.. No bony destructive lesion is seen. JOINTS: No dislocation present. Degenerative changes of the interphalangeal joints of the fingers as well as 1st carpal metacarpal joint. SOFT TISSUE: Dorsal soft tissue swelling. IMPRESSION: Fractures at the bases of the 4th and 5th proximal phalanges. EXAM: Comprehensive 2D, Doppler, and color-flow Echocardiogram Date of Exam: 03/05/20 Patient Location: In-Patient Room/Bed: [facility] [place] Presser: Marla Landis RDCS (AE) Indications: Chest pain Other Information Technically limited study due to inability to position patient. Conclusion Normal left ventricular wall thickness and chamber size. Estimated ejection fraction is 50 to 55%. There are no segmental wall motion abnormalities Grossly normal right ventricular size and function Left atrium is borderline dilated. The right atrium is normal in size Sclerotic trileaflet aortic valve without stenosis or regurgitation Normal mitral leaflets. Trace to mild mitral regurgitation Normal tricuspid and pulmonic valves. Mild tricuspid regurgitation. Estimated right ventricular systolic pressure is 34 mmHg Trace pulmonic regurgitation The ascending aorta is mildly dilated measuring 3.6 cm Labs 05/10/24 16:33 05/10/24 16:33 Labs: Laboratory Results - last 24 hr 05/10/24 05/10/24 05/10/24 16:06 16:28 16:33 WBC 9.22 RBC 3.82 L Hgb 11.5 Hct 34.3 L MCV 90 MCH 30.1 MCHC 33.5 RDW 14.1 Plt Count MPV Immature Gran % 0.4 Neutrophils % 81.4 Lymphocytes % 13.1 Monocytes % 5.0 Eosinophils % 0.0 Basophils % 0.1 Nucleated RBC % 0.0 Absolute Neutrophils 7.50 H Absolute Lymphocytes 1.21 Absolute Monocytes 0.46 Absolute Eosinophils 0.00 Absolute Basophils 0.01 RBC Morphology Normal VBG Lactate 1.4 Sodium 135 L Potassium 4.2 Chloride 99 Carbon Dioxide 25.1 Anion Gap 10.9 BUN 28 H Creatinine 1.5 H Est GFR (CKD-EPI 2020) 34.15 Glucose 115 H Calcium 8.8 Total Bilirubin 0.95 AST 38 H ALT 29 Alkaline Phosphatase 79 NT-Pro-B Natriuret Pep 2845 H Total Protein 6.8 Albumin 2.8 L Urine Color Urine Clarity Urine pH Ur Specific [place] Urine Protein Urine Ketones Urine Blood Urine Nitrite Urine Bilirubin Urine Urobilinogen Ur Leukocyte Esterase Urine RBC Urine WBC Ur Epithelial Cells Urine Crystals Urine Bacteria Urine Casts Urine Mucus Ur Culture Indicated? Urine Glucose COVID-19 Source Nasopharynx SARS-CoV-2 (PCR) Negative Influenza Type A (PCR) Negative Influenza Type B (PCR) Negative RSV (PCR) Negative 05/10/24 18:15 WBC RBC Hgb Hct MCV MCH MCHC RDW Plt Count MPV Immature Gran % Neutrophils % Lymphocytes % Monocytes % Eosinophils % Basophils % Nucleated RBC % Absolute Neutrophils Absolute Lymphocytes Absolute Monocytes Absolute Eosinophils Absolute Basophils RBC Morphology VBG Lactate Sodium Potassium Chloride Carbon Dioxide Anion Gap BUN Creatinine Est GFR (CKD-EPI 2020) Glucose Calcium Total Bilirubin AST ALT Alkaline Phosphatase NT-Pro-B Natriuret Pep Total Protein Albumin Urine Color Yellow Urine Clarity Clear Urine pH 5.5 Ur Specific [place] 1.010 Urine Protein 30 H Urine Ketones Negative Urine Blood Trace-intact H Urine Nitrite Negative Urine Bilirubin Negative Urine Urobilinogen 0.2 Ur Leukocyte Esterase Negative Urine RBC 3-5 H Urine WBC Negative Ur Epithelial Cells Few Urine Crystals Negative Urine Bacteria Rare Urine Casts Negative Urine Mucus Negative Ur Culture Indicated? No Urine Glucose Negative COVID-19 Source SARS-CoV-2 (PCR) Influenza Type A (PCR) Influenza Type B (PCR) RSV (PCR) Last Vital Signs Temp 38.6 C H 05/10/24 18:18 Pulse 73 05/10/24 20:46 Resp 30 H 05/10/24 20:55 BP 126/45 L 05/10/24 20:46 Pulse Ox 91 L 05/10/24 20:55 Time Spent Time spent with Patient: >75 minutes Time was spent: preparing to see the patient(eg.review tests), obtaining and/or reviewing separately otained hiistory, ordering medications,tests, procedures, indepentently interpreting results and care coordination
[2024-05-10 21:50] LABS: ESR 25 mm/hr (0-30)
[2024-05-10 21:52] LABS: C-Reactive Protein 10.93 mg/dL (<or=0.5)
--- NOTE | 2024-05-10 22:04 | ED.PROG_ITS ---
Date of service: 05/10/24 Time of Service: 22:53 Medical Decision Making Care assumed from off going provider. Patient is an 83-year-old female that presents with progressively worsening debility at home and seizure. Disposition pending completion of workup but admission anticipated. I evaluated the patient and spoke with her family members. It seems that she has had progressive worsening of symptoms over the last week after a fall that resulted in a left wrist injury. He reports that she has been having fevers since prior to that fall. No source of fever had been identified at the last emergency department visit. On arrival to the emergency department the patient was noted to have a significantly elevated fever of 39.3 and was also noted to be tachycardic. Lab work was reviewed. There is no leukocytosis or significant anemia. Her creatinine is at baseline of 1.5. Her BNP is significantly elevated at 2845. Her urinalysis does not demonstrate an infection. Viral testing was negative. A CT scan of her chest abdomen and pelvis was obtained to evaluate for potential source of the fever. There was no intra-abdominal source of infection identified. Her chest did not demonstrate a focal consolidation consistent with pneumonia, but there was concern for pleural effusion and pulmonary edema. This in combination with her elevated BNP, I have a suspicion for heart failure exacerbation and IV Lasix was given. In the emergency department the patient was noted to be tachypneic. She was not endorsing vasile shortness of breath but the tachypnea was apparent on evaluation. Initially she was unable to get out of bed, but with some assistance we were able to get her transitioned to a bedside commode. During this process the patient became short of breath dyspneic and desaturated to 81%. The family is also concerned that the patient has had significant failure to thrive since her symptoms started. Previous to this, she was living independently, taking care of all of her daily activities but now she is barely able to get up without significant assistance or ambulate without walker. I discussed with the hospitalist and will bring her in for fever of unknown origin, CHF exacerbation with hypoxemia. Blood and urine cultures have been sent, I have added inflammatory markers and tick panel onto the workup as well. And will give a dose of empiric Rocephin. Quality:SDOH Health Related Social Needs: No Data to Display Discharge Plan Disposition Patient Disposition: Admit to [facility] Condition: Stable Discharge Details Chief Complaint: Fever Clinical Impression: CHF (congestive heart failure), Fever, Hypoxemia, Fever of unknown origin, Adult failure to thrive Primary Care Provider: Sarah Gao ED Provider: Victor Hugo Hairston Home Meds and New Rx's Prescriptions: No Action albuterol sulfate [Ventolin HFA] 90 mcg/actuation HFA aerosol inhaler 2 puff IH Q6H PRN (Reason: shortness of breath or wheezing) Qty: 6.7 0RF Rx Instructions: Daily x 2 weeks minimum Adult Probiotic 3 billion cell capsule 3,000 mmu cells PO DAILY Rx Instructions: administer with a meal (DME) Compression Stockings See Rx Instructions .Route .MEDSUPPLY Qty: 1 0RF Rx Instructions: As directed, moderate compression for daily wearing furosemide [Lasix] 20 mg tablet 20 mg PO DAILY PRN (Reason: weight gain or edema) Qty: 30 3RF Patient Comments: takes if needed. Rx Instructions: daily if weight gain >3 lbs per 3 days of leg swelling. omeprazole 20 mg tablet,delayed release (DR/EC) 20 mg PO DAILY Centrum Silver 400-250 mcg tablet,chewable 1 tab PO DAILY acetaminophen 650 mg tablet extended release 650 mg PO Q12H fluticasone propion-salmeterol [Advair HFA] 45-21 mcg/actuation HFA aerosol inhaler 2 puff inhalation DAILY hydrocortisone 2.5 % cream 1 applic topical BID PRN magnesium oxide 500 mg capsule 500 mg PO DAILY meclizine 25 mg tablet 25 mg PO DAILY PRN nystatin 100,000 unit/gram powder 1 applic topical BID mecobalamin (vitamin B12) 1,000 mcg tablet,chewable 1,000 mcg PO DAILY Xarelto 10 mg tablet 10 mg PO DAILY Rx Instructions: for 35 days famotidine 20 mg tablet 20 mg PO QHS PRN (Reason: nausea, stomach upset) Rx Instructions: May try BID PRN x 3-4 weeks flaxseed oil 1,000 MG capsule 1,000 mg PO DAILY acetaminophen 500 mg tablet 1,000 mg PO Q8H PRN PRN (Reason: pain) Qty: 100 0RF calcium carbonate-vitamin D3 [Calcium 600 + D(3)] 600 mg-5 mcg (200 unit) tablet 2 tab PO DAILY
[2024-05-11] VITALS (11 sets, daily range): BP systolic 95–143; BP diastolic 50–64; PULSE 64–89; RESP 14–20; TEMP 36.1–38.8; O2SAT 92–99
[2024-05-11] MEDS: cefTRIAXone 2 GM/50 ML BAG IVPB
--- NOTE | 2024-05-11 | DI.CT_ITS ---
Exam(s) CT NECK W EXAM: CT NECK W CLINICAL HISTORY: concern for left upper tooth abscess s/p extractio. TECHNIQUE: Imaging Protocol: Axial computed tomography images with coronal and sagittal reformatted images were created and reviewed. CONTRAST MATERIAL: Intravenous: Omnipaque 350 Contrast volume:80mL COMPARISON: CT CT HEAD CERVICAL SPINE WO from 06/16/[address] HEAD WO from 08/08/[address] HEAD WO from 04/30/2024 FINDINGS: Orbits and orbital soft tissues: Within normal limits. Visualized paranasal sinuses: Within normal limits. Nasopharynx: Within normal limits. Oropharynx: Within normal limits. Hypopharynx: Within normal limits. Larynx: Within normal limits. Retropharyngeal space: Within normal limits. Parotids/submandibular: Within normal limits. Thyroid gland: Within normal limits. Lymphadenopathy: There is scattered lymph nodes seen along the level one to level three all measurin g less than 8 mm in short axis diameter which are physiologic in nature. Trachea: Within normal limits. Lung apices: No focal consolidating infiltrates are seen in the lung apices. Bones: Within normal limits for the patient's age. Carotids/Jugular: Within normal limits. Soft tissues: Within normal limits. No evidence of an abscess. IMPRESSION: The patient has had a recent upper tooth extraction. No evidence of an abscess is identified. RADIATION DOSE DELIVERED: 199.02mGy.cm Total DLP 199.02mGy.cm Total DLP DATA REPOSITORY: All CT scans at this facility are submitted to the National Radiology Data Registry (NRDR) Dose Index Registry (DIR) with the [employer] (A[employer]). RADIATION OPTIMIZATION: All CT scans at this facility use at least one of these dose optimization te chniques: automated exposure control; mA and/or kV adjustment per patient size (includes targeted exa ms where dose is matched to clinical indication); or iterative reconstruction.
[2024-05-11 00:05] LABS: BE (Venous) 2 mmol/L (-2-3); HCO3 (Venous) 27 mmol/L (23-28); O2 Sat (Venous) 71 %; TCO2 (Venous) 25 mmol/L (24-29); pCO2 (Venous) 45 mmHg (41-51); pH (Venous) 7.38 (7.31-7.41); pO2 (Venous) 38 mmHg
--- NOTE | 2024-05-11 00:23 | W.PC.ACHO ---
Registration Status: Primary Language: Preferred Language: ED Information & Data Chief Complaint Fever 05/10/24 16:30 Triage Note Pt reports she feel a few 05/10/24 15:26 weeks ago, she reports back pain- also reports being feverish for a few days, Medical / Surgical History (Last Reviewed 05/10/24 @ 16:23 by Ang Finney MD) Asthma Breast pain, left Nail abnormalities (02/27/14) Displaced intertrochanteric fracture of right femur, subsequent encounter for closed fracture with routine healing (02/12/16) Nail abnormality Obesity Dysgeusia Chest pain GERD (gastroesophageal reflux disease) Prehypertension Intertrigo Mixed stress and urge urinary incontinence Gross hematuria Osteopenia Right arm pain Hyperlipidemia Head ache Multiple fractures of right femur Anxiety Nocturia Osteoporosis Multiple joint pain Lumbago Idiopathic peripheral neuropathy (Last Reviewed 05/10/24 @ 16:23 by Ang Finney MD) History of repair of right hip joint History of esophagogastroduodenoscopy (EGD) (~10/15/18) flexible laryngoscopy (03/12/15) egd (05/10/16) Replacement of total knee joint Right arthroscopic rtotator cuff repair (04/22/13) RIGHT FOOT FX REPAIR section Open Carpal Tunnel release Hysterectomy, Laproscopic Hemorrhoidectomy Colonoscopy - IV Sedation Cholecystectomy Bilateral salpingectomy with oophorectomy BILATERAL TKA (10/01/12) Most Recent Vital Signs Temperature 38.6 C H 05/10/24 18:18 Temperature Source Oral 05/10/24 18:18 Pulse 73 05/10/24 20:46 Pulse 80 05/10/24 18:50 Respiratory Rate 30 H 05/10/24 20:55 Respiratory Effort Short of Breath 05/10/24 15:31 Blood Pressure 126/45 L 05/10/24 20:46 Blood Pressure Mean 64 05/10/24 18:46 Pulse Oximetry 91 L 05/10/24 20:55 Pain Level 10 05/10/24 15:32 Allergies adhesive tape Allergy (Intermediate, Verified 05/08/24 09:09) blisters on skin Sulfa (Sulfonamide Antibiotics) Allergy (Intermediate, Verified 05/08/24 09:09) sister of anaphylaxis per pt aspirin Adverse Reaction (Intermediate, Verified 05/08/24 09:09) nosebleeds even on 81 mg/d codeine Adverse Reaction (Intermediate, Verified 05/08/24 09:09) blackouts latex Adverse Reaction (Intermediate, Verified 05/08/24 09:09) skin-red ithcy spots on skin morphine Adverse Reaction (Intermediate, Verified 05/08/24 09:09) becomes very ill, vomting gabapentin Adverse Reaction (Mild, Unverified 05/08/24 09:09) makes me sick Precautions Isolation Standard precaution 05/10/24 15:31 Active Medications Generic Name Dose Route Start Last Admin Trade Name Vahe PRN Reason Stop Dose Admin Iohexol 100 ml 05/10/24 17:30 05/10/24 17:19 Omnipaque 350 Mg/Ml 100 Ml Btl IJ 06/09/24 23:59 100 ml DIRECTED MANNY Administration Sodium Chloride 50 ml 05/10/24 17:30 05/10/24 17:18 Normal Saline - Diluent 50 Ml Vial IJ 50 ml .FOR DI USE MANNY Administration IV IV Catheter Type [Right Saline Lock Antecubital] IV Catheter Gauge [Right 20 Antecubital] Diagnostics 05/10/24 05/10/24 05/10/24 Range/Units 22:00 21:47 18:15 WBC (4.4-10.8) 10^3/uL RBC (3.93-5.22) 10^6/uL Hgb (11.2-15.7) g/dL Hct (36.0-46.0) % MCV (80-95) fL MCH (27.0-33.0) pg MCHC (32.0-36.0) % RDW (11.7-14.6) % Plt Count (130-400) 10^3/uL MPV (8.0-11.0) fL Immature Gran % % Neutrophils % % Lymphocytes % % Monocytes % % Eosinophils % % Basophils % % Nucleated RBC % (0.0-0.3) % Absolute Neutrophils (1.2-6.7) 10^3/uL Absolute Lymphocytes (1.2-3.4) 10^3/uL Absolute Monocytes (0.1-0.8) 10^3/uL Absolute Eosinophils (0.0-0.7) 10^3/uL Absolute Basophils (0.0-0.2) 10^3/uL RBC Morphology ESR (0-30) mm/hr VBG pH Pending VBG pCO2 Pending VBG pO2 Pending VBG HCO3 Pending VBG Total CO2 Pending VBG O2 Saturation Pending VBG Base Excess Pending VBG Lactate (0.6-1.4) mmol/L Sodium (136-145) mmol/L Potassium (3.5-5.1) mmol/L Chloride (98-107) mmol/L Carbon Dioxide (21.0-32.0) mmol/L Anion Gap (3-11) mmol/L BUN (7-18) mg/dL Creatinine (0.55-1.02) mg/dL Est GFR (CKD-EPI 2020) (mL/min/1.73m2) Glucose (74-106) mg/dL Calcium (8.5-10.1) mg/dL Total Bilirubin (0.2-1.0) mg/dL AST (15-37) U/L ALT (14-59) U/L Alkaline Phosphatase (46-116) U/L Troponin I Pending C-Reactive Protein (<or=0.5) mg/dL NT-Pro-B Natriuret Pep (<300) pg/mL Total Protein (6.4-8.2) g/dL Albumin (3.4-5.0) g/dL Urine Color Yellow (Yellow) Urine Clarity Clear (Clear) Urine pH 5.5 (5-8) Ur Specific Anchor 1.010 (1.005-1.025) Urine Protein 30 H (Neg-Trace) mg/dL Urine Ketones Negative (Negative) mg/dL Urine Blood Trace-intact H (Negative) Urine Nitrite Negative (Negative) Urine Bilirubin Negative (Negative) Urine Urobilinogen 0.2 (Up to 0.2) mg/dL Ur Leukocyte Esterase Negative (Negative) Urine RBC 3-5 H (0-2) HPF Urine WBC Negative (0-5) HPF Ur Epithelial Cells Few (Negative) HPF Urine Crystals Negative (Negative) HPF Urine Bacteria Rare (Negative) HPF Urine Casts Negative (Negative) LPF Urine Mucus Negative (Negative) Ur Culture Indicated? No Urine Glucose Negative (Negative) mg/dL B. divergens/MO-1 PCR Pending Babesia duncani (PCR) Pending Babesia microti DNA PCR Pending Lyme Disease Antibody Pending COVID-19 Source SARS-CoV-2 (PCR) (Negative) E.chaffeensis DNA (PCR) Pending E.ewingii/canis DNA PCR Pending E.muris eauclairensis (PCR) Pending Influenza Type A (PCR) (Negative) Influenza Type B (PCR) (Negative) RSV (PCR) (Negative) A. phagocytophilum (PCR) Pending Blood B. miyamotoi (PCR) Pending 05/10/24 05/10/24 05/10/24 Range/Units 16:33 16:28 16:06 WBC 9.22 (4.4-10.8) 10^3/uL RBC 3.82 L (3.93-5.22) 10^6/uL Hgb 11.5 (11.2-15.7) g/dL Hct 34.3 L (36.0-46.0) % MCV 90 (80-95) fL MCH 30.1 (27.0-33.0) pg MCHC 33.5 (32.0-36.0) % RDW 14.1 (11.7-14.6) % Plt Count (130-400) 10^3/uL MPV (8.0-11.0) fL Immature Gran % 0.4 % Neutrophils % 81.4 % Lymphocytes % 13.1 % Monocytes % 5.0 % Eosinophils % 0.0 % Basophils % 0.1 % Nucleated RBC % 0.0 (0.0-0.3) % Absolute Neutrophils 7.50 H (1.2-6.7) 10^3/uL Absolute Lymphocytes 1.21 (1.2-3.4) 10^3/uL Absolute Monocytes 0.46 (0.1-0.8) 10^3/uL Absolute Eosinophils 0.00 (0.0-0.7) 10^3/uL Absolute Basophils 0.01 (0.0-0.2) 10^3/uL RBC Morphology Normal ESR 25 (0-30) mm/hr VBG pH VBG pCO2 VBG pO2 VBG HCO3 VBG Total CO2 VBG O2 Saturation VBG Base Excess VBG Lactate 1.4 (0.6-1.4) mmol/L Sodium 135 L (136-145) mmol/L Potassium 4.2 (3.5-5.1) mmol/L Chloride 99 (98-107) mmol/L Carbon Dioxide 25.1 (21.0-32.0) mmol/L Anion Gap 10.9 (3-11) mmol/L BUN 28 H (7-18) mg/dL Creatinine 1.5 H (0.55-1.02) mg/dL Est GFR (CKD-EPI 2020) 34.15 (mL/min/1.73m2) Glucose 115 H (74-106) mg/dL Calcium 8.8 (8.5-10.1) mg/dL Total Bilirubin 0.95 (0.2-1.0) mg/dL AST 38 H (15-37) U/L ALT 29 (14-59) U/L Alkaline Phosphatase 79 (46-116) U/L Troponin I C-Reactive Protein 10.93 H (<or=0.5) mg/dL NT-Pro-B Natriuret Pep 2845 H (<300) pg/mL Total Protein 6.8 (6.4-8.2) g/dL Albumin 2.8 L (3.4-5.0) g/dL Urine Color (Yellow) Urine Clarity (Clear) Urine pH (5-8) Ur Specific Anchor (1.005-1.025) Urine Protein (Neg-Trace) mg/dL Urine Ketones (Negative) mg/dL Urine Blood (Negative) Urine Nitrite (Negative) Urine Bilirubin (Negative) Urine Urobilinogen (Up to 0.2) mg/dL Ur Leukocyte Esterase (Negative) Urine RBC (0-2) HPF Urine WBC (0-5) HPF Ur Epithelial Cells (Negative) HPF Urine Crystals (Negative) HPF Urine Bacteria (Negative) HPF Urine Casts (Negative) LPF Urine Mucus (Negative) Ur Culture Indicated? Urine Glucose (Negative) mg/dL B. divergens/MO-1 PCR Babesia duncani (PCR) Babesia microti DNA PCR Lyme Disease Antibody COVID-19 Source Nasopharynx SARS-CoV-2 (PCR) Negative (Negative) E.chaffeensis DNA (PCR) E.ewingii/canis DNA PCR E.muris eauclairensis (PCR) Influenza Type A (PCR) Negative (Negative) Influenza Type B (PCR) Negative (Negative) RSV (PCR) Negative (Negative) A. phagocytophilum (PCR) Blood B. miyamotoi (PCR) 05/10/24 22:05 Urine Culture - Pending Urine - Clean Catch 05/10/24 17:00 Blood Culture - Pending Blood 05/10/24 16:33 Blood Culture - Pending Blood Intake and Output - 24 Hour Total 05/10/24 15:21 thru 05/10/24 18:18 Intake Total 575 Output Total 100 Balance 475 Weight 83.915 kg Intake: IV 575 Output: Urine 100 Falls Risk Assessment History of Falls Previous History 05/10/24 15:51 Contributing Factors Impairments 05/10/24 15:51 Ambulatory Aids Uses ambulatory device 05/10/24 15:51 Tubes/Lines None 05/10/24 15:51 Gait Evaluation W/no contributing factors 05/10/24 15:51 Cognition No cognitive impairment 05/10/24 15:51 Fall Total Score 43 05/10/24 15:51 Level of Risk Moderate Risk 05/10/24 15:51 Problems (Last Reviewed 05/10/24 @ 16:23 by Ang Finney MD) DVT (deep venous thrombosis) (Chronic) Fever (Acute) CHF (congestive heart failure) (Acute) Fracture of phalanx of left little finger (Acute) Fracture of phalanx of left ring finger (Acute) HTN (hypertension) (Chronic) CKD (chronic kidney disease) stage 3, GFR 30-59 ml/min (Chronic) Obstructive sleep apnea (Chronic) 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 Information / Comments: Pt has an IV in right AC, gauge needs to be clarified. pt is on 1L/min of O2, currently saturating at 98%. Pt is desatting with ambulation. C/o SOB with exertion. Pt has bilateral lower extremity edema, denies pain in extremities. Pt noted to have congested cough/sneeze. Fever was treated with Ofirmev in ED. Pt also c/o low back pain. Ceftriaxone to be done prior to pt leaving ED. Current temp 97.6F. Report received from: Jevon Carmona RN
[2024-05-11 00:29] LABS: Troponin I 20 ng/L (<or=51)
[2024-05-11 01:53] LABS: Magnesium 1.8 mg/dL (1.8-2.4)
[2024-05-11 02:07] LABS: TSH (W/Ref FT4) 0.96 uIU/mL (0.36-3.74)
[2024-05-11] MEDS: Acetaminophen 500 MG TAB 1000 MG PO ×2 (02:39→11:34)
[2024-05-11] MEDS: DOXYCYCLINE 100 MG in Normal Saline 100 ML IVPB ×2 (03:14→15:50)
[2024-05-11 06:36] LABS: HCT 31.1 % (36.0-46.0); HGB 10.5 g/dL (11.2-15.7); MCHC 33.8 % (32.0-36.0); MCV 89 fL (80-95); RDW 14.4 % (11.7-14.6); RDW-SD 46.5 fL
[2024-05-11 06:53] LABS: ALT 24 U/L (14-59); AST 35 U/L (15-37); Albumin 2.4 g/dL (3.4-5.0); Alkaline Phosphatase 69 U/L (46-116); Anion Gap 10.7 mmol/L (3-11); BUN 29 mg/dL (7-18); Bilirubin, Total 0.62 mg/dL (0.2-1.0); CO2 24.3 mmol/L (21.0-32.0); CREATININE 1.6 mg/dL (0.55-1.02); Calcium 8.7 mg/dL (8.5-10.1); Chloride 101 mmol/L (98-107); Estimated GFR 31.61 (mL/min/1.73m2); Glucose 102 mg/dL (74-106); Magnesium 1.7 mg/dL (1.8-2.4); Potassium 3.7 mmol/L (3.5-5.1); Sodium 136 mmol/L (136-145); Total Protein 6.2 g/dL (6.4-8.2)
[2024-05-11 06:56] LABS: Troponin I 21 ng/L (<or=51)
[2024-05-11] MEDS: Budesonide/Formoterol 80/4.5 6.9 GM 60 PUFF INH IH (08:05)
--- NOTE | 2024-05-11 08:08 | RESPIRATORY ---
Spoke with patient about ESTRELLA diagnosis and she advised she had a previous sleep study and they suggested getting a CPAP machine but due to financial reasons patient never got one
[2024-05-11] MEDS: Furosemide 20 MG/2 ML VIAL IVP ×2 (09:08→15:50)
[2024-05-11] MEDS: Normal Saline Flush 10 ML SYR IVP ×4 (09:08→23:34)
[2024-05-11] MEDS: Omeprazole 20 MG CAPCR PO (09:08)
[2024-05-11] MEDS: Rivaroxaban 10 MG TABLET PO (09:08)
[2024-05-11] MEDS: Calcium 600mg/Vit D 200U TAB 2 TAB PO (09:08)
[2024-05-11] MEDS: Nystatin POWDER 15 GM JAR TP ×2 (10:37→21:02)
--- NOTE | 2024-05-11 11:30 | PHA.REVIEW2 ---
Pharmacy Admission Review Admission Clinical Review Admission Pharmacy Review: Fever (Acute) CHF (congestive heart failure) (Acute) Fracture of phalanx of left little finger (Acute) Fracture of phalanx of left ring finger (Acute) adhesive tape Allergy (Intermediate, Verified 05/08/24 09:09) blisters on skin Sulfa (Sulfonamide Antibiotics) Allergy (Intermediate, Verified 05/08/24 09:09) sister of anaphylaxis per pt aspirin Adverse Reaction (Intermediate, Verified 05/08/24 09:09) nosebleeds codeine Adverse Reaction (Intermediate, Verified 05/08/24 09:09) blackouts latex Adverse Reaction (Intermediate, Verified 05/08/24 09:09) skin-red ithcy spots on skin morphine Adverse Reaction (Intermediate, Verified 05/08/24 09:09) becomes very ill, vomting gabapentin Adverse Reaction (Mild, Unverified 05/08/24 09:09) makes me sick Resuscitation Status DNR Height 4 ft 11 in Weight 89.086 kg Pharmacy Admission Review Renal Dosing Renal Dosing: BUN 29 mg/dL (7-18) H 05/11/24 05:40 Creatinine 1.6 mg/dL (0.55-1.02) H 05/11/24 05:40 Medications needing adjustments: Reviewed (CrCl 23.91 mL/min, BUN increased from 28 and SCr increased from 1.5) List of meds needing interventions: Current medications are okay Anticoagulation Anticoagulation: Hgb 10.5 g/dL (11.2-15.7) L 05/11/24 05:40 Hct 31.1 % (36.0-46.0) L 05/11/24 05:40 Plt Count 10^3/uL (130-400) 05/11/24 05:40 Creatinine 1.6 mg/dL (0.55-1.02) H 05/11/24 05:40 DVT Prophylaxis: Reviewed (Hgb decreased from 11.5 and Hct decreased from 34.3) Medications: Rivaroxaban (10mg daily) Relevant Labs Relevant Labs: ESR 25 mm/hr (0-30) 05/10/24 16:28 Sodium 136 mmol/L (136-145) 05/11/24 05:40 Potassium 3.7 mmol/L (3.5-5.1) 05/11/24 05:40 Chloride 101 mmol/L (98-107) 05/11/24 05:40 Magnesium 1.7 mg/dL (1.8-2.4) L 05/11/24 05:40 C-Reactive Protein 10.93 mg/dL (<or=0.5) H 05/10/24 16:28 Electrolytes, C-Reactive P, ESR: Reviewed (Mg 1.7) Cardiac Review Cardiac Review: Troponin I 21 ng/L (<or=51) 05/11/24 05:40 NT-Pro-B Natriuret Pep 2845 pg/mL (<300) H 05/10/24 16:28 Blood Pressure [Right Arm] 143/64 Blood Pressure 121/60 1108 Blood Pressure 142/56 0718 Blood Pressure 95/64 0309 Blood Pressure 95/64 0142 BP, HR, EF%: Reviewed (HR WNL) List meds needing interventions: Has order for furosemide 20mg IVP BID QTc Review QTc: Reviewed (407 from 05/10/24) IV to PO Switch IV Medications: Reviewed (Doxycycline and furosemide) Home Meds Home Med List reviewed: Reviewed Relevent Home Meds Not ordered & why?: Advair (substituted with Symbicort per pharmacy protocol), hydrocortisone cream (PRN) and multivitamin Current Meds Current Medication Order Review: Intervened Comments: Added IV admission order set Pharmacy Antibiotic Review Relevant Labs: Relevant Labs 05/10/24 16:28 C-Reactive Protein 10.93 H WBC 7.20 10^3/uL (4.4-10.8) 05/11/24 05:40 Temperature 38.2 C 1134 Temperature 38.2 C 1108 Temperature 36.6 C 0718 Temperature 36.6 C 0433 Temperature 38.8 C 0309 Temperature 38.7 C 0142 Temperature 36.6 C 0004 Pharmacy Antibiotic Activity: C/S review and Reviewed, no change Comments: Patient is on doxycycline, day 1, for unknown source infection. Reached out to provider as H+P mentioned continuing ceftriaxone but no order had been put in. Per provider leaning towards viral cause of fever and will most likely be discontinuing antibiotics. Blood and urine cultures are pending.
--- NOTE | 2024-05-11 11:53 | PGE_ITS ---
Date of Service Date of service: 05/11/24 Time of Service: 11:53 Assessment and Plan Assessment and plan (1) Fever: Start date: 05/10/24 Status: Acute Assessment and plan: -Patient reportedly had persistent fevers at home, and has been febrile since admission temperature as high as 102.7. -At this time, source of infection on clear as CT chest abdomen pelvis was without acute findings -While patient did complain of some sore throat, she also complains of epigastric discomfort this may be secondary to gastritis -Patient was also without white count -Source may be secondary to acute viral illness -However, patient recently had dental work around tooth 15/16, and there is some visualized changes that are unclear if there postprocedural changes or potential underlying abscess -Will order CT neck to evaluate for potential abscess, if there is one present will alter antibiotic regimen and reach out to OMFS at outside facility Qualifiers: Fever type: due to other condition Qualified Code(s): R50.81 - Fever presenting with conditions classified elsewhere (2) CHF (congestive heart failure): Start date: 05/10/24 Status: Acute Assessment and plan: -Patient has documented history of CHF though unable to find recent echocardiogram or other documentation stating whether it is HFpEF or HFrEF -She was also hypoxic, and has responded to IV Lasix -Will continue diuresis -Follow-up echocardiogram on 05/13/2024 Qualifiers: Heart failure type: right-sided Heart failure chronicity: chronic Qualified Code(s): I50.812 - Chronic right heart failure (3) Acute respiratory failure with hypoxia: Status: Acute Assessment and plan: - Secondary to acute exacerbation of CHF as noted above -Required up to 2 L nasal cannula -Has been transitioned to room air as of the morning of 05/11/2024 (4) CKD (chronic kidney disease) stage 3, GFR 30-59 ml/min: Status: Chronic Assessment and plan: -Stable with monitoring of lab while on IV Lasix And receiving additional dose of IV contrast Qualifiers: Chronic kidney disease stage 3 subtype: stage 3b (GFR 30-44) Qualified Code(s): N18.32 - Chronic kidney disease, stage 3b (5) Tachycardia-bradycardia syndrome: Status: Chronic Assessment and plan: -Cardiac monitoring while hospitalized. Patient is a DNR. (6) Obstructive sleep apnea: Status: Chronic Assessment and plan: With obesity not on treatment and no home oxygen. (7) HTN (hypertension): Status: Chronic Assessment and plan: Continue outpatient medical therapy adjusting as needed. Qualifiers: Hypertension type: essential hypertension Qualified Code(s): I10 - Essential (primary) hypertension (8) GERD (gastroesophageal reflux disease): Assessment and plan: Continue PPI. Qualifiers: Esophagitis presence: without esophagitis Qualified Code(s): K21.9 - G ty-esophageal reflux disease without esophagitis (9) DVT (deep venous thrombosis): Status: Chronic Assessment and plan: Continue Xarelto. Qualifiers: DVT location: lower extremity Affected thrombotic vein of extremity: other lower extremity vein Chronicity: chronic Laterality: unspecified laterality Qualified Code(s): I82.599 - Chronic embolism and thrombosis of other specified deep vein of unspecified lower extremity (10) Fracture of phalanx of left little finger: Status: Acute Assessment and plan: Continue ulnar gutter splint with orthopedic follow-up. Qualifiers: Encounter type: subsequent encounter Fracture type: closed Phalanx: proximal Fracture alignment: nondisplaced Fracture healing: with routine healing Qualified Code(s): S62.647D - Nondisplaced fracture of proximal phalanx of left little finger, subsequent encounter for fracture with routine healing (11) Fracture of phalanx of left ring finger: Status: Acute Assessment and plan: Continue ulnar gutter splint with orthopedic follow-up. Qualifiers: Encounter type: subsequent encounter Fracture type: closed Phalanx: proximal Fracture alignment: nondisplaced Fracture healing: with routine healing Qualified Code(s): S62.645D - Nondisplaced fracture of proximal phalanx of left ring finger, subsequent encounter for fracture with routine healing Subjective Subjective Interval history since last seen: Patient complains of some generalized aches but no specific complaints. Exam Narrative Exam Narrative: Well-appearing female sitting up in the chair no acute distress, awake, alert, oriented to person and place, heart regular rhythm, lungs clear to auscultation bilaterally, abdomen soft, nontender, nondistended, area around previous dental work near tooth 15 or 16 appears mildly erythematous and swollen, but without visualized drainage Objective Last Vital Signs Temp 100.8 F H 05/11/24 11:34 Pulse 80 05/11/24 11:08 Resp 16 05/11/24 11:08 BP 121/60 05/11/24 11:08 Pulse Ox 92 05/11/24 11:08 Laboratory Results - last 24 hr 05/10/24 05/10/24 05/10/24 16:06 16:28 16:33 WBC 9.22 RBC 3.82 L Hgb 11.5 Hct 34.3 L MCV 90 MCH 30.1 MCHC 33.5 RDW 14.1 Plt Count MPV Immature Gran % 0.4 Neutrophils % 81.4 Lymphocytes % 13.1 Monocytes % 5.0 Eosinophils % 0.0 Basophils % 0.1 Nucleated RBC % 0.0 Absolute Neutrophils 7.50 H Absolute Lymphocytes 1.21 Absolute Monocytes 0.46 Absolute Eosinophils 0.00 Absolute Basophils 0.01 RBC Morphology Normal ESR 25 VBG pH VBG pCO2 VBG pO2 VBG HCO3 VBG Total CO2 VBG O2 Saturation VBG Base Excess VBG Lactate 1.4 Sodium 135 L Potassium 4.2 Chloride 99 Carbon Dioxide 25.1 Anion Gap 10.9 BUN 28 H Creatinine 1.5 H Est GFR (CKD-EPI 2020) 34.15 Glucose 115 H Calcium 8.8 Magnesium Total Bilirubin 0.95 AST 38 H ALT 29 Alkaline Phosphatase 79 Troponin I C-Reactive Protein 10.93 H NT-Pro-B Natriuret Pep 2845 H Total Protein 6.8 Albumin 2.8 L TSH Urine Color Urine Clarity Urine pH Ur Specific [place] Urine Protein Urine Ketones Urine Blood Urine Nitrite Urine Bilirubin Urine Urobilinogen Ur Leukocyte Esterase Urine RBC Urine WBC Ur Epithelial Cells Urine Crystals Urine Bacteria Urine Casts Urine Mucus Ur Culture Indicated? Urine Glucose COVID-19 Source Nasopharynx SARS-CoV-2 (PCR) Negative Influenza Type A (PCR) Negative Influenza Type B (PCR) Negative RSV (PCR) Negative 05/10/24 05/10/24 05/11/24 18:15 23:56 01:11 WBC RBC Hgb Hct MCV MCH MCHC RDW Plt Count MPV Immature Gran % Neutrophils % Lymphocytes % Monocytes % Eosinophils % Basophils % Nucleated RBC % Absolute Neutrophils Absolute Lymphocytes Absolute Monocytes Absolute Eosinophils Absolute Basophils RBC Morphology ESR VBG pH 7.38 VBG pCO2 45 VBG pO2 38 VBG HCO3 27 VBG Total CO2 25 VBG O2 Saturation 71 VBG Base Excess 2 VBG Lactate Sodium Potassium Chloride Carbon Dioxide Anion Gap BUN Creatinine Est GFR (CKD-EPI 2020) Glucose Calcium Magnesium 1.8 Total Bilirubin AST ALT Alkaline Phosphatase Troponin I 20 Cancelled C-Reactive Protein NT-Pro-B Natriuret Pep Total Protein Albumin TSH 0.96 Urine Color Yellow Urine Clarity Clear Urine pH 5.5 Ur Specific [place] 1.010 Urine Protein 30 H Urine Ketones Negative Urine Blood Trace-intact H Urine Nitrite Negative Urine Bilirubin Negative Urine Urobilinogen 0.2 Ur Leukocyte Esterase Negative Urine RBC 3-5 H Urine WBC Negative Ur Epithelial Cells Few Urine Crystals Negative Urine Bacteria Rare Urine Casts Negative Urine Mucus Negative Ur Culture Indicated? No Urine Glucose Negative COVID-19 Source SARS-CoV-2 (PCR) Influenza Type A (PCR) Influenza Type B (PCR) RSV (PCR) 05/11/24 05:40 WBC 7.20 RBC 3.50 L Hgb 10.5 L Hct 31.1 L MCV 89 MCH 30.0 MCHC 33.8 RDW 14.4 Plt Count MPV Immature Gran % Neutrophils % Lymphocytes % Monocytes % Eosinophils % Basophils % Nucleated RBC % Absolute Neutrophils Absolute Lymphocytes Absolute Monocytes Absolute Eosinophils Absolute Basophils RBC Morphology ESR VBG pH VBG pCO2 VBG pO2 VBG HCO3 VBG Total CO2 VBG O2 Saturation VBG Base Excess VBG Lactate Sodium 136 Potassium 3.7 Chloride 101 Carbon Dioxide 24.3 Anion Gap 10.7 BUN 29 H Creatinine 1.6 H Est GFR (CKD-EPI 2020) 31.61 Glucose 102 Calcium 8.7 Magnesium 1.7 L Total Bilirubin 0.62 AST 35 ALT 24 Alkaline Phosphatase 69 Troponin I 21 C-Reactive Protein NT-Pro-B Natriuret Pep Total Protein 6.2 L Albumin 2.4 L TSH Urine Color Urine Clarity Urine pH Ur Specific [place] Urine Protein Urine Ketones Urine Blood Urine Nitrite Urine Bilirubin Urine Urobilinogen Ur Leukocyte Esterase Urine RBC Urine WBC Ur Epithelial Cells Urine Crystals Urine Bacteria Urine Casts Urine Mucus Ur Culture Indicated? Urine Glucose COVID-19 Source SARS-CoV-2 (PCR) Influenza Type A (PCR) Influenza Type B (PCR) RSV (PCR) Time Spent with Patient Time Spent with Patient: >50 minutes Time was spent: preparing to see the patient(eg.review tests), obtaining and/or reviewing separately otained hiistory, ordering medications,tests, procedures, referring, communicating with other health acute care certified nursing assistant, indepentently interpreting results, counseling the patient and care coordination
--- NOTE | 2024-05-11 12:01 | IN_ITS ---
PT Notes Visit Reasons: Fever, Abdominal pain, CHF, Falls with hand... Physical Therapy Initial Evaluation Date: 05/11/2024 Referring Doctor: Dr Hoang PT Orders: PT CONSULT: PT eval and treat Precautions: Telemetry, standard, left Velcro ulnar gutter as a cast except for gentle range of motion and hygiene purposes. Ortho f/u in 5 weeks for repeat imaging and possible transition to the ulnar gutter Velcro brace as needed with activity. She is able to safely use her walker at the palm of her hand while wearing the ulnar gutter brace. Patient Profile/Admitting Diagnosis: Patient is 83-year-old female presented to ED from home with fever and generally not feeling well with weakness and freque nt falls at home with decreased intake of fluid and food. She was brought in by her daughter for evaluation. The patient did have a tooth extracted since that last hospitalization and was on amoxicillin for prophylaxis. She has not been on other antibiotics recently and has had no source of her fever noted. In the ED she was tachypneic with fever but had a normal WBC and urinalysis was negativ e for acute infection though blood and urine cultures were performed. CT scan of abdomen showed small pleural effusions bilateral. status post left ring and left little finger proximal phalanx base fractures with mild to moderate ulnar and dorsal angulation on 04/29/2024 currently in ulnar gutter splint. Patient noted to be hypoxic and diagnosed with acute respiratory failure/CHF treated with Lasix and supplemental oxygen which has since been titrated to room air On 05/11/2024 PMHX: Adult failure to thrive (Acute) Fever of unknown origin (Acute) Hypoxemia (Acute) Fever (Acute) DVT (deep venous thrombosis) (Chronic) CHF (congestive heart failure) (Acute) Fracture of phalanx of left little finger (Acute) Fracture of phalanx of left ring finger (Acute) Forehead abrasion (Acute) Fall at home (Acute) Excessive cerumen in both ear canals (Acute) Tinnitus (Acute) Unspecified atherosclerosis of [place] arteries of extremities, bilateral legs (Acute) [facility] 07/14/22.HEOnychomycosis of toenail (Acute) [facility] 07/14/22.HEArthropathy of left shoulder (Acute) Steroid injection: 10/05/23; 06/22/2023; 02/16/2023; 05/02/22 (more injections previously)Bradycardia (Acute) Family history of cardiac pacemaker (Acute) Encounter for medication review and counseling (Acute) Edema of lower extremity (Acute) Worsening edema, making leg pain worse .. Poor tolerance of compression .. trying lt compression [ ] hronic neck pain (Chronic) Some relief with PT ..Neck fullness (Acute) Sensation of firmness, swelling (vs neck pain that PT is working on) .. subacu te, with high anxiety..Family history of thyroid disease (Chronic) Hx of family members being told nothing wrong then ID disease .. high anxiety.Sensorineural hearing loss (SNHL) of both ears (Acute) Leg pain, bilateral (Acute) Pt c/o notable leg pain, not just 2' edema ... improves with rest ..[ ] FLORES to eval for claudicationVertigo (Acute) Acute on chronic ... presented to ED, CVA ruled out (04/2021). ENT seen.Small vessel disease, cerebrovascular (Chronic) per MRI, 04/2018 (Hospitalized to r/o CVA .. DDx incl TIA, but most probably VERTIGO)HTN (hypertension) (Chronic) Mostly managed, good today, 09/28/18, ik. 134/68 07/30/19.Dysphagia (Acute) Acute on chronic, fluids>solids (Hx terrible choking resolved, but noting difficulty again)..CKD (chronic kidney disease) stage 3, GFR 30-59 ml/min (Chronic) @ baseline, 03/2021 (Cr 1.2/GFR 43).Dupuytren's contracture of left hand (Acute) small fingerTrigger finger, left middle finger (Acute) Tinnitus, bilateral (Acute) Arthritis of right hand (Acute) Arthritis of left hand (Acute) Obstructive sleep apnea (Chronic) 05/22/20 CPAPPulmonary hypertension (Chronic) Acute systolic CHF (congestive heart failure) (Acute) Bradycardia (Acute) Chest pain (Acute) Foot pain, right (Acute) pain, deformity, 5th toe swollen, curvedTendinitis of left rotator cuff (Chronic) Subacromial injection: 02/16/23; 05/02/22; 05/17/2021; 04/13/2020; 07/12/2019Fatigue (Chronic) Hx low normal Hgb, with elevated MCV (Ddx borderline macrocytic anemia) .. Folate, B12 WNL. Vit D improved (2018). TSH, LFTs WNL. October retest, but 12/2018 shows baseline, w/o acute changes/deficiency.Bilateral knee pain (Acute 05/02/14) Idiopathic peripheral neuropathy (Acute 06/15/12) Osteoporosis (Acute 02/27/14) L wrist T = -3.7 01/2014; but FRAX: 11.4 risk major, 2.6 risk of hip: Rx not recommended Osteopenia (Acute 04/27/06) Pain in lower limb (Acute 05/22/12) Patellar tendinitis (Acute) INjection from Dr. Souza, hurt going but helped pain freatly. Able to walk much better, 10/2018Hip fracture (Acute) Spinal stenosis at L4-L5 level (Chronic) Closed right hip fracture (Acute) Anxiety (Chronic 02/20/15) Obesity with body mass index 30 or greater (Chronic) BMI 38.2 (if still 5'1) 08/2013 Cough (Acute) recurrent cough, ?allergic rhinnitis, responsive to nasal steroid?; 12/2014 Dysgeusia (Acute 12/15/15) Gastroesophageal reflux disease (Chronic) responds to OTC Prilosec . Ranitidine tried, did not help 06/2019 [ ] return to PPI? 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 Much improved, 11/02/18.Pain in knee region after total knee replacement (Acute 04/03/17) Rt and Lt TKA - Dr. 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 Blair 07/20/18) (trial of minocycline 50mg daily)Tachycardia-bradycardia syndrome (Chronic 08/2018) per [facility] Patch report/summary. Asymptomatic. c/o Heart Fluttering 06/2019 .. >[place], 07/2019 .. NSR w/ occ SVT. No AFib. Medical History Asthma Breast pain, left Nail abnormalities (02/27/14) L hand multiple nails; Dr Blair, terbinafine rx toe nails too Displaced intertrochanteric fracture of right femur, subsequent encounter for closed fracture with routine healing (02/12/16) Nail abnormality Obesity Dysgeusia Chest pain GERD (gastroesophageal reflux disease) Prehypertension Intertrigo Mixed stress and urge urinary incontinence Gross hematuria Osteopenia Right arm pain Hyperlipidemia pt. states she is unsure if she has thisHead ache Multiple fractures of right femur pt states she fractured her hipAnxiety Nocturia Osteoporosis Multiple joint pain Lumbago Idiopathic peripheral neuropathy Surgical History History of repair of right hip joint History of esophagogastroduodenoscopy (EGD) (~10/15/18) flexible laryngoscopy (03/12/15) Dr Villatoro egd (05/10/16) Replacement of total knee joint Right arthroscopic rtotator cuff repair (04/22/13) RIGHT FOOT FX REPAIR section X4Open Carpal Tunnel release Hysterectomy, Laproscopic Hemorrhoidectomy Colonoscopy - IV Sedation Cholecystectomy Bilateral salpingectomy with oophorectomy BILATERAL TKA (10/01/12) DR. VIOLETA GONZALEZ Social History/Home Situation: Patient resides with son 4 steps to enter with railing flight of stairs to second floor she has a walker on both floors. She is independent with ADLs, feeding and ambulation with FWW. Her daughter is nearby also Equipment Owned/DME: 2 FWW Subjective: Patient reports difficulty chewing food due to recent tooth extraction stating at home she has been limited to soft foods such as puddings oatmeal and mashed potatoes.(Nurse notified and diet to be modified as appropriate after discussion with MD) patient also states she just returned from a neck CAT scan. Objective: [] General Observation: Female seated in chair eating lunch able to hold pudding bowl with right upper extremity. Patient agreeable to participate in evaluation. Family present at end of session Mental Status: Alert and oriented x 3 Pain: Left hand 3/10; abdominal 4/10 ROM: [] Right Upper Extremity: WFL Left Upper Extremity: WFL EXCEPT WRIST AND 4TH 5TH DIGITS NOT TESTED d/t gutter plint Right Lower Extremity: Within normal limits Left Lower Extremity: Within normal limits Strength: [] Right Upper Extremity: 5/5 Left Upper Extremity: 5/5 except wrist and 4th-5th digits not tested. Able to grasp with thumb and 2nd - 3rd digits. Right Lower Extremity: Hip flexion 3+/5 abduction 3+/5 extension 3/5, knee extension 3+/5 knee flexion 3/5, ankle 3/5 Left Lower Extremity: Hip flexion 3+/5 abduction 3+/5 extension 3/5, knee extension 3+/5 knee flexion 3/5, ankle 3/5 Sensation: Intact Skin integrity: Left hand ecchymotic area third fourth and fifth digits with mild swelling noted within gutter splint Bed Mobility/Transfers: Supine to sit: Supervision Sit to stand: Supervision Stand to sit: Supervision Bed to chair: Supervision with FWW Gait: Ambulate with FWW 100 feet supervision level surfaces reciprocal pattern patient able to grasp FWW with left thumb and second and third digits. Balance: Static Sitting: Normal Dynamic Sitting: Good Static Standing: Good Dynamic Standing: Good with 1 upper extremity support Special Tests: Mobility Limitations Standardized Measure [facility] AM-PAC 6 clicks Basic Mobility Inpatient Short Form: Raw Score: 22 CMS Score: 20.91% Informed Consent/Education: Patient instructed in purpose of PT consult. Assessment: Crystal is a 83-year-old female presenting with 2-week history of left fourth and fifth phalanx fracture and fever of unknown origin. She is able to grasp walker and utilize it appropriately for stability during ambulation without increased pain. Patient presents with clinical signs and symptoms consistent with current/admitting diagnoses that have resulted to mobility limitations, gait instability, generalized weakness, and impairment of motor control as demonstrated by the following impairment level findings: 1. Decreased strength to BLE major muscle groups 2. Impaired standing balance 3. Limitation of joint range of motion in left hand 4. Pain left hand and abdomen Impairments are contributing to the following functional limitations: 1. Inability to safely ambulate without assistive device 2. Increase completion time for mobility ADL performance 3. Increased fall risk Patient is assessed as a moderate complexity based on the following: History: 83-year-old female with impairment level findings, functional limitations, and past medical history as indicated above Examination: Demonstrable impairment in strength, balance, and mobility level with underlying impairments and functional limitations as documented above Presentation: Evolving Decision Making: Moderate Goals: X 1 week 1. Independent bed mobility 2. Independent transfers with FWW 3. Independent ambulation with FWW 300 feet level surfaces 4. Supervised 4 stairs with 2 railings to safely enter and exit home Plan of Care/Treatment Plan: Pt would benefit from skilled PT 1-2 times per day x 7 days /week for global strengthening, transfers, ambulation, pain management and balance facilitation DISCHARGE RECOMMENDATIONS: Home with no services, follow-up with Ortho for left hand fractures. TREATMENT CODE/TIME: 83808 x 20 minutes for 1 unit 74647 x 10 minutes for 1 unit/1223?1253 Thank you for the opportunity to participate in the care of this patient. Please sign an return this page within 30 days if you agree with the above POC. Thank you! Physician Signature Date [facility]
[2024-05-11] MEDS: Normal Saline - Diluent 50 ML VIAL IJ (12:05)
[2024-05-11] MEDS: Omnipaque 350 MG/ML 100 ML BTL IJ (12:06)
--- NOTE | 2024-05-11 12:25 | INITIAL_ITS ---
Date of service: 05/11/24 Time of Service: 12:25 Care Management Initial Assmt Initial Assessment Reason for Hospitalization: fever, abdominal pain, CHF Functional Status/Living Situation Patient Presentation: Crystal was sleeping in her chair when CM met with her. Her daughter, son-in law, son, and daughter-in law were in the room visiting. They expressed concerns about their mom, as Crystal has not been at her baseline since a couple days before a fall she experienced about two weeks ago. They stated that at baseline, Crystal is very independent; she cooks and cleans and is independent with ADLs. Sonal, her daughter, stated that a day or two before her fall, Crystal wasn't feeling well and had a fever. Since her fall, they have noticed that Crystal has not been acting like herself; she is staying in bed or in her chair, not wanting to get up, she is forgetting to take her medications and isn't eating or drinking well. They stated that she has been having a fever on and off throughout that time period as well. Per report, she is being treated for CHF, and there are labs pending that may help determine the source of her fevers. CM discussed discharge planning considerations with Crystal's family; they are concerned about her being home during the day when her son, Alvaro, who lives with her, is at work. Crystal has HH RN, PT and OT currently. CM will send a referral to the [facility] to discuss adding caregivers and shelter planning. CM explained that in order for Crystal to qualify for short term rehab, she will need to have a skilled need, and she would have to be willing to go; they are unsure if she would be ok with going to rehab, as they said that she is adamant that she wants to stay in her home. CM will continue to follow. Town of Residence: [place] Resides with: Child Significant Other/Family: Local Caregiver/Guardian: sonAlvaro, lives with Crystal Natural Supports: daughter and son in law, Sonal and Rui, live nearby and are supportive Employment Status: Retired Instrumental Activities of Daily Living (ADLs): Independent Activities/Hobbies/SocialSupport: Crystal loves to cook at baseline Medications Medication Management: No Issues/Barriers identified Advance Directives Advance Directives: Do you have an Advance Directive: Y 09/18/23 09:40 AD On File at [facility]: Y 09/18/23 09:40 Date Asked 05/10/24 05/10/24 22:31 AD Date Reviewed 05/10/24 05/10/24 22:31 COLST On File at [facility] COLST Date Scanned Code Status Resuscitation Status DNR Insurance Coverage/Financial Issues Insurance: [facility] Care Team Visit Care Team Role Provider Type Sarah Gao Primary Care Provider NURSE PRACTITIONER InPatient [facility] Other Providers OTHER Victor Hugo Hairston MD Emergency Provider [facility] STAFF PHYSICIAN Aguila Hoang Admit Provider NON-[facility] STAFF PHYSICIAN Attending Provider Discharge Potential Discharge Needs: PT Evaluation and PCP F/U Appt Anticipated Barriers to Discharge: None Identified Patient/Family Education Needs: Review discharge instructions, discuss Ask Me Three Transportation: Private vehicle Plan: Anticipate Crystal will return home once medically cleared with a resumption of HH RN, PT, OT. She will transport home via private vehicle with family. She will follow up with her PCP and discharge plan of care. CM will continue to follow. PFSH All Active Problems (Updated 05/11/24 @ 12:01 by Koffi Tracey MD) Acute respiratory failure with hypoxia (Acute) Adult failure to thrive (Acute) Fever of unknown origin (Acute) Hypoxemia (Acute) Fever (Acute) DVT (deep venous thrombosis) (Chronic) Fever (Acute) CHF (congestive heart failure) (Acute) Fracture of phalanx of left little finger (Acute) Fracture of phalanx of left ring finger (Acute) Forehead abrasion (Acute) Fall at home (Acute) Excessive cerumen in both ear canals (Acute) Tinnitus (Acute) Unspecified atherosclerosis of [place] arteries of extremities, bilateral legs (Acute) [facility] 07/14/22.HE Onychomycosis of toenail (Acute) [facility] 07/14/22.HE Arthropathy of left shoulder (Acute) Steroid injection: 10/05/23; 06/22/2023; 02/16/2023; 05/02/22 (more injections previously) Bradycardia (Acute) Family history of cardiac pacemaker (Acute) Encounter for medication review and counseling (Acute) Edema of lower extremity (Acute) Worsening edema, making leg pain worse .. Poor tolerance of compression .. trying lt compression [ ] 12/2020 Chronic neck pain (Chronic) Some relief with PT .. Neck fullness (Acute) Sensation of firmness, swelling (vs neck pain that PT is working on) .. suba cute, with high anxiety.. Family history of thyroid disease (Chronic) Hx of family members being told nothing wrong then ID disease .. high anxiety. Sensorineural hearing loss (SNHL) of both ears (Acute) Leg pain, bilateral (Acute) Pt c/o notable leg pain, not just 2' edema ... improves with rest ..[ ] FLORES to eval for claudication Vertigo (Acute) Acute on chronic ... presented to ED, CVA ruled out (04/2021). ENT seen. Small vessel disease, cerebrovascular (Chronic) per MRI, 04/2018 (Hospitalized to r/o CVA .. DDx incl TIA, but most probably VERTIGO) HTN (hypertension) (Chronic) Mostly managed, good today, 09/28/18, ik. 134/68 07/30/19. Dysphagia (Acute) Acute on chronic, fluids>solids (Hx terrible choking resolved, but noting difficulty again).. CKD (chronic kidney disease) stage 3, GFR 30-59 ml/min (Chronic) @ baseline, 03/2021 (Cr 1.2/GFR 43). Dupuytren's contracture of left hand (Acute) small finger Trigger finger, left middle finger (Acute) Tinnitus, bilateral (Acute) Arthritis of right hand (Acute) Arthritis of left hand (Acute) Obstructive sleep apnea (Chronic) 05/22/20 CPAP Pulmonary hypertension (Chronic) Acute systolic CHF (congestive heart failure) (Acute) Bradycardia (Acute) Chest pain (Acute) Foot pain, right (Acute) pain, deformity, 5th toe swollen, curved Tendinitis of left rotator cuff (Chronic) Subacromial injection: 02/16/23; 05/02/22; 05/17/2021; 04/13/2020; 07/12/2019 Fatigue (Chronic) Hx low normal Hgb, with elevated MCV (Ddx borderline macrocytic anemia) .. Folate, B12 WNL. Vit D improved (2018). TSH, LFTs WNL. May retest, but 12/2018 shows baseline, w/o acute changes/deficiency. Bilateral knee pain (Acute 05/02/14) Idiopathic peripheral neuropathy (Acute 06/15/12) Osteoporosis (Acute 02/27/14) L wrist T = -3.7 01/2014; but FRAX: 11.4 risk major, 2.6 risk of hip: Rx not recommended Osteopenia (Acute 04/27/06) Pain in lower limb (Acute 05/22/12) Patellar tendinitis (Acute) INjection from Dr. Souza, hurt going but helped pain freatly. Able to walk much better, 10/2018 Hip fracture (Acute) Spinal stenosis at L4-L5 level (Chronic) Closed right hip fracture (Acute) Anxiety (Chronic 02/20/15) Obesity with body mass index 30 or greater (Chronic) BMI 38.2 (if still 5'1) 08/2013 Cough (Acute) recurrent cough, ?allergic rhinnitis, responsive to nasal steroid?; 12/2014 Dysgeusia (Acute 12/15/15) Gastroesophageal reflux disease (Chronic) responds to OTC Prilosec . Ranitidine tried, did not help 06/2019 [ ] return to PPI? 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 Much improved, 11/02/18. Pain in knee region after total knee replacement (Acute 04/03/17) Rt and Lt TKA - Dr. Gonzalez Bilateral corticosteroid injections: 10/10/18 Ocular rosacea (Chronic) question ocular rosacea and mild facial rosacea ([facility] Dr. 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 Asymptomatic. c/o Heart Fluttering 06/2019 .. >[place], 07/2019 .. NSR w/ occ SVT. No AFib. Medical History Asthma Breast pain, left Nail abnormalities (02/27/14) L hand multiple nails; Dr Blair, terbinafine rx toe nails too Displaced intertrochanteric fracture of right femur, subsequent encounter for closed fracture with routine healing (02/12/16) Nail abnormality Obesity Dysgeusia Chest pain GERD (gastroesophageal reflux disease) Prehypertension Intertrigo Mixed stress and urge urinary incontinence Gross hematuria Osteopenia Right arm pain Hyperlipidemia pt. states she is unsure if she has this Head ache Multiple fractures of right femur pt states she fractured her hip Anxiety Nocturia Osteoporosis Multiple joint pain Lumbago Idiopathic peripheral neuropathy Surgical History History of repair of right hip joint History of esophagogastroduodenoscopy (EGD) (~10/15/18) flexible laryngoscopy (03/12/15) Dr Villatoro egd (05/10/16) Replacement of total knee joint Right arthroscopic rtotator cuff repair (04/22/13) RIGHT FOOT FX REPAIR section X4 Open Carpal Tunnel release Hysterectomy, Laproscopic Hemorrhoidectomy Colonoscopy - IV Sedation Cholecystectomy Bilateral salpingectomy with oophorectomy BILATERAL TKA (10/01/12) DR. VANDANA GONZALEZ Family History Mother , Fluid buildup at age 72. Diabetes did not have diabetes Personal history of malignant neoplasm Asthma Father , AD,blood clot at age 69. Alzheimer's disease Son Asthma Son No problems noted. Son No problems noted. Daughter No problems noted. Sister No problems noted. Sister Personal history of malignant neoplasm Sister Personal history of malignant neoplasm Sister No problems noted. 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 Pets and animals: Yes Pets and animals: dog(s) Current gender identity: female What is your relationship status?: Panel score (0-1 are the most socially isolated patients): 0 What type of physical activity do you participate in: none Seatbelt use: always Do you feel safe at home: Yes Do you feel safe in your relationship?: Yes Victim of physical abuse: No Victim of emotional abuse: No Victim of sexual abuse: No SDOH(Care Management) Screening Will the Patient Participate in the Screening?: Yes Do you worry about having a steady place to live?: no Problems where you live: no known problems In the past 12 months, have you had to go without electric, gas, oil or water in your home?: no Have you or anyone in your house had to go without enough food to eat?: no Has lack of transportation kept you from medical appointments or from doing things needed for daily living?: no Has anyone in your support network made you feel unsafe for any reason?: no
--- NOTE | 2024-05-11 12:52 | DI.VRAD_ITS ---
PROCEDURE INFORMATION: Exam: CT Neck With Contrast Exam date and time: 05/11/2024 12:28 PM Age: 83 years old Clinical indication: Other: Concern for left upper tooth abscess S/P extractio; Prior surgery; Surgery date: 3-7 days post-operative; Surgery type: Tooth extraction TECHNIQUE: Imaging protocol: Computed tomography of the neck with contrast. Contrast material: OMNIPAQUE 350; Contrast volume: 80 ml; Contrast route: INTRAVENOUS (IV); COMPARISON: CT BRAIN NECK CTA 04/18/2021 11:35 AM FINDINGS: Orbital cavities: Post bilateral cataract surgery. Salivary glands: Normal. Glands are normal in size. Teeth: Post left maxillary premolar tooth extraction. Pharynx: Unremarkable. No significant tonsillar enlargement. Prevertebral and retropharyngeal spaces: Unremarkable. Larynx: Unremarkable. Epiglottis is normal. Thyroid: Normal. No enlarged or calcified nodules. Trachea: Visualized trachea is unremarkable. Lungs: Unremarkable as visualized. Lymph nodes: Unremarkable. No lymphadenopathy. Bones/joints: Mild anterolisthesis of C3 over C4 and C4 over C5 due to bilateral facet joint arthropathy. CPPD changes around the dens mild anterolisthesis of C7 over T1. Soft tissues: Unremarkable. No significant soft tissue swelling. IMPRESSION: No soft tissue abscess. Dictated and Authenticated by: Diony Etienne MD. Ordering:MARIAM Rain MD
[2024-05-11] MEDS: Ondansetron 4 MG/2 ML VIAL IVP (19:51)
[2024-05-11] MEDS: MAGNESIUM SULFATE 2 GM/50 ML BAG IV_INF (20:57)
[2024-05-11] MEDS: Metoprolol 12.5 MG TAB PO (20:57)
[2024-05-11] MEDS: POTASSIUM CHLORIDE 10 MEQ/100 ML BAG 100 MEQ IV_INF (23:34)
[2024-05-12] VITALS (7 sets, daily range): BP systolic 95–113; BP diastolic 44–60; PULSE 51–60; RESP 15–20; TEMP 36.4–36.6; O2SAT 93–98
[2024-05-12] MEDS: POTASSIUM CHLORIDE 10 MEQ/100 ML BAG 100 MEQ IV_INF (01:03)
[2024-05-12] MEDS: Normal Saline Flush 10 ML SYR IVP ×5 (02:15→19:33)
[2024-05-12] MEDS: DOXYCYCLINE 100 MG in Normal Saline 100 ML IVPB ×2 (04:08→15:53)
[2024-05-12 06:15] LABS: HCT 32.2 % (36.0-46.0); HGB 10.7 g/dL (11.2-15.7); MCH 30.2 pg (27.0-33.0); MCHC 33.2 % (32.0-36.0); MCV 91 fL (80-95); RBC 3.54 10^6/uL (3.93-5.22); RDW 14.6 % (11.7-14.6); RDW-SD 49.2 fL; WBC 7.69 10^3/uL (4.4-10.8)
[2024-05-12 06:28] LABS: BUN 44 mg/dL (7-18); CREATININE 2.3 mg/dL (0.55-1.02); Calcium 8.7 mg/dL (8.5-10.1); Chloride 101 mmol/L (98-107); Estimated GFR 20.45 (mL/min/1.73m2); Glucose 99 mg/dL (74-106); Potassium 4.5 mmol/L (3.5-5.1); Sodium 135 mmol/L (136-145)
[2024-05-12 07:19] LABS: Lab Add On Test DONE
[2024-05-12] MEDS: Rivaroxaban 10 MG TABLET PO (07:28)
[2024-05-12] MEDS: Omeprazole 20 MG CAPCR PO (07:28)
[2024-05-12] MEDS: Metoprolol 12.5 MG TAB PO ×2 (07:28→19:26)
[2024-05-12] MEDS: Furosemide 20 MG/2 ML VIAL IVP (07:29)
[2024-05-12] MEDS: Calcium 600mg/Vit D 200U TAB 2 TAB PO (07:29)
[2024-05-12] MEDS: Acetaminophen 500 MG TAB 1000 MG PO ×2 (07:36→19:26)
[2024-05-12 07:37] LABS: Magnesium 2.4 mg/dL (1.8-2.4)
[2024-05-12] MEDS: Budesonide/Formoterol 80/4.5 6.9 GM 60 PUFF INH IH (07:53)
[2024-05-12] MEDS: Nystatin POWDER 15 GM JAR TP ×2 (09:04→19:38)
--- NOTE | 2024-05-12 09:55 | PT.INTREAT ---
PT Notes Visit Reasons: Fever, Abdominal pain, CHF, Falls with hand... Inpatient Physical Therapy Treatment Note [facility] Date: 05/12/24 SUBJECTIVE: Crystal states that she is feeling better than she did yesterday. Reports her legs to be stiff and weak as she has not done much walking over past several days. OBJECTIVE: []? VITALS: ?monitored by [facility] Therapeutic Activities ([id number]) 15min: Direct one-on-one instruction in dynamic activities to improve functional performance. ? BED MOBILITY/TRANSFERS? pt seated in recliner, visiting with family ? Sit-stand: SBA? Stand-sit: SBA ? Provided skilled cues and instruction on performance and technique throughout. ? GAIT? Assistive Device: FWW? Weight bearing:full Assist: SBA/CGA ? Distance:? approx 200'? Deviation: slow, shortened stride length ? ASSESSMENT:?tolerated session quite well. Fatigue in B LE, therefore held off on stair negotiation today. She did increase her walking distance today compared to yesterday. [place] as though she had enough for now. PLAN:will continue working on her endurance, will look to initiate some stair training tomorrow. TREATMENT CODE/TIME: 15 min. [id number] DISCHARGE RECOMMENDATION: home with son.
--- NOTE | 2024-05-12 11:46 | PGE_ITS ---
Date of Service Date of service: 05/12/24 Time of Service: 11:46 Assessment and Plan Assessment and plan (1) Fever: Start date: 05/10/24 Status: Acute Assessment and plan: -Reported persistent fevers at home, febrile off/on since admission temperature as high as 102.7, but last fever 05/11/24 at 11am. -At this time, source of infection on clear as CT chest abdomen pelvis was without acute findings -While patient did complain of some sore throat, she also complains of epigastric discomfort this may be secondary to gastritis -Recent dental work, CT neck reassuring that no abscess or other complication. -I suspect possible anaplasmosis as labs last week showed new neutropenia and thrombocytopenia, this would fit with improvement in fever curve since admitted and started on doxycycline. Tick panel pending -May also be secondary to acute non-specific viral illness Qualifiers: Fever type: due to other condition Qualified Code(s): R50.81 - Fever presenting with conditions classified elsewhere (2) CHF (congestive heart failure): Start date: 05/10/24 Status: Acute Assessment and plan: -Patient has documented history of CHF though unable to find recent echocardiogram or other documentation stating whether it is HFpEF or HFrEF -She was also hypoxic, and has responded to IV Lasix -Cr up today, hold furosemide, echo should give us a sense if congested or dry, but I suspect she is dry as Cr bumped after diuresis. -Follow-up echocardiogram on 05/13/2024 Qualifiers: Heart failure type: right-sided Heart failure chronicity: chronic Qualified Code(s): I50.812 - Chronic right heart failure (3) Acute respiratory failure with hypoxia: Status: Acute Assessment and plan: -Secondary to acute exacerbation of CHF as noted above, now resolved. -Required up to 2 L nasal cannula, has been transitioned to room air as of the morning of 05/11/2024 (4) CKD (chronic kidney disease) stage 3, GFR 30-59 ml/min: Status: Chronic Assessment and plan: -Cr up after diuresis and receiving additional dose of IV contrast, holding furosemide, continue to monitor. Qualifiers: Chronic kidney disease stage 3 subtype: stage 3b (GFR 30-44) Qualified Code(s): N18.32 - Chronic kidney disease, stage 3b (5) Obstructive sleep apnea: Status: Chronic Assessment and plan: With obesity not on treatment and no home oxygen. (6) GERD (gastroesophageal reflux disease): Assessment and plan: Continue PPI. Qualifiers: Esophagitis presence: without esophagitis Qualified Code(s): K21.9 - Gastro-esophageal reflux disease without esophagitis (7) Fracture of phalanx of left little finger: Status: Acute Assessment and plan: Continue ulnar gutter splint with orthopedic follow-up. Qualifiers: Encounter type: subsequent encounter Fracture type: closed Phalanx: proximal Fracture alignment: nondisplaced Fracture healing: with routine healing Qualified Code(s): S62.647D - Nondisplaced fracture of proximal phalanx of left little finger, subsequent encounter for fracture with routine healing (8) Fracture of phalanx of left ring finger: Status: Acute Assessment and plan: Continue ulnar gutter splint with orthopedic follow-up. Qualifiers: Encounter type: subsequent encounter Fracture type: closed Phalanx: proximal Fracture alignment: nondisplaced Fracture healing: with routine heal ing Qualified Code(s): S62.645D - Nondisplaced fracture of proximal phalanx of left ring finger, subsequent encounter for fracture with routine healing (9) Non-sustained ventricular tachycardia: Status: Acute Assessment and plan: at risk with ESTRELLA and with diuresis and acute illness. monitor electrolytes. started on low dose metoprolol. continue tele monitoring. Echo pending. (10) DVT (deep venous thrombosis): Status: Chronic Assessment and plan: Continue Xarelto. Qualifiers: DVT location: lower extremity Affected thrombotic vein of extremity: other lower extremity vein Chronicity: chronic Laterality: unspecified laterality Qualified Code(s): I82.599 - Chronic embolism and thrombosis of other specified deep vein of unspecified lower extremity (11) Acute kidney injury: Status: Acute Assessment and plan: as above, suspect stress of contrast and diuresis. follow. Subjective Subjective Patient reports: tolerating a regular diet, voiding w/o difficulty, bowel m ovement, nausea and shortness of breath; denies vomiting or fever Interval history since last seen: Feeling a little better, though still tired. She did not have a fever overnight last night. Breathing is about the same. No chest pain. She is still getting intermittent nausea and some abdominal discomfort after eating, not now. Had BM this morning, normal. Per family she has had off/on fever and [place] and abdominal pain and some general malaise for two weeks, even before her dental work. Exam Narrative Exam Narrative: Well-appearing female sitting up in the chair no acute distress, awake, alert, oriented to person and place. heart regular rhythm, no M/G/R. Lungs with bibasilar rales bilaterally, otherwise clear. Abdomen soft, nontender, nondistended, no HSM. Extremities non tender, no edema, no cyanosis. Objective Last Vital Signs Temp 36.4 C L 05/12/24 11:06 Pulse 55 L 05/12/24 11:06 Resp 15 05/12/24 11:06 BP 98/48 L 05/12/24 11:19 Pulse Ox 96 05/12/24 11:06 Laboratory Results - last 24 hr 05/12/24 05:45 WBC 7.69 RBC 3.54 L Hgb 10.7 L Hct 32.2 L MCV 91 MCH 30.2 MCHC 33.2 RDW 14.6 Plt Count MPV Sodium 135 L Potassium 4.5 Chloride 101 Carbon Dioxide 24.0 Anion Gap 10.0 BUN 44 H Creatinine 2.3 H Est GFR (CKD-EPI 2020) 20.45 Glucose 99 Calcium 8.7 Magnesium 2.4 Add-On Test Request DONE Time Spent with Patient Time Spent with Patient: >50 minutes Time was spent: preparing to see the patient(eg.review tests), obtaining and/or reviewing separately otained hiistory, ordering medications,tests, procedures, referring, communicating with other health care management assistant, indepentently interpreting results, counseling the patient and care coordination
[2024-05-12] MEDS: Benzonatate 100 MG CAP PO (17:24)
[2024-05-13] VITALS (7 sets, daily range): BP systolic 93–131; BP diastolic 58–90; PULSE 50–57; RESP 14–20; TEMP 36.1–36.8; O2SAT 95–99
[2024-05-13] MEDS: DOXYCYCLINE 100 MG in Normal Saline 100 ML IVPB (03:35)
[2024-05-13] MEDS: Normal Saline Flush 10 ML SYR IVP ×4 (03:35→22:03)
[2024-05-13 06:23] LABS: HCT 29.6 % (36.0-46.0); HGB 9.9 g/dL (11.2-15.7); MCH 30.1 pg (27.0-33.0); MCHC 33.4 % (32.0-36.0); MCV 90 fL (80-95); RBC 3.29 10^6/uL (3.93-5.22); RDW 14.9 % (11.7-14.6); RDW-SD 49.2 fL; WBC 7.62 10^3/uL (4.4-10.8)
[2024-05-13 06:47] LABS: Anion Gap 11.3 mmol/L (3-11); BUN 55 mg/dL (7-18); CO2 22.7 mmol/L (21.0-32.0); CREATININE 3.3 mg/dL (0.55-1.02); Calcium 8.3 mg/dL (8.5-10.1); Chloride 97 mmol/L (98-107); Estimated GFR 13.26 (mL/min/1.73m2); Glucose 94 mg/dL (74-106); Magnesium 2.1 mg/dL (1.8-2.4); Potassium 4.5 mmol/L (3.5-5.1); Sodium 131 mmol/L (136-145)
[2024-05-13 07:33] LABS: Absolute Eosinophil Count 0.23 10^3/uL (0.0-0.7); Absolute Lymphocyte Count 3.89 10^3/uL (1.2-3.4); Absolute Monocyte Count 0.84 10^3/uL (0.1-0.8); Absolute Neutrophil Count 2.67 10^3/uL (1.2-6.7); Atypical Lymphocytes % 9 %
[2024-05-13 07:34] LABS: Diff Comment Manual Differential; RBC Morphology Normal
--- NOTE | 2024-05-13 08:00 | DI.US_ITS ---
APPROVED REPORT EXAM: Comprehensive 2D, Doppler, and color-flow Echocardiogram Patient Location: In-Patient Room/Bed: [facility] Catering Server: Marla Landis RDCS (AE) Indications: CHF Other Information Study Quality: Adequate Conclusion Normal left ventricular wall thickness and chamber size. Ejection fraction is 55%. Wall motion is n ormal Normal right ventricular size and function Both atria are mildly enlarged The aortic valve is mildly sclerotic and trileaflet without stenosis or regurgitation Estimated right ventricular systolic pressure is 50 mmHg Ascending aorta measures 3.5 cm Wall motion Left Ventricle The left ventricle is normal size. The left ventricular systolic function is normal. The left ventric ular ejection fraction is within the normal range. There is normal left ventricular wall thickness. T here is normal LV segmental wall motion. There is no ventricular septal defect visualized. LVEF is 55 %. Right Ventricle The right ventricle is normal size. The right ventricular systolic function is normal. Atria Left atrium is mildly dilated Right atrium is mildly dilated The interatrial septum is intact with no evidence for an atrial septal defect. Aortic Valve The Aortic valve is mildly sclerotic. Aortic valve is trileaflet. There is no aortic valvular stenosi s. No aortic regurgitation is present. Mitral Valve Mild mitral annular calcification. No evidence of mitral valve stenosis. Trace mitral regurgitation. Tricuspid Valve The tricuspid valve is normal in structure. There is no tricuspid valve stenosis. Moderate tricuspid regurgitation. The RVSP is 49.9 mmHg. Pulmonic Valve The pulmonary valve is normal in structure. There is no pulmonic valvular stenosis. Trace pulmonic re gurgitation. Great Vessels The aortic root is normal in size. The ascending aorta is mildly dilated. Aortic arch is not well vis ualized. The IVC collapses <50% with inspiration. Pericardium There is no pericardial effusion. 2D Dimensions IVSD d PLAX 1.00 cm F: 0.6-1.0 Ao Root d 3.12 cm F: 2.7 - 3.3 LVPW d PLAX 1.01 cm F: 0.6 - 1.0 Ao Asc Diam d 3.50 cm F: 2.3 - 3.1 LVID d PLAX 4.77 cm F: 3.8 - 5.2 LVDs 3.30 cm F: 2.2 - 3.5 LV EF Teichholz 58.1 % FS 30.66 % LV EDV (Teich) 105.7 mL LV ESV (Teich) 44.3 mL M-Mode TAPSE 3.17 cm (M/F) >1.7 Auto EF LV EDV A4C 74.3 mL LV EDV A2C 94.7 mL LV EDV BP 85.1 mL LV ESV A4C 33.3 mL LV ESV A2C 43.0 mL LV ESV BP 38.6 mL LVEF(%) A4C 55.2 % LVEF(%) A2C 54.6 % LVEF(%) BP 54.7 % LV SV A4C 41.0 ml LV SV A2C 51.7 ml LV SV BP 46.5 ml LV CO A4C 2.0 L/min LV CO A2C 2.7 L/min LV CO BP 2.3 L/min HR A4C 48.32 BPM HR A2C 51.58 BPM LV EDV Index (BP) LA Volume LA Length A4C 5.6 cm LA Length A2C 6.1 cm LA Area A4C s 16.69 cm2 LA Area A2C s 20.06 cm2 LA Vol A4C A-L 42.22 mL LA Vol A2C A-L 56.45 mL LA Vol Biplane A-L 50.8 mL LA Vol/BSA A4C A-L LA Vol/BSA A2C A-L LA Vol/BSA BP A-L 27.6 mL/m2 LA Vol A4C MOD 40.9 mL LA Vol A2C MOD 53.3 mL LA Vol BP MOD 48.4 mL RA Volume RA Area A4C 12.4 cm2 RA ESV A4C (A-L) 28.3mL RA Vol/BSA A4C A-L RA Length A4C 4.6 cm RA ESV A4C (MOD) 27.0mL LV Diastology MV E' medial 0.092 (>0.07 m/s) MV E Vmax 1.10 (0.4-1.3 m/s) MV E/E' MED 11.96 (<14) MV A Vmax 1.05 (0.4-1.3 m/s) MV E' lateral 0.082 (>0.1 m/s) E/A Ratio 1.0 MV E/E' LAT 13.39 (<14) MV E' Average 0.087 m/s MV E/E'(average) 12.64 Aortic Valve AoV Vmax 1.79 m/s LVOT Vmax 1.30 m/s AoV Peak Grad 12.8 mmHg LVOT Peak Grad 6.8 mmHg AoV Area (Vmax) 2.20 cm2 LVOT VTI 0.305 m AoV VTI 0.391 m LVOT Mean Grad 3.6 mmHg AoV Mean Yang. 1.22 m/s LVOT SV 92.31 mL AoV Mean Grad 6.9 mmHg LVOT Diam s 1.95 cm AoV Area (VTI) 2.36 cm2 AV Regurg Peak Gr. 12.79 mmHg Velocity Ratio 0.73 Mitral Valve MV DT 221 (160-240 msec) MV Vmax TIPS 1.04 m/s MV Mean Grad 1.3 (<2mmHg) MV VTI 0.397 m Pulmonary Valve PV Vmax 0.93 (0.5-1.5 m/s) RVOT Vmax 0.62 m/s PV Peak Grad 3.5 mmHg RVOT Peak Gr. 1.5 mmHg PV Mean Yang 0.59 m/s RVOT VTI 0.153 m PV Mean Grad 1.6 mmHg RVOT Mean Gr. 0.8 mmHg Tricuspid Valve RA Pressure 8.00 mmHg TR Vmax 3.24 m/s TV S' 0.16 m/s TR Peak Grad 41.9 mmHg RVSP (TR) 49.9 mmHg
[2024-05-13] MEDS: Budesonide/Formoterol 80/4.5 6.9 GM 60 PUFF INH IH (08:10)
[2024-05-13] MEDS: Rivaroxaban 10 MG TABLET PO (08:36)
[2024-05-13] MEDS: Metoprolol 12.5 MG TAB PO (08:36)
[2024-05-13] MEDS: Omeprazole 20 MG CAPCR PO (08:36)
[2024-05-13] MEDS: Calcium 600mg/Vit D 200U TAB 2 TAB PO (08:36)
--- NOTE | 2024-05-13 08:43 | PDOC.CMPRO ---
Date of service: 05/13/24 Time of Service: 08:43 Care Management Progress Note Progress Note Text Progress Note Text: Crystal was sitting up in a chair when CM met with her. She was very pleasant but not overly talkative and her answers to questions were a bit vague. Crystal was admitted with a fever, weakness and CHF. She is much improved and is nearing discharge readiness. Crystal informed CM that she is using her walker for ambulation at home now. She did state that its a little tricky because she does not have full use of her left hand. Crystal had home health services for nursing, PT and OT and these services will be resumed at discharge. CM is scheduled to meet with Crystal's daughter Sonal at her request, to discuss discharge planning needs. Discharge Potential Discharge Needs: PCP F/U Appt Anticipated Barriers to Discharge: None Identified Patient/Family Education Needs: Review discharge instructions, discuss Ask Me Three Transportation: Private vehicle Plan: Anticipate Crystal will return home once medically cleared with a resumption of RN, PT, OT. She will transport home via private vehicle with family. She will follow up with her PCP and discharge plan of care. CM will continue to follow and assess for discharge concerns.. SDOH(Care Management) Screening Will the Patient Participate in the Screening?: Yes Do you worry about having a steady place to live?: no Problems where you live: no known problems In the past 12 months, have you had to go without electric, gas, oil or water in your home?: no Have you or anyone in your house had to go without enough food to eat?: no Has lack of transportation kept you from medical appointments or from doing things needed for daily living?: no Has anyone in your support network made you feel unsafe for any reason?: no
--- NOTE | 2024-05-13 08:46 | PDOC.CMDIS ---
Date of service: 05/14/24 Time of Service: 08:46 LACE Index Scoring Tool Questions: Length of Stay (in days): 3 Was the patient admitted via the E.D.?: Yes Comorbidities: Congestive Heart Failure, Chronic Pulmonary Disease and Liver or Renal Disease E.D. Visits: 2 Answers: Total Score: 13 Risk of Readmission: High Risk Care Management Discharge Plan Reason for Hospitalization: fever, CHF Discharge Plan: Crystal will return home with a resumption of RN, PT, OT. She will transport home via private vehicle with family and will follow up with her PCP and discharge plan of care. Patient/Family Education Needs: Review of discharge instructions, activity, limitations, follow up plan, discuss Ask Me Three. Services Needed at Discharge: Home Health Care Services SDOH Health Related Social Needs: No Data to Display
--- NOTE | 2024-05-13 10:00 | PT.INTREAT ---
PT Notes Visit Reasons: Fever, Abdominal pain, CHF, Falls with hand... Inpatient Physical Therapy Treatment Note [facility] Date: 05/13/2024 SUBJECTIVE: Crystal reports she is feeling better today but continues to report no energy and fatigue. In pm she reported she had the ECHO done stating it took longer then the last time. OBJECTIVE: Pt's left ulnar gutter splint on with poor alignment. Pt smiling when approached for PT. ? VITALS: ?monitored via telemetry continuously; HR at rest 50 bpm after ambulation 55 bpm. Therapeutic Activities (21934): Direct one-on-one instruction in dynamic activities to improve functional performance. ? BED MOBILITY/TRANSFERS? supine with HOB elevated to sit: SBA Sit-stand: SBA? Stand-sit: SBA ? Provided skilled cues and instruction on performance and technique throughout. ? GAIT? Assistive Device: FWW? Weight bearing:full Assist: SBA ? Distance:? 200'?x 2 in am session , 200 x 2 in pm session. ? Deviation: slow, shortened stride length ? Stairs: 2 6 steps with 2 rails and 3 4 steps with B rails CGA reciprocal ascending and step to descending.? ASSESSMENT:?Pt tolerated session well. She was able to negotiate the stairs this session despite reports of overall fatigue and no energy. She able to double her distance within one session today as compared to yesterday. Pt with minimal to no elevation in heart rate with functional mobility and pt report of slight WILD needing to rest after 200 ft. Ulnar gutter splint adjusted for proper alignment. Pt would benefit from resumption of her home PT services. PLAN:will continue working on her endurance and stair negotiation until discharge home TREATMENT CODE/TIME:first session: . [id number] x 19min for 1unit /[id number], seconf session: [id number] for 35 mins x 2 units/ [id number] DISCHARGE RECOMMENDATION: home with son and resumption of home OT/PT /Nursing
--- NOTE | 2024-05-13 10:07 | PGE_ITS ---
Date of Service Date of service: 05/13/24 Time of Service: 09:40 Assessment and Plan Assessment and plan (1) Fever: Start date: 05/10/24 Status: Acute Assessment and plan: -Reported persistent fevers at home, febrile off/on over first 24 hours of admission with temperature as high as 102.7, but last fever 05/11/24 at 11am. -At this time, source of infection unclear as CT chest abdomen pelvis was without acute findings -While patient did complain of some sore throat, she also complains of epigastric discomfort this may be secondary to gastritis -Recent dental work, CT neck reassuring that no abscess or other complication. -Suspect possible anaplasmosis as labs last week showed new neutropenia and thrombocytopenia, this would fit with improvement in fever curve since admitted and started on doxycycline. Tick panel pending -May also be secondary to acute non-specific viral illness, but either way she is clearly improving. Qualifiers: Fever type: due to other condition Qualified Code(s): R50.81 - Fever presenting with conditions classified elsewhere (2) CHF (congestive heart failure): Start date: 05/10/24 Status: Acute Assessment and plan: -Patient has documented history of CHF though unable to find recent echocardiogram or other documentation stating whether it is HFpEF or HFrEF -She was also hypoxic, and has responded to IV Lasix and has been off O2 for 2 days. -Cr up 05/12, stopped furosemide, less rales on lung exam 05/13 despite this. -echo should give us LVEF and assessement of fluid status. Qualifiers: Heart failure chronicity: chronic Heart failure type: right-sided Qualified Code(s): I50.812 - Chronic right heart failure (3) Acute respiratory failure with hypoxia: Status: Acute Assessment and plan: -Secondary to acute exacerbation of CHF as noted above, now resolved. -Required up to 2 L nasal cannula, has been transitioned to room air as of the morning of 05/11/2024 (4) Acute kidney injury: Status: Acute Assessment and plan: -Cr up again today. I suspect contrast induced nephropathy in setting of acute illness and increased diuresis and baseline CKD. Urine output is borderline although unclear if we have been getting all the urine. -u/a ordered for signs of ATN -supportive care encourage po fluids, more strict I/Os discussed with RN. I talked to daughter and she takes normal fluids at home (though she has dysphagia on her problem list of unclear etiology) so will allow normal fluids. (5) CKD (chronic kidney disease) stage 3, GFR 30-59 ml/min: Status: Chronic Assessment and plan: baseline CKD, discussed with family what this means. Qualifiers: Chronic kidney disease stage 3 subtype: stage 3b (GFR 30-44) Qualified Code(s): N18.32 - Chronic kidney disease, stage 3b (6) Obstructive sleep apnea: Status: Chronic Assessment and plan: With obesity not on treatment and no home oxygen. (7) GERD (gastroesophageal reflux disease): Assessment and plan: Continue PPI. Qualifiers: Esophagitis presence: without esophagitis Qualified Code(s): K21.9 - Gastro-esophageal reflux disease without esophagitis (8) Non-sustained ventricular tachycardia: Status: Acute Assessment and plan: at risk with ESTRELLA and with diuresis and acute illness. monitor electrolytes. started on low dose metoprolol. continue tele monitoring. Echo pending. (9) DVT (deep venous thrombosis): Status: Chronic Assessment and plan: Continue Xarelto. Qualifiers: Affected thrombotic vein of extremity: other lower extremity vein Chronicity: chronic DVT location: lower extremity Laterality: unspecified laterality Qualified Code(s): I82.599 - Chronic embolism and thrombosis of other specified deep vein of unspecified lower extremity Subjective Subjective Patient reports: no new complaints, feels better, tolerating liquids well, tolerating a regular diet and voiding w/o difficulty; denies diarrhea, nausea, vomiting or fever Interval history since last seen: 24 hr: Still no fevers since 05/11 She is feeling better, though still not 100%. She is eating and drinking well. Hasn't noted any change in urine quality or output or increased swelling. She still gets some stomach aching, especially after eating, which she states she always has. Exam Narrative Exam Narrative: Well-appearing female sitting up in the chair no acute distress, awake, alert, oriented to person and place. heart regular rhythm, no M/G/R. Lungs with minimal bibasilar rales (improved from 05/12), otherwise clear with normal effort. Abdomen soft, nontender, nondistended, no HSM. Extremities non tender, no edema, no cyanosis. Objective Last Vital Signs Temp 36.5 C 05/13/24 07:10 Pulse 57 L 05/13/24 07:10 Resp 15 05/13/24 07:10 BP 106/58 L 05/13/24 07:10 Pulse Ox 95 05/13/24 08:15 Laboratory Results - last 24 hr 05/13/24 05:30 WBC 7.62 RBC 3.29 L Hgb 9.9 L Hct 29.6 L MCV 90 MCH 30.1 MCHC 33.4 RDW 14.9 H Plt Count MPV Immature Gran % See Differential Neutrophils % 35.0 Lymphocytes % 42.0 Atypical Lymphs % 9 Monocytes % 11.0 Eosinophils % 3.0 Basophils % 0.0 Nucleated RBC % 0.0 Absolute Neutrophils 2.67 Absolute Lymphocytes 3.89 H Absolute Monocytes 0.84 H Absolute Eosinophils 0.23 Absolute Basophils 0.00 RBC Morphology Normal Sodium 131 L Potassium 4.5 Chloride 97 L Carbon Dioxide 22.7 Anion Gap 11.3 H BUN 55 H Creatinine 3.3 H D Est GFR (CKD-EPI 2020) 13.26 Glucose 94 Calcium 8.3 L Magnesium 2.1 Time Spent with Patient Time Spent with Patient: >50 minutes Time was spent: preparing to see the patient(eg.review tests), obtaining and/or reviewing separately otained hiistory, ordering medications,tests, procedures, referring, communicating with other health progressive care unit registered nurse, indepentently interpreting results, counseling the patient and care coordination
[2024-05-13] MEDS: Nystatin POWDER 15 GM JAR TP ×2 (10:11→19:54)
[2024-05-13 10:39] LABS: Bilirubin Negative (Negative); Blood Negative (Negative); Clarity Clear (Clear); Glucose Negative (Negative); Ketones Negative (Negative); Leukocyte Esterase Negative (Negative); Nitrite Negative (Negative); Urobilinogen 0.2 mg/dL (Up to 0.2)
[2024-05-13 10:50] LABS: RBC Negative HPF (0-2); WBC 0-2 HPF (0-5)
[2024-05-13 10:51] LABS: Bacteria Rare HPF (Negative); C & S Indicated? No/Sq. Contamination; Casts Negative LPF (Negative); Crystals Moderate Amorphous HPF (Negative); Epithelial Cells Many HPF (Negative); Mucus Negative (Negative)
[2024-05-13] MEDS: Acetaminophen 500 MG TAB 1000 MG PO (10:59)
--- NOTE | 2024-05-13 11:01 | NUR.NOTE ---
TYlenol given for tooth pain. Nursing Note:
[2024-05-13 11:18] LABS: Lyme Ab w Rflx to Lyme Confirm Positive (Negative)
[2024-05-13] MEDS: Doxycycline Hyclate 100 MG CAP PO (17:39)
[2024-05-13] MEDS: Ondansetron 4 MG/2 ML VIAL IVP (22:03)
[2024-05-14] VITALS (8 sets, daily range): BP systolic 106–146; BP diastolic 54–78; PULSE 37–57; RESP 15–22; TEMP 35.8–37.2; O2SAT 95–99
[2024-05-14] MEDS: Doxycycline Hyclate 100 MG CAP PO ×2 (05:53→17:34)
[2024-05-14] MEDS: Budesonide/Formoterol 80/4.5 6.9 GM 60 PUFF INH IH (07:52)
[2024-05-14] MEDS: Calcium 600mg/Vit D 200U TAB 2 TAB PO (07:58)
[2024-05-14] MEDS: Rivaroxaban 10 MG TABLET PO (07:58)
[2024-05-14] MEDS: Ondansetron 4 MG/2 ML VIAL IVP (07:59)
[2024-05-14] MEDS: Omeprazole 20 MG CAPCR PO (07:59)
[2024-05-14] MEDS: Acetaminophen 500 MG TAB 1000 MG PO (07:59)
[2024-05-14] MEDS: Nystatin POWDER 15 GM JAR TP ×2 (08:01→21:42)
[2024-05-14] MEDS: Normal Saline Flush 10 ML SYR IVP (08:01)
--- NOTE | 2024-05-14 08:15 | W.CARDCONSUL ---
Date of service: 05/14/24 Time of Service: 08:15 Assessment and Plan Assessment and plan (1) Non-sustained ventricular tachycardia: Status: Acute Assessment and plan: The rhythm is not ventricular tachycardia. It is supraventricular tachycardia with aberrant conduction. Patient has subsequently developed relative bradycardia on low-dose beta-luca and I would recommend reducing or stopping metoprolol. The SVT itself does not specifically require intervention History of Present Illness Narrative: Cardiac assessment is requested in this 83-year-old woman in reference to dysrhythmia. She was admitted several days ago with a febrile illness, suspected heart failure. She has been monitored and has been noted to have intermittent brief runs of a wide-complex tachycardia. This has been suspected to be ventricular tachycardia and she has been initiated on very low-dose metoprolol to tartrate. Her initial electrocardiogram showed sinus rhythm with atrial premature beats there were aberrantly conducted. These were erroneously felt to be PVCs. Monitoring has again shown runs of wide-complex tachycardia, all beats preceded by P waves so these represent SVT with aberrancy. It is not ventricular tachycardia. Subsequently the patient has also developed bradycardia with heart rates in the high 40s, some asymptomatic A-V dissociation. Consults Requesting physician: Ricky Stewart Review of Systems Narrative: Patient was not interviewed or examined PFSH All Active Problems (Updated 05/12/24 @ 12:22 by Ricky Stewart) Acute kidney injury (Acute) Non-sustained ventricular tachycardia (Acute) Acute respiratory failure with hypoxia (Acute) Adult failure to thrive (Acute) Fever of unknown origin (Acute) Hypoxemia (Acute) Fever (Acute) DVT (deep venous thrombosis) (Chronic) Fever (Acute) CHF (congestive heart failure) (Acute) Fracture of phalanx of left little finger (Acute) Fracture of phalanx of left ring finger (Acute) Forehead abrasion (Acute) Fall at home (Acute) Excessive cerumen in both ear canals (Acute) Tinnitus (Acute) Unspecified atherosclerosis of [place] arteries of extremities, bilateral legs (Acute) [facility] 07/14/22.[facility] Onychomycosis of toenail (Acute) [facility] 07/14/22.HE Arthropathy of left shoulder (Acute) Steroid injection: 10/05/23; 06/22/2023; 02/16/2023; 05/02/22 (more injections previously) Bradycardia (Acute) Family history of cardiac pacemaker (Acute) Encounter for medication review and counseling (Acute) Edema of lower extremity (Acute) Worsening edema, making leg pain worse .. Poor tolerance of compression .. trying lt compression [ ] 12/2020 Chronic neck pain (Chronic) Some relief with PT .. Neck fullness (Acute) Sensation of firmness, swelling (vs neck pain that PT is working on) .. subacute, with high anxiety.. Family history of thyroid disease (Chronic) Hx of family members being told nothing wrong then ID disease .. high anxiety. Sensorineural hearing loss (SNHL) of both ears (Acute) Leg pain, bilateral (Acute) Pt c/o notable leg pain, not just 2' edema ... improves with rest ..[ ] FLORES to eval for claudication Vertigo (Acute) Acute on chronic ... presented to ED, CVA ruled out (04/2021). ENT seen. Small vessel disease, cerebrovascular (Chronic) per MRI, 04/2018 (Hospitalized to r/o CVA .. DDx incl TIA, but most probably VERTIGO) HTN (hypertension) (Chronic) Mostly managed, good today, 09/28/18, ik. 134/68 07/30/19. Dysphagia (Acute) Acute on chronic, fluids>solids (Hx terrible choking resolved, but noting difficulty again).. CKD (chronic kidney disease) stage 3, GFR 30-59 ml/min (Chronic) @ baseline, 03/2021 (Cr 1.2/GFR 43). Dupuytren's contracture of left hand (Acute) small finger Trigger finger, left middle finger (Acute) Tinnitus, bilateral (Acute) Arthritis of right hand (Acute) Arthritis of left hand (Acute) Obstructive sleep apnea (Chronic) 05/22/20 CPAP Pulmonary hypertension (Chronic) Acute systolic CHF (congestive heart failure) (Acute) Bradycardia (Acute) Chest pain (Acute) Foot pain, right (Acute) pain, deformity, 5th toe swollen, curved Tendinitis of left rotator cuff (Chronic) Subacromial injection: 02/16/23; 05/02/22; 05/17/2021; 04/13/2020; 07/12/2019 Fatigue (Chronic) Hx low normal Hgb, with elevated MCV (Ddx borderline macrocytic anemia) .. Folate, B12 WNL. Vit D improved (2018). TSH, LFTs WNL. May retest, but 12/2018 shows baseline, w/o acute changes/deficiency. Bilateral knee pain (Acute 05/02/14) Idiopathic peripheral neuropathy (Acute 06/15/12) Osteoporosis (Acute 02/27/14) L wrist T = -3.7 01/2014; but FRAX: 11.4 risk major, 2.6 risk of hip: Rx not recommended Osteopenia (Acute 04/27/06) Pain in lower limb (Acute 05/22/12) Patellar tendinitis (Acute) INjection from Dr. Souza, hurt going but helped pain freatly. Able to walk much better, 10/2018 Hip fracture (Acute) Spinal stenosis at L4-L5 level (Chronic) Closed right hip fracture (Acute) Anxiety (Chronic 02/20/15) Obesity with body mass index 30 or greater (Chronic) BMI 38.2 (if still 5'1) 08/2013 Cough (Acute) recurrent cough, ?allergic rhinnitis, responsive to nasal steroid?; 12/2014 Dysgeusia (Acute 12/15/15) Gastroesophageal reflux disease (Chronic) responds to OTC Prilosec . Ranitidine tried, did not help 06/2019 [ ] return to PPI? 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 Much improved, 11/02/18. Pain in knee region after total knee replacement (Acute 04/03/17) Rt and Lt TKA - Dr. Gonzalez Bilateral corticosteroid injections: 10/10/18 Ocular rosacea (Chronic) question ocular rosacea and mild facial ros[place] 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 Asymptomatic. c/o Heart Fluttering 06/2019 .. >[place], 07/2019 .. NSR w/ occ SVT. No AFib. Medical History Asthma Breast pain, left Nail abnormalities (02/27/14) L hand multiple nails; Dr Blair, terbinafine rx toe nails too Displaced intertrochanteric fracture of right femur, subsequent encounter for closed fracture with routine healing (02/12/16) Nail abnormality Obesity Dysgeusia Chest pain GERD (gastroesophageal reflux disease) Prehypertension Intertrigo Mixed stress and urge urinary incontinence Gross hematuria Osteopenia Right arm pain Hyperlipidemia pt. states she is unsure if she has this Head ache Multiple fractures of right femur pt states she fractured her hip Anxiety Nocturia Osteoporosis Multiple joint pain Lumbago Idiopathic peripheral neuropathy Surgical History History of repair of right hip joint History of esophagogastroduodenoscopy (EGD) (~10/15/18) flexible laryngoscopy (03/12/15) Dr Villatoro egd (05/10/16) Replacement of total knee joint Right arthroscopic rtotator cuff repair (04/22/13) RIGHT FOOT FX REPAIR section X4 Open Carpal Tunnel release Hysterectomy, Laproscopic Hemorrhoidectomy Colonoscopy - IV Sedation Cholecystectomy Bilateral salpingectomy with oophorectomy BILATERAL TKA (10/01/12) DR. VANDANA GONZALEZ Family History Mother , Fluid buildup at age 72. Diabetes did not have diabetes Personal history of malignant neoplasm Asthma Father , AD,blood clot at age 69. Alzheimer's disease Son Asthma Son No problems noted. Son No problems noted. Daughter No problems noted. Sister No problems noted. Sister Personal history of malignant neoplasm Sister Personal history of malignant neoplasm Sister No problems noted. 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 Pets and animals: Yes Pets and animals: dog(s) Current gender identity: female What is your relationship status?: Panel score (0-1 are the most socially isolated patients): 0 What type of physical activity do you participate in: none Seatbelt use: always Do you feel safe at home: Yes Do you feel safe in your relationship?: Yes Victim of physical abuse: No Victim of emotional abuse: No Victim of sexual abuse: No Results Last Vital Signs Temp 36.6 C 05/14/24 06:44 Pulse 48 L 05/14/24 06:44 Resp 18 05/14/24 06:44 BP 117/65 05/14/24 06:44 Pulse Ox 99 05/14/24 06:44 Labs 05/13/24 05:30 05/13/24 05:30 Labs: Laboratory Results - last 24 hr 05/10/24 05/13/24 21:47 10:15 Urine Color Yellow Urine Clarity Clear Urine pH 5.0 Ur Specific [place] 1.010 Urine Protein 30 H Urine Ketones Negative Urine Blood Negative Urine Nitrite Negative Urine Bilirubin Negative Urine Urobilinogen 0.2 Ur Leukocyte Esterase Negative Urine RBC Negative Urine WBC 0-2 Ur Epithelial Cells Many Urine Crystals Moderate Amorphous Urine Bacteria Rare Urine Casts Negative Urine Mucus Negative Ur Culture Indicated? No/Sq. Contamination Urine Glucose Negative Lyme Disease Antibody Positive A
[2024-05-14 09:46] LABS: Lyme IgG Ab Negative (Negative); Lyme IgM Ab Positive (Negative)
--- NOTE | 2024-05-14 10:24 | PGE_ITS ---
Date of Service Date of service: 05/14/24 Time of Service: 10:05 Assessment and Plan Assessment and plan (1) Acute Lyme disease: Status: Acute Assessment and plan: -Reported persistent fevers at home x 1-2 weeks, febrile off/on over first 24 hours of admission with temperature as high as 102.7, but last fever 05/11/24 at 11am. -At this time, source of infection unclear as CT chest abdomen pelvis was without acute findings, CT neck looking for dental complications negative. Viral swabs negative. -I was suspecting anaplasmosis with low WBC/plts, but Lyme returned positive today. She may have both. -With heart block, I am adding IV ceftriaxone until this resolves (2) Heart block, AV: Status: Acute Assessment and plan: Cardiology evaluated today, Dr. Diehl agrees with stopping metoprolol With Lyme positive I am concerned for component of cardiac lyme. Starting ceftriaxone until this improves. (3) Acute kidney injury: Status: Acute Assessment and plan: -Cr up again today. I still suspect contrast induced nephropathy in setting of acute illness and increased diuresis and baseline CKD. -u/a repeated, mild proteinuria but no casts to point clearly to ATN. No WBC or RBC. -supportive care -with further increase in creatinine and borderline urine output, will place reed for more close monitoring. -Hyponatremia also suggests low intravascular fluid volume, try NS bolus and fluids with close monitoring. -Will reach out to nephrology if not improving. Could get urine electolytes but this is send out so won't help acutely. (4) CHF (congestive heart failure): Start date: 05/10/24 Status: Acute Assessment and plan: -Patient has documented history of CHF -Hypoxic 05/10, this resolved with diuresis with IV Lasix and has been off O2 since 05/11 -echo 05/12 showed normal LVEF, not fluid overloaded at that time, furosemide stopped with increase in creatinine 05/12 Qualifiers: Heart failure type: right-sided Heart failure chronicity: chronic Qualified Code(s): I50.812 - Chronic right heart failure (5) Tachycardia-bradycardia syndrome: Status: Chronic Assessment and plan: Per cardiology what looked like non-sustained VT was SVT with aberrancy. Has not recurred in past 24hrs but getting heart block now Stopping metoprolol, see above. (6) CKD (chronic kidney disease) stage 3, GFR 30-59 ml/min: Status: Chronic Assessment and plan: baseline CKD, discussed with family what this means. See above re: JOHNNIE Qualifiers: Chronic kidney disease stage 3 subtype: stage 3b (GFR 30-44) Qualified Code(s): N18.32 - Chronic kidney disease, stage 3b (7) Obstructive sleep apnea: Status: Chronic Assessment and plan: With obesity not on treatment and no home oxygen. (8) GERD (gastroesophageal reflux disease): Assessment and plan: Continue PPI. Qualifiers: Esophagitis presence: without esophagitis Qualified Code(s): K21.9 - Gastro-esophageal reflux disease without esophagitis (9) DVT (deep venous thrombosis): Status: Chronic Assessment and plan: Continue Xarelto. Qualifiers: DVT location: lower extremity Affected thrombotic vein of extremity: other lower extremity vein Chronicity: chronic Laterality: unspecified laterality Qualified Code(s): I82.599 - Chronic embolism and thrombosis of other specified deep vein of unspecified lower extremity Subjective Subjective Patient reports: voiding w/o difficulty and nausea; denies diarrhea, vomiting, shortness of breath or fever Interval history since last seen: 24 hr: Heart block with AV disassociation overnight She is not feeling great this morning. Not hungry, has been taking some fluids but not a lot. She is urinating 451ml documented over 24hrs 05/13. No chest pain or SOB. No fevers. She doesn't feel palpitaitons. Her energy is low. she doesn't remember a rash in the past few weeks/months but she was exposed to tics in [place], has dogs. Exam Narrative Exam Narrative: Well-appearing female sitting up in the chair no acute distress, awake, alert, oriented to person and place. Heart regular rhythm, no M/G/R. Lungs clear with normal effort. Abdomen soft, very mild epigastric tenderness, nondistended, no HSM. Extremities non tender, trace bilateral edema, no cyanosis. No rash Objective Last Vital Signs Temp 36.6 C 05/14/24 06:44 Pulse 45 L 05/14/24 09:31 Resp 18 05/14/24 06:44 BP 117/65 05/14/24 06:44 Pulse Ox 99 05/14/24 06:44 Laboratory Results - last 24 hr 05/10/24 05/13/24 21:47 10:15 Urine Color Yellow Urine Clarity Clear Urine pH 5.0 Ur Specific [place] 1.010 Urine Protein 30 H Urine Ketones Negative Urine Blood Negative Urine Nitrite Negative Urine Bilirubin Negative Urine Urobilinogen 0.2 Ur Leukocyte Esterase Negative Urine RBC Negative Urine WBC 0-2 Ur Epithelial Cells Many Urine Crystals Moderate Amorphous Urine Bacteria Rare Urine Casts Negative Urine Mucus Negative Ur Culture Indicated? No/Sq. Contamination Urine Glucose Negative Lyme Disease Antibody Positive A Time Spent with Patient Time Spent with Patient: >50 minutes Time was spent: preparing to see the patient(eg.review tests), obtaining and/or reviewing separately otained hiistory, ordering medications,tests, procedures, referring, communicating with other health home care consultant, indepentently interpreting results, counseling the patient and care coordination
[2024-05-14 10:37] LABS: HCT 30.8 % (36.0-46.0); HGB 10.4 g/dL (11.2-15.7); MCH 30.4 pg (27.0-33.0); MCHC 33.8 % (32.0-36.0); MCV 90 fL (80-95); RBC 3.42 10^6/uL (3.93-5.22); RDW 14.7 % (11.7-14.6); RDW-SD 48.8 fL; WBC 7.35 10^3/uL (4.4-10.8)
[2024-05-14] MEDS: cefTRIAXone 2 GM/50 ML BAG IVPB (10:40)
[2024-05-14 10:53] LABS: ALT 29 U/L (14-59); AST 34 U/L (15-37); Albumin 2.5 g/dL (3.4-5.0); Alkaline Phosphatase 71 U/L (46-116); Anion Gap 11.3 mmol/L (3-11); BUN 66 mg/dL (7-18); Bilirubin, Total 0.41 mg/dL (0.2-1.0); C-Reactive Protein 4.47 mg/dL (<or=0.5); CO2 21.7 mmol/L (21.0-32.0); Calcium 8.5 mg/dL (8.5-10.1); Chloride 93 mmol/L (98-107); Estimated GFR 8.25 (mL/min/1.73m2); Glucose 124 mg/dL (74-106); Potassium 5.1 mmol/L (3.5-5.1); Sodium 126 mmol/L (136-145); Total Protein 6.5 g/dL (6.4-8.2)
--- NOTE | 2024-05-14 10:54 | PT.INTREAT ---
PT Notes Visit Reasons: Fever, Abdominal pain, CHF, Falls with hand... Inpatient Physical Therapy Treatment Note [facility] Date: 05/14/2024 SUBJECTIVE: Crystal reports she is feeling better today but continues to report no energy and fatigue. She stated the doctor just told her she has Lyme disease and that is what is making her feel this way. She states she will be staying for a few more days to get more antibiotics. OBJECTIVE: Pt's left ulnar gutter splint on with poor alignment ( splint adjusted). Pt smiling when approached for PT. ? VITALS: ?monitored via telemetry continuously; HR at rest 50 bpm after ambulation 55 bpm. Therapeutic Activities (71456): Direct one-on-one instruction in dynamic activities to improve functional performance. ? BED MOBILITY/TRANSFERS? supine with HOB elevated to sit: SBA Sit-stand: SBA? Stand-sit: SBA ? Provided skilled cues and instruction on performance and technique throughout. ? GAIT? Assistive Device: FWW? Weight bearing:full Assist: SBA ? Distance:? 200'?x 1 in am session , ? Deviation: slow, shortened stride length ? ASSESSMENT:?Pt tolerated session well. She was able to negotiate the stairs this session despite reports of overall fatigue and no energy. Morning session limited d/t optical laboratory technician entering. PLAN:will continue working on her endurance and stair negotiation until discharge home TREATMENT CODE/TIME:first session: . 33557 x 14 min for 1unit /[id number] DISCHARGE RECOMMENDATION: home with son and resumption of home OT/PT /Nursing
[2024-05-14 10:58] LABS: CREATININE 4.9 mg/dL (0.55-1.02)
[2024-05-14 11:13] LABS: Absolute Lymphocyte Count 3.23 10^3/uL (1.2-3.4); Absolute Monocyte Count 0.29 10^3/uL (0.1-0.8); Absolute Neutrophil Count 3.82 10^3/uL (1.2-6.7); Atypical Lymphocytes % 1 %; Diff Comment Manual Differential
[2024-05-14] MEDS: Normal Saline 500 ML IV (12:05)
--- NOTE | 2024-05-14 12:30 | PDOC.CMPRO ---
Date of service: 05/14/24 Time of Service: 12:30 Care Management Progress Note Progress Note Text Progress Note Text: Crystal was sitting up in a chair when CM met with her. She was smiling and stated that she continues to feel better. Crystal was to have been discharged home today however her creatinine preston to 4.9 and her sodium is down to 126. Both issues are being addressed. CM met with Crystal's daughter Sonal late yesterday to discuss discharge planning concerns. Crystal lives with her son Alvaro however he works all day so she is alone for several hours at a time. Sonal was concerned about meals and CM offered to send a referral to [facility] [place] [facility] Aging for Meals on Wheels. In discussion, it seems likely that she may also benefit from community case management and [facility] which CM included in the referral. Discharge Potential Discharge Needs: PCP F/U Appt Anticipated Barriers to Discharge: Medical Status Patient/Family Education Needs: Review discharge instructions, discuss Ask Me Three Transportation: Private vehicle Plan: Anticipate Crystal will return home with a resumption of RN, PT, OT when medically stable. She will transport via private vehicle with family and will follow up with her PCP and discharge plan of care. CM will follow and continue to assess for discharge concerns.. SDOH(Care Management) Screening Will the Patient Participate in the Screening?: Yes Do you worry about having a steady place to live?: no Problems where you live: no known problems In the past 12 months, have you had to go without electric, gas, oil or water in your home?: no Have you or anyone in your house had to go without enough food to eat?: no Has lack of transportation kept you from medical appointments or from doing things needed for daily living?: no Has anyone in your support network made you feel unsafe for any reason?: no
--- NOTE | 2024-05-14 13:14 | CHAPLAIN ---
Crystal was sitting up the chair when I visited. She said she is feeling better now that I know what it is, then told me she has Lyme disease. She said she believes ticks came into her house on her dogs. Crystal's daughter, Sonal, is an [employer] employee and was in to visit before work this morning. Crystal said she is very much missing her dog, Aimee, and looking forward to being back with her. I will continue to visit.
[2024-05-14] MEDS: DEXTROSE 5%-0.9% SALINE 1,000 ML 100 ML IV ×2 (13:22→23:18)
--- NOTE | 2024-05-14 14:15 | PT.INTREAT ---
PT Notes Visit Reasons: Fever, Abdominal pain, CHF, Falls with hand... Inpatient Physical Therapy Treatment Note [facility] Date: 05/14/2024 Precautions: IV RUE, telemetry. SUBJECTIVE:Pt reports she is extremely tired and would like to go to bed to try to sleep.. OBJECTIVE: ?Pt seated in chair with legs elevated, agreeable to take short walk prior to going to bed for a rest period. IV fluids infusing.? VITALS: ?monitored via telemetry continuously; HR at rest 50 bpm after ambulation 55 bpm. Therapeutic Activities (57713): Direct one-on-one instruction in dynamic activities to improve functional performance. ? BED MOBILITY/TRANSFERS? Sit-stand: SBA? Stand-sit: SBA ? sit to supine with HOB elevated: min A for BLE Provided skilled cues and instruction on performance and technique throughout. ? GAIT? Assistive Device: FWW? Weight bearing:full Assist: SBA ? Distance:? 40'?x 2 ? Deviation: slow, shortened stride length ? ASSESSMENT:?Pt able to ambulate with FWW significantly shorter distance as compared to prior sessions. She did not require increase assist for functional tasks except to get LE into bed. Pt also noted Dyspnea when lying flat requiring HOB to be elevated to 50 degrees to alleviate dyspnea. PLAN:will continue working on her endurance and stair negotiation until discharge home TREATMENT CODE/TIME:first session: 35913 x 17 min for 1 unit /[id number] DISCHARGE RECOMMENDATION: home with son and resumption of home OT/PT /Nursing
[2024-05-14 20:11] LABS: B. miyamotoi PCR Negative (Negative); Babesia divergens/MO-1 Negative (Negative); Babesia duncani Negative (Negative); Babesia microti Negative (Negative); Ehrlichia chaffeensis Negative (Negative); Ehrlichia ewingii/canis Negative (Negative); Ehrlichia muris eauclairensis Negative (Negative)
[2024-05-15] VITALS (8 sets, daily range): BP systolic 120–158; BP diastolic 50–92; PULSE 46–118; RESP 15–20; TEMP 35.9–36.9; O2SAT 95–99
--- NOTE | 2024-05-15 | DI.US_ITS ---
Exam(s) US RENAL EXAM: US RENAL CLINICAL HISTORY: renal failure. TECHNIQUE: Miranda scale, color and spectral Doppler were used. COMPARISON: CT CT CHEST/ABD/PEL W from 05/10/2024 FINDINGS: Exam limited by patient body habitus. Right kidney: 9.2cm Echogenicity: Normal Hydronephrosis: No Cyst or mass: No Nephrolithiasis: No Left kidney: 9.5cm Echogenicity: Normal Hydronephrosis: No Cyst or mass: No Nephrolithiasis: Nonobstructing stone lower pole left kidney. Bladder:Pritchett catheter in place. Both ureteral jets were visualized. Prevoid vol:135 cc Postvoid vol:24 cc IMPRESSION: No evidence of hydronephrosis. Bladder unremarkable. DATA REPOSITORY:
[2024-05-15] MEDS: Albuterol HFA 8 GM 60 PUFF INH IH (01:59)
[2024-05-15] MEDS: Furosemide 40 MG/4 ML VIAL IVP (02:37)
[2024-05-15] MEDS: Normal Saline Flush 10 ML SYR IVP ×4 (02:38→19:40)
[2024-05-15] MEDS: Acetaminophen 500 MG TAB 1000 MG PO ×2 (04:46→19:37)
--- NOTE | 2024-05-15 05:06 | NUR.NOTE ---
Nursing Note: during bedside rounding pt was noted to have increased SOB, chest/abdominal discomfort and tachycardia. pt c/o feeling like she needed to have BM. while sitting up to exit bed pt c/o faintness. once on commode pt had BM and endorses mild relief of abd pain and chest pain. still c/o SOB. applied 2L/min O2 via NC for comfort. saturation is at 99%.
[2024-05-15] MEDS: Doxycycline Hyclate 100 MG CAP PO ×2 (05:46→17:29)
[2024-05-15] MEDS: Budesonide/Formoterol 80/4.5 6.9 GM 60 PUFF INH IH (08:05)
[2024-05-15 08:26] LABS: Anion Gap 12.3 mmol/L (3-11); BUN 63 mg/dL (7-18); CO2 20.7 mmol/L (21.0-32.0); Calcium 8.6 mg/dL (8.5-10.1); Chloride 95 mmol/L (98-107); Estimated GFR 7.18 (mL/min/1.73m2); Glucose 101 mg/dL (74-106); Potassium 4.7 mmol/L (3.5-5.1); Sodium 128 mmol/L (136-145)
[2024-05-15 08:27] LABS: CREATININE 5.5 mg/dL (0.55-1.02)
--- NOTE | 2024-05-15 08:34 | CMPROGNOTE_ITS ---
Date of service: 05/15/24 Time of Service: 08:34 Care Management Progress Note Progress Note Text Progress Note Text: Crystal was sitting up in a chair when CM met with her. She appeared to be in good spirits however she is still not feeling well. 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 Fortunately she has been on Doxycycline which is effective against both. Crystal's creatinine continues to rise and was 5.[address] Stewart consulted with nephrology at [facility] and additional labs were ordered at their suggestion. While Crystal's creatinine is a bit higher, her urine output improved after one dose of furosemide. Discharge Potential Discharge Needs: PCP F/U Appt Anticipated Barriers to Discharge: None Identified Patient/Family Education Needs: Review discharge instructions, discuss Ask Me Three Transportation: Private vehicle Plan: Anticipate Crystal will return home with a resumption of RN, PT, OT when medically stable. She will transport via private vehicle with family and will follow up with her PCP and discharge plan of care. CM will follow and continue to assess for discharge concerns.. SDOH(Care Management) Screening Will the Patient Participate in the Screening?: Yes Do you worry about having a steady place to live?: no Problems where you live: no known problems In the past 12 months, have you had to go without electric, gas, oil or water in your home?: no Have you or anyone in your house had to go without enough food to eat?: no Has lack of transportation kept you from medical appointments or from doing things needed for daily living?: no Has anyone in your support network made you feel unsafe for any reason?: no
[2024-05-15] MEDS: Rivaroxaban 10 MG TABLET PO (08:58)
[2024-05-15] MEDS: Calcium 600mg/Vit D 200U TAB 2 TAB PO (08:58)
[2024-05-15] MEDS: Omeprazole 20 MG CAPCR PO (08:58)
[2024-05-15 09:07] LABS: Anaplasma phagocytophilum Positive (Negative)
--- NOTE | 2024-05-15 11:12 | PT.INTREAT ---
PT Notes Visit Reasons: Fever, Abdominal pain, CHF, Falls with hand... Inpatient Physical Therapy Treatment [facility] Date: 05/15/2024 Precautions: ADDIS MO, telemetry. Pritchett catheter. to monitor I & Os SUBJECTIVE:Pt reports feeling a little better today although during ambulation she noted feeling of heart racing. OBJECTIVE: ?Pt seated in chair with legs elevated, agreeable to take walk with friend and this PT VITALS: ?monitored via telemetry continuously; HR at rest 100bpm prior to amb, HR radially 120 bpm standing 5 min after amb 100bpm radially. Therapeutic Activities (11385): Direct one-on-one instruction in dynamic activities to improve functional performance. ? BED MOBILITY/TRANSFERS? Sit-stand: SBA? x 3 trials? Stand-sit: SBA ?x 3 trials ? Provided skilled cues and instruction on performance and technique throughout. ?static stand with 1 UE support x 30 sec x 3 ? GAIT? Assistive Device: FWW? Weight bearing:full Assist: SBA ? Distance:? 150 feet with 1 stand rest'?x 2 ? Deviation: slow, shortened stride length ? ASSESSMENT:?Pt experienced episode of heart racing during ambulation with sensation of slight dizziness. Pt returnted to seated position Nursing notified to allow for coordination of telemetry. PLAN:will continue working on her endurance and stair negotiation until discharge home TREATMENT CODE/TIME:first session: 35727 x 29 min for 2 units / [id number] DISCHARGE RECOMMENDATION: home with son and resumption of home OT/PT /Nursing
[2024-05-15] MEDS: Nystatin POWDER 15 GM JAR TP ×2 (11:18→19:38)
[2024-05-15] MEDS: cefTRIAXone 2 GM/50 ML BAG IVPB (11:19)
--- NOTE | 2024-05-15 13:00 | RT.EKG_ITS ---
APPROVED REPORT Exam: Resting ECG Reason for Exam: Rhythm change Patient Location: I HR:58 bpm ECG Measurements Heart Rate 58 AXIS MI 213 P 34 QRSd 91 QRS -32 QT 382 T 45 QTc 376 Conclusion Sinus rhythm...normal P axis, V-rate Poor R wave progression, possible old anterior infarct
--- NOTE | 2024-05-15 15:32 | PT.INTREAT ---
PT Notes Visit Reasons: Fever, Abdominal pain, CHF, Falls with hand... Inpatient Physical Therapy Treatment Note [facility] Date: 05/15/2024 Precautions: IV RUE, telemetry. Pritchett catheter. to monitor I & Os SUBJECTIVE:Pt reports feeling better this afternoon. She stated she just had and EKG. OBJECTIVE: ?Pt seated in chair with legs elevated, agreeable to participate in PT. Nursing report pt during EKG converted from Tachycardia to HR of 64 and has remained since then. Nursing monitored telemetry throughout PT session VITALS: ?monitored via telemetry continuously; HR at rest 62 bpm prior to amb, HR radially 74 bpm standing 5 min after amb 63bpm radially. Therapeutic Activities (03115): Direct one-on-one instruction in dynamic activities to improve functional performance. ? BED MOBILITY/TRANSFERS? Sit-stand: SBA? x 3 trials? Stand-sit: SBA ?x 3 trials ? Provided skilled cues and instruction on performance and technique throughout. ?static stand with 1 UE support x 30 sec x 3 ? GAIT? Assistive Device: FWW? Weight bearing:full Assist: SBA ? Distance:? 150 feet with 1 stand rest'?x 2 ? Deviation: slow, shortened stride length ? ASSESSMENT:?Pt demonstrated no episode of racing heart during ambulation this session as compared to prior. She denied WILD/SOB while ambulating. Patient tolerated session well. PLAN:will continue working on her endurance and stair negotiation until discharge home TREATMENT CODE/TIME:first session: 16346 x 27 min for 2 units /[id number] DISCHARGE RECOMMENDATION: home with son and resumption of home OT/PT /Nursing
--- NOTE | 2024-05-15 16:04 | PGE_ITS ---
Date of Service Date of service: 05/15/24 Time of Service: 16:04 Assessment and Plan Assessment and plan (1) Acute Lyme disease: Status: Acute Assessment and plan: -Reported persistent fevers at home x 1-2 weeks, febrile off/on over first 24 hours of admission with temperature as high as 102.7, but last fever 05/11/24 at 11am. -At this time, source of infection unclear as CT chest abdomen pelvis was without acute findings, CT neck looking for dental complications negative. Viral swabs negative. - Lyme returned positive 05/14, IgM c/w acute infection. -She has been on doxycycline since admission. 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 Returned positive today, continue doxycycline. (3) Acute kidney injury: Status: Acute Assessment and plan: -Cr up again today, but urine output much better after single dose of furosemided - I still suspect contrast induced nephropathy in setting of acute illness and increased diuresis and baseline CKD. -u/a repeated, mild proteinuria but no casts to point clearly to ATN. No WBC or RBC. -becoming oliguric 05/14 -Suspected low volume status, started fluids 05/14. But after reviewing echo from 05/13 showing IVC <50% collapse we changed course and gave furosemide overnight 05/14-. She responded well with marked increase urine output. -Case reviewed with Dr. Pedro Main, who recommended checking CPK, prot/creatinine, liver funciton (done), and SPEP/UPEP/light chains. She is not dialysis candidate, electrolytes okay. Continue to monitor closely. -No further diuresis for now (4) Heart block, AV: Status: Acute Assessment and plan: Cardiology evaluated 05/14, Dr. Diehl agreed with stopping metoprolol With Lyme positive concern for component of cardiac lyme, though she had pre- existing tachy/althea syndrome. Started ceftriaxone until this improves. (5) CHF (congestive heart failure): Start date: 05/10/24 Status: Acute Assessment and plan: -Patient has documented history of CHF -Hypoxic 05/10, this resolved with diuresis with IV Lasix and has been off O2 since 05/11 -echo 05/12 showed normal LVEF, but IVC still congested. Given another dose of furosemide early 05/15 am. Follow Qualifiers: Heart failure type: right-sided Heart failure chronicity: chronic Qualified Code(s): I50.812 - Chronic right heart failure (6) Tachycardia-bradycardia syndrome: Status: Chronic Assessment and plan: Per cardiology what looked like non-sustained VT was SVT with aberrancy. Now off metoprolol. Getting both. I'm not sure if Lyme contributing, but continue to monitor on treatment off metoprolol. If this continues we may need to consider pacer. (7) CKD (chronic kidney disease) stage 3, GFR 30-59 ml/min: Status: Chronic Assessment and plan: baseline CKD, discussed with family what this means. See above re: JOHNNIE Qualifiers: Chronic kidney disease stage 3 subtype: stage 3b (GFR 30-44) Qualified Code(s): N18.32 - Chronic kidney disease, stage 3b (8) Obstructive sleep apnea: Status: Chronic Assessment and plan: With obesity not on treatment and no home oxygen. (9) GERD (gastroesophageal reflux disease): Assessment and plan: Stop PPI per nephrology, try H2 instead Qualifiers: Esophagitis presence: without esophagitis Qualified Code(s): K21.9 - Gastro-esophageal reflux disease without esophagitis (10) DVT (deep venous thrombosis): Status: Chronic Assessment and plan: Continue Xarelto. Qualifiers: DVT location: lower extremity Affected thrombotic vein of extremity: other lower extremity vein Chronicity: chronic Laterality: unspecified laterality Qualified Code(s): I82.599 - Chronic embolism and thrombosis of other specified deep vein of unspecified lower extremity Subjective Subjective Patient reports: no new complaints and tolerating a regular diet; denies nausea, vomiting, shortness of breath or fever Interval history since last seen: 24: Episodes of tachycardia and bradycardia on telemetry Labs returned, + anaplasmosis and Lyme IgM on confirmatory testing Fluids stopped overnight, given a dose of furosemide 40mg (no clinical change, just reconsidered fluid status based on echo and oliguria) She feels okay. Still not a lot of energy, this comes and goes. She doesn't love the catheter but not in pain. Exam Narrative Exam Narrative: Well-appearing female sitting up in the chair, no acute distress, awake, alert, oriented x 3. Heart regular rhythm, no M/G/R. Lungs clear with normal effort. Abdomen soft, very mild epigastric tenderness, nondistended, no masses. Extremities non tender, trace bilateral edema, no cyanosis. No rash Objective Last Vital Signs Temp 36.4 C L 05/15/24 15:02 Pulse 62 05/15/24 15:02 Resp 16 05/15/24 15:02 BP 140/60 05/15/24 15:02 Pulse Ox 98 05/15/24 15:02 Laboratory Results - last 24 hr 05/10/24 05/15/24 21:47 07:40 Sodium 128 L Potassium 4.7 Chloride 95 L Carbon Dioxide 20.7 L Anion Gap 12.3 H BUN 63 H Creatinine 5.5 H* Est GFR (CKD-EPI 2020) 7.18 Glucose 101 Calcium 8.6 B. divergens/MO-1 PCR Negative Babesia duncani (PCR) Negative Babesia microti DNA PCR Negative E.chaffeensis DNA (PCR) Negative E.ewingii/canis DNA PCR Negative E.muris eauclairensis (PCR) Negative A. phagocytophilum (PCR) Positive A Blood B. miyamotoi (PCR) Negative Time Spent with Patient Time Spent with Patient: >50 minutes Time was spent: preparing to see the patient(eg.review tests), obtaining and/or reviewing separately otained hiistory, ordering medications,tests, procedures, referring, communicating with other health acute care registered nurse, indepentently interpreting results, counseling the patient and care coordination
[2024-05-15 16:51] LABS: COMMENT (LAB VIEW ONLY) 49.49 mg/dL; PROTEIN 47.3 mg/dL; Prot/Crea Ur Ratio 0.95
[2024-05-15 18:14] LABS: Creatine Kinase 40 U/L (26-192)
[2024-05-15] MEDS: Ondansetron 4 MG/2 ML VIAL IVP (19:39)
[2024-05-16] VITALS (7 sets, daily range): BP systolic 121–152; BP diastolic 56–70; PULSE 48–69; RESP 15–19; TEMP 35.8–37; O2SAT 96–99
[2024-05-16] MEDS: Doxycycline Hyclate 100 MG CAP PO ×2 (06:20→18:40)
[2024-05-16] MEDS: Budesonide/Formoterol 80/4.5 6.9 GM 60 PUFF INH IH (08:30)
[2024-05-16 08:45] LABS: Anion Gap 11.3 mmol/L (3-11); BUN 63 mg/dL (7-18); CO2 22.7 mmol/L (21.0-32.0); Calcium 8.7 mg/dL (8.5-10.1); Chloride 97 mmol/L (98-107); Estimated GFR 7.34 (mL/min/1.73m2); Glucose 99 mg/dL (74-106); Potassium 5.1 mmol/L (3.5-5.1); Sodium 131 mmol/L (136-145)
[2024-05-16] MEDS: Famotidine 20 MG TAB 10 MG PO (08:50)
[2024-05-16] MEDS: Calcium 600mg/Vit D 200U TAB 2 TAB PO (08:50)
[2024-05-16] MEDS: Normal Saline Flush 10 ML SYR IVP ×3 (08:50→20:41)
--- NOTE | 2024-05-16 09:05 | PDOC.CMPRO ---
Date of service: 05/16/24 Time of Service: 09:05 Care Management Progress Note Progress Note Text Progress Note Text: Crystal was sitting up in her chair when CM met with her. She remains in good spirits and engaged well with CM. Crystal's creatinine has finally stopped increasing. For the first time it was 5.4 today, down slightly from 5.5 yesterday.Her sodium is also better at 131, up from 126-128 for the past couple of days. Crystal has been asking for a shower and today was able to have one and have her hair washed. CM stopped by to see her again after the shower and Crystal commented on how much better she feels now. Per provider, if Crystal continues to improve, she may be ready for discharge over the weekend. Discharge Potential Discharge Needs: PCP F/U Appt Anticipated Barriers to Discharge: None Identified Patient/Family Education Needs: Review discharge instructions, discuss Ask Me Three Transportation: Private vehicle Plan: Anticipate Crystal will return home with a resumption of RN, PT, OT when medically stable. She will transport via private vehicle with family and will follow up with her PCP and discharge plan of care. CM will follow and continue to assess for discharge concerns.. SDOH(Care Management) Screening Will the Patient Participate in the Screening?: Yes Do you worry about having a steady place to live?: no Problems where you live: no known problems In the past 12 months, have you had to go without electric, gas, oil or water in your home?: no Have you or anyone in your house had to go without enough food to eat?: no Has lack of transportation kept you from medical appointments or from doing things needed for daily living?: no Has anyone in your support network made you feel unsafe for any reason?: no
[2024-05-16] MEDS: Nystatin POWDER 15 GM JAR TP ×2 (09:55→20:41)
[2024-05-16] MEDS: cefTRIAXone 2 GM/50 ML BAG IVPB (10:43)
[2024-05-16 11:09] LABS: CREATININE 5.4 mg/dL (0.55-1.02)
--- NOTE | 2024-05-16 12:56 | PT.INTREAT ---
PT Notes Visit Reasons: Fever, Abdominal pain, CHF, Falls with hand... Inpatient Physical Therapy Treatment Note [facility] Date: 05/16/2024 Precautions: ADDIS MO, telemetry. Pritchett catheter. to monitor I & Os SUBJECTIVE:Pt reports feeling better . She stated sheis hoping to get rid of the catheter. OBJECTIVE: ?Pt seated in chair with legs elevated, agreeable to participate in PT. VITALS: ?monitored via telemetry continuously; HR at rest 62 bpm prior to amb, HR radially 74 bpm standing 5 min after amb 63bpm radially. Therapeutic Activities (83950): Direct one-on-one instruction in dynamic activities to improve functional performance. ? BED MOBILITY/TRANSFERS? Sit-stand: SBA? x 3 trials? Stand-sit: SBA ?x 3 trials ? Provided skilled cues and instruction on performance and technique throughout. ?static stand with 1 UE support x 30 sec x 3 ? GAIT? Assistive Device: FWW? Weight bearing:full Assist: SBA ? Distance:? 300 feet with 1 stand rest'? ;; 30feet x 2? Deviation: slow, shortened stride length ? ASSESSMENT:?Pt demonstrated no episode of racing heart during ambulation . She required 1 stand rest. Patient tolerated session well. PLAN:will continue working on her endurance and stair negotiation until discharge home TREATMENT CODE/TIME:first session: 99099 x 20 min for 1 units /[id number], [id number] DISCHARGE RECOMMENDATION: home with son and resumption of home OT/PT /Nursing
--- NOTE | 2024-05-16 13:44 | PGE_ITS ---
Date of Service Date of service: 05/16/24 Time of Service: 13:44 Assessment and Plan Assessment and plan (1) Acute Lyme disease: Status: Acute Assessment and plan: -Reported persistent fevers at home x 1-2 weeks, febrile off/on over first 24 hours of admission with temperature as high as 102.7, but last fever 05/11/24 at 11am. -At this time, source of infection unclear as CT chest abdomen pelvis was without acute findings, CT neck looking for dental complications negative. Viral swabs negative. - Lyme returned positive 05/14, IgM c/w acute infection. -She has been on doxycycline since admission. With heart block, added IV ceftriaxone 05/14 until this resolves to cover cardiac Lyme 05/16/2024 Patient is currently on Rocephin 2 g every 24 hours as well as doxycycline 100 mg p.o. every 12 hours. 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 Returned positive today, continue doxycycline. (3) Acute kidney injury: Status: Acute Assessment and plan: -Cr up again today, but urine output much better after single dose of furosemided - I still suspect contrast induced nephropathy in setting of acute illness and increased diuresis and baseline CKD. -u/a repeated, mild proteinuria but no casts to point clearly to ATN. No WBC or RBC. -becoming oliguric 05/14 -Suspected low volume status, started fluids 05/14. But after reviewing echo from 05/13 showing IVC <50% collapse we changed course and gave furosemide overnight 05/14-. She responded well with marked increase urine output. -Case reviewed with Dr. Pedro Main, who recommended checking CPK, prot/creatinine, liver funciton (done), and SPEP/UPEP/light chains. She is not dialysis candidate, electrolytes okay. Continue to monitor closely. -No further diuresis for now 05/16/2024 Patient's BUN and creatinine is 63 and 5.4. Her creatinine yesterday was 5.5 so at least that stabilized. I was present for part of the call with nephrology and her SPEP and UPEP are still pending. Her renal ultrasound has been reviewed essentially is unremarkable. An echocardiogram was also performed on the 11th which did not show significant congestive heart failure. Echocardiogram does not indicate a prerenal cause of her current kidney injury. Patient does appear to contrast-induced nephropathy. Will recheck labs in the a.m. Patient's output is 1450. We did remove the Pritchett today and the patient's creatinine did stabilize and the concern for cauti. (4) Heart block, AV: Status: Acute Assessment and plan: Cardiology evaluated 05/14, Dr. Diehl agreed with stopping metoprolol With Lyme positive concern for component of cardiac lyme, though she had pre- existing tachy/althea syndrome. Started ceftriaxone until this improves. 05/16/2024 Patient does continue to have bradycardia with her heart rate at mid to low 50s. Patient denies any presyncope or syncope associated with this. Patient was seen in consultation with cardiology and the patient's beta-luca was held. This has increased her heart rate but just minimally. I will try to look in her past chart to see if this is a known problem or if it is new on this admission. (5) CHF (congestive heart failure): Start date: 05/10/24 Status: Acute Assessment and plan: -Patient has documented history of CHF -Hypoxic 05/10, this resolved with diuresis with IV Lasix and has been off O2 since 05/11 -echo 05/12 showed normal LVEF, but IVC still congested. Given another dose of furosemide early 05/15 am. Follow 05/16/2024 In regards to her heart. Patient does have an ejection fraction of 55% on echo. She is on Lasix 40 mg IV which was stopped yesterday actually. I do think with her echocardiogram we can continue to have fairly robust IV fluid. Qualifiers: Heart failure type: right-sided Heart failure chronicity: chronic Qualified Code(s): I50.812 - Chronic right heart failure (6) Tachycardia-bradycardia syndrome: Status: Chronic Assessment and plan: Per cardiology what looked like non-sustained VT was SVT with aberrancy. Now off metoprolol. Getting both. I'm not sure if Lyme contributing, but continue to monitor on treatment off metoprolol. If this continues we may need to consi alvin pacer. 05/16/24 As mentioned above the patient was seen by cardiology and a recommendation was made to stop metoprolol. This has improved her heart rate but not by very much. There does remain a concern about bradycardia associated with Lyme's disease. As the patient remains asymptomatic at least we have some time to see if this improves without any intervention. (7) CKD (chronic kidney disease) stage 3, GFR 30-59 ml/min: Status: Chronic Assessment and plan: baseline CKD, discussed with family what this means. See above re: JOHNNIE Qualifiers: Chronic kidney disease stage 3 subtype: stage 3b (GFR 30-44) Qualified Code(s): N18.32 - Chronic kidney disease, stage 3b (8) Obstructive sleep apnea: Status: Chronic Assessment and plan: With obesity not on treatment and no home oxygen. 05/16/2024 Will once again search the medical record for a qualifying diagnosis. If she does have obstructive sleep apnea she would benefit strongly from a CPAP machine. I will discuss at multidisciplinary rounds tomorrow. (9) GERD (gastroesophageal reflux disease): Assessment and plan: Stop PPI per nephrology, try H2 instead 05/16/24 Patient is on milk of magnesia and Pepcid. Currently without complaint. Qualifiers: Esophagitis presence: without esophagitis Qualified Code(s): K21.9 - Gastro-esophageal reflux disease without esophagitis (10) DVT (deep venous thrombosis): Status: Chronic Assessment and plan: Continue Xarelto. 05/16/2024 I did discuss with the patient the timeframe for her Xarelto treatment. The patient states that she was diagnosed to be DVT quite a long time ago. If this was a provoked DVT or the first nonprovoked DVT will consider holding this medication but will defer to the outpatient setting. Qualifiers: DVT location: lower extremity Affected thrombotic vein of extremity: other lower extremity vein Chronicity: chronic Laterality: unspecified laterality Qualified Code(s): I82.599 - Chronic embolism and thrombosis of other specified deep vein of unspecified lower extremity Subjective Subjective Interval history since last seen: Patient seen and examined in her room. Plan of care discussed with patient as well as at multidisciplinary rounds. Patient does not have any complaints at this time. Exam Narrative Exam Narrative: Head eyes ears nose and throat: Normocephalic atraumatic mucous membranes moist oropharynx is clear extract motions are intact pupils equal round reactive to light Neck: No lymphadenopathy no JVD no thyromegaly Cardiovascular: Bradycardic but no murmur rubs gallops Lungs: Clear to auscultation bilaterally with good air exchange Abdomen: Soft nontender nondistended bowel sounds active Extremities 1+ lower extremity edema bilaterally Neurologic cranial nerves II through XII intact as tested reflexes upper extremity normal as tested Psych: Affect is appropriate she is alert and orient x 3 Objective Last Vital Signs Temp 36.8 C 05/16/24 11:04 Pulse 50 L 05/16/24 11:04 Resp 19 05/16/24 11:04 BP 121/57 L 05/16/24 11:04 Pulse Ox 99 05/16/24 11:04 Laboratory Results - last 24 hr 05/15/24 05/15/24 05/16/24 15:26 17:52 06:36 Sodium 131 L Potassium 5.1 Chloride 97 L Carbon Dioxide 22.7 Anion Gap 11.3 H BUN 63 H Creatinine 5.4 H* Est GFR (CKD-EPI 2020) 7.34 Glucose 99 Calcium 8.7 Creatine Kinase 40 Ur Random Creatinine 49.49 U Random Total Protein 47.3 U [place] Prot/Creat Ratio 0.95 Reviewed Pertinent PMH: Yes Time Spent with Patient Time Spent with Patient: 35-49 minutes (45) Time was spent: preparing to see the patient(eg.review tests), obtaining and/or reviewing separately otained hiistory, ordering medications,tests, procedures, referring, communicating with other health patient care assistant, indepentently interpreting results, counseling the patient and care coordination
[2024-05-16] MEDS: Ondansetron 4 MG/2 ML VIAL IVP (15:42)
--- NOTE | 2024-05-17 | DI.US_ITS ---
Exam(s) US ABDOMEN EXAM: US ABDOMEN CLINICAL HISTORY: abdominal pain TECHNIQUE: Ultrasound abdomen performed using standard protocol. COMPARISON: CT CT CHEST/ABD/PEL W from 05/10/2024 FINDINGS: LIVER: Normal size, measuring 1.6 cm in length. Mildly increase in echogenicity this may consistent with mild hepatic steatosis.. No focal liver lesions are seen. GALLBLADDER: Status post cholecystectomy. BILIARY SYSTEM: No intrahepatic or extrahepatic biliary ductal dilation. Common bile duct measures 8 millimeters. KIDNEYS: Kidneys are symmetric in size. No evidence of renal calculi. No evidence of hydronephrosis. No renal mass identified. 11 millimeter cyst upper pole. No follow-up recommended. PANCREAS: Normal where visualized. SPLEEN: Not enlarged. ABDOMINAL AORTA AND IVC: Visualized portions normal caliber. ASCITES: None seen. Small left pleural effusion. IMPRESSION: Small left pleural effusion. Mild hepatic steatosis. DATA REPOSITORY:
--- NOTE | 2024-05-17 00:45 | RT.EKG_ITS ---
APPROVED REPORT Exam: Resting ECG Reason for Exam: crushing chest pain Patient Location: I HR:55 bpm ECG Measurements Heart Rate 55 AXIS NE 220 P 77 QRSd 108 QRS -31 QT 444 T 55 QTc 425 Conclusion Sinus rhythm...normal P axis, V-rate 50- 99 Borderline prolonged NE interval...NE >212, V-rate 50- 90 Left axis deviation...QRS axis (-30,-90)
[2024-05-17 00:53] VITALS: BP 132/57; PULSE 58; RESP 18; O2SAT 96
--- NOTE | 2024-05-17 00:56 | NUR.NOTE ---
Nursing Note: while ambulating from the restroom to her bed she experienced crushing/squeezing chest pain with SOB. denies RANDHAWA, blurry/double vision, dizziness. VS stable. symptoms relieved with rest. will notify provider.
[2024-05-17] MEDS: Doxycycline Hyclate 100 MG CAP PO ×2 (06:00→18:04)
[2024-05-17 07:19] LABS: ALT 23 U/L (14-59); AST 27 U/L (15-37); Albumin 2.8 g/dL (3.4-5.0); Alkaline Phosphatase 65 U/L (46-116); Anion Gap 11.3 mmol/L (3-11); BUN 56 mg/dL (7-18); Bilirubin, Total 0.45 mg/dL (0.2-1.0); CO2 22.7 mmol/L (21.0-32.0); Calcium 9.2 mg/dL (8.5-10.1); Chloride 101 mmol/L (98-107); Estimated GFR 9.39 (mL/min/1.73m2); Glucose 92 mg/dL (74-106); Potassium 4.7 mmol/L (3.5-5.1); Sodium 135 mmol/L (136-145); Total Protein 6.9 g/dL (6.4-8.2)
[2024-05-17 07:25] LABS: Troponin I 13 ng/L (<or=51)
[2024-05-17 07:26] LABS: CREATININE 4.4 mg/dL (0.55-1.02)
[2024-05-17 07:35] VITALS: BP 144/64; PULSE 56; RESP 18; TEMP 36.8; O2SAT 98
[2024-05-17 07:57] VITALS: O2SAT 96
[2024-05-17] MEDS: Budesonide/Formoterol 80/4.5 6.9 GM 60 PUFF INH IH (07:57)
[2024-05-17] MEDS: Calcium Carbonate *TUMS* 500 MG CHEW 1000 MG PO (08:40)
[2024-05-17] MEDS: Calcium 600mg/Vit D 200U TAB 2 TAB PO (08:40)
[2024-05-17] MEDS: Famotidine 20 MG TAB 10 MG PO (08:40)
[2024-05-17] MEDS: Rivaroxaban 10 MG TABLET PO (08:41)
[2024-05-17] MEDS: Normal Saline Flush 10 ML SYR IVP ×4 (08:42→20:11)
--- NOTE | 2024-05-17 08:53 | PDOC.CMPRO ---
Date of service: 05/17/24 Time of Service: 08:53 Care Management Progress Note Progress Note Text Progress Note Text: Crystal was sitting up in her chair when CM met with her. She continues to slowly improve. Today Crystal's creatinine was 4.4 which is an improvement from 5.4 yesterday. Crystal continues to have difficulty with nausea. She reported that she cannot eat more than a few bites due to constant nausea. She has an order for Zofran but has only gotten it once a day or so and stated that it does not seem to help. CM discussed this with the provider who stated he plans to order a patch. Crystal continues to work with Pt and has been ambulating with her walker with only SBA. Discharge Potential Discharge Needs: PCP F/U Appt Anticipated Barriers to Discharge: Medical Status Patient/Family Education Needs: Review discharge instructions, discuss Ask Me Three Transportation: Private vehicle Plan: Anticipate Crystal will return home with a resumption of RN, PT, OT when medically stable. She will transport via private vehicle with family and will follow up with her PCP and discharge plan of care. CM will follow and continue to assess for discharge concerns.. SDOH(Care Management) Screening Will the Patient Participate in the Screening?: Yes Do you worry about having a steady place to live?: no Problems where you live: no known problems In the past 12 months, have you had to go without electric, gas, oil or water in your home?: no Have you or anyone in your house had to go without enough food to eat?: no Has lack of transportation kept you from medical appointments or from doing things needed for daily living?: no Has anyone in your support network made you feel unsafe for any reason?: no
--- NOTE | 2024-05-17 09:24 | W.NUTRFU ---
Date of service: 05/17/24 Time of Service: 09:25 Nutrition Note NOTE: Crystal is 83yo female admitted after coming in with persistent fever for multiple days and back pain, post fall weeks prior. Pt found to have anaplasmosis, acute lyme dz from tick bite with JOHNNIE on top of CKD3 resulting. PMH also includes Adult FTT, CHF,GERD, class 3 obesity, TIA , HTN, dyspahgia (was upgraded to normal consistencies from puree). Ordered for renal diet for nutrition therapy. Sodium low yesterday and today (131, 135 respectively) . no phos labs, mag wnl 05/13/24. Potassium wnl. GFR today 9.39, 2.8 albumin today. Trace edema to BLE's per nursing assessment. PO intake 50-100% most meals - tolerating well per nursing. Weight history fairly stable with 88-95kg common weight x last 2 years with both increases and decreases. As sodium has been low and K wnl, would suggest phosphorus lab and consider liberalizing diet to regular if these labs stay consistent Would also recommend vitamin D lab. and supplement with calcitriol if low considering deteriorating kidney fxn. Will monitor po intake, weight, and help kitchen staff determine food choices as meals while on renal diet restirctions. Time Spent in Nutritional Counseling and Treatment: 0
[2024-05-17] MEDS: cefTRIAXone 2 GM/50 ML BAG IVPB (10:13)
[2024-05-17 10:57] VITALS: BP 138/56; PULSE 54; RESP 18; TEMP 36.8; O2SAT 100
[2024-05-17] MEDS: Ondansetron 4 MG/2 ML VIAL IVP ×2 (11:08→16:02)
--- NOTE | 2024-05-17 11:11 | PT.INTREAT ---
PT Notes Visit Reasons: Fever, Abdominal pain, CHF, Falls with hand... Inpatient Physical Therapy Treatment Note [facility] Date: 05/17/2024 Precautions: ADDIS MO, telemetry. Left ulnar gutter splint at all times SUBJECTIVE:Pt reports feeling okay. She states she had an episode of chest pain during the night and had a test (EKG) done. She states it lasted only a short time and she was able to fall back to sleep and has not had it again this morning. OBJECTIVE: ?Pt seated in chair with legs elevated, agreeable to participate in PT. VITALS: ?monitored via telemetry continuously; HR at rest 55 bpm prior to amb, HR radially 74 bpm standing 5 min after amb 47bpm radially. Therapeutic Activities (44130): Direct one-on-one instruction in dynamic activities to improve functional performance. ?? Provided cues for pacing throughout, monitoring HR radially as well as nursing via telemetry. ? BED MOBILITY/TRANSFERS? Sit-stand: SBA? x 4 trials? Stand-sit: SBA ?x 3 trials ? Provided skilled cues and instruction on performance and technique throughout. ?static stand with 1 UE support x 30 sec x 3 ? GAIT? Assistive Device: FWW? Weight bearing:full Assist: SBA ? Distance:? 200 feet with 1 stand rest, 75 feet x 1, 125 feet x 1, 30 feet x 2 ? Pt requires w/c follow for safety ? Deviation: slow, shortened stride length ? ? stairs 2 6 steps with 2 rails, 3 4 steps with 2 rails SBA ? ASSESSMENT:?Pt able to verbalize changes in heart rate such as racing during ambulation. At time of pt report of racing HR noted to be 74bpmradially confirmed by telemetry. Pt remains with limited left grasp by Left ulnar gutter splint which will remain until June. Pt able to grasp walker during transfers and ambulation. She demonstrates safe hand placement for transfers. PLAN:will continue working on her endurance and stair negotiation until discharge home TREATMENT CODE/TIME:first session: 85971 x 25min for 2 units /[id number] DISCHARGE RECOMMENDATION: home with son and resumption of home OT/PT /Nursing
[2024-05-17 12:14] LABS: Kappa Free Light Chain 9.25 mg/dL (0.33-1.94); Lambda Free Light Chain 22.44 mg/dL (0.57-2.63)
--- NOTE | 2024-05-17 13:10 | PTTR_ITS ---
PT Notes Visit Reasons: Fever, Abdominal pain, CHF, Falls with hand... Inpatient Physical Therapy Treatment Note [facility] Date: 05/17/2024 Precautions: L ulnar gutter split on at all times. Activity as tolerated. Closely monitor VS during session. SUBJECTIVE: remains cautious about what she eats as she does not want to upset her tummy. Finished about 50% of her lunch. Reported feeling mildly lightheaded after walking from Room 206 to the therapy about 150 feet using her walker, symptom subsided with rest. Some pain in L fingers reported which she stated has not been as much compared to day of admission. Hopeful that she goes home once medically stable. Agreeable to PT. Also reported some discomfort on the R UE at the IV site. OBJECTIVE: Patient seated on bedside recliner. VITALS: HR lowest highest of 76 bpm after walking from room 206 to therapy gym, trailed down to 54 bpm with 5 minutes of rest. Ranged from 57-78 bpm during seated exercises performance. ? BED MOBILITY/TRANSFERS: ? Able to demonstrate use of B hands for support and for safety? Sit-stand: supervision with FWW? Stand-sit: supervision with FWW? GAIT? Assistive Device: FWW? Weight bearing:FWB Assist: stand by assist? Distance:? 150 feet from room 206 to gym and 150 going back with ? Deviation: Limited electricity trading analyst on L due to use of L ulnar gutter splint; jamari decreased? ? ? THERA EX: Guided patient with seated exercise performance while closely monitoring HR changes: Seated marches x 10 LAQs x 10 Seated hip abduction/adduction x 10 ? ASSESSMENT:? Patient has ability to describe changes in her symptom with exertion and knows to rest to minimize symptom onset. Ben to handle level surface/indoor ambulation of up to 150 using FWW without needing physical help before feeling pounding in her heart. Has her own FWW at home. Will continue to require services to assess heart rate changes in relation to symptom occurrence while performing mobility tasks. PLAN: Progress activity tolerance, safety, and mobility level using FWW to optimize ability to thrive at home safely. DISCHARGE RECOMMENDATION: return home with ankit with PT/OT services. TREATMENT CODE/TIME: 19556 x 40 minutes for 3 units, 27661 x 17 minutes for 1 unit (13:10-14:07).
--- NOTE | 2024-05-17 13:47 | PGE_ITS ---
Date of Service Date of service: 05/17/24 Time of Service: 13:52 Assessment and Plan Assessment and plan (1) Acute Lyme disease: Status: Acute Assessment and plan: -Reported persistent fevers at home x 1-2 weeks, febrile off/on over first 24 hours of admission with temperature as high as 102.7, but last fever 05/11/24 at 11am. -At this time, source of infection unclear as CT chest abdomen pelvis was without acute findings, CT neck looking for dental complications negative. Viral swabs negative. - Lyme returned positive 05/14, IgM c/w acute infection. -She has been on doxycycline since admission. With heart block, added IV ceftriaxone 05/14 until this resolves to cover cardiac Lyme 05/16/2024 Patient is currently on Rocephin 2 g every 24 hours as well as doxycycline 100 mg p.o. every 12 hours. 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 Returned positive today, continue doxycycline. (3) Acute kidney injury: Status: Acute Assessment and plan: -Cr up again today, but urine output much better after single dose of furosemided - I still suspect contrast induced nephropathy in setting of acute illness and increased diuresis and baseline CKD. -u/a repeated, mild proteinuria but no casts to point clearly to ATN. No WBC or RBC. -becoming oliguric 05/14 -Suspected low volume status, started fluids 05/14. But after reviewing echo from 05/13 showing IVC <50% collapse we changed course and gave furosemide overnight 05/14-. She responded well with marked increase urine output. -Case reviewed with Dr. Pedro Main, who recommended checking CPK, prot/creatinine, liver funciton (done), and SPEP/UPEP/light chains. She is not dialysis candidate, electrolytes okay. Continue to monitor closely. -No further diuresis for now 05/16/2024 Patient's BUN and creatinine is 63 and 5.4. Her creatinine yesterday was 5.5 so at least that stabilized. I was present for part of the call with nephrology and her SPEP and UPEP are still pending. Her renal ultrasound has been reviewed essentially is unremarkable. An echocardiogram was also performed on the 11th which did not show significant congestive heart failure. Echocardiogram does not indicate a prerenal cause of her current kidney injury. Patient does appear to contrast-induced nephropathy. Will recheck labs in the a.m. Patient's output is 1450. We did remove the Pritchett today and the patient's creatinine did stabilize and the concern for cauti. 05/17/2024 Patient's BUN and creatinine are finally improving. Her current BUN is 56 with a creatinine of 4.4. Yesterday they were 63 and 5.4 respectively. Patient has over 2500 urine output. Continue with gentle rehydration. (4) Heart block, AV: Status: Acute Assessment and plan: Cardiology evaluated 05/14, Dr. Diehl agreed with stopping metoprolol With Lyme positive concern for component of cardiac lyme, though she had pre- existing tachy/althea syndrome. Started ceftriaxone until this improves. 05/16/2024 Patient does continue to have bradycardia with her heart rate at mid to low 50s. Patient denies any presyncope or syncope associated with this. Patient was seen in consultation with cardiology and the patient's beta-luca was held. This has increased her heart rate but just minimally. I will try to look in her past chart to see if this is a known problem or if it is new on this admission. 05/17/2024 Patient's latest heart rates are fairly consistent in the low to mid 50s. (5) CHF (congestive heart failure): Start date: 05/10/24 Status: Acute Assessment and plan: -Patient has documented history of CHF -Hypoxic 05/10, this resolved with diuresis with IV Lasix and has been off O2 since 05/11 -echo 05/12 showed normal LVEF, but IVC still congested. Given another dose of furosemide early 05/15 am. Follow 05/16/2024 In regards to her heart. Patient does have an ejection fraction of 55% on echo. She is on Lasix 40 mg IV which was stopped yesterday actually. I do think with her echocardiogram we can continue to have fairly robust IV fluid. Qualifiers: Heart failure type: right-sided Heart failure chronicity: chronic Qualified Code(s): I50.812 - Chronic right heart failure (6) Tachycardia-bradycardia syndrome: Status: Chronic Assessment and plan: Per cardiology what looked like non-sustained VT was SVT with aberrancy. Now off metoprolol. Getting both. I'm not sure if Lyme contributing, but continue to monitor on treatment off metoprolol. If this continues we may need to consider pacer. 05/16/24 As mentioned above the patient was seen by cardiology and a recommendation was made to stop metoprolol. This has improved her heart rate but not by very much. There does remain a concern about bradycardia associated with Lyme's disease. As the patient remains asymptomatic at least we have some time to see if this improves without any intervention. (7) CKD (chronic kidney disease) stage 3, GFR 30-59 ml/min: Status: Chronic Assessment and plan: baseline CKD, discussed with family what this means. See above re: JOHNNIE Qualifiers: Chronic kidney disease stage 3 subtype: stage 3b (GFR 30-44) Qualified Code(s): N18.32 - Chronic kidney disease, stage 3b (8) Obstructive sleep apnea: Status: Chronic Assessment and plan: With obesity not on treatment and no home oxygen. 05/16/2024 Will once again search the medical record for a qualifying diagnosis. If she does have obstructive sleep apnea she would benefit strongly from a CPAP machine. I will discuss at multidisciplinary rounds tomorrow. (9) GERD (gastroesophageal reflux disease): Assessment and plan: Stop PPI per nephrology, try H2 instead 05/16/24 Patient is on milk of magnesia and Pepcid. Currently without complaint. Qualifiers: Esophagitis presence: without esophagitis Qualified Code(s): K21.9 - Gastro-esophageal reflux disease without esophagitis (10) DVT (deep venous thrombosis): Status: Chronic Assessment and plan: Continue Xarelto. 05/16/2024 I did discuss with the patient the timeframe for her Xarelto treatment. The patient states that she was diagnosed to be DVT quite a long time ago. If this was a provoked DVT or the first nonprovoked DVT will consider holding this medication but will defer to the outpatient setting. Qualifiers: DVT location: lower extremity Affected thrombotic vein of extremity: other lower extremity vein Chronicity: chronic Laterality: unspecified laterality Qualified Code(s): I82.599 - Chronic embolism and thrombosis of other specified deep vein of unspecified lower extremity (11) Abdominal pain: Status: Acute Assessment and plan: Exact etiology for her pain is unknown. I do have some concern for peptic ulcer disease versus gallbladder issues. I will start with H. pylori level and check on right upper quadrant ultrasound. In regards to her nausea really has been tried on a scopolamine patch but she is allergic to surgical tape. Subjective Subjective Interval history since last seen: Patient was seen and examined in her room this morning. Plan of care was discussed with the patient as well as with the multidisciplinary group. Patient does complain of abdominal discomfort. Patient states that her pain is mostly mid epigastric and made worse with eating. Patient denies any change in her bowel function. Patient states that the pain does make her feel moderately nauseous. Exam Narrative Exam Narrative: Head eyes ears nose and throat: Normocephalic atraumatic mucous membranes moist oropharynx is clear extract motions are intact pupils equal round reactive to light Neck: No lymphadenopathy no JVD no thyromegaly Cardiovascular: Bradycardic but no murmur rubs gallops Lungs: Clear to auscultation bilaterally with good air exchange Abdomen: Soft nontender nondistended bowel sounds active Extremities 1+ lower extremity edema bilaterally Neurologic cranial nerves II through XII intact as tested reflexes upper extremity normal as tested Psych: Affect is appropriate she is alert and orient x 3 Objective Last Vital Signs Temp 36.8 C 05/17/24 10:57 Pulse 54 L 05/17/24 10:57 Resp 18 05/17/24 10:57 BP 138/56 L 05/17/24 10:57 Pulse Ox 100 05/17/24 10:57 Laboratory Results - last 24 hr 05/16/24 05/17/24 06:36 05:20 Sodium 131 L 135 L Potassium 5.1 4.7 Chloride 97 L 101 Carbon Dioxide 22.7 22.7 Anion Gap 11.3 H 11.3 H BUN 63 H 56 H Creatinine 5.4 H* 4.4 H* Est GFR (CKD-EPI 2020) 7.34 9.39 Glucose 99 92 Calcium 8.7 9.2 Total Bilirubin 0.45 AST 27 ALT 23 Alkaline Phosphatase 65 Troponin I 13 Total Protein 6.9 Albumin 2.8 L Time Spent with Patient Time Spent with Patient: 35-49 minutes Time was spent: preparing to see the patient(eg.review tests), obtaining and/or reviewing separately otained hiistory, ordering medications,tests, procedures, referring, communicating with other health care transition coordinator, indepentently interpreting results, counseling the patient and care coordination
[2024-05-17 15:40] VITALS: BP 151/54; PULSE 55; RESP 18; TEMP 36.1; O2SAT 100
[2024-05-17 19:55] VITALS: BP 135/57; PULSE 52; RESP 18; TEMP 35.5; O2SAT 99
[2024-05-17] MEDS: Docusate Sodium 100 MG CAP PO (20:10)
[2024-05-17] MEDS: Nystatin POWDER 15 GM JAR TP (20:12)
[2024-05-18] VITALS (9 sets, daily range): BP systolic 108–166; BP diastolic 50–72; PULSE 44–56; RESP 15–20; TEMP 36.4–36.9; O2SAT 96–99
[2024-05-18] MEDS: Doxycycline Hyclate 100 MG CAP PO ×2 (05:31→17:24)
[2024-05-18] MEDS: Ondansetron 4 MG/2 ML VIAL IVP (07:54)
[2024-05-18] MEDS: Meclizine 25 MG TAB PO (07:55)
[2024-05-18] MEDS: Famotidine 20 MG TAB 10 MG PO (07:55)
[2024-05-18] MEDS: Calcium 600mg/Vit D 200U TAB 2 TAB PO (07:56)
[2024-05-18] MEDS: Acetaminophen 500 MG TAB 1000 MG PO (07:56)
[2024-05-18] MEDS: Rivaroxaban 10 MG TABLET PO (07:56)
[2024-05-18] MEDS: Budesonide/Formoterol 80/4.5 6.9 GM 60 PUFF INH IH (08:05)
[2024-05-18] MEDS: Nystatin POWDER 15 GM JAR TP ×2 (08:08→19:49)
[2024-05-18] MEDS: Normal Saline Flush 10 ML SYR IVP ×3 (08:14→19:49)
[2024-05-18 10:13] LABS: ALT 22 U/L (14-59); AST 26 U/L (15-37); Albumin 2.8 g/dL (3.4-5.0); Alkaline Phosphatase 62 U/L (46-116); Anion Gap 7.3 mmol/L (3-11); BUN 42 mg/dL (7-18); Bilirubin, Total 0.41 mg/dL (0.2-1.0); CO2 26.7 mmol/L (21.0-32.0); CREATININE 3.2 mg/dL (0.55-1.02); Calcium 9.2 mg/dL (8.5-10.1); Chloride 103 mmol/L (98-107); Estimated GFR 13.76 (mL/min/1.73m2); Glucose 131 mg/dL (74-106); Potassium 4.5 mmol/L (3.5-5.1); Sodium 137 mmol/L (136-145); Total Protein 6.8 g/dL (6.4-8.2)
--- NOTE | 2024-05-18 10:17 | PTTR_ITS ---
PT Notes Visit Reasons: Fever, Abdominal pain, CHF, Falls with hand... Date: 05/18/2024 Precautions: L halima payneter split on at all times. Activity as tolerated. Closely monitor VS during session. SUBJECTIVE: Pt in recliner when approached for therapy this morning, pt denies pain on the left wrist when resting, agreed to participating with therapy session. OBJECTIVE: Patient seated on bedside recliner. VITALS: ranged from 55pr at rest to 75pr with activity, goes back to 55pr after resting for 3mins ? BED MOBILITY/TRANSFERS: ? Able to demonstrate use of B hands for support and for safety? Sit-stand: supervision with FWW? Stand-sit: supervision with FWW? GAIT? Assistive Device: FWW? Weight bearing:FWB Assist: stand by assist? Distance:? 150 feet from room 206 to gym and 150 going back with ? 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 ASSESSMENT:? pt reports the only time the wrist was slightly painful was when she was walking, pain subsides as soon as pt unloads the left wrist. pt vital monitored during the course of the session with ot vitals ranging from 75 to 55 bpm. PLAN: Progress activity tolerance, safety, and mobility level using FWW to optimize ability to thrive at home safely. DISCHARGE RECOMMENDATION: return home with sone with HH PT/OT services. TREATMENT CODE/TIME: [id number] 20mins (9:50-10:10am).
[2024-05-18] MEDS: cefTRIAXone 2 GM/50 ML BAG IVPB (11:41)
--- NOTE | 2024-05-18 15:44 | W.PM.PROGNOT ---
Date of Service Date of service: 05/18/24 Time of Service: 15:44 Assessment and Plan Assessment and plan (1) Acute Lyme disease: Status: Acute Assessment and plan: -Reported persistent fevers at home x 1-2 weeks, febrile off/on over first 24 hours of admission with temperature as high as 102.7, but last fever 05/11/24 at 11am. -At this time, source of infection unclear as CT chest abdomen pelvis was without acute findings, CT neck looking for dental complications negative. Viral swabs negative. - Lyme returned positive 05/14, IgM c/w acute infection. -She has been on doxycycline since admission. With heart block, added IV ceftriaxone 05/14 until this resolves to cover cardiac Lyme 05/16/2024 Patient is currently on Rocephin 2 g every 24 hours as well as doxycycline 100 mg p.o. every 12 hours. 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 Returned positive today, continue doxycycline. (3) Acute kidney injury: Status: Acute Assessment and plan: -Cr up again today, but urine output much better after single dose of furosemided - I still suspect contrast induced nephropathy in setting of acute illness and increased diuresis and baseline CKD. -u/a repeated, mild proteinuria but no casts to point clearly to ATN. No WBC or RBC. -becoming oliguric 05/14 -Suspected low volume status, started fluids 05/14. But after reviewing echo from 05/13 showing IVC <50% collapse we changed course and gave furosemide overnight 05/14-. She responded well with marked increase urine output. -Case reviewed with Dr. Pedro Main, who recommended checking CPK, prot/creatinine, liver funciton (done), and SPEP/UPEP/light chains. She is not dialysis candidate, electrolytes okay. Continue to monitor closely. -No further diuresis for now 05/16/2024 Patient's BUN and creatinine is 63 and 5.4. Her creatinine yesterday was 5.5 so at least that stabilized. I was present for part of the call with nephrology and her SPEP and UPEP are still pending. Her renal ultrasound has been reviewed essentially is unremarkable. An echocardiogram was also performed on the 11th which did not show significant congestive heart failure. Echocardiogram does not indicate a prerenal cause of her current kidney injury. Patient does appear to contrast-induced nephropathy. Will recheck labs in the a.m. Patient's output is 1450. We did remove the Pritchett today and the patient's creatinine did stabilize and the concern for cauti. 05/17/2024 Patient's BUN and creatinine are finally improving. Her current BUN is 56 with a creatinine of 4.4. Yesterday they were 63 and 5.4 respectively. Patient has over 2500 urine output. Continue with gentle rehydration. 05/18/24 Patient has a significant improvement in her creatinine over the last 24 hours with her latest value being 3.4. My plan is to recheck her creatinine in the a.m. and if it continues to improve to discharge home. (4) Heart block, AV: Status: Acute Assessment and plan: Cardiology evaluated 05/14, Dr. Diehl agreed with stopping metoprolol With Lyme positive concern for component of cardiac lyme, though she had pre-existing tachy/althea syndrome. Started ceftriaxone until this improves. 05/16/2024 Patient does continue to have bradycardia with her heart rate at mid to low 50s. Patient denies any presyncope or syncope associated with this. Patient was seen in consultation with cardiology and the patient's beta-luca was held. This has increased her heart rate but just minimally. I will try to look in her past chart to see if this is a known problem or if it is new on this admission. 05/17/2024 Patient's latest heart rates are fairly consistent in the low to mid 50s. 05/18/2024 Patient has had multiple workups for bradycardia in the past including at least 2 Holter monitors which were fairly benign. Certainly could have some issues with Lyme's and bradycardia but this looks like it preceding her current illness?lost weight has not (5) CHF (congestive heart failure): Start date: 05/10/24 Status: Acute Assessment and plan: -Patient has documented history of CHF -Hypoxic 05/10, this resolved with diuresis with IV Lasix and has been off O2 since 05/11 -echo 05/12 showed normal LVEF, but IVC still congested. Given another dose of furosemide early 05/15 am. Follow 05/16/2024 In regards to her heart. Patient does have an ejection fraction of 55% on echo. She is on Lasix 40 mg IV which was stopped yesterday actually. I do think with her echocardiogram we can continue to have fairly robust IV fluid. Qualifiers: Heart failure type: right-sided Heart failure chronicity: chronic Qualified Code(s): I50.812 - Chronic right heart failure (6) Tachycardia-bradycardia syndrome: Status: Chronic Assessment and plan: Per cardiology what looked like non-sustained VT was SVT with aberrancy. Now off metoprolol. Getting both. I'm not sure if Lyme contributing, but continue to monitor on treatment off metoprolol. If this continues we may need to consider pacer. 05/16/24 As mentioned above the patient was seen by cardiology and a recommendation was made to stop metoprolol. This has improved her heart rate but not by very much. There does remain a concern about bradycardia associated with Lyme's disease. As the patient remains asymptomatic at least we have some time to see if this improves without any intervention. (7) CKD (chronic kidney disease) stage 3, GFR 30-59 ml/min: Status: Chronic Assessment and plan: baseline CKD, discussed with family what this means. See above re: JOHNNIE Qualifiers: Chronic kidney disease stage 3 subtype: stage 3b (GFR 30-44) Qualified Code(s): N18.32 - Chronic kidney disease, stage 3b (8) Obstructive sleep apnea: Status: Chronic Assessment and plan: With obesity not on treatment and no home oxygen. 05/16/2024 Will once again search the medical record for a qualifying diagnosis. If she does have obstructive sleep apnea she would benefit strongly from a CPAP machine. I will discuss at multidisciplinary rounds tomorrow. (9) GERD (gastroesophageal reflux disease): Assessment and plan: Stop PPI per nephrology, try H2 instead 05/16/24 Patient is on milk of magnesia and Pepcid. Currently without complaint. Qualifiers: Esophagitis presence: without esophagitis Qualified Code(s): K21.9 - Gastro-esophageal reflux disease without esophagitis (10) DVT (deep venous thrombosis): Status: Chronic Assessment and plan: Continue Xarelto. 05/16/2024 I did discuss with the patient the timeframe for her Xarelto treatment. The patient states that she was diagnosed to be DVT quite a long time ago. If this was a provoked DVT or the first nonprovoked DVT will consider holding this medication but will defer to the outpatient setting. Qualifiers: DVT location: lower extremity Affected thrombotic vein of extremity: other lower extremity vein Chronicity: chronic Laterality: unspecified laterality Qualified Code(s): I82.599 - Chronic embolism and thrombosis of other specified deep vein of unspecified lower extremity (11) Abdominal pain: Status: Acute Assessment and plan: Exact etiology for her pain is unknown. I do have some concern for peptic ulcer disease versus gallbladder issues. I will start with H. pylori level and check on right upper quadrant ultrasound. In regards to her nausea really has been tried on a scopolamine patch but she is allergic to surgical tape. Subjective Subjective Interval history since last seen: Patient seen and examined in her room this afternoon. Patient does complain of occasional abdominal pain. Plan of care discussed with patient as well as the multidisciplinary team Exam Narrative Exam Narrative: Head eyes ears nose and throat: Normocephalic atraumatic mucous membranes moist oropharynx is clear extract motions are intact pupils equal round reactive to light Neck: No lymphadenopathy no JVD no thyromegaly Cardiovascular: Bradycardic but no murmur rubs gallops Lungs: Clear to auscultation bilaterally with good air exchange Abdomen: Soft nontender nondistended bowel sounds active Extremities 1+ lower extremity edema bilaterally Neurologic cranial nerves II through XII intact as tested reflexes upper extremity normal as tested Psych: Affect is appropriate she is alert and orient x 3 Objective Last Vital Signs Temp 36.5 C 05/18/24 15:01 Pulse 44 L 05/18/24 15:01 Resp 18 05/18/24 15:01 BP 141/64 H 05/18/24 15:01 Pulse Ox 97 05/18/24 15:01 Laboratory Results - last 24 hr 05/18/24 09:33 Sodium 137 Potassium 4.5 Chloride 103 Carbon Dioxide 26.7 Anion Gap 7.3 BUN 42 H Creatinine 3.2 H Est GFR (CKD-EPI 2020) 13.76 Glucose 131 H Calcium 9.2 Total Bilirubin 0.41 AST 26 ALT 22 Alkaline Phosphatase 62 Total Protein 6.8 Albumin 2.8 L Time Spent with Patient Time Spent with Patient: 35-49 minutes Time was spent: preparing to see the patient(eg.review tests), obtaining and/or reviewing separately otained hiistory, ordering medications,tests, procedures, referring, communicating with other health home health care physician, indepentently interpreting results, counseling the patient and care coordination
[2024-05-19 04:30] VITALS: BP 123/47; PULSE 47; RESP 18; TEMP 36.8; O2SAT 94
[2024-05-19 06:12] LABS: HCT 30.1 % (36.0-46.0); HGB 9.8 g/dL (11.2-15.7); MCH 30.3 pg (27.0-33.0); MCHC 32.6 % (32.0-36.0); MCV 93 fL (80-95); MPV 9.9 fL (8.0-11.0); Platelet Count 189 10^3/uL (130-400); RBC 3.23 10^6/uL (3.93-5.22); RDW 15.1 % (11.7-14.6); RDW-SD 51.8 fL; WBC 6.08 10^3/uL (4.4-10.8)
[2024-05-19] MEDS: Doxycycline Hyclate 100 MG CAP PO (06:37)
[2024-05-19 06:38] LABS: ALT 19 U/L (14-59); AST 22 U/L (15-37); Albumin 2.5 g/dL (3.4-5.0); Alkaline Phosphatase 54 U/L (46-116); Anion Gap 7.1 mmol/L (3-11); BUN 36 mg/dL (7-18); Bilirubin, Total 0.42 mg/dL (0.2-1.0); CO2 25.9 mmol/L (21.0-32.0); CREATININE 2.6 mg/dL (0.55-1.02); Chloride 108 mmol/L (98-107); Estimated GFR 17.65 (mL/min/1.73m2); Glucose 95 mg/dL (74-106); Potassium 4.9 mmol/L (3.5-5.1); Sodium 141 mmol/L (136-145); Total Protein 5.9 g/dL (6.4-8.2)
[2024-05-19] MEDS: Famotidine 20 MG TAB 10 MG PO (08:07)
[2024-05-19] MEDS: Calcium 600mg/Vit D 200U TAB 2 TAB PO (08:10)
[2024-05-19] MEDS: Rivaroxaban 10 MG TABLET PO (08:10)
[2024-05-19] MEDS: Normal Saline Flush 10 ML SYR IVP (08:10)
[2024-05-19] MEDS: Nystatin POWDER 15 GM JAR TP (08:12)
[2024-05-19 08:14] VITALS: BP 108/84; PULSE 45; RESP 18; TEMP 36.5; O2SAT 97
[2024-05-19] MEDS: Budesonide/Formoterol 80/4.5 6.9 GM 60 PUFF INH IH (08:25)
[2024-05-19] MEDS: cefTRIAXone 2 GM/50 ML BAG IVPB (09:44)
--- NOTE | 2024-05-19 10:38 | PT.INTREAT ---
PT Notes Visit Reasons: Fever, Abdominal pain, CHF, Falls with hand... Date: 05/19/2024 Precautions: L halima payneter split on at all times. Activity as tolerated. Closely monitor VS during session. SUBJECTIVE: Pt in recliner when approach for therapy this morning, pt IV drip was done nd was ready for detachment. agreed to participating with therapy session. OBJECTIVE: Patient seated on bedside recliner. IV drip, VITALS: ranged from 55pr at rest to 70pr with activity, goes back to 55pr after resting for 3mins ? BED MOBILITY/TRANSFERS: ? Able to demonstrate use of B hands for support and for safety? Sit-stand: supervision with FWW? Stand-sit: supervision with FWW? GAIT? Assistive Device: FWW? Weight bearing:FWB Assist: stand by assist? Distance:? 150 feet from room 206 to gym and 150 going back with rest break in between distance ? 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 Stairs: able to negotiate 6'steps step to gait patern bilateral handrail, 2x, 4 steps 3x Step through gait ?bilateral handrail, SBA? ASSESSMENT:? pt reports the being achy this morning. noting it is her usual pain level for that left wrist. did not complain of incteased left wrist pain post session PLAN: Progress activity tolerance, safety, and mobility level using FWW to optimize ability to thrive at home safely. DISCHARGE RECOMMENDATION: return home with sone with PT/OT services. TREATMENT CODE/TIME: [id number] 25mins (10:15-10:40am).
[2024-05-19 11:34] VITALS: BP 119/54; PULSE 52; RESP 18; TEMP 36.4; O2SAT 97
--- NOTE | 2024-05-19 12:29 | DSE_ITS ---
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 (3) Acute kidney injury: Status: Acute (4) Heart block, AV: Status: Acute (5) CHF (congestive heart failure): Status: Acute (6) Tachycardia-bradycardia syndrome: Status: Chronic (7) CKD (chronic kidney disease) stage 3, GFR 30-59 ml/min: Status: Chronic (8) Obstructive sleep apnea: Status: Chronic (9) GERD (gastroesophageal reflux disease): (10) DVT (deep venous thrombosis): Status: Chronic (11) Abdominal pain: Status: Acute Discharge Plan Disposition Patient Disposition: Home W/Home Health Services Condition: Improving Discharge Details Reason For Visit: Fever, Abdominal pain, CHF, Falls with hand... Admit Date/Time: 05/10/24 22:00 Admit Provider: Aguila Hoang Attending Provider: Aguila Hoang Primary Care Provider: Sarah Gao Hospital Course Hospital Course: This is an 83-year-old female who was admitted on 05/10/2024 for fever of unknown origin as well as abdominal pain. While she was in the hospital she did have the diagnosis of Lyme's disease and was treated accordingly. Patient was also noted to have significant bradycardia and there was some concern about her bradycardia being due to her Lyme's disease, but in reviewing her old records she has had chronic consistent bradycardia for at least 4 years. She has had 2 Holter monitors placed and is being followed by Dr. Diehl. While she was here she also complained of some epigastric pain and an ultrasound was performed which was essentially benign. I have sent out an H. pylori and this is pending results. For her Lyme's disease we will treat her for 21 days with doxycycline. While she is here she is also diagnosed with acute kidney injury. The prevailing prognosis is of contrast-induced nephropathy. Her creatinine has improved over the last 48 hours to the point where I think it safe for her to go home. While she was here though she was discussed with nephrology who recommends multiple studies including SPEP and UPEP and the majority studies are still pending. I did discuss with the patient as well as her son and daughter the need to follow-up these results with her PCP. We also recommended a rheumatoid consultation to which they agreed to follow-up. At the time of discharge patient is otherwise without complaint. Home Meds and New Rx's Prescriptions: New doxycycline hyclate 100 mg Capsule 100 mg PO Q12H Qty: 20 0RF Continued albuterol sulfate [Ventolin HFA] 90 mcg/actuation HFA aerosol inhaler 2 puff IH Q6H PRN (Reason: shortness of breath or wheezing) Qty: 6.7 0RF Rx Instructions: Daily x 2 weeks minimum (DME) Compression Stockings See Rx Instructions .Route .MEDSUPPLY Qty: 1 0RF Rx Instructions: As directed, moderate compression for daily wearing furosemide [Lasix] 20 mg tablet 20 mg PO DAILY PRN (Reason: weight gain or edema) Qty: 30 3RF Patient Comments: takes if needed. Rx Instructions: daily if weight gain >3 lbs per 3 days of leg swelling. omeprazole 20 mg tablet,delayed release (DR/EC) 20 mg PO DAILY Centrum Silver 400-250 mcg tablet,chewable 1 tab PO DAILY acetaminophen 650 mg tablet extended release 650 mg PO Q12H fluticasone propion-salmeterol [Advair HFA] 45-21 mcg/actuation HFA aerosol inhaler 2 puff inhalation DAILY hydrocortisone 2.5 % cream 1 applic topical BID PRN meclizine 25 mg tablet 25 mg PO DAILY PRN nystatin 100,000 unit/gram powder 1 applic topical BID Xarelto 10 mg tablet 10 mg PO DAILY Rx Instructions: for 35 days acetaminophen 500 mg tablet 1,000 mg PO Q8H PRN PRN (Reason: pain) Qty: 100 0RF calcium carbonate-vitamin D3 [Calcium 600 + D(3)] 600 mg-5 mcg (200 unit) tablet 2 tab PO DAILY Discharge Instructions Referrals: Sarah Gao [Primary Care Provider] - Activity:: Activity as Tolerated Equipment/Supplies:: No Equipment Needed Diet:: As Tolerated Discharge Orders Discharge Orders: Discharge Order (Routine); Ordered 05/19/24 Ordered By: Mike Madden DS: Summary Time Spent with Patient providing and/or coordinating discharge services: Greater than 30 minutes Status at Discharge Functional status at discharge: independent ambulation Overall status at discharge: patient is progressing back to baseline Mental Status: mental status grossly normal Speech and Movement: speech and movement normal Mood: congruent mood Affect: normal affect Quality:SDOH Health Related Social Needs: No Data to Display Exam Psych Mental Status: mental status grossly normal Speech and Movement: speech and movement normal Mood: congruent mood Affect: normal affect DS: Data Vitals/I&O Vitals and I&O: Vital Signs Temperature 36.4 C L 05/19/24 11:34 Temperature Source Temporal Artery Scan 05/19/24 11:34 Pulse 52 L 05/19/24 11:34 Pulse Rhythm Irregular 05/11/24 01:42 Pulse Strength Normal 05/11/24 00:04 Pulse 80 05/10/24 18:50 Respiratory Rate 18 05/19/24 11:34 Respiratory Effort Short of Breath 05/11/24 01:42 Respiratory Depth Shallow 05/11/24 01:42 Respiratory Pattern Tachypnea 05/11/24 01:42 Blood Pressure 119/54 L 05/19/24 11:34 Blood Pressure Mean 90 05/11/24 00:04 Blood Pressure Position Sitting 05/11/24 00:04 Pulse Oximetry 97 05/19/24 11:34 Oxygen Delivery Method Room Air 05/19/24 11:34 Oxygen Flow Rate 0 05/19/24 11:34 Pain Level 0 05/19/24 04:30 Comment let darin know Low BP and pulse 05/19/24 11:34 Intake & Output 05/18/24 05/19/24 05/19/24 23:59 11:59 23:59 Intake Total 270 / 280 50 / 50 Output Total 400 / 1200 100 / 100 Balance -130 / -920 -50 / -50 Weight 84.3 kg Intake: IV 50 / 60 50 / 50 Oral 220 / 220 Output: Urine 400 / 1200 100 / 100 Other: Stool Size Moderate Stool Characteristics Soft Formed Data Completed and Pending Labs on day of discharge: Labs from last 24 hours 05/19/24 05:45 WBC 6.08 RBC 3.23 L Hgb 9.8 L Hct 30.1 L MCV 93 MCH 30.3 MCHC 32.6 RDW 15.1 H Plt Count 189 MPV 9.9 Sodium 141 Potassium 4.9 Chloride 108 H Carbon Dioxide 25.9 Anion Gap 7.1 BUN 36 H Creatinine 2.6 H Est GFR (CKD-EPI 2020) 17.65 Glucose 95 Calcium 9.0 Total Bilirubin 0.42 AST 22 ALT 19 Alkaline Phosphatase 54 Total Protein 5.9 L Albumin 2.5 L PFSH All Active Problems (Updated 05/17/24 @ 13:58 by Mike Madden MD) Abdominal pain (Acute) 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) Acute Lyme disease (Acute) Heart block, AV (Acute) Acute kidney injury (Acute) Acute respiratory failure with hypoxia (Acute) Adult failure to thrive (Acute) Fever of unknown origin (Acute) Hypoxemia (Acute) Fever (Acute) DVT (deep venous thrombosis) (Chronic) Fever (Acute) CHF (congestive heart failure) (Acute) Fracture of phalanx of left little finger (Acute) Fracture of phalanx of left ring finger (Acute) Forehead abrasion (Acute) Fall at home (Acute) Excessive cerumen in both ear canals (Acute) Tinnitus (Acute) Unspecified atherosclerosis of [place] arteries of extremities, bilateral legs (Acute) [facility] 07/14/22.HE Onychomycosis of toenail (Acute) [facility] 07/14/22.HE Arthropathy of left shoulder (Acute) Steroid injection: 10/05/23; 06/22/2023; 02/16/2023; 05/02/22 (more injections previously) Bradycardia (Acute) Family history of cardiac pacemaker (Acute) Encounter for medication review and counseling (Acute) Edema of lower extremity (Acute) Worsening edema, making leg pain worse .. Poor tolerance of compression .. trying lt compression [ ] 12/2020 Chronic neck pain (Chronic) Some relief with PT .. Neck fullness (Acute) Sensation of firmness, swelling (vs neck pain that PT is working on) .. subacute, with high anxiety.. Family history of thyroid disease (Chronic) Hx of family members being told nothing wrong then ID disease .. high anxiety. Sensorineural hearing loss (SNHL) of both ears (Acute) Leg pain, bilateral (Acute) Pt c/o notable leg pain, not just 2' edema ... improves with rest ..[ ] FLORES to eval for claudication Vertigo (Acute) Acute on chronic ... presented to ED, CVA ruled out (04/2021). ENT seen. Small vessel disease, cerebrovascular (Chronic) per MRI, 04/2018 (Hospitalized to r/o CVA .. DDx incl TIA, but most probably VERTIGO) HTN (hypertension) (Chronic) Mostly managed, good today, 09/28/18, ik. 134/68 07/30/19. Dysphagia (Acute) Acute on chronic, fluids>solids (Hx terrible choking resolved, but noting difficulty again).. CKD (chronic kidney disease) stage 3, GFR 30-59 ml/min (Chronic) @ baseline, 03/2021 (Cr 1.2/GFR 43). Dupuytren's contracture of left hand (Acute) small finger Trigger finger, left middle finger (Acute) Tinnitus, bilateral (Acute) Arthritis of right hand (Acute) Arthritis of left hand (Acute) Obstructive sleep apnea (Chronic) 05/22/20 CPAP Pulmonary hypertension (Chronic) Acute systolic CHF (congestive heart failure) (Acute) Bradycardia (Acute) Chest pain (Acute) Foot pain, right (Acute) pain, deformity, 5th toe swollen, curved Tendinitis of left rotator cuff (Chronic) Subacromial injection: 02/16/23; 05/02/22; 05/17/2021; 04/13/2020; 07/12/2019 Fatigue (Chronic) Hx low normal Hgb, with elevated MCV (Ddx borderline macrocytic anemia) .. Folate, B12 WNL. Vit D improved (2018). TSH, LFTs WNL. May retest, but 12/2018 shows baseline, w/o acute changes/deficiency. Bilateral knee pain (Acute 05/02/14) Idiopathic peripheral neuropathy (Acute 06/15/12) Osteoporosis (Acute 02/27/14) L wrist T = -3.7 01/2014; but FRAX: 11.4 risk major, 2.6 risk of hip: Rx not recommended Osteopenia (Acute 04/27/06) Pain in lower limb (Acute 05/22/12) Patellar tendinitis (Acute) INjection from Dr. Souza, hurt going but helped pain freatly. Able to walk much better, 10/2018 Hip fracture (Acute) Spinal stenosis at L4-L5 level (Chronic) Closed right hip fracture (Acute) Anxiety (Chronic 02/20/15) Obesity with body mass index 30 or greater (Chronic) BMI 38.2 (if still 5'1) 08/2013 Cough (Acute) recurrent cough, ?allergic rhinnitis, responsive to nasal steroid?; 12/2014 Dysgeusia (Acute 12/15/15) Gastroesophageal reflux disease (Chronic) responds to OTC Prilosec . Ranitidine tried, did not help 06/2019 [ ] return to PPI? 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 Much improved, 11/02/18. Pain in knee region after total knee replacement (Acute 04/03/17) Rt and Lt TKA - Dr. Gonzalez Bilateral corticosteroid injections: 10/10/18 Ocular rosacea (Chronic) question ocular rosacea and mild facial rosacea ([facility] [place] Dr. 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 Asymptomatic. c/o Heart Fluttering 06/2019 .. >[place], 07/2019 .. NSR w/ occ SVT. No AFib. Medical History Asthma Breast pain, left Nail abnormalities (02/27/14) L hand multiple nails; Dr Blair, terbinafine rx toe nails too Displaced intertrochanteric fracture of right femur, subsequent encounter for closed fracture with routine healing (02/12/16) Nail abnormality Obesity Dysgeusia Chest pain GERD (gastroesophageal reflux disease) Prehypertension Intertrigo Mixed stress and urge urinary incontinence Gross hematuria Osteopenia Right arm pain Hyperlipidemia pt. states she is unsure if she has this Head ache Multiple fractures of right femur pt states she fractured her hip Anxiety Nocturia Osteoporosis Multiple joint pain Lumbago Idiopathic peripheral neuropathy Surgical History History of repair of right hip joint History of esophagogastroduodenoscopy (EGD) (~10/15/18) flexible laryngoscopy (03/12/15) Dr Villatoro egd (05/10/16) Replacement of total knee joint Right arthroscopic rtotator cuff repair (04/22/13) RIGHT FOOT FX REPAIR section X4 Open Carpal Tunnel release Hysterectomy, Laproscopic Hemorrhoidectomy Colonoscopy - IV Sedation Cholecystectomy Bilateral salpingectomy with oophorectomy BILATERAL TKA (10/01/12) DR. VANDANA GONZALEZ Family History Mother , Fluid buildup at age 72. Diabetes did not have diabetes Personal history of malignant neoplasm Asthma Father , AD,blood clot at age 69. Alzheimer's disease Son Asthma Son No problems noted. Son No problems noted. Daughter No problems noted. Sister No problems noted. Sister Personal history of malignant neoplasm Sister Personal history of malignant neoplasm Sister No problems noted. 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 Pets and animals: Yes Pets and animals: dog(s) Current gender identity: female What is your relationship status?: Panel score (0-1 are the most socially isolated patients): 0 What type of physical activity do you participate in: none Seatbelt use: always Do you feel safe at home: Yes Do you feel safe in your relationship?: Yes Victim of physical abuse: No Victim of emotional abuse: No Victim of sexual abuse: No Time Spent with Patient Time Spent with Patient: 45-69 minutes Time was spent: preparing to see the patient(eg.review tests), obtaining and/or reviewing separately otained hiistory, ordering medications,tests, procedures, referring, communicating with other health rn managed care, indepentently interpreting results, counseling the patient and care coordination
--- NOTE | 2024-05-19 12:43 | CMDISCH_ITS ---
Date of service: 05/19/24 Time of Service: 12:44 LACE Index Scoring Tool Questions: Length of Stay (in days): 7 - 13 Was the patient admitted via the E.D.?: Yes Comorbidities: Cerebrovascular Disease (HX TIA), Congestive Heart Failure and Liver or Renal Disease E.D. Visits: 2 Answers: Total Score: 15 Risk of Readmission: High Risk Care Management Discharge Plan Reason for Hospitalization: Abdominal Pain Discharge Plan: Discharge home via private vehicle with family with resumption of [facility] services. Follow up with PCP and discharge plan of care as recommended. PCP to support [place] [facility], if needed. Patient/Family Education Needs: Review discharge instructions, limitations, medications and plan for community follow up. Discuss ask me three. Services Needed at Discharge: Home Health Care Services (Resume [facility] RN/PT/OT. D/C summary is faxed. ) [facility] Health Related Social Needs: No Data to Display
[2024-05-20 15:34] LABS: Albumin, Urine % 25.6 %; Albumin, Urine mg/dL 9 mg/dL; Globulins, Urine % 74.4 %; Globulins, Urine mg/dL 27 mg/dL; Immunotyping, Urine (See Note); Total Protein Urine 36 mg/dL (See Note)
[2024-05-20 15:35] LABS: Albumin 48.9 % (55.8-66.1); Albumin g/dL 3.1 g/dL (3.6-5.2); Comment (See Note); Monoclonal Spike 4.9 % (None Seen); Monoclonal Spike g/dL 0.3 g/dL (None Seen); Total Protein 6.3 g/dL (6.3-8.2)
[2024-05-20 15:42] LABS: Immunotyping, Serum (See Note)
[2024-05-21 15:28] LABS: Helicobacter pylori Ag, Feces Negative (Negative)
== END 2024-05-19 14:20 | disposition home health service (06) | DRG 867 ==
LOC: ER 22:58 → MS 05-11 00:45
PROVIDERS: Family Medicine; Hospitalist; Student in an Organized Health Care Education/Training Program; Admitting Provider Family Medicine; Emergency Provider Emergency Medicine; PCP Nurse Practitioner Family; Visit Provider Family Medicine
DX: A69.20 Lyme disease, unspecified; J96.01 Acute respiratory failure with hypoxia; A79.82 Anaplasmosis [A. phagocytophilum]; I47.10 Supraventricular tachycardia, unspecified; I13.0 Hypertensive heart and chronic kidney disease with heart failure and stage 1 through stage 4 chronic kidney disease, or unspecified chronic kidney disease; N17.9 Acute kidney failure, unspecified; E87.1 Hypo-osmolality and hyponatremia; I50.812 Chronic right heart failure; N18.32 Chronic kidney disease, stage 3b; J45.40 Moderate persistent asthma, uncomplicated; I49.5 Sick sinus syndrome; G47.33 Obstructive sleep apnea (adult) (pediatric); K21.9 Gastro-esophageal reflux disease without esophagitis; R29.6 Repeated falls; I44.30 Unspecified atrioventricular block; R10.9 Unspecified abdominal pain; R50.81 Fever presenting with conditions classified elsewhere; I70.203 Unspecified atherosclerosis of native arteries of extremities, bilateral legs; H90.3 Sensorineural hearing loss, bilateral; I27.20 Pulmonary hypertension, unspecified; G60.9 Hereditary and idiopathic neuropathy, unspecified; M81.0 Age-related osteoporosis without current pathological fracture; F41.9 Anxiety disorder, unspecified; E66.9 Obesity, unspecified; M48.061 Spinal stenosis, lumbar region without neurogenic claudication; N39.46 Mixed incontinence; Z68.37 Body mass index [BMI] 37.0-37.9, adult; Z66 Do not resuscitate; S62.615D Displaced fracture of proximal phalanx of left ring finger, subsequent encounter for fracture with routine healing; S62.617D Displaced fracture of proximal phalanx of left little finger, subsequent encounter for fracture with routine healing; W19.XXXD Unspecified fall, subsequent encounter; R62.7 Adult failure to thrive; Z79.01 Long term (current) use of anticoagulants; Z86.718 Personal history of other venous thrombosis and embolism; N14.11 Contrast-induced nephropathy; T50.8X5A Adverse effect of diagnostic agents, initial encounter
CPT/HCPCS: 00123; 36415; 70491; 74177; 76770; 80048; 80053; 82550; 82805; 84156; 84166; 85027; 85652; 86335; 86617; 87040; 87338; 87637; 87798; 93005; 93306; 94640; 96365; 96375; 97110; 97162; 97530; 99285; 71260; 76700; 81003; 81015; 82565; 83605; 83735; 83880; 83883; 84165; 84443; 84484; 85025; 86140; 86320; 86618; 87086; 93010; 94664; 94668; 94760; 99223; 99232; 99233; 99239; J0131; J0696; J1940; J1941; J2405; J3475; J3480; J3490; J7042

== ENCOUNTER → 2024-05-14 14:07 | Outpatient (BNVA) | payer OTHER, SELFPAY | PROVIDERS: PCP Nurse Practitioner Family; Referring Provider Nurse Practitioner Family; Visit Provider Internal Medicine Cardiovascular Disease ==

== ENCOUNTER 2024-05-27 12:13 | Outpatient (REF) | payer OTHER, SELFPAY ==
[2024-05-27 15:45] LABS: HCT 32.5 % (36.0-46.0); HGB 10.1 g/dL (11.2-15.7); MCHC 31.1 % (32.0-36.0); MCV 96 fL (80-95); RBC 3.37 10^6/uL (3.93-5.22); RDW 16.2 % (11.7-14.6); RDW-SD 57.1 fL; WBC 5.65 10^3/uL (4.4-10.8)
[2024-05-27 18:22] LABS: Anion Gap 7.8 mmol/L (3-11); BUN 23 mg/dL (7-18); CO2 28.2 mmol/L (21.0-32.0); CREATININE 1.7 mg/dL (0.55-1.02); Calcium 9.1 mg/dL (8.5-10.1); Chloride 109 mmol/L (98-107); Estimated GFR 29.39 (mL/min/1.73m2); Glucose 92 mg/dL (74-106); NT-proBNP 2297 pg/mL (<300); Potassium 4.3 mmol/L (3.5-5.1); Sodium 145 mmol/L (136-145)
== END 2024-05-27 12:14 | disposition home or self-care (01) ==
LOC: NCHCN 12:13
PROVIDERS: PCP Nurse Practitioner Family; Visit Provider Nurse Practitioner Family
DX: R06.9 Unspecified abnormalities of breathing (principal); N18.9 Chronic kidney disease, unspecified
CPT/HCPCS: 80048; 85027; 83880

== ENCOUNTER 2024-06-12 11:43 | Outpatient (CLI) | payer OTHER, SELFPAY ==
--- NOTE | 2024-06-12 09:45 | DI.RAD_ITS ---
Exam(s) XR HAND LT COMPLETE EXAM: XR HAND LT COMPLETE CLINICAL HISTORY: F/U FRACTURE. TECHNIQUE: 2D digital imaging was performed. Three views. COMPARISON: CR XR HAND LT COMPLETE from 05/08/2024 FINDINGS: BONES: Stable alignment of the 4th and 5th proximal phalangeal fractures. No bony destructive lesion is seen. The bones are demineralized. JOINTS: No dislocation present. Advanced degenerative changes are again noted in the interphalangeal joints of the fingers and at the 1st carpal metacarpal joint. SOFT TISSUE: Chondrocalcinosis at the triangular fibrocartilage radiocarpal joint. IMPRESSION: Stable alignment of the 4th and 5th proximal phalangeal fractures. DATA REPOSITORY: RADIATION DOSE DELIVERED:
== END 2024-06-12 11:44 | disposition home or self-care (01) ==
LOC: DIORS 11:44
PROVIDERS: PCP Nurse Practitioner Family; Visit Provider Student in an Organized Health Care Education/Training Program
DX: S62.647D Nondisplaced fracture of proximal phalanx of left little finger, subsequent encounter for fracture with routine healing (principal); S62.645D Nondisplaced fracture of proximal phalanx of left ring finger, subsequent encounter for fracture with routine healing; W19.XXXD Unspecified fall, subsequent encounter
CPT/HCPCS: 99214; 73130

== ENCOUNTER 2024-06-18 06:36 | Emergency (ER) | payer OTHER, SELFPAY ==
[2024-06-18] VITALS (18 sets, daily range): BP systolic 148–193; BP diastolic 61–76; PULSE 53–63; RESP 18; TEMP 37.1; O2SAT 95–99
--- NOTE | 2024-06-18 07:06 | W.ED.GENAD ---
Discharge Plan Disposition Patient Disposition: Home Condition: Stable Discharge Details Clinical Impression: Hematuria Primary Care Provider: Sarah Gao ED Provider: Jordin Schmid Home Meds and New Rx's Prescriptions: New nitrofurantoin monohyd/m-cryst [Macrobid] 100 mg capsule 100 mg PO Q12H 5 Days Qty: 10 0RF Rx Instructions: must administer with a meal/food Continued albuterol sulfate [Ventolin HFA] 90 mcg/actuation HFA aerosol inhaler 2 puff IH Q6H PRN (Reason: shortness of breath or wheezing) Qty: 6.7 0RF Rx Instructions: Daily x 2 weeks minimum (DME) Compression Stockings See Rx Instructions .Route .MEDSUPPLY Qty: 1 0RF Rx Instructions: As directed, moderate compression for daily wearing furosemide [Lasix] 20 mg tablet 20 mg PO DAILY PRN (Reason: weight gain or edema) Qty: 30 3RF Patient Comments: takes if needed. Rx Instructions: daily if weight gain >3 lbs per 3 days of leg swelling. omeprazole 20 mg tablet,delayed release (DR/EC) 20 mg PO DAILY sucralfate [Carafate] 100 mg/mL suspension 10 ml PO QAC Centrum Silver 400-250 mcg tablet,chewable 1 tab PO DAILY acetaminophen 650 mg tablet extended release 650 mg PO Q12H fluticasone propion-salmeterol [Advair HFA] 45-21 mcg/actuation HFA aerosol inhaler 2 puff inhalation DAILY hydrocortisone 2.5 % cream 1 applic topical BID PRN meclizine 25 mg tablet 25 mg PO DAILY PRN nystatin 100,000 unit/gram powder 1 applic topical BID Xarelto 10 mg tablet 10 mg PO DAILY Rx Instructions: for 35 days acetaminophen 500 mg tablet 1,000 mg PO Q8H PRN PRN (Reason: pain) Qty: 100 0RF calcium carbonate-vitamin D3 [Calcium 600 + D(3)] 600 mg-5 mcg (200 unit) tablet 2 tab PO DAILY Discharge Instructions Additional Instructions: Your blood work did not show any concerning findings or new emergent findings Follow-up with your primary care provider as scheduled in July If you feel more ill, have severe worsening bleeding or new symptoms such as persistent vomiting or high fevers return to the emergency department for reevaluation HPI General Date/Time Provider Initiated Documentation: 06/18/24 06:48. Limitations to Documentation: no limitations. Information obtained by: patient and family. History of Present Illness 83 year old F presents to the emergency department with the chief complaint of bloody urine, described as moderate, Patient started experiencing this hour(s) (3) and it has been intermittent. No relieving factors improve symptom(s), No exacerbating factors reported . Patient notes denies chest pain, fever/chills and shortness of breath. Patient did receive the following treatments prior to arrival, none Related Data Home Medications ?Medication ?Instructions ?Recorded ?Confirmed albuterol sulfate 90 mcg/actuation 2 puff inhalation Q6H PRN 07/30/20 06/18/24 aerosol inhaler (Ventolin HFA) shortness of breath or wheezing #6.7 grams Compression Stockings #1 ea 03/31/21 06/18/24 furosemide 20 mg tablet (Lasix) 20 mg PO DAILY PRN weight gain or 06/10/21 06/18/24 edema #30 tabs ojlgxjrwujpj-woraqwg-lfcoe acid 1 tab PO DAILY 12/23/21 06/18/24 400 mcg-lutein 250 mcg chewable tablet (Centrum Silver) omeprazole 20 mg tablet,delayed 20 mg PO DAILY 11/16/23 06/18/24 release acetaminophen 650 mg 650 mg PO Q12H 03/27/24 06/18/24 tablet,extended release fluticasone propionate 45 2 puff inhalation DAILY 03/27/24 06/18/24 mcg-salmeterol 21 mcg/actuation HFA inhaler (Advair HFA) hydrocortisone 2.5 % topical cream 1 applic topical BID PRN 03/27/24 06/18/24 meclizine 25 mg tablet 25 mg PO DAILY PRN 03/27/24 06/18/24 nystatin 100,000 unit/gram topical 1 applic topical BID 03/27/24 06/18/24 powder rivaroxaban 10 mg tablet (Xarelto) 10 mg PO DAILY 03/27/24 06/18/24 acetaminophen 500 mg tablet 1,000 mg (2 x 500 mg) PO Q8H PRN 04/30/24 06/18/24 PRN pain #100 tabs calcium 600 mg (as 2 tab PO DAILY 05/10/24 06/18/24 carbonate)-vitamin D3 5 mcg (200 unit) tablet (Calcium 600 + D(3)) sucralfate 100 mg/mL oral 10 ml PO QAC 06/12/24 06/18/24 suspension (Carafate) nitrofurantoin 100 mg PO Q12H 5 days #10 caps 06/18/24 monohydrate/macrocrystals 100 mg capsule (Macrobid) Previous Rx's ?Medication ?Instructions ?Recorded albuterol sulfate 90 mcg/actuation 2 puff inhalation Q6H PRN 07/30/20 aerosol inhaler (Ventolin HFA) shortness of breath or wheezing #6.7 grams Compression Stockings #1 ea 03/31/21 furosemide 20 mg tablet (Lasix) 20 mg PO DAILY PRN weight gain or 06/10/21 edema #30 tabs acetaminophen 500 mg tablet 1,000 mg (2 x 500 mg) PO Q8H PRN 04/30/24 PRN pain #100 tabs nitrofurantoin 100 mg PO Q12H 5 days #10 caps 06/18/24 monohydrate/macrocrystals 100 mg capsule (Macrobid) Allergies Allergy/AdvReac Type Severity Reaction Status Date / Time adhesive tape Allergy Intermediate blisters Verified 06/18/24 06:45 on skin Sulfa (Sulfonamide Allergy Intermediate sister Verified 06/18/24 06:45 Antibiotics) of anaphylaxis per pt aspirin AdvReac Intermediate nosebleeds Verified 06/18/24 06:45 codeine AdvReac Intermediate blackouts Verified 06/18/24 06:45 latex AdvReac Intermediate skin-red Verified 06/18/24 06:45 ithcy spots on skin morphine AdvReac Intermediate becomes Verified 06/18/24 06:45 very ill, vomting gabapentin AdvReac Mild makes me Unverified 06/18/24 06:45 sick General Stated Complaint: GI Bleed BENNY: 3 Review of Systems All systems reviewed & are unremarkable except as noted in HPI and below Constitutional Constitutional: Denies chills, Denies fever(s) and Reports weakness ENT Ears, Nose, Mouth, and Throat: Denies change in voice Cardiovascular Cardiovascular: Denies chest pain and Denies dyspnea Respiratory Respiratory: Denies cough and Denies dyspnea Gastrointestinal Gastrointestinal: Denies nausea and Denies vomiting Genitourinary Genitourinary: Reports hematuria and Reports dysuria Musculoskeletal Musculoskeletal: Denies joint swelling Integumentary/Breasts Skin/Breast: Denies rash Neurologic Neurologic: Reports weakness Exam Const General: no acute distress Orientation: alert HENHI Head: normal to inspection Ears: external ears normal General nose exam: external nose normal Mouth: moist mucous membranes Eyes General: appearance normal, both eyes and all related structures Neck Neck: normal visual inspection Resp Effort & Inspection: normal respiratory effort and able to speak in complete sentences Cardio Rate: regular rate GI Palpation: soft and nontender Skin General skin exam: no rashes or lesions noted Neuro General: patient alert and patient oriented x3 Extrem General: normal to inspection Psych Mental Status: mental status grossly normal Course Vital Signs Vital signs: Vital Signs Temperature 37.1 C 06/18/24 06:41 Pulse 60 06/18/24 06:41 Respiratory Rate 18 06/18/24 06:41 Blood Pressure 168/69 H 06/18/24 06:41 Pulse Oximetry 95 06/18/24 06:41 Temperature 37.1 C 06/18/24 06:41 Temperature Source Oral 06/18/24 06:41 Pulse 60 06/18/24 06:41 Respiratory Rate 18 06/18/24 06:41 Blood Pressure 168/69 H 06/18/24 06:41 Blood Pressure Position Sitting 06/18/24 06:41 Pulse Oximetry 95 06/18/24 06:41 Oxygen Delivery Method Room Air 06/18/24 06:41 Oxygen Flow Rate 0 06/18/24 06:41 Pain Level 4 06/18/24 06:41 Medical Decision Making 83-year-old female with multiple medical problems who was recently admitted in May for weakness and found to have Lyme disease, comes in with painful urination and bloody urine starting today. She denies any vomiting, fevers, chills. She has weakness which has been suffering for years and is unchanged and is at her baseline. She denies any chest pain or difficulty breathing. She is well-appearing in no distress on exam. She has no abdominal tenderness on exam. Stable vital signs. Moving all extremities well. Given the complaint of dysuria and painful urination will check a CBC, CMP and UA and monitor. Given lack of abdominal tenderness or flank pain do not feel imaging indicated as unlikely to be kidney stone. Patient remains asymptomatic other than her chronic weakness. Her labs show no significant change from baseline, kidney function improving from when she was admitted, hemoglobin is higher than last time was checked. Her urine does have some bacteria and blood cells in it. Given she has had symptoms of UTI will initiate oral antibiotics. She has not any fevers or other signs of sepsis. She did note she had a bowel movement today that had small streaks of blood in it. I did a rectal exam without any signs of hemorrhage, she did have a small centimeter nonthrombosed hemorrhoid at the 9 o'clock position, recommended [id number]-utedjzc Preparation H for this.. But she has no signs of bleeding here and stable blood counts do not feel any further testing or imaging indicated. 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) Acute Lyme disease (Acute) Heart block, AV (Acute) Adult failure to thrive (Acute) Fever of unknown origin (Acute) Hypoxemia (Acute) Fever (Acute) DVT (deep venous thrombosis) (Chronic) CHF (congestive heart failure) (Acute) Forehead abrasion (Acute) Fall at home (Acute) Excessive cerumen in both ear canals (Acute) Tinnitus (Acute) Unspecified atherosclerosis of [place] arteries of extremities, bilateral legs (Acute) [facility] 07/14/22.HE Onychomycosis of toenail (Acute) [facility] 07/14/22.HE Arthropathy of left shoulder (Acute) Steroid injection: 10/05/23; 06/22/2023; 02/16/2023; 05/02/22 (more injections previously) Bradycardia (Acute) Family history of cardiac pacemaker (Acute) Encounter for medication review and counseling (Acute) Edema of lower extremity (Acute) Worsening edema, making leg pain worse .. Poor tolerance of compression .. trying lt compression [ ] 12/2020 Chronic neck pain (Chronic) Some relief with PT .. Neck fullness (Acute) Sensation of firmness, swelling (vs neck pain that PT is working on) .. subacute, with high anxiety.. Family history of thyroid disease (Chronic) Hx of family members being told nothing wrong then ID disease .. high anxiety. Sensorineural hearing loss (SNHL) of both ears (Acute) Leg pain, bilateral (Acute) Pt c/o notable leg pain, not just 2' edema ... improves with rest ..[ ] FLORES to eval for claudication Vertigo (Acute) Acute on chronic ... presented to ED, CVA ruled out (04/2021). ENT seen. Small vessel disease, cerebrovascular (Chronic) per MRI, 04/2018 (Hospitalized to r/o CVA .. DDx incl TIA, but most probably VERTIGO) HTN (hypertension) (Chronic) Mostly managed, good today, 09/28/18, ik. 134/68 07/30/19. Dysphagia (Acute) Acute on chronic, fluids>solids (Hx terrible choking resolved, but noting difficulty again).. CKD (chronic kidney disease) stage 3, GFR 30-59 ml/min (Chronic) @ baseline, 03/2021 (Cr 1.2/GFR 43). Dupuytren's contracture of left hand (Acute) small finger Trigger finger, left middle finger (Acute) Tinnitus, bilateral (Acute) Arthritis of right hand (Acute) Arthritis of left hand (Acute) Obstructive sleep apnea (Chronic) 05/22/20 CPAP Pulmonary hypertension (Chronic) Acute systolic CHF (congestive heart failure) (Acute) Bradycardia (Acute) Chest pain (Acute) Foot pain, right (Acute) pain, deformity, 5th toe swollen, curved Tendinitis of left rotator cuff (Chronic) Subacromial injection: 02/16/23; 05/02/22; 05/17/2021; 04/13/2020; 07/12/2019 Fatigue (Chronic) Hx low normal Hgb, with elevated MCV (Ddx borderline macrocytic anemia) .. Folate, B12 WNL. Vit D improved (2019). TSH, LFTs WNL. May retest, but 12/2018 shows baseline, w/o acute changes/deficiency. Bilateral knee pain (Acute 05/02/14) Idiopathic peripheral neuropathy (Acute 06/15/12) Osteoporosis (Acute 02/27/14) L wrist T = -3.7 01/2014; but FRAX: 11.4 risk major, 2.6 risk of hip: Rx not recommended Osteopenia (Acute 04/27/06) Pain in lower limb (Acute 05/22/12) Patellar tendinitis (Acute) INjection from Dr. Souza, hurt going but helped pain freatly. Able to walk much better, 10/2018 Hip fracture (Acute) Spinal stenosis at L4-L5 level (Chronic) Closed right hip fracture (Acute) Anxiety (Chronic 02/20/15) Obesity with body mass index 30 or greater (Chronic) BMI 38.2 (if still 5'1) 08/2013 Cough (Acute) recurrent cough, ?allergic rhinnitis, responsive to nasal steroid?; 12/2014 Dysgeusia (Acute 12/15/15) Gastroesophageal reflux disease (Chronic) responds to OTC Prilosec . Ranitidine tried, did not help 06/2019 [ ] return to PPI? 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 Much improved, 11/02/18. Pain in knee region after total knee replacement (Acute 04/03/17) Rt and Lt TKA - Dr. Gonzalez Bilateral corticosteroid injections: 10/10/18 Ocular rosacea (Chronic) question ocular rosacea and mild facial ros[place] 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 Asymptomatic. c/o Heart Fluttering 06/2019 .. >[place], 07/2019 .. NSR w/ occ SVT. No AFib. Medical History Asthma Breast pain, left Nail abnormalities (02/27/14) L hand multiple nails; Dr Blair, terbinafine rx toe nails too Displaced intertrochanteric fracture of right femur, subsequent encounter for closed fracture with routine healing (02/12/16) Nail abnormality Obesity Dysgeusia Chest pain GERD (gastroesophageal reflux disease) Prehypertension Intertrigo Mixed stress and urge urinary incontinence Gross hematuria Osteopenia Right arm pain Hyperlipidemia pt. states she is unsure if she has this Head ache Multiple fractures of right femur pt states she fractured her hip Anxiety Nocturia Osteoporosis Multiple joint pain Lumbago Idiopathic peripheral neuropathy Surgical History History of repair of right hip joint History of esophagogastroduodenoscopy (EGD) (~10/15/18) flexible laryngoscopy (03/12/15) Dr Villatoro egd (05/10/16) Replacement of total knee joint Right arthroscopic rtotator cuff repair (04/22/13) RIGHT FOOT FX REPAIR section X4 Open Carpal Tunnel release Hysterectomy, Laproscopic Hemorrhoidectomy Colonoscopy - IV Sedation Cholecystectomy Bilateral salpingectomy with oophorectomy BILATERAL TKA (10/01/12) DR. VANDANA GONZALEZ Family History Mother , Fluid buildup at age 72. Diabetes did not have diabetes Personal history of malignant neoplasm Asthma Father , AD,blood clot at age 69. Alzheimer's disease Son Asthma Son No problems noted. Son No problems noted. Daughter No problems noted. Sister No problems noted. Sister Personal history of malignant neoplasm Sister Personal history of malignant neoplasm Sister No problems noted. 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
[2024-06-18 07:33] LABS: Abs Immature Grans 0.03 10^3/uL (0.0-0.06); Absolute Basophil Count 0.02 10^3/uL (0.0-0.2); Absolute Eosinophil Count 0.13 10^3/uL (0.0-0.7); Absolute Lymphocyte Count 1.79 10^3/uL (1.2-3.4); Absolute Monocyte Count 0.44 10^3/uL (0.1-0.8); Basophils % 0.4 %; Eosinophils % 2.5 %; HCT 32.7 % (36.0-46.0); HGB 10.6 g/dL (11.2-15.7); Immature Grans % 0.6 %; MCH 30.8 pg (27.0-33.0); MCHC 32.4 % (32.0-36.0); MCV 95 fL (80-95); MPV 10.3 fL (8.0-11.0); Monocytes % 8.6 %; Neutrophils % 52.9 %; Platelet Count 160 10^3/uL (130-400); RBC 3.44 10^6/uL (3.93-5.22); RDW 15.3 % (11.7-14.6); RDW-SD 53.1 fL; WBC 5.11 10^3/uL (4.4-10.8)
[2024-06-18 07:47] LABS: INR 1.1 (0.9-1.1); PTT Activated 29.6 sec (23.6-32.8); Prothrombin Time 10.9 sec (9.1-11.1)
[2024-06-18 07:56] LABS: ALT 11 U/L (14-59); AST 16 U/L (15-37); Albumin 3.4 g/dL (3.4-5.0); Alkaline Phosphatase 79 U/L (46-116); Anion Gap 7.9 mmol/L (3-11); BUN 21 mg/dL (7-18); Bilirubin, Total 0.55 mg/dL (0.2-1.0); CO2 29.1 mmol/L (21.0-32.0); CREATININE 1.4 mg/dL (0.55-1.02); Calcium 9.1 mg/dL (8.5-10.1); Chloride 107 mmol/L (98-107); Glucose 95 mg/dL (74-106); Magnesium 1.9 mg/dL (1.8-2.4); Potassium 3.8 mmol/L (3.5-5.1); Sodium 144 mmol/L (136-145); TSH (W/Ref FT4) 2.37 uIU/mL (0.36-3.74); Total Protein 6.8 g/dL (6.4-8.2)
[2024-06-18 08:34] LABS: Bilirubin Negative (Negative); Blood Trace-intact (Negative); Clarity Clear (Clear); Glucose Negative (Negative); Ketones Negative (Negative); Leukocyte Esterase Trace (Negative); Nitrite Negative (Negative); Specific Gravity 1.015 (1.005-1.025); Urobilinogen 0.2 mg/dL (Up to 0.2); pH 6.5 (5-8)
[2024-06-18 08:45] LABS: Bacteria Rare HPF (Negative); C & S Indicated? No; Casts Negative LPF (Negative); Crystals Negative HPF (Negative); Epithelial Cells Rare HPF (Negative); Mucus Negative (Negative); WBC 0-2 HPF (0-5)
[2024-06-18] MEDS: MacroBID 100 MG CAP PO (09:21)
--- NOTE | 2024-06-20 16:53 | NUR.NOTE ---
Accessed Pt chart to check to see what antibiotic was given to Pt upon discharge for the specimen document. Document was put on the clipboard in the Drs room
== END 2024-06-18 09:59 | disposition home or self-care (01) ==
PROVIDERS: Emergency Provider Emergency Medicine; PCP Nurse Practitioner Family
DX: R30.0 Dysuria (principal); R31.9 Hematuria, unspecified; I13.0 Hypertensive heart and chronic kidney disease with heart failure and stage 1 through stage 4 chronic kidney disease, or unspecified chronic kidney disease; N18.30 Chronic kidney disease, stage 3 unspecified; I50.22 Chronic systolic (congestive) heart failure; F03.90 Unspecified dementia, unspecified severity, without behavioral disturbance, psychotic disturbance, mood disturbance, and anxiety; Z79.01 Long term (current) use of anticoagulants
CPT/HCPCS: 80053; 86850; 86900; 86901; 99283; 81003; 81015; 83735; 84443; 85025; 85610; 85730; 87086

== ENCOUNTER 2024-07-24 15:57 | Outpatient (CLI) | payer MEDICARE, SELFPAY ==
--- NOTE | 2024-07-24 09:30 | DI.RAD_ITS ---
Exam(s) XR HAND LT COMPLETE EXAM: XR HAND LT COMPLETE CLINICAL HISTORY: F/U FRACTURE. TECHNIQUE: 2D digital imaging was performed. Three views. COMPARISON: CR XR HAND LT COMPLETE from 05/08/2024 CR XR HAND LT COMPLETE from 06/12/2024 FINDINGS: BONES: Stable alignment and continued healing at the fractures of the bases of the 4th and 5th proxim al phalanges. No acute fracture is present. No bony destructive lesion is seen. JOINTS: No dislocation present. Advanced degenerative changes again noted of the interphalangeal liz ints and 1st carpal metacarpal joint. SOFT TISSUE: Normal. IMPRESSION: Ac healing of 4th and 5th metacarpal fractures. DATA REPOSITORY: RADIATION DOSE DELIVERED:
== END 2024-07-24 15:58 | disposition home or self-care (01) ==
LOC: DIORS 15:58
PROVIDERS: PCP Nurse Practitioner Family; Visit Provider Student in an Organized Health Care Education/Training Program
DX: S62.647D Nondisplaced fracture of proximal phalanx of left little finger, subsequent encounter for fracture with routine healing (principal); S62.645D Nondisplaced fracture of proximal phalanx of left ring finger, subsequent encounter for fracture with routine healing; X58.XXXD Exposure to other specified factors, subsequent encounter; M25.642 Stiffness of left hand, not elsewhere classified
CPT/HCPCS: 99213; 73130

== ENCOUNTER 2024-10-17 19:15 | Outpatient (REF) | payer MEDICARE, SELFPAY ==
[2024-10-17 19:21] LABS: Abs Immature Grans 0.02 10^3/uL (0.0-0.06); Absolute Basophil Count 0.02 10^3/uL (0.0-0.2); Absolute Eosinophil Count 0.12 10^3/uL (0.0-0.7); Absolute Lymphocyte Count 2.38 10^3/uL (1.2-3.4); Absolute Neutrophil Count 3.61 10^3/uL (1.2-6.7); Basophils % 0.3 %; Eosinophils % 1.8 %; HCT 38.6 % (36.0-46.0); HGB 12.1 g/dL (11.2-15.7); Immature Grans % 0.3 %; Lymphocytes % 35.8 %; MCH 29.7 pg (27.0-33.0); MCHC 31.3 % (32.0-36.0); MCV 95 fL (80-95); MPV 10.8 fL (8.0-11.0); Monocytes % 7.5 %; Neutrophils % 54.3 %; Platelet Count 193 10^3/uL (130-400); RBC 4.08 10^6/uL (3.93-5.22); RDW 13.6 % (11.7-14.6); RDW-SD 47.2 fL; WBC 6.65 10^3/uL (4.4-10.8)
[2024-10-17 19:46] LABS: ALT 13 U/L (14-59); AST 23 U/L (15-37); Albumin 3.9 g/dL (3.4-5.0); Alkaline Phosphatase 78 U/L (46-116); Anion Gap 7.3 mmol/L (3-11); BUN 23 mg/dL (7-18); Bilirubin, Total 0.6 mg/dL (0.2-1.0); CO2 29.7 mmol/L (21.0-32.0); CREATININE 1.4 mg/dL (0.55-1.02); Calcium 9.5 mg/dL (8.5-10.1); Chloride 107 mmol/L (98-107); Estimated GFR 36.87 (mL/min/1.73m2); Glucose 108 mg/dL (74-106); Potassium 3.9 mmol/L (3.5-5.1); Sodium 144 mmol/L (136-145); Total Protein 7.4 g/dL (6.4-8.2)
== END 2024-10-17 19:16 | disposition home or self-care (01) ==
LOC: NCHCN 19:15
PROVIDERS: PCP Nurse Practitioner Family; Visit Provider Nurse Practitioner Family
DX: I10 Essential (primary) hypertension (principal)
CPT/HCPCS: 80053; 85025

== ENCOUNTER → 2024-10-22 07:58 | Outpatient (BNVA) | payer MEDICARE, SELFPAY | PROVIDERS: PCP Nurse Practitioner Family; Visit Provider Student in an Organized Health Care Education/Training Program | DX: X58.XXXD Exposure to other specified factors, subsequent encounter (principal); S62.647D Nondisplaced fracture of proximal phalanx of left little finger, subsequent encounter for fracture with routine healing; S62.645D Nondisplaced fracture of proximal phalanx of left ring finger, subsequent encounter for fracture with routine healing; M25.642 Stiffness of left hand, not elsewhere classified | CPT/HCPCS: 99213 ==

== ENCOUNTER 2024-12-09 19:00 | Emergency (ER) | payer MEDICARE, SELFPAY ==
--- NOTE | 2024-12-09 19:00 | RT.EKG_ITS ---
APPROVED REPORT Exam: Resting ECG Reason for Exam: CP Patient Location: E HR:51 bpm ECG Measurements Heart Rate 51 AXIS [place] 195 P 80 QRSd 106 QRS -26 QT 460 T 84 QTc 448 Conclusion Sinus bradycardia...rate< 60 LVH with secondary repolarization abnormality...multi-LVH criteria, abnrm ST-T Anterior infarct, old...Q >40mS, abnormal ST-T, V2-V5 No Occlusion LA
[2024-12-09 19:15] VITALS: BP 166/68; PULSE 58; RESP 20; TEMP 36.7; O2SAT 93
--- NOTE | 2024-12-09 20:00 | ED.GENADUL_ITS ---
Discharge Plan Disposition Patient Disposition: Home Discharge Details Clinical Impression: Asthma exacerbation Primary Care Provider: Sarah Gao ED Provider: Ricky Parra Home Meds and New Rx's Prescriptions: New doxycycline hyclate 100 mg capsule 100 mg PO BID Qty: 5 0RF Continued albuterol sulfate [Ventolin HFA] 90 mcg/actuation HFA aerosol inhaler 2 puff IH Q6H PRN (Reason: shortness of breath or wheezing) Qty: 6.7 0RF Rx Instructions: Daily x 2 weeks minimum (DME) Compression Stockings See Rx Instructions .Route .MEDSUPPLY Qty: 1 0RF Rx Instructions: As directed, moderate compression for daily wearing omeprazole 20 mg capsule,delayed release(DR/EC) 20 mg PO DAILY nystatin 100,000 unit/gram powder 1 applic topical TID Qty: 30 0RF triamcinolone acetonide 0.1 % cream 1 applic topical BID Qty: 30 0RF Centrum Silver 400-250 mcg tablet,chewable 1 tab PO DAILY acetaminophen 650 mg tablet extended release 650 mg PO Q12H fluticasone propion-salmeterol [Advair HFA] 45-21 mcg/actuation HFA aerosol inhaler 2 puff inhalation DAILY Xarelto 10 mg tablet 10 mg PO DAILY Rx Instructions: for 35 days acetaminophen 500 mg tablet 1,000 mg PO Q8H PRN PRN (Reason: pain) Qty: 100 0RF Discharge Instructions Instructions: Avoiding asthma triggers Additional Instructions: You were seen in the emerged part for chest pain. Your blood work showed no sign of a heart attack. Your chest x-ray showed no sign of a pneumonia. Please take these antibiotics as directed and follow-up with your primary care provider. Discharge Data Discharge Date/Time-TO BE ENTERED AT DEPARTURE: 12/09/24 23:41 HPI General Date/Time Provider Initiated Documentation: 12/09/24 20:00 . HPI Narrative: MDM This is an overall well-appearing normothermic and not tachycardic 84-year-old female with left-sided chest pain concerning for multiple etiologies. ECG is not so we will obtain troponins to rule stratify for ACS. No pain out of proportion to suggest necrotizing soft tissue infection. PE is certainly on the differential so we will obtain a D-dimer. No tearing quality to suggest aortic dissection. No fevers nor cough to suggest pneumonia. No trauma and equal breath sounds so doubt pneumothorax. Not hypotensive nor a dialysis patient making my suspicion low for tamponade. No rash to chest to suggest zoster. P atient has not been vomiting to suggest increased risk for esophageal rupture. No significant lower extremity pitting edema to suggest acute heart failure. 12/10 Due to patient care. Patient reassuring evaluation in the emergency department. She had 2 reassuring troponins. Her D-dimer was less than 1000 based on years criteria will defer CT angiogram. She had no JOHNNIE. She had a mildly elevated CO2 level. She had no hypercalcemia. No anion gap. No anemia thrombocytopenia nor leukocytosis. She was not short of breath not hypoxic to suggest acute heart failure. She had no recurrent chest pain in the ED. Patient a mildly elevated heart score of 4. She had no recurrent pain. We discussed whether or not patient should remain in the hospital overnight for ongoing observation and serial troponins. She felt improved. She noted that it is her symptoms had improved following her breathing treatment at home. I met with the patient and her daughter. Given that she felt improved will plan on discharge with strict return indications. We discussed that if she develops syncope chest pain sociability diaphoresis or if she develop fevers that she should return to the ED. I treated her with dexamethasone and gave her a new inhaler. I also discharged her on a short course with doxycycline in the event that there is a component of reactive airway disease. Per my independent interpretation chest x-ray shows: No acute cardiopulmonary process Per my independent interpretation EKG shows: ECG showing narrow complex sinus bradycardia at a rate of [address]. Mild ST segment depressions in leads II and V5. This appears similar to prior and perhaps slightly more pronounced. New T wave inversions aVL. Prior dated 2023. HEART SCORE Chest pain Diagnostic Protocol: [-History/Physical/Gestalt: Slightly Suspicious (0)] [- EKG: Nonspecific repolarization (+1)] [- AGE: 65 and older (+2)] [- RISK FACTORS: 1 - 2 risk factors (+1)] [-TROPONIN: <= normal limit (0)] - TOTAL SCORE: 4 Laboratory Tests Range/Units 12/09/24 12/09/24 12/09/24 20:11 20:17 21:09 WBC (4.4-10.8) 10^3/uL 6.57 RBC (3.93-5.22) 10^6/uL 4.14 Hgb (11.2-15.7) g/dL 12.7 Hct (36.0-46.0) % 38.6 MCV (80-95) fL 93 MCH (27.0-33.0) pg 30.7 MCHC (32.0-36.0) % 32.9 RDW (11.7-14.6) % 13.3 Plt Count (130-400) 10^3/uL 205 MPV (8.0-11.0) fL 10.1 Immature Gran % % 0.3 Neutrophils % % 57.1 Lymphocytes % % 32.9 Monocytes % % 8.1 Eosinophils % % 1.4 Basophils % % 0.2 Nucleated RBC % (0.0-0.3) % 0.0 Absolute Neutrophils (1.2-6.7) 10^3/uL 3.76 Absolute Lymphocytes (1.2-3.4) 10^3/uL 2.16 Absolute Monocytes (0.1-0.8) 10^3/uL 0.53 Absolute Eosinophils (0.0-0.7) 10^3/uL 0.09 Absolute Basophils (0.0-0.2) 10^3/uL 0.01 D-Dimer (<500) ng/mlFEU Sodium (136-145) mmol/L 141 Potassium (3.5-5.1) mmol/L 3.4 L Chloride (98-107) mmol/L 104 Carbon Dioxide (21.0-32.0) mmol/L 32.3 H Anion Gap (3-11) mmol/L 4.7 BUN (7-18) mg/dL 25 H Creatinine (0.55-1.02) mg/dL 1.3 H Est GFR (CKD-EPI 2020) (mL/min/1.73m2) 40.30 Glucose (74-106) mg/dL 104 Calcium (8.5-10.1) mg/dL 9.4 Troponin I (<or=51) ng/L 12 13 Range/Units 12/09/24 12/09/24 21:25 23:12 WBC (4.4-10.8) 10^3/uL RBC (3.93-5.22) 10^6/uL Hgb (11.2-15.7) g/dL Hct (36.0-46.0) % MCV (80-95) fL MCH (27.0-33.0) pg MCHC (32.0-36.0) % RDW (11.7-14.6) % Plt Count (130-400) 10^3/uL MPV (8.0-11.0) fL Immature Gran % % Neutrophils % % Lymphocytes % % Monocytes % % Eosinophils % % Basophils % % Nucleated RBC % (0.0-0.3) % Absolute Neutrophils (1.2-6.7) 10^3/uL Absolute Lymphocytes (1.2-3.4) 10^3/uL Absolute Monocytes (0.1-0.8) 10^3/uL Absolute Eosinophils (0.0-0.7) 10^3/uL Absolute Basophils (0.0-0.2) 10^3/uL D-Dimer (<500) ng/mlFEU 798 H Sodium (136-145) mmol/L Potassium (3.5-5.1) mmol/L Chloride (98-107) mmol/L Carbon Dioxide (21.0-32.0) mmol/L Anion Gap (3-11) mmol/L BUN (7-18) mg/dL Creatinine (0.55-1.02) mg/dL Est GFR (CKD-EPI 2020) (mL/min/1.73m2) Glucose (74-106) mg/dL Calcium (8.5-10.1) mg/dL Troponin I (<or=51) ng/L Cancelled HPI The patient presents for evaluation of chest pain. She reports experiencing pain in her left breast, which she describes as a constant ache. She has not had any recent falls or trauma to the area. She also mentions occasional shortness of breath, which was severe enough to necessitate a call for assistance from her neighbor. This episode was accompanied by chest pain and a headache. The onset of these symptoms was sudden, occurring just a few minutes before 6:00 PM. She reports feeling unwell throughout the day, but has not experienced any fevers. She has been expectorating a small amount of phlegm. Her condition appears to have improved slightly at present. It is noteworthy that she has a history of a blood clot in her legs. Patient reports that she had some relief with her inhaler at home prior to arrival. Exam General: Well-appearing in no acute distress speaking in complete sentences. Head: Normocephalic, atraumatic. Eye: Extraocular eye movements intact. No conjunctival injection. No scleral icterus. Ear, nose, mouth, throat: Grossly normal inspection. Normal voice, handling secretions normally. Neck: Trachea midline. Cardiovascular: Well-perfused distal extremities. Regular rate and rhythm. Chest wall: No rash to chest wall. Respiratory: Nonlabored respiration. Clear lungs bilaterally. No wheezes. Gastrointestinal: Nondistended abdomen. Musculoskeletal: No significant lower extremity pitting edema. Moving all 4 extremities spontaneously. No calf tenderness bilaterally. Skin: Normal for age and race, grossly normal temperature and turgor. No acute rash. Neurologic: Alert and appropriate, no apparent acute deficits. Psychiatric: Mood and manner are appropriate. Grooming and personal hygiene are appropriate. Related Data Home Medications ?Medication ?Instructions ?Recorded ?Confirmed albuterol sulfate 90 mcg/actuation 2 puff inhalation Q6H PRN 07/30/20 10/22/24 aerosol inhaler (Ventolin HFA) shortness of breath or wheezing #6.7 grams Compression Stockings #1 ea 03/31/21 09/21/24 [id number]-[id number] acid 1 tab PO DAILY 12/23/21 10/22/24 400 mcg-lutein 250 mcg chewable tablet (Centrum Silver) acetaminophen 650 mg 650 mg PO Q12H 03/27/24 10/22/24 tablet,extended release fluticasone propionate 45 2 puff inhalation DAILY 03/27/24 10/22/24 mcg-salmeterol 21 mcg/actuation HFA inhaler (Advair HFA) rivaroxaban 10 mg tablet (Xarelto) 10 mg PO DAILY 03/27/24 10/22/24 acetaminophen 500 mg tablet 1,000 mg (2 x 500 mg) PO Q8H PRN 04/30/24 10/22/24 PRN pain #100 tabs nystatin 100,000 unit/gram topical 1 applic topical TID #30 grams 09/21/24 10/22/24 powder omeprazole 20 mg capsule,delayed 20 mg PO DAILY 09/21/24 10/22/24 release triamcinolone acetonide 0.1 % 1 applic topical BID #30 grams 09/21/24 10/22/24 topical cream doxycycline hyclate 100 mg capsule 100 mg PO BID #5 caps 12/09/24 Previous Rx's ?Medication ?Instructions ?Recorded albuterol sulfate 90 mcg/actuation 2 puff inhalation Q6H PRN 07/30/20 aerosol inhaler (Ventolin HFA) shortness of breath or wheezing #6.7 grams Compression Stockings #1 ea 03/31/21 acetaminophen 500 mg tablet 1,000 mg (2 x 500 mg) PO Q8H PRN 04/30/24 PRN pain #100 tabs nystatin 100,000 unit/gram topical 1 applic topical TID #30 grams 09/21/24 powder triamcinolone acetonide 0.1 % 1 applic topical BID #30 grams 09/21/24 topical cream doxycycline hyclate 100 mg capsule 100 mg PO BID #5 caps 12/09/24 Allergies Allergy/AdvReac Type Severity Reaction Status Date / Time adhesive tape Allergy Intermediate blisters Verified 10/22/24 08:03 on skin Sulfa (Sulfonamide Allergy Intermediate sister Verified 10/22/24 08:03 Antibiotics) of anaphylaxis per pt aspirin AdvReac Intermediate nosebleeds Verified 10/22/24 08:03 codeine AdvReac Intermediate blackouts Verified 10/22/24 08:03 latex AdvReac Intermediate skin-red Verified 10/22/24 08:03 ithcy spots on skin morphine AdvReac Intermediate becomes Verified 10/22/24 08:03 very ill, vomting gabapentin AdvReac Mild makes me Verified 10/22/24 08:03 sick General Stated Complaint: Chest Pain BENNY: 3 Course Vital Signs Vital signs: Vital Signs Temperature 36.7 C 12/09/24 19:15 Pulse 58 L 12/09/24 19:15 Respiratory Rate 20 12/09/24 19:15 Blood Pressure 166/68 H 12/09/24 19:15 Pulse Oximetry 93 12/09/24 19:15 Temperature 36.7 C 12/09/24 19:15 Temperature Source Oral 12/09/24 19:15 Pulse 58 L 12/09/24 19:15 Respiratory Rate 20 12/09/24 19:15 Blood Pressure 166/68 H 12/09/24 19:15 Blood Pressure Position Sitting 12/09/24 19:15 Pulse Oximetry 93 12/09/24 19:15 Oxygen Delivery Method Room Air 12/09/24 19:15 Oxygen Flow Rate 0 12/09/24 19:15 Medical Decision Making Quality:SDOH Health Related Social Needs: No Data to Display PFSH All Active Problems (Updated 12/09/24 @ 22:59 by Ricky Parra MD) Asthma exacerbation (Acute) Stiffness of left hand joint (Acute) 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) Acute Lyme disease (Acute) Heart block, AV (Acute) Adult failure to thrive (Acute) Fever of unknown origin (Acute) Hypoxemia (Acute) Fever (Acute) DVT (deep venous thrombosis) (Chronic) CHF (congestive heart failure) (Acute) Forehead abrasion (Acute) Fall at home (Acute) Excessive cerumen in both ear canals (Acute) Tinnitus (Acute) Unspecified atherosclerosis of [place] arteries of extremities, bilateral legs (Acute) [facility] 07/14/22.[facility] Onychomycosis of toenail (Acute) [facility] 07/14/22.HE Arthropathy of left shoulder (Acute) Steroid injection: 10/05/23; 06/22/2023; 02/16/2023; 05/02/22 (more injections previously) Bradycardia (Acute) Family history of cardiac pacemaker (Acute) Encounter for medication review and counseling (Acute) Edema of lower extremity (Acute) Worsening edema, making leg pain worse .. Poor tolerance of compression .. trying lt compression [ ] 12/2020 Chronic neck pain (Chronic) Some relief with PT .. Neck fullness (Acute) Sensation of firmness, swelling (vs neck pain that PT is working on) .. subacute, with high anxiety.. Family history of thyroid disease (Chronic) Hx of family members being told nothing wrong then ID disease .. high anxiety. Sensorineural hearing loss (SNHL) of both ears (Acute) Leg pain, bilateral (Acute) Pt c/o notable leg pain, not just 2' edema ... improves with rest ..[ ] FLORES to eval for claudication Vertigo (Acute) Acute on chronic ... presented to ED, CVA ruled out (04/2021). ENT seen. Small vessel disease, cerebrovascular (Chronic) per MRI, 04/2018 (Hospitalized to r/o CVA .. DDx incl TIA, but most probably VERTIGO) HTN (hypertension) (Chronic) Mostly managed, good today, 09/28/18, ik. 134/68 07/30/19. Dysphagia (Acute) Acute on chronic, fluids>solids (Hx terrible choking resolved, but noting difficulty again).. CKD (chronic kidney disease) stage 3, GFR 30-59 ml/min (Chronic) @ baseline, 03/2021 (Cr 1.2/GFR 43). Dupuytren's contracture of left hand (Acute) small finger Trigger finger, left middle finger (Acute) Tinnitus, bilateral (Acute) Arthritis of right hand (Acute) Arthritis of left hand (Acute) Obstructive sleep apnea (Chronic) 05/22/20 CPAP Pulmonary hypertension (Chronic) Acute systolic CHF (congestive heart failure) (Acute) Bradycardia (Acute) Chest pain (Acute) Foot pain, right (Acute) pain, deformity, 5th toe swollen, curved Tendinitis of left rotator cuff (Chronic) Subacromial injection: 02/16/23; 05/02/22; 05/17/2021; 04/13/2020; 07/12/2019 Fatigue (Chronic) Hx low normal Hgb, with elevated MCV (Ddx borderline macrocytic anemia) .. Folate, B12 WNL. Vit D improved (2018). TSH, LFTs WNL. May retest, but 12/2018 shows baseline, w/o acute changes/deficiency. Bilateral knee pain (Acute 05/02/14) Idiopathic peripheral neuropathy (Acute 06/15/12) Osteoporosis (Acute 02/27/14) L wrist T = -3.7 01/2014; but FRAX: 11.4 risk major, 2.6 risk of hip: Rx not recommended Osteopenia (Acute 04/27/06) Pain in lower limb (Acute 05/22/12) Patellar tendinitis (Acute) INjection from Dr. Souza, hurt going but helped pain freatly. Able to walk much better, 10/2018 Hip fracture (Acute) Spinal stenosis at L4-L5 level (Chronic) Closed right hip fracture (Acute) Anxiety (Chronic 02/20/15) Obesity with body mass index 30 or greater (Chronic) BMI 38.2 (if still 5'1) 08/2013 Cough (Acute) recurrent cough, ?allergic rhinnitis, responsive to nasal steroid?; 12/2014 Dysgeusia (Acute 12/15/15) Gastroesophageal reflux disease (Chronic) responds to OTC Prilosec . Ranitidine tried, did not help 06/2019 [ ] return to PPI? 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 Much improved, 11/02/18. Pain in knee region after total knee replacement (Acute 04/03/17) Rt and Lt TKA - Dr. Gonzalez Bilateral corticosteroid injections: 10/10/18 Ocular rosacea (Chronic) question ocular rosacea and mild facial rosacea ([facility] Dr. 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 Asymptomatic. c/o Heart Fluttering 06/2019 .. >[place], 07/2019 .. NSR w/ occ SVT. No AFib. Medical History Asthma Breast pain, left Nail abnormalities (02/27/14) L hand multiple nails; Dr Blair, terbinafine rx toe nails too Displaced intertrochanteric fracture of right femur, subsequent encounter for closed fracture with routine healing (02/12/16) Nail abnormality Obesity Dysgeusia Chest pain GERD (gastroesophageal reflux disease) Prehypertension Intertrigo Mixed stress and urge urinary incontinence Gross hematuria Osteopenia Right arm pain Hyperlipidemia pt. states she is unsure if she has this Head ache Multiple fractures of right femur pt states she fractured her hip Anxiety Nocturia Osteoporosis Multiple joint pain Lumbago Idiopathic peripheral neuropathy Surgical History History of repair of right hip joint History of esophagogastroduodenoscopy (EGD) (~10/15/18) flexible laryngoscopy (03/12/15) Dr Villatoro egd (05/10/16) Replacement of total knee joint Right arthroscopic rtotator cuff repair (04/22/13) RIGHT FOOT FX REPAIR section X4 Open Carpal Tunnel release Hysterectomy, Laproscopic Hemorrhoidectomy Colonoscopy - IV Sedation Cholecystectomy Bilateral salpingectomy with oophorectomy BILATERAL TKA (10/01/12) DR. VANDANA GONZALEZ Family History Mother , Fluid buildup at age 72. Diabetes did not have diabetes Personal history of malignant neoplasm Asthma Father , AD,blood clot at age 69. Alzheimer's disease Son Asthma Son No problems noted. Son No problems noted. Daughter No problems noted. Sister No problems noted. Sister Personal history of malignant neoplasm Sister Personal history of malignant neoplasm Sister No problems noted. 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
--- NOTE | 2024-12-09 20:31 | DI.RAD_ITS ---
Exam(s) XR PORTABLE CHEST AP EXAM: XR PORTABLE CHEST AP CLINICAL HISTORY: Chest pain. TECHNIQUE: 2D digital imaging was performed. COMPARISON: CR,XR XR CHEST 2V PA LATERAL from 04/30/2024 FINDINGS: Single AP portable view. Chest leads in place. Heart size is upper normal. The mediastinum is not widened. Lungs are clear. No infiltrates nor obvious pleural effusions. IMPRESSION: No acute pulmonary findings on this single AP portable view of the chest. DATA REPOSITORY: RADIATION DOSE DELIVERED:
[2024-12-09 20:45] LABS: Abs Immature Grans 0.02 10^3/uL (0.0-0.06); Absolute Basophil Count 0.01 10^3/uL (0.0-0.2); Absolute Eosinophil Count 0.09 10^3/uL (0.0-0.7); Absolute Lymphocyte Count 2.16 10^3/uL (1.2-3.4); Absolute Monocyte Count 0.53 10^3/uL (0.1-0.8); Absolute Neutrophil Count 3.76 10^3/uL (1.2-6.7); Basophils % 0.2 %; Eosinophils % 1.4 %; HCT 38.6 % (36.0-46.0); HGB 12.7 g/dL (11.2-15.7); Immature Grans % 0.3 %; Lymphocytes % 32.9 %; MCH 30.7 pg (27.0-33.0); MCHC 32.9 % (32.0-36.0); MCV 93 fL (80-95); MPV 10.1 fL (8.0-11.0); Monocytes % 8.1 %; Neutrophils % 57.1 %; Platelet Count 205 10^3/uL (130-400); RBC 4.14 10^6/uL (3.93-5.22); RDW 13.3 % (11.7-14.6); RDW-SD 45.2 fL; WBC 6.57 10^3/uL (4.4-10.8)
[2024-12-09 21:00] LABS: Anion Gap 4.7 mmol/L (3-11); BUN 25 mg/dL (7-18); CO2 32.3 mmol/L (21.0-32.0); CREATININE 1.3 mg/dL (0.55-1.02); Calcium 9.4 mg/dL (8.5-10.1); Chloride 104 mmol/L (98-107); Glucose 104 mg/dL (74-106); Potassium 3.4 mmol/L (3.5-5.1); Sodium 141 mmol/L (136-145); Troponin I 12 ng/L (<or=51)
--- NOTE | 2024-12-09 21:25 | DI.VRAD_ITS ---
PROCEDURE INFORMATION: Exam: XR Chest Exam date and time: 12/09/2024 8:31 PM Age: 84 years old Clinical indication: Other: Chest pain TECHNIQUE: Imaging protocol: Radiologic exam of the chest. Views: 1 view. COMPARISON: CT CHEST/ABD/PEL W 05/10/2024 5:05 PM FINDINGS: Lungs: Minimal left basilar atelectasis and/or scarring. No focal consolidations or pulmonary edema. Pleural spaces: Normal. Heart/Mediastinum: Normal. Vasculature: Atherosclerotic vascular disease. Atherosclerotic vascular disease. Bones/joints: Degenerative changes of the acromioclavicular and glenohumeral joints. Multilevel thoracic spine degenerative disc space narrowing and osteophyte formation. IMPRESSION: No acute findings. Dictated and Authenticated by: Nima Sahu MD. Orderin Aida García MD
[2024-12-09 21:41] LABS: Troponin I 13 ng/L (<or=51)
[2024-12-09 22:14] LABS: D-Dimer 798 ng/mlFEU (<500)
[2024-12-09] MEDS: Doxycycline Hyclate 100 MG CAP PO (23:36)
[2024-12-09] MEDS: Dexamethasone 4 MG TAB 8 MG PO (23:36)
[2024-12-09] MEDS: Budesonide/Formoterol 160/4.5 6 GM 60 PUFF INH IH (23:36)
[2024-12-10 04:27] VITALS: RESP 16
== END 2024-12-09 23:41 | disposition home or self-care (01) ==
PROVIDERS: Emergency Provider Emergency Medicine; PCP Nurse Practitioner Family
DX: J44.1 Chronic obstructive pulmonary disease with (acute) exacerbation (principal); E78.5 Hyperlipidemia, unspecified; I12.9 Hypertensive chronic kidney disease with stage 1 through stage 4 chronic kidney disease, or unspecified chronic kidney disease; N18.30 Chronic kidney disease, stage 3 unspecified; Z86.718 Personal history of other venous thrombosis and embolism; Z79.01 Long term (current) use of anticoagulants
CPT/HCPCS: 80048; 93005; 99285; 71045; 84484; 85025; 85379; 93010; 99284; J8540